=== PATIENT | female | born 1955 | race Caucasian/White ===

== ENCOUNTER 2017-04-10 11:56 | Emergency (ER) | payer BC ==
[2017-04-10 12:05] VITALS: BP 139/89
--- NOTE | 2017-04-10 14:02 | XRAY Preliminary Report ---
Exam: XR Ankle 3 View RT IMPRESSION: 1. Posterior malleolar fracture, with minimal displacement. 2. No other definite acute osseous abnormalities. 2. Probable soft tissue swelling of the ankle, versus patient body habitus. [facility] SITE ID: [id number]
--- NOTE | 2017-04-10 14:04 | XRAY Preliminary Report ---
Exam: XR Knee 3 View LT IMPRESSION: 1. No definite acute abnormality of the left knee. 2. Status post arthroplasty, with expected appearance. [facility] SITE ID: [id number]
--- NOTE | 2017-04-10 14:05 | XRAY Report ---
EXAM: RIGHT ANKLE RADIOGRAPHY EXAM DATE: 04/10/2017 01:44 PM. CLINICAL HISTORY: Ankle injury from falling. COMPARISON: None. TECHNIQUE: 3 views. FINDINGS: Bones: Posterior malleolar fracture, with very minimal displacement. No other definite acute fracture or bone lesion. Achilles calcaneal spur and some apparent mild spurring at the dorsal margin of the anterior talus. Linear calcification adjacent plantar margin of the posterior calcaneus is likely chr onic. Joints: Normal. No effusion. No subluxations. The ankle mortise is normally aligned. Soft Tissues: Probable medial and lateral soft tissue swelling, versus patient body habitus. IMPRESSION: 1. Posterior malleolar fracture, with minimal displacement. 2. No other definite acute osseous abnormalities. 2. Probable soft tissue swelling of the ankle, versus patient body habitus. [facility] Referring Provider Line: [phone] SITE ID: [id number]
--- NOTE | 2017-04-10 14:07 | XRAY Report ---
EXAM: LEFT KNEE RADIOGRAPHY EXAM DATE: 04/10/2017 01:45 PM. CLINICAL HISTORY: Fell onto knees. COMPARISON: None. TECHNIQUE: 3 views. FINDINGS: Bones: No definite fractures or bone lesions. Tiny linear calcific density anterior to the distal fem ur, just above the prosthetic component, likely represents an incidental chronic calcification. Joints: Status post arthroplasty with expected appearance and alignment. Soft Tissues: Normal. No soft tissue swelling. IMPRESSION: 1. No definite acute abnormality of the left knee. 2. Status post arthroplasty, with expected appearance. [facility] Referring Provider Line: [phone] SITE ID: [id number]
--- NOTE | 2017-04-10 14:07 | XRAY Preliminary Report ---
Exam: XR Knee 3 View RT IMPRESSION: 1. Findings suspicious for nondisplaced proximal fibular fracture. Clinical correlation for site of s ymptoms is recommended. 2. Moderate-sized joint effusion. 3. Status post arthroplasty, with expected appearance. 4. Tiny suprapatellar calcifications are likely chronic and incidental although they are not specific . [facility] SITE ID: [id number]
--- NOTE | 2017-04-10 14:10 | XRAY Report ---
EXAM: RIGHT KNEE RADIOGRAPHY EXAM DATE: 04/10/2017 01:45 PM. CLINICAL HISTORY: Knee injury from falling. COMPARISON: None. TECHNIQUE: 3 views. FINDINGS: Bones: Slight cortical irregularity and some altered density of the proximal fibular neck/head is mynor picious for nondisplaced fracture. No other definite fractures or acute bone lesions. Joints: Status post knee arthroplasty, with expected appearance. No malalignment. Moderate-sized join t effusion. Soft Tissues: Tiny calcific densities superior to the patella likely represent incidental chronic carlos cifications although tiny loose bodies or fracture fragments are not definitely excluded. IMPRESSION: 1. Findings suspicious for nondisplaced proximal fibular fracture. Clinical correlation for site of s ymptoms is recommended. 2. Moderate-sized joint effusion. 3. Status post arthroplasty, with expected appearance. 4. Tiny suprapatellar calcifications are likely chronic and incidental although they are not specific . [facility] Referring Provider Line: [phone] SITE ID: [id number]
--- NOTE | 2017-04-10 14:16 | ED Physician Documentation ---
PD HPI Fall - Stated complaint Stated Complaint: BILAT LEGS INJ/GLF - Chief complaint Chief Complaint: Ext Problem - History obtained from History obtained from: Patient - History of Present Illness Mechanism of injury: Tripped Fall distance: Standing position Where injury occurred: Home Timing - onset: How many days ago (3) Injury(ies) location: Right Lower Extremity, Left Lower Extremity Quality of pain: Pain Worsens with: Movement, Palpation, Other (weightbearing) - Treatment prior to arrival Treatment prior to arrival: Percocet - Additional information Additional information: The patient is a 61-year-old female with history of bilateral total knee replacements, who presents with pain in her right ankle, right knee, and left knee. She fell 3 days ago when she tripped while getting out of the shower at home. She presents now because the pain has not been getting better. It is worse with weightbearing. She has been using a walker to assist with ambulation. In addition to bilateral total knee replacements she has a history of rheumatoid arthritis, for which she has been prescribed Percocet. Review of Systems Constitutional: denies: Fever Ears: denies: Tinnitus/ringing Nose: denies: Congestion Throat: denies: Sore throat Cardiac: denies: Chest pain / pressure Respiratory: denies: Dyspnea, Cough GI: denies: Abdominal Pain, Vomiting : denies: Dysuria Skin: denies: Rash Musculoskeletal: reports: Extremity pain, Pain with weight bearing. denies: Neck pain, Back pain Neurologic: denies: Focal weakness, Numbness, Headache, Head injury, LOC PD PAST MEDICAL HISTORY - Past Medical History Past Medical History: Yes Endocrine/Autoimmune: Type 2 diabetes, HyPOthyroidism Musculoskeletal: Rheumatoid arthritis Other Past Medical History: sinus infection - Past Surgical History Past Surgical History: Yes Ortho: Knee replacement, Carpal Tunnel surgery - Present Medications Home Medications: Ambulatory Orders Medication Instructions Recorded Confirmed Antihistamine Otc Low Dose Every 04/10/17 Day Ibuprofen 3 tab QID PRN 04/10/17 04/10/17 Levothyroxine [Synthroid] 175 mcg DAILY 04/10/17 04/10/17 Magnesium 250 mg PRN 04/10/17 Methotrexate 10 tab DAILY 04/10/17 04/10/17 Oxycodone HCl/Acetaminophen 1 - 2 tab QID PRN 04/10/17 04/10/17 [Percocet 7.5-325 mg Tablet] Remicade Every 5-6 Weeks For 04/10/17 Infusion metFORMIN [Glucophage] 500 mg BID 04/10/17 04/10/17 traZODone [Desyrel] 100 mg QPM 04/10/17 04/10/17 - Allergies Allergies/Adverse Reactions: Allergies Allergy/AdvReac Type Severity Reaction Status Date / Time No Known Drug Allergies Allergy Verified 04/10/17 12:05 - Social History Does the pt smoke?: No Smoking Status: Never smoker Does the pt drink ETOH?: No Does the pt have substance abuse?: No PD ED PE NORMAL - Vitals Vital signs reviewed: Yes (Borderline hypertension initially.) - General General: Alert and oriented X 3, Other (Overweight female who ambulated into the department with the assistance of a walker.) - HEENT HEENT: Atraumatic, EOMI - Neck Neck: No bony TTP, No JVD - Cardiac Cardiac: RRR, No murmur - Respiratory Respiratory: No respiratory distress, Clear bilaterally - Abdomen Abdomen: Soft, Non tender - Back Back: No CVA TTP, No spinal TTP - Derm Derm: No rash - Extremities Extremities: No calf tenderness / cord, Other (There is tenderness to palpation at the proximal fibular aspect of the right knee. There is swelling and tenderness to palpation at the posterior aspect of the ankle, particularly laterally. There is no tenderness over the fifth metatarsal base or the medial malleolus. Distal neurovascular is intact. The left knee has minimal tenderness to palpation over the prepatellar aspect of the knee, without tenderness over the lateral joint lines. She has full range of motion of the left knee with no instability detected. Distal neurovascular is intact.) - Neuro Neuro: Alert and oriented X 3, No motor deficit, Normal speech Results - Vitals Vitals: Oxygen O2 Source Room air - Rads (name of study) right ankle Radiology: Prelim report reviewed, EMP read contemporaneously, See rad report ( Posterior malleolar fracture, with minimal displacement. No other definite acute osseous abnormalities. Soft tissue swelling of the ankle.) right knee Radiology: Prelim report reviewed, EMP read contemporaneously, See rad report ( Findings suspicious for a nondisplaced proximal fibular fracture. Clinical correlation for site of symptoms is recommended. Moderate sized joint effusion. Status post arthroplasty, with expected appearance. Tiny suprapatellar calcifications are likely chronic and incidental although they are not specific. ) left knee Radiology: Prelim report reviewed, EMP read contemporaneously, See rad report ( No definite acute abnormality of the left knee. Status post arthroplasty, with expected appearance.) Procedures - Splint (location) right knee Splint applied by: Tech Type of splint: Other (Knee immobilizer) Other: Patient tolerated well, Other (Patient has her own walker.) Right ankle Splint applied by: Tech Type of splint: Other (Orthotic boot) Other: Patient tolerated well, No complications, Other (Patient has her own walker.) PD MEDICAL DECISION MAKING - ED course Complexity details: reviewed results, re-evaluated patient, considered differential, d/w patient, d/w family, d/w sap pp consultant ED course: The patient's presentation is significant for fractures of the right proximal fibula and the right posterior malleolus, caused by a trip and fall. Both fractures are nondisplaced. Treatment in the emergency department included application of a right knee immobilizer and an orthotic boot. I discussed her condition with the physician's ice cream freezer assistant on-call for Dr. Sanchez, who is the patient's orthopedic surgeon. She agrees with the above splinting and urgent outpatient follow-up. The patient has previously prescribed Percocet if needed for pain. I discussed with her the results of her x-rays, symptomatic treatment and urgent outpatient orthopedic follow-up, as well as potentially worrisome signs or symptoms that should prompt reevaluation in the emergency department. Departure - Departure Disposition: 01 Home, Self Care Clinical Impression: Fracture of right proximal fibula Qualifiers: Encounter type: initial encounter Fracture type: closed Fracture morphology: unspecified fracture morphology Qualified Code(s): S82.831A - Other fracture of upper and lower end of right fibula, initial encounter for closed fracture Fracture of posterior malleolus of right tibia Qualifiers: Encounter type: initial encounter Fracture type: closed Qualified Code(s): S82.391A - Other fracture of lower end of right tibia, initial encounter for closed fracture Condition: Stable Instructions: ED Fx Ankle General, ED Boot Aircast Walker, ED Fx Lower Ext Follow-Up: [facility] [Provider Group] Sae Sanchez DO [Physician No Access] - Comments: Keep your right leg elevated as much of the time as possible. You can use your previously prescribed Percocet if needed for pain. Use the walking cast boot when walking. Use the knee immobilizer if it provides comfort. Follow up with your control specialist within one to 2 weeks. Call to schedule an appointment. Return to the emergency department if you develop increasing pain or swelling, or otherwise worsening symptoms. Discharge Date/Time: 04/10/17 15:20
== END 2017-04-10 15:20 | disposition home or self-care (01) ==
LOC: ED 11:56
DX: S82.831A Other fracture of upper and lower end of right fibula, initial encounter for closed fracture (principal); S82.391A Other fracture of lower end of right tibia, initial encounter for closed fracture; W18.2XXA Fall in (into) shower or empty bathtub, initial encounter; Y92.002 Bathroom of unspecified non-institutional (private) residence as the place of occurrence of the external cause; Z96.653 Presence of artificial knee joint, bilateral; M06.9 Rheumatoid arthritis, unspecified; E66.3 Overweight; M25.461 Effusion, right knee; E11.9 Type 2 diabetes mellitus without complications; Z79.4 Long term (current) use of insulin
CPT/HCPCS: 99283; 99284

== ENCOUNTER 2017-07-16 14:45 | Emergency (ER) | payer BC ==
[2017-07-16] MEDS ORDERED: HYDROmorphone 1 MG/ML SYRINGE IM STA (15:33)
[2017-07-16] MEDS ORDERED: BUFFERED LIDOCAINE 10 ML SYRINGE ONE (15:34)
[2017-07-16] MEDS ORDERED: HYDROmorphone 1 MG/ML SYRINGE ONE (15:51)
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
[2017-07-16 16:54] VITALS: BP 140/88
== END 2017-07-16 16:54 | disposition home or self-care (01) ==
LOC: ED 14:45
DX: S80.12XA Contusion of left lower leg, initial encounter (principal); V89.2XXA Person injured in unspecified motor-vehicle accident, traffic, initial encounter; M06.9 Rheumatoid arthritis, unspecified; E11.8 Type 2 diabetes mellitus with unspecified complications; Z79.84 Long term (current) use of oral hypoglycemic drugs; Z96.659 Presence of unspecified artificial knee joint
CPT/HCPCS: 10160; 96372; 99283; J1170

== ENCOUNTER 2019-01-09 19:05 | Inpatient (IN) | payer BC, MEDICAID, OTHER ==
[2019-01-09] MEDS ORDERED: diltiaZEM INJ 5 MG/ML VIAL IVP STA ×4 (19:26→22:01)
[2019-01-09 19:27] LABS: BASOPHILS % (AUTO) 0.3 %; EOSINOPHILS # (AUTO) 0.3 10^3/uL (0.0-0.7); EOSINOPHILS % (AUTO) 2.6 %; LYMPHOCYTES % (AUTO) 22.9 %; MEAN CORPUSCULAR HEMOGLOBIN 30.8 pg (27.0-31.0); MEAN CORPUSCULAR HGB CONC 33.8 g/dL (32.0-36.0); MEAN CORPUSCULAR VOLUME 91.1 fL (81.0-99.0); MEAN PLATELET VOLUME 9.9 fL (7.9-10.8); MONOCYTES # (AUTO) 1.1 10^3/uL (0.0-1.0); MONOCYTES % (AUTO) 8.5 %; NEUTROPHILS # (AUTO) 8.6 10^3/uL (1.5-6.6); NEUTROPHILS % (AUTO) 65.7 %; PLT - PLATELET COUNT 208 10^3/uL (130-450); RED CELL DISTRIBUTION WIDTH 13.2 % (12.0-15.0)
--- NOTE | 2019-01-09 19:29 | ED Physician Documentation ---
PD HPI CHEST PAIN - Stated complaint Stated Complaint: CP - Chief complaint Chief Complaint: Cardiac - History obtained from History obtained from: Patient - History of Present Illness Timing - onset: Other (This is a 63-year-old woman with history of type 2 diabetes and rheumatoid arthritis. She had a Remicade infusion 5 days ago and it was noted by the infusion nurse that her heart was "racing". She was relatively asymptomatic then but starting the next day developed progressive shortness of bad breath, upper back pain, fatigue and sweats. There is some chest discomfort but it is mild. No pedal edema. She has no history of heart issues.) Review of Systems Ten Systems: 10 systems reviewed and negative Constitutional: reports: Fatigue, Sweats. denies: Fever, Chills Cardiac: reports: Chest pain / pressure, Palpitations Respiratory: reports: Dyspnea. denies: Cough PD PAST MEDICAL HISTORY - Past Medical History Endocrine/Autoimmune: Type 2 diabetes, HyPOthyroidism Musculoskeletal: Rheumatoid arthritis - Past Surgical History Past Surgical History: Yes Ortho: Knee replacement, Carpal Tunnel surgery - Present Medications Home Medications: Ambulatory Orders Medication Instructions Recorded Confirmed Oxycodone HCl/Acetaminophen 7.5 mg Q4H PRN 04/10/17 01/10/19 [Percocet 7.5-325 mg Tablet] RX: Ibuprofen 600 mg QID PRN 04/10/17 01/10/19 RX: Magnesium 250 mg PO DAILY 04/10/17 01/10/19 RX: Methotrexate 25 mg ORAL Q7D 04/10/17 01/10/19 RX: metFORMIN [Glucophage] 1,000 mg ORAL BID 04/10/17 01/10/19 RX: traZODone [Desyrel] 50 - 100 mg ORAL QPM 04/10/17 01/10/19 RX: Aspirin 81 mg PO DAILY 01/09/19 01/10/19 RX: Folic Acid 4 mg PO DAILY 01/09/19 01/10/19 RX: Potassium Chloride 10 meq PO DAILY 01/09/19 01/10/19 Fluticasone [Flonase] 1 sprays DOMINICK DAILY 01/10/19 01/10/19 Infliximab (Remicade) 600 mg IV .Q5-6WKS 01/10/19 01/10/19 Levothyroxine Sodium [Synthroid] 175 mcg PO QDAC 01/10/19 01/10/19 - Allergies Allergies/Adverse Reactions: Allergies Allergy/AdvReac Type Severity Reaction Status Date / Time No Known Drug Allergies Allergy Verified 01/09/19 19:14 - Social History Does the pt smoke?: No Smoking Status: Never smoker Does the pt drink ETOH?: No Does the pt have substance abuse?: No - Family History Family history: reports: Non contributory PD ED PE NORMAL - Vitals Vital signs reviewed: Yes - General General: Alert and oriented X 3, No acute distress - HEENT HEENT: PERRL, EOMI - Neck Neck: Supple, no meningeal sign, No bony TTP, No JVD - Cardiac Cardiac: Other (Rapid and irregular, no murmur) - Respiratory Respiratory: No respiratory distress, Clear bilaterally - Abdomen Abdomen: Soft, Non tender - Derm Derm: Normal color, Warm and dry - Extremities Extremities: No calf tenderness / cord, Other (Moderate pitting pedal edema, symmetric) - Neuro Neuro: Alert and oriented X 3, Normal speech - Psych Psych: Normal mood, Normal affect Results - Vitals Vitals: Vital Signs - 24 hr 01/09/19 01/09/19 01/09/19 19:10 19:20 19:30 Temperature 36.8 C Heart Rate 189 H 174 H 153 H Respiratory 20 18 19 Rate Blood Pressure 203/156 H 192/147 H 156/129 H O2 Saturation 89 L 95 93 01/09/19 01/09/19 01/09/19 19:38 19:42 19:49 Temperature Heart Rate 123 H 116 H 113 H Respiratory 19 16 20 Rate Blood Pressure 159/146 H 155/127 H 124/101 H O2 Saturation 94 94 94 01/09/19 01/09/19 01/09/19 20:03 20:08 20:13 Temperature Heart Rate 137 H 137 H 115 H Respiratory 21 23 18 Rate Blood Pressure 131/100 H 133/99 H 154/123 H O2 Saturation 94 94 93 01/09/19 01/09/19 01/09/19 20:28 20:35 20:43 Temperature Heart Rate 102 H 115 H 120 H Respiratory 18 22 22 Rate Blood Pressure 124/101 H 102/68 127/98 H O2 Saturation 94 93 93 01/09/19 01/09/19 01/09/19 20:53 21:08 21:15 Temperature Heart Rate 112 H 106 H 112 H Respiratory 20 22 20 Rate Blood Pressure 143/95 H 130/87 H 157/93 H O2 Saturation 92 93 92 01/09/19 01/09/19 01/09/19 21:30 21:40 22:18 Temperature Heart Rate 117 H 104 H 126 H Respiratory 22 22 20 Rate Blood Pressure 159/96 H 173/131 H O2 Saturation 88 L 91 L 01/09/19 01/09/19 01/09/19 22:24 22:30 22:38 Temperature 36.9 C Heart Rate 107 H 114 H Respiratory 19 20 18 Rate Blood Pressure 150/81 H 138/115 H 156/113 H O2 Saturation 92 93 93 01/09/19 01/09/19 01/09/19 22:43 22:50 22:55 Temperature Heart Rate 94 97 92 Respiratory 16 22 18 Rate Blood Pressure 134/94 H 124/83 H 119/85 H O2 Saturation 92 93 93 Oxygen O2 Source Nasal cannula Oxygen Flow Rate 2 - EKG (time done) 1913 Rate: Rate (enter#) (154) Rhythm: Atrial fibrillation [place]: Normal Intervals: Normal [place] QRS: Normal Ischemia: ST depression (lateral) Computer interpretation: Agree with computer - Labs Labs: Laboratory Tests 01/09/19 01/09/19 01/09/19 19:18 19:18 19:18 WBC 13.0 H RBC 4.20 Hgb 13.0 Hct 38.3 MCV 91.1 MCH 30.8 MCHC 33.8 RDW 13.2 Plt Count 208 MPV 9.9 Neut # (Auto) 8.6 H Lymph # (Auto) 3.0 [place] # (Auto) 1.1 H Eos # (Auto) 0.3 Baso # (Auto) 0.0 Absolute Nucleated RBC 0.00 Nucleated RBC % 0.0 Sodium 132 L Potassium 3.9 Chloride 97 L Carbon Dioxide 27 Anion Gap 8.0 BUN 10 Creatinine 0.7 Estimated GFR (MDRD) 85 L Glucose 199 H Lactic Acid Calcium 9.1 Total Bilirubin 1.8 H AST 29 ALT 49 Alkaline Phosphatase 101 Troponin I < 0.04 B-Natriuretic Peptide Total Protein 8.6 H Albumin 3.3 Globulin 5.3 H Albumin/Globulin Ratio 0.6 L Lipase 19 L TSH 01/09/19 01/09/19 01/09/19 19:18 19:18 21:01 WBC RBC Hgb Hct MCV MCH MCHC RDW Plt Count MPV Neut # (Auto) Lymph # (Auto) [place] # (Auto) Eos # (Auto) Baso # (Auto) Absolute Nucleated RBC Nucleated RBC % Sodium Potassium Chloride Carbon Dioxide Anion Gap BUN Creatinine Estimated GFR (MDRD) Glucose Lactic Acid 1.2 Calcium Total Bilirubin AST ALT Alkaline Phosphatase Troponin I B-Natriuretic Peptide 306 H Total Protein Albumin Globulin Albumin/Globulin Ratio Lipase TSH 3.50 PD MEDICAL DECISION MAKING - ED course ED course: This is a 63-year-old woman with new onset rapid atrial fibrillation with mild hypoxemia. She was also found to have right lower lobe pneumonia with a small pleural effusion. We did go ahead and anticoagulate her with Xarelto, CHADS VASC2 Score 2. For the pneumonia she was cultured up and given Rocephin and Zithromax. She was given divided dose of diltiazem with pretty good rate control, totaling 30 mg IV, her heart rate came down to about 110 or so and she was also given an oral dose of diltiazem. She was modestly hypoxemic and came down to about 88% on room air, probably combination of mild CHF and pneumonia. Spoke with Dr. Santos for admission at 9:58 PM. Her HR went back up prior to admit and given another dose of IV dilt followed by metoprolol with better rate control. Cardioversion not offered as she has likely been in afib >48 hrs. - Critical Care Time(min): 42 Time Includes: Direct patient care, Review records, Reassess patient, Document care, Coordinate care, Medical consult, Family consult for tx dec Data interpretation: Labs Procedures included in critical care time: Peripheral IV Procedures excluded from critical care time: EKG Departure - Departure Disposition: [address] [facility] DC/Xfer Clinical Impression: Atrial fibrillation with RVR, Congestive heart failure, Pneumonia, Hypoxemia Condition: Serious Discharge Date/Time: 01/09/19 23:45
[2019-01-09 19:46] LABS: ALBUMIN 3.3 g/dL (3.2-5.5); ALBUMIN/GLOBULIN RATIO 0.6 (1.0-2.2); BILIRUBIN,TOTAL 1.8 mg/dL (0.2-1.0); CALCIUM 9.1 mg/dL (8.5-10.3); CREATININE 0.7 mg/dL (0.4-1.0); TOTAL PROTEIN 8.6 g/dL (6.7-8.2)
[2019-01-09] MEDS ORDERED: diltiaZEM CD 120 MG CAPSULE PO STA (20:17)
[2019-01-09] MEDS ORDERED: RIVAROXABAN 15 MG TABLET PO STA (20:17)
--- NOTE | 2019-01-09 20:29 | XRAY Report ---
Reason: dyspnea Procedure Date: 01/09/2019 Accession Number: [id number] / [id number] Procedure: XR - Chest 1 View X-Ray CPT Code: 04796 FULL RESULT: EXAM: CHEST RADIOGRAPHY EXAM DATE: 01/09/2019 07:51 PM. CLINICAL HISTORY: Dyspnea. COMPARISON: 04/22/2009 12:31 PM. TECHNIQUE: 1 view. FINDINGS: Lungs/Pleura: Hazy infiltrate in the right lung predominantly the lower lobe. Clear left lung. Trace bilateral pleural effusions. No consolidation or pneumothorax. Mediastinum: Overall heart size upper limit of normal for AP technique. Upper lobe vessels not distended. Other: None. IMPRESSION: Right sided infiltrates with tiny pleural effusions. RADIA
[2019-01-09] MEDS ORDERED: cefTRIAXone 1 GM in SODIUM CHLORIDE 0.9% MINIBAG 100 ML IV STA (20:45)
[2019-01-09] MEDS ORDERED: AZITHROMYCIN INJ 500 MG in SODIUM CHLORIDE 0.9% 250 ML IV STA (20:45)
[2019-01-09] MEDS ORDERED: ALBUTEROL NEB 2.5 MG/3 ML INH STA (21:40)
[2019-01-09] MEDS ORDERED: METOPROLOL 5 MG/5 ML VIAL IVP STA (22:23)
[2019-01-09] MEDS ORDERED: MORPHINE 2 MG/ML CARPUJECT IVP STA (22:25)
[2019-01-09] MEDS ORDERED: SODIUM CHLORIDE FLUSH 0.9% 10 ML SYRINGE IVP PRN (22:56)
[2019-01-09] MEDS ORDERED: IOVERSOL 320 100 ML VIAL IVP ONE ×2 (22:56→23:24)
[2019-01-09] MEDS ORDERED: SODIUM CHLORIDE 0.9% 1,000 ML IV SCH (23:00)
--- NOTE | 2019-01-10 00:13 | CT Report ---
Reason: PE Protocol, back pain, hypoxemia Procedure Date: 01/09/2019 Accession Number: [id number] / [id number] Procedure: CT - ANGIO CHEST W/WO CPT Code: FULL RESULT: EXAM: CT ANGIOGRAM CHEST EXAM DATE: 01/09/2019 11:26 PM. CLINICAL HISTORY: PE protocol, back pain, hypoxemia. COMPARISON: CHEST 1 VIEW 01/09/2019 7:51 PM. TECHNIQUE: Routine helical imaging was performed through the chest in the pulmonary arterial phase. IV Contrast: 80 mL Optiray 320. Reconstructions: Coronal 3D MIP reconstructions.Sagittal and coronal. In accordance with CT protocol optimization, one or more of the following dose reduction techniques were utilized for this exam: automated exposure control, adjustment of mA and/or KV based on patient size, or use of iterative reconstructive technique. FINDINGS: Mediastinum: Prominent heart size. No thoracic aortic aneurysm. Multiple prominent mediastinal lymph nodes. Subcarinal lymphadenopathy 1.1 cm. Mildly prominent bilateral hilar lymph nodes. Small amount of gas in the left brachiocephalic vein. No evidence for pulmonary emboli. Lungs: Small bilateral pleural effusions. Diffuse bilateral interlobular septal thickening and airspace disease in the lungs, right greater than left. No pneumothorax. Upper Abdomen: Mild reflux of contrast in the hepatic veins. Multiple moderate sized calcified gallstones. Possible mild pericholecystic fluid and acute cholecystitis is possible. Recommend a right upper quadrant ultrasound to further evaluate as clinically indicated. Periportal lymphadenopathy, largest measuring 1.2 cm. Portacaval lymphadenopathy 1.2 cm. A couple of left adrenal masses, the more superior one measures 1.4 x 1.7 cm and the more inferior one measuring 1.3 x 1.6 cm. Bones: No acute bone findings. IMPRESSION: 1. No evidence for pulmonary emboli. 2. Small bilateral pleural effusions. Diffuse bilateral interlobular septal thickening and airspace disease in the lungs, right greater than left, could represent pulmonary edema. Pneumonia is also possible. 3. Multiple prominent mediastinal and hilar lymph nodes. Subcarinal lymphadenopathy. These could be reactive, however, metastasis is not excluded and follow-up is recommended. 4. Multiple moderate sized calcified gallstones. Possible mild pericholecystic fluid and acute cholecystitis is possible. Recommend a right upper quadrant ultrasound to further evaluate as clinically indicated. 5. Periportal lymphadenopathy. 6. A couple of left adrenal masses. If there is low risk for malignancy, recommend a one-year follow-up MRI or CT adrenal mass protocol. If there is high risk for malignancy/metastasis, more immediate workup recommended. 7. See above. RADIA
[2019-01-10] MEDS: SODIUM CHLORIDE FLUSH 0.9% 10 ML SYRINGE IVP SCH ×3 (00:22→17:08)
--- NOTE | 2019-01-10 00:29 | HISTORY & PHYSICAL EXAMINATION ---
Chief Complaint - Chief Complaint Chief Complaint: dyspnea History of Present Illness - Admitted From Admitted From:: [facility] ED - History Obtained From Records Reviewed: yes History obtained from: patient - History of Present Illness HPI Comment/Other: Patient seen on 01/09/19 at 10:30pm Patient is a 63 y/o obese female with medical history significant for DM II, hypothyroidism, rheumatoid arthritis on remicade and methotrexate and JAGDISH on home CPAP. She presented to the ED today with complain of dyspnea which started on Tuesday. She decided to come in today because she felt her symptoms have gotten worse over the past 3 days.. She also was worried that she may be having a coronary event. She denies chest pain or tightness but reports chest pressure and back pain. She was found to be tachycardic with rates as high as 150-170 in the ED. It was an irregularly irregular rhythm. She has rheumatoid arthritis and gets remicade. At her last infusion, she was told she was tachycardic. She was asymptomatic at the time. She attempted using her husbands albuterol inhaler at home but reports minimal relief of her dyspnea from using it. She also complained of a diffuse abdominal pain. She has been constipated for a couple day now. She denies fever or chills In the ED work up included CBC, BMP and chest xray. As a result of findings of possible pneumonia and new atrial fibrillation with rvr, she is being admitted for further evaluation and treatment. History - Past Medical History Respiratory: reports: Sleep apnea, CPAP use Endocrine/Autoimmune: reports: Type 2 diabetes, HyPOthyroidism Musculoskeletal: reports: Rheumatoid arthritis MRSA Hx?: No - Past Surgical History Ortho: reports: Knee replacement, Carpal Tunnel surgery - Family & Social History Family History Comment/Other: mother: . had lung cancer. sister: from thyroid cancer Living arrangement: At home Living Situation: With spouse/s.o. - Substance History Use: Uses substance without health or social issues: NONE - POLST Patient has POLST: No Meds/Allgy - Home Medications Home Medications: Ambulatory Orders Medication Instructions Recorded Confirmed Ibuprofen 3 tab QID PRN 04/10/17 07/16/17 Levothyroxine [Synthroid] 175 mcg DAILY 04/10/17 07/16/17 Magnesium 250 mg PO DAILY 04/10/17 07/16/17 Methotrexate 10 tab ORAL DAILY 04/10/17 07/16/17 Oxycodone HCl/Acetaminophen 1 - 2 tab QID PRN 04/10/17 07/16/17 [Percocet 7.5-325 mg Tablet] Remicade Every 5-6 Weeks For 1 tab PO DAILY 04/10/17 07/16/17 Infusion metFORMIN [Glucophage] 1,000 mg ORAL BID 04/10/17 07/16/17 traZODone [Desyrel] 100 mg ORAL QPM 04/10/17 07/16/17 Aspirin 81 mg PO DAILY 01/09/19 01/09/19 Folic Acid 4 mg PO DAILY 01/09/19 01/09/19 Potassium Chloride 10 meq PO DAILY 01/09/19 01/09/19 - Allergies Allergies/Adverse Reactions: Allergies Allergy/AdvReac Type Severity Reaction Status Date / Time No Known Drug Allergies Allergy Verified 01/09/19 19:14 Review of Systems - Constitutional Constitutional: denies: Fever, Chills, Malaise - Eyes Eyes: denies: Pain, Irritation, Blurred vision, Dipolpia - Ears, Nose & Throat Ears, Nose & Throat: denies: Ear pain, Hearing loss, Tinnitus, Vertigo - Cardiovascular Cariovascular: reports: Irregular heart rate. denies: Chest pain, Edema, Lightheadedness, Syncope - Respiratory Respiratory: reports: SOB at rest, Apnea. denies: Cough, Wheezing - Gastrointestinal Gastrointestinal: reports: Abdominal pain, Constipation. denies: Abdominal distention, Diarrhea, Nausea, Vomiting - Musculoskeletal Musculoskeletal: reports: Back pain. denies: Muscle pain - Integumentary Integumentary: denies: Rash, Pruritis, Lesions, Dryness - Neurological Neurological: denies: General weakness, Headache, Dizziness - Psychiatric Psychiatric: denies: Depression, Anxiety - Endocrine Endocrine: denies: Polyuria, Polydypsia - Hematologic/Lymphatic Hematologic/Lymphatic: denies: Bruising, Petechiae Prior Level of Functionality: Lives at home with . Actively involve in daughter and grand daughter's life. Independent of activities of daily living Exam - Vital Signs Vital Signs: Vital Signs x48h Temp Pulse Resp BP Pulse Ox 01/09/19 23:35 87 18 122/77 93 01/09/19 23:30 91 17 117/79 92 01/09/19 23:03 92 19 118/70 93 01/09/19 22:55 92 18 119/85 H 93 01/09/19 22:50 97 22 124/83 H 93 01/09/19 22:43 94 16 134/94 H 92 01/09/19 22:38 114 H 18 156/113 H 93 01/09/19 22:30 107 H 20 138/115 H 93 01/09/19 22:24 36.9 C 19 150/81 H 92 01/09/19 22:18 126 H 20 173/131 H 91 L 01/09/19 21:40 104 H 22 01/09/19 21:30 117 H 22 159/96 H 88 L 01/09/19 21:15 112 H 20 157/93 H 92 01/09/19 21:08 106 H 22 130/87 H 93 01/09/19 20:53 112 H 20 143/95 H 92 01/09/19 20:43 120 H 22 127/98 H 93 01/09/19 20:35 115 H 22 102/68 93 01/09/19 20:28 102 H 18 124/101 H 94 01/09/19 20:13 115 H 18 154/123 H 93 01/09/19 20:08 137 H 23 133/99 H 94 01/09/19 20:03 137 H 21 131/100 H 94 01/09/19 19:49 113 H 20 124/101 H 94 01/09/19 19:42 116 H 16 155/127 H 94 01/09/19 19:38 123 H 19 159/146 H 94 01/09/19 19:30 153 H 19 156/129 H 93 01/09/19 19:20 174 H 18 192/147 H 95 01/09/19 19:10 36.8 C 189 H 20 203/156 H 89 L - Physical Exam General Appearance: positive: Alert, Moderate distress Eyes Bilateral: positive: Normal inspection, PERRL, EOMI, No scleral icterus ENT: positive: ENT inspection nml, Pharynx nml Neck: positive: Nml inspection, No JVD, Trachea midline Respiratory: positive: Chest non-tender, No respiratory distress, Breath sounds nml. negative: Wheezes, Rales, Rhonchi Cardiovascular: positive: No murmur, Irregularly irregular, Tachycardia Abdomen: positive: Non-tender, Nml bowel sounds, No distention. negative: Guarding, Rebound Back: positive: Nml inspection Skin: positive: Color nml, No rash, Warm, Dry Extremities: positive: Non-tender, Nml appearance, No pedal edema Neurologic/Psychiatric: positive: Oriented x3, CN's nml (2-12), Motor nml, Sensation nml Sepsis Event Note (H) - Evaluation Current Stage of Sepsis: Sepsis Possible source of Sepsis: positive: Pulmonary - Sepsis Criteria Sepsis Criteria: Recorded Heart Rate greater than 90 bpm, WBC count greater than 12,000 or less than 4000 Conclusion/Plan - Problem List (1) Atrial fibrillation with RVR Conclusion/Plan: Etiology undetermined ?2/2 Community acquired pneumonia Treating with rocephin and azithromycin Thyroid unlikely as TSH is within normal range ?Cardiac source: Trending troponin X 2 more. 2D echo pending Patient received diltiazem IV and metoprolol IV Rates improved. Diltiazem 60mg po qid ordered. Will hold for SBP< 100 or pulse < 60 CT Angio negative for PE CHAD2 Score of 2 Patient given 15mg po of xarelto in the ED Will continue for atrial fibrillation (2) Community acquired bacterial pneumonia Conclusion/Plan: On rocephin and azithromycin (3) Diabetes mellitus, type II Conclusion/Plan: Metformin held. Low dose SSI. Accu checks Qualifiers: Diabetes mellitus complication status: without complication (4) Rheumatoid arteritis Conclusion/Plan: Remicade and methotrexate on hold while treating potential pneumonia (5) Hypothyroidism Conclusion/Plan: Resume home synthroid once verified (6) JAGDISH on CPAP Conclusion/Plan: Continue using CPAP (7) Hypertension Conclusion/Plan: New Patient given metoprolol Will monitor Qualifiers: Hypertension type: essential hypertension Qualified Code(s): I10 - Essential (primary) hypertension - Lab Results Fish Bones: 01/09/19 19:18 01/09/19 19:18 Core Measures - Anticipated LOS I expect patient to be DC'd or transferred within 96 hours.: Yes - DVT/VTE - Prophylaxis VTE/DVT Device ordered at admit?: Yes VTE/DVT Prophylaxis med ordered at admit?: Yes
[2019-01-10] MEDS: diltiaZEM 30 MG TABLET PO SCH ×2 (01:05→07:04)
[2019-01-10] MEDS: ACETAMINOPHEN 325 MG TABLET PO PRN ×2 (01:20→08:25)
[2019-01-10 01:27] LABS: HB2 TOTAL 12.7 g/dL; HEMOGLOBIN A1C 0.76 g/dL; HEMOGLOBIN A1C % 7.6 % (4.6-6.2)
[2019-01-10 05:03] LABS: BASOPHILS # (AUTO) 0.1 10^3/uL (0.0-0.1); BASOPHILS % (AUTO) 0.7 %; EOSINOPHILS # (AUTO) 0.2 10^3/uL (0.0-0.7); EOSINOPHILS % (AUTO) 1.6 %; HGB - HEMOGLOBIN 11.5 g/dL (12.0-16.0); LYMPHOCYTES # (AUTO) 2.3 10^3/uL (1.5-3.5); LYMPHOCYTES % (AUTO) 17.6 %; MEAN CORPUSCULAR HEMOGLOBIN 30.8 pg (27.0-31.0); MEAN CORPUSCULAR VOLUME 93.1 fL (81.0-99.0); MEAN PLATELET VOLUME 9.9 fL (7.9-10.8); NEUTROPHILS # (AUTO) 9.3 10^3/uL (1.5-6.6); NEUTROPHILS % (AUTO) 72.1 %; PLT - PLATELET COUNT 176 10^3/uL (130-450); RED BLOOD COUNT 3.75 10^6/uL (4.20-5.40); RED CELL DISTRIBUTION WIDTH 13.1 % (12.0-15.0); WHITE BLOOD COUNT 12.8 x10^3/uL (4.8-10.8)
[2019-01-10 05:09] LABS: CALCIUM 8.3 mg/dL (8.5-10.3); CREATININE 0.7 mg/dL (0.4-1.0)
[2019-01-10] MEDS: POLYETHYLENE GLYCOL 3350 17 GM PACKET PO SCH (08:09)
[2019-01-10] MEDS: LACTULOSE 10 GM /15 ML UDC PO SCH ×2 (08:09→20:50)
[2019-01-10] MEDS: INSULIN ASPART 300 UNIT/3 ML PEN SUBQ SCH ×5 (08:13→20:50)
[2019-01-10] MEDS ORDERED: AZITHROMYCIN 250 MG TABLET PO ONE (08:28)
[2019-01-10] MEDS ORDERED: oxyCODONE 5 MG TABLET PO PRN (08:46)
[2019-01-10] MEDS ORDERED: AZITHROMYCIN 250 MG TABLET PO SCH ×2 (09:00)
[2019-01-10] MEDS ORDERED: cefTRIAXone 2 GM in SODIUM CHLORIDE 0.9% MINIBAG 100 ML IV SCH (09:00)
[2019-01-10] MEDS ORDERED: LEVOTHYROXINE 100 MCG TABLET PO SCH (09:00)
[2019-01-10] MEDS ORDERED: SODIUM CHLORIDE 0.9% MINIBAG 100 ML IV ONE (09:49)
[2019-01-10] MEDS ORDERED: SODIUM CHLORIDE 0.9% 0 ML IV ONE (10:15)
[2019-01-10] MEDS: FOLIC ACID 1 MG TABLET PO SCH (10:21)
[2019-01-10] MEDS: ASPIRIN CHEW 81 MG TABLET PO SCH (10:21)
[2019-01-10] MEDS: cefTRIAXone 2 GM in SODIUM CHLORIDE 0.9% MINIBAG 100 ML IV SCH (10:24)
[2019-01-10] MEDS ORDERED: oxyCOD/ACETAMIN 5 MG/325 MG TABLET PO PRN (10:35)
--- NOTE | 2019-01-10 14:42 | PROVIDER PROGRESS NOTE ---
Subjective - Prog Note Date Prog Note Date: 01/10/19 - Subjective Pt reports feeling: Improved Subjective: pt feel better for her breath, she denies fever, chill, chest pain. Current Medications - Current Medications Current Medications: Active Medications Acetaminophen (Tylenol) 650 mg PO Q4HR PRN PRN Reason: Pain 1 to 4 Last Admin: 01/10/19 08:25 Dose: 650 mg Aspirin ([facility] Aspirin) 81 mg PO DAILY [facility] Last Admin: 01/10/19 10:21 Dose: 81 mg Azithromycin (Zithromax) 500 mg PO DAILY [facility] Stop: 01/14/19 09:01 Diltiazem HCl (Cardizem) 60 mg PO Q6H [facility] Last Admin: 01/10/19 11:44 Dose: 60 mg Folic Acid () 4 mg PO DAILY [facility] Last Admin: 01/10/19 10:21 Dose: 4 mg Furosemide (Lasix) 20 mg PO BIDDIURETIC [facility] Ceftriaxone Sodium 2 gm/ (Sodium Chloride) 100 mls @ 200 mls/hr IV Q24H [facility] Last Infusion: 01/10/19 10:55 Dose: Infused Insulin Aspart (Novolog) 1 - 9 unit SUBQ 0800,1200,1700,2100 [facility]; Protocol Last Admin: 01/10/19 11:50 Dose: 3 unit Lactulose (Enulose) 15 gm PO BID [facility] Stop: 01/11/19 21:01 Last Admin: 01/10/19 08:09 Dose: 15 gm Levothyroxine Sodium (Synthroid) 100 mcg PO QDAC [facility] Levothyroxine Sodium (Synthroid) 75 mcg PO QDAC [facility] Oxycodone HCl (Roxicodone) 5 mg PO Q6H PRN PRN Reason: PAIN Polyethylene Glycol (Miralax) 17 gm PO DAILY [facility] Last Admin: 01/10/19 08:09 Dose: 17 gm Rivaroxaban (Xarelto) 20 mg PO 1700 [facility] Sodium Chloride (Normal Saline Flush 0.9%) 10 ml IVP PRN PRN PRN Reason: NEEDED PER PROVIDER ORDERS Sodium Chloride (Normal Saline Flush 0.9%) 10 ml IVP 0100,0900,1700 [facility] Last Admin: 01/10/19 08:10 Dose: Not Given Trazodone HCl (Desyrel) 100 mg PO QPM [facility] Ibuprofen 600 mg QID PRN 04/10/17 Magnesium 250 mg PO DAILY 04/10/17 Methotrexate 25 mg ORAL Q7D 04/10/17 Oxycodone HCl/Acetaminophen [Percocet 7.5-325 mg Tablet] 7.5 mg Q4H PRN 04/10/17 metFORMIN [Glucophage] 1,000 mg ORAL BID 04/10/17 traZODone [Desyrel] 50 - 100 mg ORAL QPM 04/10/17 Aspirin 81 mg PO DAILY 01/09/19 Folic Acid 4 mg PO DAILY 01/09/19 Potassium Chloride 10 meq PO DAILY 01/09/19 Fluticasone [Flonase] 1 sprays DOMINICK DAILY 01/10/19 Infliximab (Remicade) 600 mg IV .Q5-6WKS 01/10/19 Levothyroxine Sodium [Synthroid] 175 mcg PO QDAC 01/10/19 Objective - Vital Signs/Intake & Output Reviewed Vital Signs: Yes Vital Signs: Vital Signs x48h Temp Pulse Resp BP BP Pulse Ox 01/10/19 11:44 126/79 01/10/19 07:40 36.6 C 75 17 112/69 90 L 01/10/19 07:04 125/80 01/10/19 06:57 82 125/82 H Intake & Output: Intake & Output 01/07/19 01/08/19 01/09/19 01/10/19 23:59 23:59 23:59 23:59 Intake Total 350 1220 Output Total 250 Balance 350 970 - Objective General Appearance: positive: No acute distress, Alert. negative: Lethargic Eyes Bilateral: positive: Normal inspection, PERRL, No lid inflammation, Conjunctivae nml ENT: positive: ENT inspection nml, Pharynx nml, No signs of dehydration. negative: Purulent nasal drainage, Pharyngeal erythema, Oral lesions Neck: positive: Nml inspection, Thyroid nml, No JVD, Trachea midline. negative: Thyromegaly, Lymphadenopathy (R), Lymphadenopathy (L), Stiff neck, Swelling/bruising, Tracheal deviation Respiratory: positive: Chest non-tender, No respiratory distress. negative: Wheezes, Rales, Rhonchi Cardiovascular: positive: Regular rate & rhythm, No murmur, No gallop. negative: Irregularly irregular, Extrasystoles, Tachycardia, Bradycardia, JVD present, Systolic murmur, Diastolic murmur Peripheral Pulses: 2+ Radial (R), 2+ Radial (L), 2+ Dorsalis pedis (R), 2+ Dorsalis pedis (L) Abdomen: positive: Non-tender, No organomegaly, Nml bowel sounds, No distention. negative: Tenderness, Guarding, Rebound Back: positive: Nml inspection. negative: CVA tenderness (R), CVA tenderness (L) Skin: positive: Color nml, No rash, Warm, Dry. negative: Cyanosis, Diaphoresis, Pallor Extremities: positive: Non-tender, Nml appearance. negative: Calf tenderness, Joint swelling, Willie's sign/cords Neurologic/Psychiatric: positive: Oriented x3, Sensation nml, Mood/affect nml. negative: Weakness, Sensory loss, Facial droop, Slurred/abnml speech, Depressed mood/affect - Lab Results Fish Bones: 01/10/19 04:40 01/10/19 04:40 Other Labs: Lab Results x24hrs 01/10/19 01/10/19 01/10/19 Range/Units 11:40 07:42 07:05 WBC (4.8-10.8) x10^3/uL RBC (4.20-5.40) 10^6/uL Hgb (12.0-16.0) g/dL Hct (37.0-47.0) % MCV (81.0-99.0) fL MCH (27.0-31.0) pg MCHC (32.0-36.0) g/dL RDW (12.0-15.0) % Plt Count (130-450) 10^3/uL MPV (7.9-10.8) fL Neut # (Auto) (1.5-6.6) 10^3/uL Lymph # (Auto) (1.5-3.5) 10^3/uL Bryan # (Auto) (0.0-1.0) 10^3/uL Eos # (Auto) (0.0-0.7) 10^3/uL Baso # (Auto) (0.0-0.1) 10^3/uL Absolute Nucleated RBC x10^3/uL Nucleated RBC % /100WBC Sodium (135-145) mmol/L Potassium (3.5-5.0) mmol/L Chloride (101-111) mmol/L Carbon Dioxide (21-32) mmol/L Anion Gap (6-13) BUN (6-20) mg/dL Creatinine (0.4-1.0) mg/dL Estimated GFR (MDRD) (>89) Glucose (70-100) mg/dL POC Whole Bld Glucose 262 H 183 H (70 - 100) mg/dL Glycated Hemoglobin (4.6-6.2) % Estim Average Glucose (70-100) Lactic Acid (0.5-2.2) mmol/L Calcium (8.5-10.3) mg/dL Total Bilirubin (0.2-1.0) mg/dL AST (10-42) IU/L ALT (10-60) IU/L Alkaline Phosphatase (42-121) IU/L Troponin I < 0.04 (<0.49) ng/mL B-Natriuretic Peptide (5-100) pg/mL Total Protein (6.7-8.2) g/dL Albumin (3.2-5.5) g/dL Globulin (2.1-4.2) g/dL Albumin/Globulin Ratio (1.0-2.2) Lipase (22-51) U/L TSH (0.34-5.60) uIU/mL 01/10/19 01/10/19 01/09/19 Range/Units 04:40 04:40 23:55 WBC 12.8 H (4.8-10.8) x10^3/uL RBC 3.75 L (4.20-5.40) 10^6/uL Hgb 11.5 L (12.0-16.0) g/dL Hct 34.9 L (37.0-47.0) % MCV 93.1 (81.0-99.0) fL MCH 30.8 (27.0-31.0) pg MCHC 33.0 (32.0-36.0) g/dL RDW 13.1 (12.0-15.0) % Plt Count 176 (130-450) 10^3/uL MPV 9.9 (7.9-10.8) fL Neut # (Auto) 9.3 H (1.5-6.6) 10^3/uL Lymph # (Auto) 2.3 (1.5-3.5) 10^3/uL Bryan # (Auto) 1.0 (0.0-1.0) 10^3/uL Eos # (Auto) 0.2 (0.0-0.7) 10^3/uL Baso # (Auto) 0.1 (0.0-0.1) 10^3/uL Absolute Nucleated RBC 0.01 x10^3/uL Nucleated RBC % 0.1 /100WBC Sodium 134 L (135-145) mmol/L Potassium 4.1 (3.5-5.0) mmol/L Chloride 100 L (101-111) mmol/L Carbon Dioxide 26 (21-32) mmol/L Anion Gap 8.0 (6-13) BUN 11 (6-20) mg/dL Creatinine 0.7 (0.4-1.0) mg/dL Estimated GFR (MDRD) 85 L (>89) Glucose 239 H (70-100) mg/dL POC Whole Bld Glucose (70 - 100) mg/dL Glycated Hemoglobin (4.6-6.2) % Estim Average Glucose (70-100) Lactic Acid (0.5-2.2) mmol/L Calcium 8.3 L (8.5-10.3) mg/dL Total Bilirubin (0.2-1.0) mg/dL AST (10-42) IU/L ALT (10-60) IU/L Alkaline Phosphatase (42-121) IU/L Troponin I < 0.04 (<0.49) ng/mL B-Natriuretic Peptide (5-100) pg/mL Total Protein (6.7-8.2) g/dL Albumin (3.2-5.5) g/dL Globulin (2.1-4.2) g/dL Albumin/Globulin Ratio (1.0-2.2) Lipase (22-51) U/L TSH (0.34-5.60) uIU/mL 01/09/19 01/09/19 01/09/19 Range/Units 23:55 21:01 19:18 WBC (4.8-10.8) x10^3/uL RBC (4.20-5.40) 10^6/uL Hgb (12.0-16.0) g/dL Hct (37.0-47.0) % MCV (81.0-99.0) fL MCH (27.0-31.0) pg MCHC (32.0-36.0) g/dL RDW (12.0-15.0) % Plt Count (130-450) 10^3/uL MPV (7.9-10.8) fL Neut # (Auto) (1.5-6.6) 10^3/uL Lymph # (Auto) (1.5-3.5) 10^3/uL Bryan # (Auto) (0.0-1.0) 10^3/uL Eos # (Auto) (0.0-0.7) 10^3/uL Baso # (Auto) (0.0-0.1) 10^3/uL Absolute Nucleated RBC x10^3/uL Nucleated RBC % /100WBC Sodium (135-145) mmol/L Potassium (3.5-5.0) mmol/L Chloride (101-111) mmol/L Carbon Dioxide (21-32) mmol/L Anion Gap (6-13) BUN (6-20) mg/dL Creatinine (0.4-1.0) mg/dL Estimated GFR (MDRD) (>89) Glucose (70-100) mg/dL POC Whole Bld Glucose (70 - 100) mg/dL Glycated Hemoglobin 7.6 H (4.6-6.2) % Estim Average Glucose 171 H (70-100) Lactic Acid 1.2 (0.5-2.2) mmol/L Calcium (8.5-10.3) mg/dL Total Bilirubin (0.2-1.0) mg/dL AST (10-42) IU/L ALT (10-60) IU/L Alkaline Phosphatase (42-121) IU/L Troponin I (<0.49) ng/mL B-Natriuretic Peptide 306 H (5-100) pg/mL Total Protein (6.7-8.2) g/dL Albumin (3.2-5.5) g/dL Globulin (2.1-4.2) g/dL Albumin/Globulin Ratio (1.0-2.2) Lipase (22-51) U/L TSH (0.34-5.60) uIU/mL 01/09/19 01/09/1919 Range/Units 19:18 19:18 19:18 WBC (4.8-10.8) x10^3/uL RBC (4.20-5.40) 10^6/uL Hgb (12.0-16.0) g/dL Hct (37.0-47.0) % MCV (81.0-99.0) fL MCH (27.0-31.0) pg MCHC (32.0-36.0) g/dL RDW (12.0-15.0) % Plt Count (130-450) 10^3/uL MPV (7.9-10.8) fL Neut # (Auto) (1.5-6.6) 10^3/uL Lymph # (Auto) (1.5-3.5) 10^3/uL Bryan # (Auto) (0.0-1.0) 10^3/uL Eos # (Auto) (0.0-0.7) 10^3/uL Baso # (Auto) (0.0-0.1) 10^3/uL Absolute Nucleated RBC x10^3/uL Nucleated RBC % /100WBC Sodium 132 L (135-145) mmol/L Potassium 3.9 (3.5-5.0) mmol/L Chloride 97 L (101-111) mmol/L Carbon Dioxide 27 (21-32) mmol/L Anion Gap 8.0 (6-13) BUN 10 (6-20) mg/dL Creatinine 0.7 (0.4-1.0) mg/dL Estimated GFR (MDRD) 85 L (>89) Glucose 199 H (70-100) mg/dL POC Whole Bld Glucose (70 - 100) mg/dL Glycated Hemoglobin (4.6-6.2) % Estim Average Glucose (70-100) Lactic Acid (0.5-2.2) mmol/L Calcium 9.1 (8.5-10.3) mg/dL Total Bilirubin 1.8 H (0.2-1.0) mg/dL AST 29 (10-42) IU/L ALT 49 (10-60) IU/L Alkaline Phosphatase 101 (42-121) IU/L Troponin I < 0.04 (<0.49) ng/mL B-Natriuretic Peptide (5-100) pg/mL Total Protein 8.6 H (6.7-8.2) g/dL Albumin 3.3 (3.2-5.5) g/dL Globulin 5.3 H (2.1-4.2) g/dL Albumin/Globulin Ratio 0.6 L (1.0-2.2) Lipase 19 L (22-51) U/L TSH 3.50 (0.34-5.60) uIU/mL 01/09/19 Range/Units 19:18 WBC 13.0 H (4.8-10.8) x10^3/uL RBC 4.20 (4.20-5.40) 10^6/uL Hgb 13.0 (12.0-16.0) g/dL Hct 38.3 (37.0-47.0) % MCV 91.1 (81.0-99.0) fL MCH 30.8 (27.0-31.0) pg MCHC 33.8 (32.0-36.0) g/dL RDW 13.2 (12.0-15.0) % Plt Count 208 (130-450) 10^3/uL MPV 9.9 (7.9-10.8) fL Neut # (Auto) 8.6 H (1.5-6.6) 10^3/uL Lymph # (Auto) 3.0 (1.5-3.5) 10^3/uL Bryan # (Auto) 1.1 H (0.0-1.0) 10^3/uL Eos # (Auto) 0.3 (0.0-0.7) 10^3/uL Baso # (Auto) 0.0 (0.0-0.1) 10^3/uL Absolute Nucleated RBC 0.00 x10^3/uL Nucleated RBC % 0.0 /100WBC Sodium (135-145) mmol/L Potassium (3.5-5.0) mmol/L Chloride (101-111) mmol/L Carbon Dioxide (21-32) mmol/L Anion Gap (6-13) BUN (6-20) mg/dL Creatinine (0.4-1.0) mg/dL Estimated GFR (MDRD) (>89) Glucose (70-100) mg/dL POC Whole Bld Glucose (70 - 100) mg/dL Glycated Hemoglobin (4.6-6.2) % Estim Average Glucose (70-100) Lactic Acid (0.5-2.2) mmol/L Calcium (8.5-10.3) mg/dL Total Bilirubin (0.2-1.0) mg/dL AST (10-42) IU/L ALT (10-60) IU/L Alkaline Phosphatase (42-121) IU/L Troponin I (<0.49) ng/mL B-Natriuretic Peptide (5-100) pg/mL Total Protein (6.7-8.2) g/dL Albumin (3.2-5.5) g/dL Globulin (2.1-4.2) g/dL Albumin/Globulin Ratio (1.0-2.2) Lipase (22-51) U/L TSH (0.34-5.60) uIU/mL ABX Reporting Has patient been on IV antibiotics over the past 48 hours?: Yes Sepsis Event Note (H) - Evaluation Current Stage of Sepsis: Sepsis Possible source of Sepsis: positive: Pulmonary - Sepsis Criteria Sepsis Criteria: Recorded Heart Rate greater than 90 bpm, WBC count greater than 12,000 or less than 4000 Assessment/Plan - Problem List (1) Atrial fibrillation with RVR Impression: 01/10 pt continue to have afib, heart rate is controlled around 80 with 60mg Cardizem Q6H. Dependent ECHO reveal pt's heart function, tomorrow will switch to Cardizem CD or plus metoprolol as needed continue tele and vital continue Xarelto (2) Community acquired bacterial pneumonia Conclusion/Plan: 01/10 continue Rocephin and Azith (3) Diabetes mellitus, type II Conclusion/Plan: continue slide scale, ACHS, hypoglycemia protocol (4) Rheumatoid arteritis Conclusion/Plan: continue hold Remicade and methotrexate (5) Hypothyroidism Conclusion/Plan: recheck TSH, continue synthroid (6) JAGDISH on CPAP Conclusion/Plan: Continue using CPAP (7) Hypertension Conclusion/Plan: 01/10 stable, continue home meds, will add BP meds as needed and ECHO is pending
[2019-01-10] MEDS ORDERED: FUROSEMIDE 20 MG TABLET PO SCH (15:00)
[2019-01-10] MEDS ORDERED: RIVAROXABAN 10 MG TABLET PO SCH (17:00)
[2019-01-10] MEDS: RIVAROXABAN 10 MG TABLET PO SCH (17:07)
[2019-01-10] MEDS: traZODone 50 MG TABLET PO SCH (20:51)
[2019-01-10] MEDS ORDERED: cefTRIAXone 1 GM in SODIUM CHLORIDE 0.9% MINIBAG 100 ML IV SCH (21:00)
[2019-01-11 04:57] LABS: BASOPHILS # (AUTO) 0.1 10^3/uL (0.0-0.1); BASOPHILS % (AUTO) 0.7 %; EOSINOPHILS # (AUTO) 0.4 10^3/uL (0.0-0.7); HGB - HEMOGLOBIN 11.6 g/dL (12.0-16.0); LYMPHOCYTES # (AUTO) 2.2 10^3/uL (1.5-3.5); LYMPHOCYTES % (AUTO) 21.2 %; MEAN CORPUSCULAR HEMOGLOBIN 30.7 pg (27.0-31.0); MEAN CORPUSCULAR HGB CONC 33.6 g/dL (32.0-36.0); MEAN CORPUSCULAR VOLUME 91.4 fL (81.0-99.0); MEAN PLATELET VOLUME 9.7 fL (7.9-10.8); MONOCYTES # (AUTO) 0.8 10^3/uL (0.0-1.0); MONOCYTES % (AUTO) 8.1 %; NEUTROPHILS # (AUTO) 6.8 10^3/uL (1.5-6.6); PLT - PLATELET COUNT 178 10^3/uL (130-450); RED BLOOD COUNT 3.79 10^6/uL (4.20-5.40); RED CELL DISTRIBUTION WIDTH 13.3 % (12.0-15.0); WHITE BLOOD COUNT 10.4 x10^3/uL (4.8-10.8)
[2019-01-11 05:03] LABS: CALCIUM 8.1 mg/dL (8.5-10.3); CREATININE 0.6 mg/dL (0.4-1.0)
[2019-01-11] MEDS ORDERED: LORazepam 0.5 MG TABLET PO STA (05:07)
[2019-01-11] MEDS: SODIUM CHLORIDE FLUSH 0.9% 10 ML SYRINGE IVP SCH ×4 (06:10→23:58)
[2019-01-11] MEDS: FUROSEMIDE 20 MG/2 ML VIAL IVP SCH ×2 (06:11→13:55)
[2019-01-11] MEDS: LEVOTHYROXINE 75 MCG TABLET PO SCH (06:11)
[2019-01-11] MEDS: LEVOTHYROXINE 100 MCG TABLET PO SCH (06:11)
[2019-01-11] MEDS: LEVALBUTEROL 1.25 MG/3 ML NEB INH PRN (07:50)
[2019-01-11] MEDS: INSULIN ASPART 300 UNIT/3 ML PEN SUBQ SCH ×4 (08:10→20:55)
[2019-01-11] MEDS: ACETAMINOPHEN 325 MG TABLET PO PRN (09:11)
[2019-01-11] MEDS: FOLIC ACID 1 MG TABLET PO SCH (09:11)
[2019-01-11] MEDS: ASPIRIN CHEW 81 MG TABLET PO SCH (09:11)
[2019-01-11] MEDS: POLYETHYLENE GLYCOL 3350 17 GM PACKET PO SCH (09:12)
[2019-01-11] MEDS: LACTULOSE 10 GM /15 ML UDC PO SCH ×2 (09:12→20:56)
[2019-01-11] MEDS: AZITHROMYCIN 250 MG TABLET PO SCH (09:12)
[2019-01-11] MEDS ORDERED: LORazepam 0.5 MG TABLET PO PRN (09:29)
[2019-01-11] MEDS ORDERED: MORPHINE 2 MG/ML CARPUJECT IVP PRN (09:29)
--- NOTE | 2019-01-11 09:36 | XRAY Report ---
Reason: wheezing, SOB Procedure Date: 01/11/2019 Accession Number: [id number] / [id number] Procedure: XR - Chest 1 View X-Ray CPT Code: 75083 FULL RESULT: EXAM: CHEST RADIOGRAPHY EXAM DATE: 01/11/2019 08:20 AM. CLINICAL HISTORY: Wheezing, shortness of breath. COMPARISON: Chest 1 view 01/09/2019 7:51 pm. Chest angiogram 01/09/2019 11:12 PM. TECHNIQUE: 1 view. FINDINGS: Lungs/Pleura: Hazy pulmonary markings are redemonstrated with a small amount of fluid in the horizontal fissure, suggestive of interstitial pulmonary edema. There is suggestion of interval development of patchy right lower lung airspace opacity. No sizable pleural effusion or pneumothorax. Mediastinum: Redemonstration of cardiomegaly, exacerbated by AP technique. Other: None. IMPRESSION: Cardiomegaly with interstitial pulmonary edema. New development of right basilar airspace opacity compared to prior radiograph. [facility]
[2019-01-11] MEDS: cefTRIAXone 2 GM in SODIUM CHLORIDE 0.9% MINIBAG 100 ML IV SCH (10:33)
--- NOTE | 2019-01-11 13:47 | PROVIDER PROGRESS NOTE ---
Subjective - Prog Note Date Prog Note Date: 01/11/19 - Subjective Pt reports feeling: Worse Subjective: pt report she had wheezing, cough, SOB on last night. pt denies chest pain, fever, chill. order CXR Current Medications - Current Medications Current Medications: Active Medications Acetaminophen (Tylenol) 650 mg PO Q4HR PRN PRN Reason: Pain 1 to 4 Last Admin: 01/11/19 09:11 Dose: 650 mg Aspirin ([facility] Agustin Aspirin) 81 mg PO DAILY [facility] Last Admin: 01/11/19 09:11 Dose: 81 mg Azithromycin (Zithromax) 500 mg PO DAILY [facility] Stop: 01/14/19 09:01 Last Admin: 01/11/19 09:12 Dose: 500 mg Diltiazem HCl (Cardizem) 60 mg PO Q6H [facility] Last Admin: 01/11/19 12:04 Dose: 60 mg Folic Acid () 4 mg PO DAILY [facility] Last Admin: 01/11/19 09:11 Dose: 4 mg Furosemide (Lasix Inj 20mg Vial) 20 mg IVP BIDDIURETIC [facility] Last Admin: 01/11/19 13:55 Dose: 20 mg Cefepime HCl 2 gm/ Sodium (Chloride) 100 mls @ 200 mls/hr IV BID [facility] Insulin Aspart (Novolog) 3 - 11 unit SUBQ 0800,1200,1700,2100 [facility]; Protocol Insulin Aspart (Novolog) 5 unit SUBQ ONCE [facility] Stop: 01/11/19 15:15 Insulin Glargine (Lantus Solostar) 5 unit SUBQ QDBREAKFAST [facility] Lactulose (Enulose) 15 gm PO BID [facility] Stop: 01/11/19 21:01 Last Admin: 01/11/19 09:12 Dose: 15 gm Levalbuterol HCl (Xopenex) 1.25 mg INH Q4H PRN PRN Reason: Shortness of Air/Wheezing Last Admin: 01/11/19 07:50 Dose: 1.25 mg Levothyroxine Sodium (Synthroid) 100 mcg PO QDAC [facility] Last Admin: 01/11/19 06:11 Dose: 100 mcg Levothyroxine Sodium (Synthroid) 75 mcg PO QDAC [facility] Last Admin: 01/11/19 06:11 Dose: 75 mcg Lorazepam (Ativan) 0.5 mg PO Q6H PRN PRN Reason: Anxiety Morphine Sulfate (Morphine (Carpuject)) 2 mg IVP Q2HR PRN PRN Reason: PAIN Oxycodone HCl (Roxicodone) 5 mg PO Q6H PRN PRN Reason: PAIN Polyethylene Glycol (Miralax) 17 gm PO DAILY [facility] Last Admin: 01/11/19 09:12 Dose: Not Given Rivaroxaban (Xarelto) 15 mg PO 1700 [facility] Last Admin: 01/10/19 17:07 Dose: 15 mg Sodium Chloride (Normal Saline Flush 0.9%) 10 ml IVP PRN PRN PRN Reason: NEEDED PER PROVIDER ORDERS Last Admin: 01/11/19 13:55 Dose: 10 ml Sodium Chloride (Normal Saline Flush 0.9%) 10 ml IVP 0100,0900,1700 [facility] Last Admin: 01/11/19 09:12 Dose: 10 ml Trazodone HCl (Desyrel) 100 mg PO QPM [facility] Last Admin: 01/10/19 20:51 Dose: 100 mg Ibuprofen 600 mg QID PRN 04/10/17 Magnesium 250 mg PO DAILY 04/10/17 Methotrexate 25 mg ORAL Q7D 04/10/17 Oxycodone HCl/Acetaminophen [Percocet 7.5-325 mg Tablet] 7.5 mg Q4H PRN 04/10/17 metFORMIN [Glucophage] 1,000 mg ORAL BID 04/10/17 traZODone [Desyrel] 50 - 100 mg ORAL QPM 04/10/17 Aspirin 81 mg PO DAILY 01/09/19 Folic Acid 4 mg PO DAILY 01/09/19 Potassium Chloride 10 meq PO DAILY 01/09/19 Fluticasone [Flonase] 1 sprays DOMINICK DAILY 01/10/19 Infliximab (Remicade) 600 mg IV .Q5-6WKS 01/10/19 Levothyroxine Sodium [Synthroid] 175 mcg PO QDAC 01/10/19 Objective - Vital Signs/Intake & Output Reviewed Vital Signs: Yes Vital Signs: Vital Signs x48h Temp Pulse Pulse Resp BP BP Pulse Ox 01/11/19 13:00 36.2 C L 84 22 131/86 H 93 01/11/19 12:04 135/76 H 01/11/19 07:50 95 24 01/11/19 07:34 36.7 C 96 20 136/89 H 94 01/11/19 06:11 154/63 H 01/11/19 05:59 36.5 C 89 24 154/63 H 93 Intake & Output: Intake & Output 01/08/19 01/09/19 01/10/19 01/11/19 23:59 23:59 23:59 23:59 Intake Total 350 1420 1190 Output Total 252 1850 Balance 350 1168 -660 - Objective General Appearance: positive: No acute distress, Alert. negative: Lethargic Eyes Bilateral: positive: Normal inspection, PERRL, No lid inflammation, Conjunctivae nml ENT: positive: ENT inspection nml, Pharynx nml, No signs of dehydration. negative: Purulent nasal drainage, Pharyngeal erythema, Oral lesions Neck: positive: Nml inspection, Thyroid nml, No JVD, Trachea midline. negative: Thyromegaly, Lymphadenopathy (R), Lymphadenopathy (L), Stiff neck, Swelling/bruising, Tracheal deviation Respiratory: positive: Chest non-tender, No respiratory distress. negative: Wheezes, Rales, Rhonchi Cardiovascular: positive: Regular rate & rhythm, No murmur, No gallop. negative: Irregularly irregular, Extrasystoles, Tachycardia, Bradycardia, JVD present, Systolic murmur, Diastolic murmur Peripheral Pulses: 0 Femoral (R), 2+ Radial (R), 2+ Radial (L) Abdomen: positive: Non-tender, No organomegaly, Nml bowel sounds, No distention. negative: Tenderness, Guarding, Rebound Back: positive: Nml inspection. negative: CVA tenderness (R), CVA tenderness (L) Skin: positive: Color nml, No rash, Warm, Dry. negative: Cyanosis, Diaphoresis, Pallor Extremities: positive: Non-tender, Full ROM, Nml appearance. negative: Calf tenderness, Joint swelling, Willie's sign/cords Neurologic/Psychiatric: positive: Oriented x3, Sensation nml, Mood/affect nml. negative: Weakness, Sensory loss, Facial droop, Slurred/abnml speech, Depressed mood/affect - Lab Results Fish Bones: 01/11/19 04:15 01/11/19 04:15 Other Labs: Lab Results x24hrs 01/11/19 01/11/19 01/11/19 Range/Units 11:55 07:37 04:15 WBC (4.8-10.8) x10^3/uL RBC (4.20-5.40) 10^6/uL Hgb (12.0-16.0) g/dL Hct (37.0-47.0) % MCV (81.0-99.0) fL MCH (27.0-31.0) pg MCHC (32.0-36.0) g/dL RDW (12.0-15.0) % Plt Count (130-450) 10^3/uL MPV (7.9-10.8) fL Neut # (Auto) (1.5-6.6) 10^3/uL Lymph # (Auto) (1.5-3.5) 10^3/uL Emmons # (Auto) (0.0-1.0) 10^3/uL Eos # (Auto) (0.0-0.7) 10^3/uL Baso # (Auto) (0.0-0.1) 10^3/uL Absolute Nucleated RBC x10^3/uL Nucleated RBC % /100WBC Sodium 135 (135-145) mmol/L Potassium 3.6 (3.5-5.0) mmol/L Chloride 100 L (101-111) mmol/L Carbon Dioxide 26 (21-32) mmol/L Anion Gap 9.0 (6-13) BUN 10 (6-20) mg/dL Creatinine 0.6 (0.4-1.0) mg/dL Estimated GFR (MDRD) 102 (>89) Glucose 227 H (70-100) mg/dL POC Whole Bld Glucose 298 H 240 H (70 - 100) mg/dL Calcium 8.1 L (8.5-10.3) mg/dL 01/11/19 01/10/19 01/10/19 Range/Units 04:15 20:28 16:38 WBC 10.4 (4.8-10.8) x10^3/uL RBC 3.79 L (4.20-5.40) 10^6/uL Hgb 11.6 L (12.0-16.0) g/dL Hct 34.6 L (37.0-47.0) % MCV 91.4 (81.0-99.0) fL MCH 30.7 (27.0-31.0) pg MCHC 33.6 (32.0-36.0) g/dL RDW 13.3 (12.0-15.0) % Plt Count 178 (130-450) 10^3/uL MPV 9.7 (7.9-10.8) fL Neut # (Auto) 6.8 H (1.5-6.6) 10^3/uL Lymph # (Auto) 2.2 (1.5-3.5) 10^3/uL Emmons # (Auto) 0.8 (0.0-1.0) 10^3/uL Eos # (Auto) 0.4 (0.0-0.7) 10^3/uL Baso # (Auto) 0.1 (0.0-0.1) 10^3/uL Absolute Nucleated RBC 0.00 x10^3/uL Nucleated RBC % 0.0 /100WBC Sodium (135-145) mmol/L Potassium (3.5-5.0) mmol/L Chloride (101-111) mmol/L Carbon Dioxide (21-32) mmol/L Anion Gap (6-13) BUN (6-20) mg/dL Creatinine (0.4-1.0) mg/dL Estimated GFR (MDRD) (>89) Glucose (70-100) mg/dL POC Whole Bld Glucose 199 H 201 H (70 - 100) mg/dL Calcium (8.5-10.3) mg/dL ABX Reporting Has patient been on IV antibiotics over the past 48 hours?: Yes Sepsis Event Note (H) - Evaluation Current Stage of Sepsis: Sepsis Possible source of Sepsis: positive: Pulmonary - Sepsis Criteria Sepsis Criteria: Recorded Heart Rate greater than 90 bpm, WBC count greater than 12,000 or less than 4000 Assessment/Plan - Problem List (1) Atrial fibrillation with RVR Impression: 01/11 control HR at 84 continue Cardizem continue tele and vital continue Xarelto 01/10 pt continue to have afib, heart rate is controlled around 80 with 60mg Cardizem Q6H. Dependent ECHO reveal pt's heart function, tomorrow will switch to Cardizem CD or plus metoprolol as needed continue tele and vital continue Xarelto (2) Community acquired bacterial pneumonia Conclusion/Plan: 01/11 CXR reveals new developing right basilar airspace disease switch to Cefepime from Rocephin, albuterol PRN 01/10 continue Rocephin and Azith (3) Diabetes mellitus, type II Conclusion/Plan: 01/11 add morning of Lantus, continue slide scale, ACHS, hypoglycemia protocol continue slide scale, ACHS, hypoglycemia protocol (4) Rheumatoid arteritis Conclusion/Plan: hold Remicade and methotrexate (5) Hypothyroidism Conclusion/Plan: recheck TSH, continue synthroid (6) JAGDISH on CPAP Conclusion/Plan: Continue using CPAP (7) Hypertension Conclusion/Plan: 01/10 stable, continue home meds, will add BP meds as needed and ECHO is pending (8) systolic CHF, stage II ECHO reveals EF 40%, start Lasix for pulmonary edema and SOB, and Lisinopril
[2019-01-11] MEDS ORDERED: INSULIN ASPART 300 UNIT/3 ML PEN SUBQ SCH (14:57)
[2019-01-11] MEDS: RIVAROXABAN 10 MG TABLET PO SCH (17:07)
[2019-01-11] MEDS: CEFEPIME 2 GM in SODIUM CHLORIDE 0.9% MINIBAG 100 ML IV SCH (20:54)
[2019-01-11] MEDS: traZODone 50 MG TABLET PO SCH (20:56)
[2019-01-11] MEDS ORDERED: INSULIN GLARGINE 300 UNIT/3 ML PEN SUBQ SCH (21:00)
[2019-01-12 05:39] LABS: BASOPHILS # (AUTO) 0.1 10^3/uL (0.0-0.1); BASOPHILS % (AUTO) 0.6 %; CALCIUM 8.5 mg/dL (8.5-10.3); CREATININE 0.7 mg/dL (0.4-1.0); EOSINOPHILS # (AUTO) 0.4 10^3/uL (0.0-0.7); EOSINOPHILS % (AUTO) 4.6 %; LYMPHOCYTES # (AUTO) 2.6 10^3/uL (1.5-3.5); LYMPHOCYTES % (AUTO) 27.2 %; MEAN CORPUSCULAR HEMOGLOBIN 30.7 pg (27.0-31.0); MEAN CORPUSCULAR HGB CONC 33.5 g/dL (32.0-36.0); MEAN CORPUSCULAR VOLUME 91.5 fL (81.0-99.0); MEAN PLATELET VOLUME 9.5 fL (7.9-10.8); MONOCYTES # (AUTO) 0.8 10^3/uL (0.0-1.0); MONOCYTES % (AUTO) 8.5 %; NEUTROPHILS # (AUTO) 5.7 10^3/uL (1.5-6.6); NEUTROPHILS % (AUTO) 59.1 %; PLT - PLATELET COUNT 197 10^3/uL (130-450); RED BLOOD COUNT 3.93 10^6/uL (4.20-5.40); RED CELL DISTRIBUTION WIDTH 13.3 % (12.0-15.0); WHITE BLOOD COUNT 9.6 x10^3/uL (4.8-10.8)
[2019-01-12] MEDS: LEVOTHYROXINE 75 MCG TABLET PO SCH (06:09)
[2019-01-12] MEDS: LEVOTHYROXINE 100 MCG TABLET PO SCH (06:09)
[2019-01-12] MEDS ORDERED: POTASSIUM CHLORIDE 20 MEQ TABLET PO ONE ×2 (06:10→10:33)
[2019-01-12] MEDS: FUROSEMIDE 20 MG/2 ML VIAL IVP SCH (06:15)
[2019-01-12] MEDS: oxyCODONE 5 MG TABLET PO PRN ×2 (07:02→23:46)
[2019-01-12] MEDS: SODIUM CHLORIDE FLUSH 0.9% 10 ML SYRINGE IVP SCH ×2 (08:54→17:10)
[2019-01-12] MEDS: CEFEPIME 2 GM in SODIUM CHLORIDE 0.9% MINIBAG 100 ML IV SCH (08:54)
[2019-01-12] MEDS: INSULIN GLARGINE 300 UNIT/3 ML PEN SUBQ SCH (08:55)
[2019-01-12] MEDS: INSULIN ASPART 300 UNIT/3 ML PEN SUBQ SCH ×4 (08:55→20:41)
[2019-01-12] MEDS: FOLIC ACID 1 MG TABLET PO SCH (08:56)
[2019-01-12] MEDS: ASPIRIN CHEW 81 MG TABLET PO SCH (08:56)
[2019-01-12] MEDS: AZITHROMYCIN 250 MG TABLET PO SCH (08:56)
[2019-01-12] MEDS: LISINOPRIL 5 MG TABLET PO SCH (08:56)
[2019-01-12] MEDS: POLYETHYLENE GLYCOL 3350 17 GM PACKET PO SCH (09:02)
[2019-01-12] MEDS: FUROSEMIDE 40 MG TABLET PO SCH (12:13)
--- NOTE | 2019-01-12 13:53 | PROVIDER PROGRESS NOTE ---
Subjective - Prog Note Date Prog Note Date: 01/12/19 Prog Note Time: 08:30 - Subjective Subjective: Patient sitting on the EOB eating breakfast K 3.4 BNP 129, on IV furosemide BID On RA On azithromycin and cefepime WBC 9.6, afebrile Denies SOB CXR yesterday revealed cardiomegaly with interstitial pulmonary edema and new right basilar airspace opacity Current Medications - Current Medications Current Medications: Acetaminophen (Tylenol) 650 mg PO Q4HR PRN PRN Reason: Pain 1 to 4 Last Admin: 01/11/19 09:11 Dose: 650 mg Aspirin ([facility] Agustin Aspirin) 81 mg PO DAILY [facility] Last Admin: 01/12/19 08:56 Dose: 81 mg Azithromycin (Zithromax) 500 mg PO DAILY [facility] Stop: 01/14/19 09:01 Last Admin: 01/12/19 08:56 Dose: 500 mg Cephalexin (Keflex) 500 mg PO BID [facility] Diltiazem HCl (Cardizem) 60 mg PO Q6H [facility] Last Admin: 01/12/19 12:12 Dose: 60 mg Folic Acid () 4 mg PO DAILY [facility] Last Admin: 01/12/19 08:56 Dose: 4 mg Furosemide (Lasix) 40 mg PO DAILY [facility] Last Admin: 01/12/19 12:13 Dose: 40 mg Insulin Aspart (Novolog) 3 - 11 unit SUBQ 0800,1200,1700,2100 [facility]; Protocol Last Admin: 01/12/19 12:13 Dose: 7 unit Insulin Glargine (Lantus Solostar) 5 unit SUBQ QDBREAKFAST [facility] Last Admin: 01/12/19 08:55 Dose: 5 unit Levalbuterol HCl (Xopenex) 1.25 mg INH Q4H PRN PRN Reason: Shortness of Air/Wheezing Last Admin: 01/11/19 07:50 Dose: 1.25 mg Levothyroxine Sodium (Synthroid) 100 mcg PO QDAC [facility] Last Admin: 01/12/19 06:09 Dose: 100 mcg Levothyroxine Sodium (Synthroid) 75 mcg PO QDAC [facility] Last Admin: 01/12/19 06:09 Dose: 75 mcg Lisinopril (Zestril) 5 mg PO DAILY [facility] Last Admin: 01/12/19 08:56 Dose: 5 mg Lorazepam (Ativan) 0.5 mg PO Q6H PRN PRN Reason: Anxiety Morphine Sulfate (Morphine (Carpuject)) 2 mg IVP Q2HR PRN PRN Reason: PAIN Oxycodone HCl (Roxicodone) 5 mg PO Q6H PRN PRN Reason: PAIN Last Admin: 01/12/19 07:02 Dose: 5 mg Polyethylene Glycol (Miralax) 17 gm PO DAILY [facility] Last Admin: 01/12/19 09:02 Dose: 17 gm Rivaroxaban (Xarelto) 15 mg PO 1700 [facility] Last Admin: 01/11/19 17:07 Dose: 15 mg Sodium Chloride (Normal Saline Flush 0.9%) 10 ml IVP PRN PRN PRN Reason: NEEDED PER PROVIDER ORDERS Last Admin: 01/11/19 13:55 Dose: 10 ml Sodium Chloride (Normal Saline Flush 0.9%) 10 ml IVP 0100,0900,1700 [facility] Last Admin: 01/12/19 08:54 Dose: 10 ml Trazodone HCl (Desyrel) 100 mg PO QPM [facility] Last Admin: 01/11/19 20:56 Dose: 100 mg Home Medications: Ibuprofen 600 mg QID PRN 04/10/17 Magnesium 250 mg PO DAILY 04/10/17 Methotrexate 25 mg ORAL Q7D 04/10/17 Oxycodone HCl/Acetaminophen [Percocet 7.5-325 mg Tablet] 7.5 mg Q4H PRN 04/10/17 metFORMIN [Glucophage] 1,000 mg ORAL BID 04/10/17 traZODone [Desyrel] 50 - 100 mg ORAL QPM 04/10/17 Aspirin 81 mg PO DAILY 01/09/19 Folic Acid 4 mg PO DAILY 01/09/19 Potassium Chloride 10 meq PO DAILY 01/09/19 Fluticasone [Flonase] 1 sprays DOMINICK DAILY 01/10/19 Infliximab (Remicade) 600 mg IV .Q5-6WKS 01/10/19 Levothyroxine Sodium [Synthroid] 175 mcg PO QDAC 01/10/19 Objective - Vital Signs/Intake & Output Reviewed Vital Signs: Yes Vital Signs: Vital Signs x48h BP 01/12/19 06:09 132/76 H Intake & Output: Intake & Output 01/09/19 01/10/19 01/11/19 03/01/19 23:59 23:59 23:59 23:59 Intake Total 350 2770 7726 590 Output Total 252 0083 1001 Balance 350 8903 -8836 -411 - Objective General Appearance: positive: No acute distress, Alert Eyes Bilateral: positive: Normal inspection, PERRL, EOMI ENT: positive: ENT inspection nml, Pharynx nml, No signs of dehydration Neck: positive: Nml inspection, Trachea midline Respiratory: positive: Chest non-tender, No respiratory distress, Breath sounds nml. negative: Wheezes, Rales, Rhonchi Cardiovascular: positive: Regular rate & rhythm, No murmur, No gallop Peripheral Pulses: 2+ Dorsalis pedis (R), 2+ Dorsalis pedis (L) Abdomen: positive: Non-tender, No organomegaly, Nml bowel sounds, No distention Skin: positive: Color nml, Warm, Dry Extremities: positive: Non-tender, Full ROM, Nml appearance Neurologic/Psychiatric: positive: Oriented x3, CN's nml (2-12), Motor nml, Sensation nml, Mood/affect nml - Lab Results Fish Bones: 01/12/19 04:40 01/12/19 04:40 Other Labs: Lab Results x24hrs 01/12/19 01/12/19 01/12/19 Range/Units 12:00 07:20 04:45 WBC (4.8-10.8) x10^3/uL RBC (4.20-5.40) 10^6/uL Hgb (12.0-16.0) g/dL Hct (37.0-47.0) % MCV (81.0-99.0) fL MCH (27.0-31.0) pg MCHC (32.0-36.0) g/dL RDW (12.0-15.0) % Plt Count (130-450) 10^3/uL MPV (7.9-10.8) fL Neut # (Auto) (1.5-6.6) 10^3/uL Lymph # (Auto) (1.5-3.5) 10^3/uL [place] # (Auto) (0.0-1.0) 10^3/uL Eos # (Auto) (0.0-0.7) 10^3/uL Baso # (Auto) (0.0-0.1) 10^3/uL Absolute Nucleated RBC x10^3/uL Nucleated RBC % /100WBC Sodium (135-145) mmol/L Potassium (3.5-5.0) mmol/L Chloride (101-111) mmol/L Carbon Dioxide (21-32) mmol/L Anion Gap (6-13) BUN (6-20) mg/dL Creatinine (0.4-1.0) mg/dL Estimated GFR (MDRD) (>89) Glucose (70-100) mg/dL POC Whole Bld Glucose 275 H 222 H (70 - 100) mg/dL Calcium (8.5-10.3) mg/dL Magnesium 2.1 (1.7-2.8) mg/dL B-Natriuretic Peptide (5-100) pg/mL 01/12/19 01/12/19 01/12/19 Range/Units 04:40 04:40 04:40 WBC 9.6 (4.8-10.8) x10^3/uL RBC 3.93 L (4.20-5.40) 10^6/uL Hgb 12.0 (12.0-16.0) g/dL Hct 35.9 L (37.0-47.0) % MCV 91.5 (81.0-99.0) fL MCH 30.7 (27.0-31.0) pg MCHC 33.5 (32.0-36.0) g/dL RDW 13.3 (12.0-15.0) % Plt Count 197 (130-450) 10^3/uL MPV 9.5 (7.9-10.8) fL Neut # (Auto) 5.7 (1.5-6.6) 10^3/uL Lymph # (Auto) 2.6 (1.5-3.5) 10^3/uL [place] # (Auto) 0.8 (0.0-1.0) 10^3/uL Eos # (Auto) 0.4 (0.0-0.7) 10^3/uL Baso # (Auto) 0.1 (0.0-0.1) 10^3/uL Absolute Nucleated RBC 0.01 x10^3/uL Nucleated RBC % 0.1 /100WBC Sodium 138 (135-145) mmol/L Potassium 3.4 L (3.5-5.0) mmol/L Chloride 102 (101-111) mmol/L Carbon Dioxide 26 (21-32) mmol/L Anion Gap 10.0 (6-13) BUN 12 (6-20) mg/dL Creatinine 0.7 (0.4-1.0) mg/dL Estimated GFR (MDRD) 85 L (>89) Glucose 201 H (70-100) mg/dL POC Whole Bld Glucose (70 - 100) mg/dL Calcium 8.5 (8.5-10.3) mg/dL Magnesium (1.7-2.8) mg/dL B-Natriuretic Peptide 129 H (5-100) pg/mL 01/11/19 01/11/19 Range/Units 20:43 16:45 WBC (4.8-10.8) x10^3/uL RBC (4.20-5.40) 10^6/uL Hgb (12.0-16.0) g/dL Hct (37.0-47.0) % MCV (81.0-99.0) fL MCH (27.0-31.0) pg MCHC (32.0-36.0) g/dL RDW (12.0-15.0) % Plt Count (130-450) 10^3/uL MPV (7.9-10.8) fL Neut # (Auto) (1.5-6.6) 10^3/uL Lymph # (Auto) (1.5-3.5) 10^3/uL [place] # (Auto) (0.0-1.0) 10^3/uL Eos # (Auto) (0.0-0.7) 10^3/uL Baso # (Auto) (0.0-0.1) 10^3/uL Absolute Nucleated RBC x10^3/uL Nucleated RBC % /100WBC Sodium (135-145) mmol/L Potassium (3.5-5.0) mmol/L Chloride (101-111) mmol/L Carbon Dioxide (21-32) mmol/L Anion Gap (6-13) BUN (6-20) mg/dL Creatinine (0.4-1.0) mg/dL Estimated GFR (MDRD) (>89) Glucose (70-100) mg/dL POC Whole Bld Glucose 239 H 271 H (70 - 100) mg/dL Calcium (8.5-10.3) mg/dL Magnesium (1.7-2.8) mg/dL B-Natriuretic Peptide (5-100) pg/mL - Diagnostic Imaging Diagnostic Imaging Results: positive: Final report reviewed ABX Reporting Has patient been on IV antibiotics over the past 48 hours?: Yes Assessment/Plan - Problem List (1) Atrial fibrillation with RVR Impression: Patient admitted with HR 150-170. She received IV diltiazem and metoprolol with improvement in her rates. [id number] (female, diabetes, CHF, HTN) = 4. She was started on xarelto. Her HR has been controlled on PO cardizem. Plan: continue telemetry continue xarelto change to cardizem 240 mg CD follow-up with her PCP (2) Community acquired bacterial pneumonia Impression: She was admitted and started on rocephin and azithromycin. 01/11 CXR reveals new developing right basilar airspace disease. Patient without fever and WBC are 9.6. On 01/11 rocephin was switched to cefepime. Plan: change cefepime to cephalexin continue azithromycin monitor temperature and WBC labs in the morning (3) Diabetes mellitus, type II Impression: Hgb A1c 7.6. Patient on metformin at home. She does not check her blood sugars often but does reports the last time her A1c was checked, it was 6.0. She has a new glucometer at home that doesn't require poking her finger. Blood sugars have been elevated in 200s. She was started on lantus Plan: carb managed diet continue lantus blood sugar checks [facility] SSI hypoglycemia protocol resume metformin upon discharge (4) Rheumatoid arthritis Impression/plan: hold Remicade and methotrexate f/u with Dr. Cornejo, religious studies professor as previously scheduled. (5) Hypothyroidism Impression: TSH 3.50 Plan: continue synthroid (6) JAGDISH on CPAP Impression/plan: Continue using CPAP (7) Hypertension Impression: stable Plan: continue home medications (8) systolic CHF, stage II Impression: New onset. ECHO reveals EF 40%. BNP 129 today. Plan: change to PO lasix with PO KCL replacement continue lisinopril daily weights follow-up with PCP within 1 week (9) Hypokalemia: Impression: K 3.4. On IV lasix Plan: replace with KCL follow up labs tomorrow
[2019-01-12] MEDS ORDERED: diltiaZEM CD 240 MG CAPSULE PO SCH ×2 (14:26→18:00)
[2019-01-12] MEDS: RIVAROXABAN 10 MG TABLET PO SCH (17:09)
[2019-01-12] MEDS: traZODone 50 MG TABLET PO SCH (20:40)
[2019-01-12] MEDS: cephALEXin 250 MG CAPSULE PO SCH (20:40)
[2019-01-13] MEDS: SODIUM CHLORIDE FLUSH 0.9% 10 ML SYRINGE IVP SCH ×2 (04:48→08:53)
[2019-01-13 05:20] LABS: BASOPHILS # (AUTO) 0.1 10^3/uL (0.0-0.1); BASOPHILS % (AUTO) 0.7 %; EOSINOPHILS # (AUTO) 0.7 10^3/uL (0.0-0.7); HGB - HEMOGLOBIN 11.1 g/dL (12.0-16.0); LYMPHOCYTES # (AUTO) 3.1 10^3/uL (1.5-3.5); LYMPHOCYTES % (AUTO) 26.8 %; MEAN CORPUSCULAR HEMOGLOBIN 30.1 pg (27.0-31.0); MEAN CORPUSCULAR HGB CONC 32.8 g/dL (32.0-36.0); MEAN CORPUSCULAR VOLUME 91.8 fL (81.0-99.0); MONOCYTES % (AUTO) 8.8 %; NEUTROPHILS # (AUTO) 6.6 10^3/uL (1.5-6.6); NEUTROPHILS % (AUTO) 57.7 %; PLT - PLATELET COUNT 221 10^3/uL (130-450); RED CELL DISTRIBUTION WIDTH 13.4 % (12.0-15.0); WHITE BLOOD COUNT 11.5 x10^3/uL (4.8-10.8)
[2019-01-13 05:28] LABS: CALCIUM 8.4 mg/dL (8.5-10.3); CREATININE 0.5 mg/dL (0.4-1.0)
[2019-01-13] MEDS: LEVOTHYROXINE 75 MCG TABLET PO SCH (06:40)
[2019-01-13] MEDS: LEVOTHYROXINE 100 MCG TABLET PO SCH (06:40)
[2019-01-13] MEDS: LEVALBUTEROL 1.25 MG/3 ML NEB INH PRN (07:30)
[2019-01-13] MEDS: FOLIC ACID 1 MG TABLET PO SCH (08:52)
[2019-01-13] MEDS: ASPIRIN CHEW 81 MG TABLET PO SCH (08:52)
[2019-01-13] MEDS: FUROSEMIDE 40 MG TABLET PO SCH (08:52)
[2019-01-13] MEDS: cephALEXin 250 MG CAPSULE PO SCH (08:52)
[2019-01-13] MEDS: INSULIN ASPART 300 UNIT/3 ML PEN SUBQ SCH (08:52)
[2019-01-13] MEDS: LISINOPRIL 5 MG TABLET PO SCH (08:52)
[2019-01-13] MEDS: AZITHROMYCIN 250 MG TABLET PO SCH (08:52)
[2019-01-13] MEDS: POLYETHYLENE GLYCOL 3350 17 GM PACKET PO SCH (08:53)
[2019-01-13] MEDS: INSULIN GLARGINE 300 UNIT/3 ML PEN SUBQ SCH (08:53)
--- NOTE | 2019-01-13 08:53 | DISCHARGE SUMMARY ---
"Discharge Summary Admit Date: 01/09/19 Discharge Date: 01/13/19 Discharging Provider: Hayley Payne [facility] Primary Care Provider: Dr. Bayron Wick Code Status: Attempt Resuscitation Condition at Discharge: Good Discharge Disposition: 01 Home, Self Care - DIAGNOSES Admission Diagnoses: (1) Atrial fibrillation with RVR (2) Community acquired bacterial pneumonia (3) Diabetes mellitus, type II (4) Rheumatoid arthritis (5) Hypothyroidism (6) JAGDISH on CPAP (7) Hypertension Discharge Diagnoses with Status of Each Condition: (1) Atrial fibrillation with RVR, improved (2) Community acquired bacterial pneumonia, improved (3) Diabetes mellitus, type II, stable (4) Rheumatoid arthritis, stable (5) Hypothyroidism, stable (6) JAGDISH on CPAP, stable (7) Hypertension, stable (8) Volume overload, improved (9) Hypokalemia, stable - HPI History of Present Illness: As per Dr. Roland Santos's H&P dated 01/10/2019: ' Patient seen on 01/09/19 at 10:30pm Patient is a 63 y/o obese female with medical history significant for DM II, hypothyroidism, rheumatoid arthritis on remicade and methotrexate and JAGDISH on home CPAP. She presented to the ED today with complain of dyspnea which started on Tuesday. She decided to come in today because she felt her symptoms have gotten worse over the past 3 days.. She also was worried that she may be having a coronary event. She denies chest pain or tightness but reports chest pressure and back pain. She was found to be tachycardic with rates as high as 150-170 in the ED. It was an irregularly irregular rhythm. She has rheumatoid arthritis and gets remicade. At her last infusion, she was told she was tachycardic. She was asymptomatic at the time. She attempted using her husbands albuterol inhaler at home but reports minimal relief of her dyspnea from using it. She also complained of a diffuse abdominal pain. She has been constipated for a couple day now. She denies fever or chills In the ED work up included CBC, BMP and chest xray. As a result of findings of possible pneumonia and new atrial fibrillation with rvr, she is being admitted f or further evaluation and treatment.' - CONSULTS | PROCEDURES Consultations: None - HOSPITAL COURSE Hospital Course: by problem: (1) Atrial fibrillation with RVR Patient admitted with new onset atrial fibrillation with HR 150-170. She received IV diltiazem and metoprolol with improvement in her heart rate. Her [id number] (female, diabetes, HTN) is 3. She was started on xarelto. She remained on telemetry during hospitalization.. Her HR has been controlled on PO diltiazem. She was switched to long acting diltiazem prior to discharge. (2) Community acquired bacterial pneumonia As evidenced by CXR and CT scan. She was admitted and started on rocephin and azithromycin. 01/11 CXR reveals new developing right basilar airspace disease. On 01/11 rocephin was switched to cefepime. On 01/12/2019, she was transitioned to cephalexin from cefepime. She has been afebrile with a WBC of 11.5 on the day of discharge. She will discharge to complete courses of each antibiotic. (3) Diabetes mellitus, type II Hgb A1c 7.6. Patient on metformin at home. She does not check her blood sugars often but does reports the last time her A1c was checked, it was 6.0. She has a new glucometer at home that doesn't require poking her finger, but she reports not knowing how to use this. Blood sugars have been elevated in 200s. She was started on lantus and SSI. She was on a carb managed diet. She will resume her metformin at discharge. (4) Rheumatoid arthritis On Remicade infusions and methotrexate. Methotrexate was held. F/u with Dr. Cornejo, plant clerk as previously scheduled. (5) Hypothyroidism TSH 3.50. Her home synthroid was continued. (6) JAGDISH on CPAP She used her home CPAP during hospitalization. (7) Hypertension New diagnosis for patient. She was given metoprolol in the ER. She is now on long acting diltiazem. Blood pressures were controlled during hospitalization. (8) Volume overload: Patient reports that when she was weighed prior to hospitalization at her Remicade infusion, she weighed 265 lbs. She reports her normal weight is 250 +/- 5 lbs. She had increased lethargy with increased abdominal girth size prior to admission. ECHO was completed on admission, with an EF of 50-55%. Her initial BNP was 306. On the day of discharge, it was 116. She was treated with IV lasix, and then transitioned to oral lasix. She was asked to weigh herself daily at home, record the numbers and bring them to her PCP appointment. (9) Hypokalemia: likely related to lasix administration. This was repleted with KCL. She is discharged with potassium replacement. - ALLERGIES Allergies/Adverse Reactions: Allergies Allergy/AdvReac Type Severity Reaction Status Date / Time No Known Drug Allergies Allergy Verified 01/09/19 19:14 - MEDICATIONS Home Medications: Ambulatory Orders Medication Instructions Recorded Confirmed Ibuprofen 600 mg QID PRN 04/10/17 01/10/19 Magnesium 250 mg PO DAILY 04/10/17 01/10/19 Methotrexate 25 mg ORAL Q7D 04/10/17 01/10/19 Oxycodone HCl/Acetaminophen 7.5 mg Q4H PRN 04/10/17 01/10/19 [Percocet 7.5-325 mg Tablet] metFORMIN [Glucophage] 1,000 mg ORAL BID 04/10/17 01/10/19 traZODone [Desyrel] 50 - 100 mg ORAL QPM 04/10/17 01/10/19 Aspirin 81 mg PO DAILY 01/09/19 01/10/19 Folic Acid 4 mg PO DAILY 01/09/19 01/10/19 Fluticasone [Flonase] 1 sprays DOMINICK DAILY 01/10/19 01/10/19 Infliximab (Remicade) 600 mg IV .Q5-6WKS 01/10/19 01/10/19 Levothyroxine Sodium [Synthroid] 175 mcg PO QDAC 01/10/19 01/10/19 Acetaminophen [Tylenol] 650 mg PO Q4HR PRN tablet 01/13/19 Azithromycin [Zithromax] 500 mg PO DAILY #1 tablet 01/13/19 Diltiazem HCl [Diltiazem ER] 240 mg PO DAILY #30 tab.er.24h 01/13/19 Fluconazole [Diflucan] 150 mg PO ONCE #1 tablet 01/13/19 Furosemide [Lasix] 40 mg PO DAILY #30 tablet 01/13/19 Lisinopril [Zestril] 5 mg PO DAILY #30 tablet 01/13/19 Potassium Chloride 10 meq PO DAILY #30 tab.er.prt 01/13/19 Rivaroxaban [Xarelto] 15 mg PO 1700 #30 tablet 01/13/19 cephALEXin [Keflex] 500 mg PO BID #10 capsule 01/13/19 diltiaZEM CD [Cardizem Cd] 240 mg PO DAILY #30 capsule 01/13/19 - PHYSICAL EXAM AT DISCHARGE General Appearance: positive: No acute distress, Alert Eyes Bilateral: positive: Normal inspection, PERRL, EOMI ENT: positive: ENT inspection nml, Pharynx nml, No signs of dehydration Neck: positive: Nml inspection, Trachea midline Respiratory: positive: Chest non-tender, No respiratory distress, Breath sounds nml. negative: Wheezes, Rales, Rhonchi Cardiovascular: positive: No murmur, No gallop, Irregularly irregular. ne gative: Tachycardia Peripheral Pulses: positive: 2+ Abdomen: positive: Non-tender, No organomegaly, Nml bowel sounds, No distention Skin: positive: Warm, Dry Extremities: positive: Non-tender, Full ROM, Nml appearance Neurologic/Psychiatric: positive: Oriented x3, CN's nml (2-12), Motor nml, Sensation nml, Mood/affect nml - LABS Result Diagrams: 01/13/19 05:06 01/13/19 05:06 - DIAGNOSTIC IMAGING Diagnostic Imaging Results: Final report reviewed Diagnostic Imaging Results Comments: CXR 01/09/2019: Right sided infiltrates with tiny pleural effusions CTPE 01/09/2019: 1. No evidence for pulmonary emboli 2. Small bilateral pleural effusions. Diffuse bilateral interlobular septal thickening and airspace disease in the lungs, right greater than left, could represent pulmonary edema. Pneumonia is also possible 3. Multiple prominent mediastinal and hilar lymph notes. Subcarinal lymphadenopathy. These could be reactive, however, metastasis is not excluded and follow-up is recommended. 4. Multiple moderate sized calcified gallstones. 5. Periportal lymphadenopathy 6. A couple of left adrenal masses. Please see report in patient's chart for more details description of findings. ECHO 01/10/2019: 1. Mild concentric LVH 2. LVEF 50-55% 3. Severe increase in left atrial volume index 4. Mild right atrial enlargement 5. Moderate mitral regurgitation CXR 01/11/2019: Cardiomegaly with interstitial pulmonary edema New development of right basilar airspace opacity compared to prior radiograph - FOLLOW UP Follow Up: Follow-up with Dr. Wick within 1 week Follow-up with Machine Load Clerk as previously scheduled - TIME SPENT Time Spent in Discharge (Minutes): 60"
--- NOTE | 2019-01-13 08:53 | Discharge Plan ---
Discharge Plan Disposition: Home, Self Care Condition: Good Prescriptions: Azithromycin [Zithromax] 500 mg PO DAILY #1 tablet cephALEXin [Keflex] 500 mg PO BID #10 capsule diltiaZEM CD [Cardizem Cd] 240 mg PO DAILY #30 capsule Fluconazole [Diflucan] 150 mg PO ONCE #1 tablet Furosemide [Lasix] 40 mg PO DAILY #30 tablet Lisinopril [Zestril] 5 mg PO DAILY #30 tablet Potassium Chloride 10 meq PO DAILY #30 tab.er.prt Rivaroxaban [Xarelto] 15 mg PO 1700 #30 tablet Diet: Diabetic Activity Restrictions: No Restrictions Shower Restrictions: No Driving Restrictions: No Weight Bearing: Full Weight Additional Instructions or Follow Up instructions: You were admitted to the hospital for pneumonia and atrial fibrillation with rapid ventricular rate (new onset). For your pneumonia, you were treated with IV antibiotics and switched to oral antibiotics. You will complete 1 more dose of azithromycin upon discharge. You have also been sent home on cephalexin. Please complete this entire course of antibiotics. Please follow-up with your primary care doctor with in 1 week. A dose of diflucan has been sent to your pharmacy to be available as needed, if you develop a yeast infection with the antibiotics. For your atrial fibrillation with rapid ventricular rate, you were started on a rate control medication (diltiazem). Please take this daily as directed. It is a long acting medication. Due to your high stroke risk, oral anticoagulation was started (xarelto). Please take this daily as directed. If you notice any bleeding, please stop taking the medication and alert your primary care provider. An ECHO (ultrasound of your heart) was completed and revealed a low-normal ejection fraction (amount of blood pumped out of your heart with each beat) of 50-55%. You were started on low-dose lisinopril. You were fluid overloaded on admission and given IV lasix (diuretic/water pill). This was changed to oral daily dosing. Please take this daily. It is important to weight yourself daily and record the number. Lasix can decrease your potassium level. Please take potassium supplement while you are on lasix. Please follow-up with your primary care provider in the next week to monitor your labs. Notify your provider/seek medical attention if you develop increased tiredness, fatigue, shortness of breath, increased swelling (especially in abdomen area where you previously had fluid retention) Your blood sugar was elevated during your admission with an elevated Hgb A1c of 7.6. Your metformin was held during your hospitalization. Please follow-up with your primary care provider to discuss lifestyle modifications, possible medication changes/additions, and to learn how to use your new glucometer that you discussed having. No Smoking: If you smoke, Please STOP! Call for help. Follow-up with: Bayron Wick DO [Primary Care Provider] -
[2019-01-13 10:38] VITALS: BP 131/67
== END 2019-01-13 10:51 | disposition home or self-care (01) | DRG 308 ==
LOC: ED 19:05 → MS3 22:56
PROVIDERS: ADMIT Internal Medicine; ATTEND Nurse Practitioner
DX: I48.91 Unspecified atrial fibrillation (principal); J15.9 Unspecified bacterial pneumonia; I50.22 Chronic systolic (congestive) heart failure; Z68.41 Body mass index [BMI] 40.0-44.9, adult; E11.9 Type 2 diabetes mellitus without complications; M06.9 Rheumatoid arthritis, unspecified; E03.9 Hypothyroidism, unspecified; Z96.659 Presence of unspecified artificial knee joint; R09.02 Hypoxemia; I11.0 Hypertensive heart disease with heart failure; G47.33 Obstructive sleep apnea (adult) (pediatric); E87.6 Hypokalemia; E66.9 Obesity, unspecified; R00.0 Tachycardia, unspecified; K59.00 Constipation, unspecified; Z79.82 Long term (current) use of aspirin; Z79.02 Long term (current) use of antithrombotics/antiplatelets; G47.30 Sleep apnea, unspecified
CPT/HCPCS: 36415; 71045; 71275; 80048; 80053; 83036; 83605; 83690; 83735; 83880; 84443; 84484; 85025; 87040; 93005; 93306; 94640; 96365; 96367; 96375; 96376; 99291; A9270; J1815; Q9967; 99285

== ENCOUNTER 2019-01-15 04:55 | Emergency (ER) | payer MEDICAID ==
[2019-01-15 05:20] LABS: GLUCOSE, URINE (UA) 250 mg/dL (NEGATIVE); OCCULT BLOOD,URINE LARGE (NEGATIVE); PH,URINE 6.5 PH (5.0-7.5)
[2019-01-15 05:22] LABS: CLARITY,URINE HAZY (CLEAR)
[2019-01-15 05:23] LABS: BILIRUBIN,URINE COLOR INTERFERENCE (NEGATIVE); KETONES,URINE (UA) TRACE mg/dL (NEGATIVE)
[2019-01-15 05:29] LABS: BACTERIA,URINE Few /HPF (None Seen); RBC,URINE TNTC /HPF (0-5); SQUAMOUS EPITHELIAL CELL,UR NONE SEEN (<= Few)
[2019-01-15 06:56] VITALS: BP 148/101
--- NOTE | 2019-01-15 07:05 | ED Physician Documentation ---
PD HPI FEMALE - Stated complaint Stated Complaint: FEM - Chief complaint Chief Complaint: Abd Pain - History obtained from History obtained from: Patient - History of Present Illness Timing - onset: Last night Timing - duration: Days (1) Timing - details: Abrupt onset, Still present Associated symptoms: No: Fever, Back pain Recently seen: Emergency Dept, Admitted (for afib and pneumonia) Review of Systems Constitutional: denies: Fever : reports: Frequency, Hematuria Skin: denies: Rash PD PAST MEDICAL HISTORY - Past Medical History Cardiovascular: Hypertension, Pulmonary embolism, Atrial fibrillation Respiratory: Sleep apnea, CPAP use Neuro: Peripheral neuropathy Endocrine/Autoimmune: Type 2 diabetes, HyPOthyroidism Musculoskeletal: Rheumatoid arthritis - Past Surgical History Past Surgical History: Yes Ortho: Knee replacement, Carpal Tunnel surgery - Present Medications Home Medications: Ambulatory Orders Medication Instructions Recorded Confirmed Ibuprofen 600 mg QID PRN 04/10/17 01/10/19 Magnesium 250 mg PO DAILY 04/10/17 01/10/19 Methotrexate 25 mg ORAL Q7D 04/10/17 01/10/19 Oxycodone HCl/Acetaminophen 7.5 mg Q4H PRN 04/10/17 01/10/19 [Percocet 7.5-325 mg Tablet] metFORMIN [Glucophage] 1,000 mg ORAL BID 04/10/17 01/10/19 traZODone [Desyrel] 50 - 100 mg ORAL QPM 04/10/17 01/10/19 Aspirin 81 mg PO DAILY 01/09/19 01/10/19 Folic Acid 4 mg PO DAILY 01/09/19 01/10/19 Fluticasone [Flonase] 1 sprays DOMINICK DAILY 01/10/19 01/10/19 Infliximab (Remicade) 600 mg IV .Q5-6WKS 01/10/19 01/10/19 Levothyroxine Sodium [Synthroid] 175 mcg PO QDAC 01/10/19 01/10/19 Acetaminophen [Tylenol] 650 mg PO Q4HR PRN tablet 01/13/19 Azithromycin [Zithromax] 500 mg PO DAILY #1 tablet 01/13/19 Diltiazem HCl [Diltiazem ER] 240 mg PO DAILY #30 tab.er.24h 01/13/19 Fluconazole [Diflucan] 150 mg PO ONCE #1 tablet 01/13/19 Furosemide [Lasix] 40 mg PO DAILY #30 tablet 01/13/19 Lisinopril [Zestril] 5 mg PO DAILY #30 tablet 01/13/19 Potassium Chloride 10 meq PO DAILY #30 tab.er.prt 01/13/19 Rivaroxaban [Xarelto] 15 mg PO 1700 #30 tablet 01/13/19 cephALEXin [Keflex] 500 mg PO BID #10 capsule 01/13/19 diltiaZEM CD [Cardizem Cd] 240 mg PO DAILY #30 capsule 01/13/19 Sulfamethox/Trimeth 800/160 1 each PO BID #10 tablet 01/15/19 [Bactrim Ds 800/160] - Allergies Allergies/Adverse Reactions: Allergies Allergy/AdvReac Type Severity Reaction Status Date / Time No Known Drug Allergies Allergy Verified 01/15/19 05:02 - Social History Does the pt smoke?: No Smoking Status: Never smoker Does the pt drink ETOH?: No Does the pt have substance abuse?: No - Immunizations Immunizations are current?: Yes - POLST Patient has POLST: No PD ED PE NORMAL - Vitals Vital signs reviewed: Yes - General General: Alert and oriented X 3, Well developed/nourished - Neck Neck: Supple, no meningeal sign, No adenopathy - Cardiac Cardiac: RRR, No murmur - Respiratory Respiratory: Clear bilaterally - Abdomen Abdomen: Soft, Non tender - Female Female : Deferred - Back Back: No CVA TTP - Derm Derm: Normal color, Warm and dry Results - Vitals Vitals: Oxygen O2 Source Room air - Labs Labs: Microbiology 01/15/19 05:15 Urine Culture - Final Urine,Clean Catch >100,000 COLONIES/ML Polymicrobial growth including potential pathogens. This is suggestive of skin or other contamination. Laboratory Tests 01/15/19 05:15 Urine Color RED/BLOODY Urine Clarity HAZY Urine pH 6.5 Ur Specific [place] 1.020 Urine Protein Urine Glucose (UA) 250 H Urine Ketones TRACE Urine Occult Blood LARGE H Urine Nitrite Urine Bilirubin COLOR INTERFERENCE Urine Urobilinogen Ur Leukocyte Esterase Urine RBC TNTC H Urine WBC 6-10 H Ur Squamous Epith Cells NONE SEEN Urine Bacteria Few Ur Microscopic Review INDICATED Urine Culture Comments INDICATED PD MEDICAL DECISION MAKING - ED course Complexity details: considered differential, d/w patient Departure - Departure Disposition: Home, Self Care Clinical Impression: Hematuria Qualifiers: Hematuria type: gross Qualified Code(s): R31.0 - Gross hematuria UTI (urinary tract infection) Qualifiers: Urinary tract infection type: acute cystitis Hematuria presence: with hematuria Qualified Code(s): N30.01 - Acute cystitis with hematuria Condition: Stable Record reviewed to determine appropriate education?: Yes Instructions: ED UTI Cystitis Female Follow-Up: Bayron Wick DO [Primary Care Provider] - Prescriptions: Sulfamethox/Trimeth 800/160 [Bactrim Ds 800/160] 1 each PO BID #10 tablet Comments: The urine does show signs of infection and so the blood presumably is Ronis from that. We will give you Bactrim antibiotic twice daily for several days and have you drink lots of fluids. Recheck if not improved over the next up of days. Continue your other current medications. Discharge Date/Time: 01/15/19 07:42
[2019-01-15] MEDS ORDERED: SULFAMETH/TRIMETH DS 800/160 MG TABLET PO STA (07:17)
[2019-01-15] MEDS ORDERED: FLUCONAZOLE 100 MG TABLET PO STA (07:17)
== END 2019-01-15 07:42 | disposition home or self-care (01) ==
LOC: ED 04:55
DX: N30.01 Acute cystitis with hematuria (principal); E03.9 Hypothyroidism, unspecified; I10 Essential (primary) hypertension; E11.42 Type 2 diabetes mellitus with diabetic polyneuropathy; Z86.711 Personal history of pulmonary embolism; Z96.659 Presence of unspecified artificial knee joint; Z79.82 Long term (current) use of aspirin
CPT/HCPCS: 81001; 87086; 99283; A9270; 81003

== ENCOUNTER 2019-01-17 12:01 | Emergency (ER) | payer MEDICAID ==
[2019-01-17 12:52] LABS: BASOPHILS # (AUTO) 0.1 10^3/uL (0.0-0.1); EOSINOPHILS # (AUTO) 0.4 10^3/uL (0.0-0.7); EOSINOPHILS % (AUTO) 3.8 %; HGB - HEMOGLOBIN 13.5 g/dL (12.0-16.0); LYMPHOCYTES # (AUTO) 2.8 10^3/uL (1.5-3.5); LYMPHOCYTES % (AUTO) 25.2 %; MEAN CORPUSCULAR HEMOGLOBIN 30.5 pg (27.0-31.0); MEAN CORPUSCULAR HGB CONC 33.4 g/dL (32.0-36.0); MEAN CORPUSCULAR VOLUME 91.3 fL (81.0-99.0); MEAN PLATELET VOLUME 8.8 fL (7.9-10.8); MONOCYTES % (AUTO) 9.1 %; NEUTROPHILS # (AUTO) 6.8 10^3/uL (1.5-6.6); NEUTROPHILS % (AUTO) 60.9 %; PLT - PLATELET COUNT 300 10^3/uL (130-450); RED BLOOD COUNT 4.42 10^6/uL (4.20-5.40); RED CELL DISTRIBUTION WIDTH 13.5 % (12.0-15.0); WHITE BLOOD COUNT 11.2 x10^3/uL (4.8-10.8)
[2019-01-17 13:04] LABS: ALBUMIN 3.4 g/dL (3.2-5.5); ALBUMIN/GLOBULIN RATIO 0.6 (1.0-2.2); BILIRUBIN,TOTAL 0.9 mg/dL (0.2-1.0); CALCIUM 9.4 mg/dL (8.5-10.3); CREATININE 1.1 mg/dL (0.4-1.0)
[2019-01-17 13:30] LABS: BILIRUBIN,URINE NEGATIVE (NEGATIVE); GLUCOSE, URINE (UA) NEGATIVE (NEGATIVE); KETONES,URINE (UA) NEGATIVE (NEGATIVE); LEUKOCYTE ESTERASE, URINE NEGATIVE (NEGATIVE); NITRITE,URINE NEGATIVE (NEGATIVE); OCCULT BLOOD,URINE LARGE (NEGATIVE); UROBILINOGEN,URINE 0.2 (NORMAL) E.U./dL (NORMAL)
[2019-01-17 13:32] LABS: CLARITY,URINE CLOUDY (CLEAR)
[2019-01-17 13:42] LABS: BACTERIA,URINE Few /HPF (None Seen); RBC,URINE TNTC /HPF (0-5); SQUAMOUS EPITHELIAL CELL,UR NONE SEEN (<= Few)
[2019-01-17] MEDS ORDERED: ACETAMINOPHEN 500 MG TABLET PO STA (14:22)
--- NOTE | 2019-01-17 14:29 | ED Physician Documentation ---
PD HPI ABD PAIN - Stated complaint Stated Complaint: FEMALE - Chief complaint Chief Complaint: Abd Pain - History obtained from History obtained from: Patient, Family - History of Present Illness Timing - onset: Other (This is a 63-year-old woman who has A. fib on Xarelto. She was hospitalized for 6 days for pneumonia and A. fib with RVR and released on Tuesday. The next day she developed hematuria. She is been had a mild ongoing bilateral flank pain. That hematuria has worsened. She was seen in the emergency department on Tuesday and diagnosed with a UTI and started on Bactrim. The culture grew mixed skin jorge a/colonization. The hematuria has continued to worsen.) Review of Systems Ten Systems: 10 systems reviewed and negative Constitutional: denies: Fever, Chills Cardiac: denies: Chest pain / pressure, Palpitations Respiratory: denies: Dyspnea, Cough GI: reports: Constipation. denies: Abdominal Pain, Nausea, Vomiting, Diarrhea PD PAST MEDICAL HISTORY - Past Medical History Cardiovascular: Hypertension, Pulmonary embolism, Atrial fibrillation Respiratory: Sleep apnea, CPAP use Neuro: Peripheral neuropathy Endocrine/Autoimmune: Type 2 diabetes, HyPOthyroidism Musculoskeletal: Rheumatoid arthritis - Past Surgical History Past Surgical History: Yes Ortho: Knee replacement, Carpal Tunnel surgery - Present Medications Home Medications: Ambulatory Orders Medication Instructions Recorded Confirmed Ibuprofen 600 mg QID PRN 04/10/17 01/17/19 Magnesium 250 mg PO DAILY 04/10/17 01/17/19 Methotrexate 25 mg ORAL Q7D 04/10/17 01/17/19 Oxycodone HCl/Acetaminophen 7.5 mg Q4H PRN 04/10/17 01/17/19 [Percocet 7.5-325 mg Tablet] metFORMIN [Glucophage] 1,000 mg ORAL BID 04/10/17 01/17/19 traZODone [Desyrel] 50 - 100 mg ORAL QPM 04/10/17 01/17/19 Aspirin 81 mg PO DAILY 01/09/19 01/17/19 Folic Acid 4 mg PO DAILY 01/09/19 01/17/19 Fluticasone [Flonase] 1 sprays DOMINICK DAILY 01/10/19 01/17/19 Infliximab (Remicade) 600 mg IV .Q5-6WKS 01/10/19 01/17/19 Levothyroxine Sodium [Synthroid] 175 mcg PO QDAC 01/10/19 01/17/19 Acetaminophen [Tylenol] 650 mg PO Q4HR PRN tablet 01/13/19 01/17/19 Azithromycin [Zithromax] 500 mg PO DAILY #1 tablet 01/13/19 01/17/19 Diltiazem HCl [Diltiazem ER] 240 mg PO DAILY #30 tab.er.24h 01/13/19 01/17/19 Fluconazole [Diflucan] 150 mg PO ONCE #1 tablet 01/13/19 01/17/19 Furosemide [Lasix] 40 mg PO DAILY #30 tablet 01/13/19 01/17/19 Lisinopril [Zestril] 5 mg PO DAILY #30 tablet 01/13/19 01/17/19 Potassium Chloride 10 meq PO DAILY #30 tab.er.prt 01/13/19 01/17/19 Rivaroxaban [Xarelto] 15 mg PO 1700 #30 tablet 01/13/19 01/17/19 cephALEXin [Keflex] 500 mg PO BID #10 capsule 01/13/19 01/17/19 diltiaZEM CD [Cardizem Cd] 240 mg PO DAILY #30 capsule 01/13/19 01/17/19 Sulfamethox/Trimeth 800/160 1 each PO BID #10 tablet 01/15/19 01/17/19 [Bactrim Ds 800/160] Levofloxacin [Levaquin] 500 mg PO DAILY #9 tablet 01/17/19 - Allergies Allergies/Adverse Reactions: Allergies Allergy/AdvReac Type Severity Reaction Status Date / Time No Known Drug Allergies Allergy Verified 01/17/19 12:10 - Social History Does the pt smoke?: No Smoking Status: Never smoker Does the pt drink ETOH?: No Does the pt have substance abuse?: No - Family History Family history: reports: Non contributory - Immunizations Immunizations are current?: Yes - POLST Patient has POLST: No PD ED PE NORMAL - Vitals Vital signs reviewed: Yes - General General: Alert and oriented X 3, No acute distress - HEENT HEENT: PERRL, EOMI - Neck Neck: Supple, no meningeal sign, No bony TTP - Cardiac Cardiac: No murmur, Other (Irregularly irregular) - Respiratory Respiratory: No respiratory distress, Clear bilaterally - Abdomen Abdomen: Soft, Non tender - Back Back: No CVA TTP, No spinal TTP - Derm Derm: Normal color, Warm and dry - Extremities Extremities: No edema, No calf tenderness / cord - Neuro Neuro: Alert and oriented X 3, Normal speech Results - Vitals Vitals: Vital Signs - 24 hr 01/17/19 01/17/19 12:06 14:18 Temperature 35.7 C L Heart Rate 99 80 Respiratory 18 18 Rate Blood Pressure 120/92 H 133/73 H O2 Saturation 97 97 Oxygen O2 Source Room air - Labs Labs: Laboratory Tests 01/17/19 01/17/19 01/17/19 12:38 12:38 13:13 WBC 11.2 H RBC 4.42 Hgb 13.5 Hct 40.3 MCV 91.3 MCH 30.5 MCHC 33.4 RDW 13.5 Plt Count 300 MPV 8.8 Neut # (Auto) 6.8 H Lymph # (Auto) 2.8 [place] # (Auto) 1.0 Eos # (Auto) 0.4 Baso # (Auto) 0.1 Absolute Nucleated RBC 0.00 Nucleated RBC % 0.0 Sodium 134 L Potassium 3.9 Chloride 99 L Carbon Dioxide 26 Anion Gap 9.0 BUN 18 Creatinine 1.1 H Estimated GFR (MDRD) 50 L Glucose 271 H Calcium 9.4 Total Bilirubin 0.9 AST 14 ALT 15 Alkaline Phosphatase 78 Total Protein 9.0 H Albumin 3.4 Globulin 5.6 H Albumin/Globulin Ratio 0.6 L Lipase 29 Urine Color RED/BLOODY Urine Clarity CLOUDY Urine pH 6.0 Ur Specific [place] 1.020 Urine Protein Urine Glucose (UA) NEGATIVE Urine Ketones NEGATIVE Urine Occult Blood LARGE H Urine Nitrite NEGATIVE Urine Bilirubin NEGATIVE Urine Urobilinogen 0.2 (NORMAL) Ur Leukocyte Esterase NEGATIVE Urine RBC TNTC H Urine WBC 0-3 Ur Squamous Epith Cells NONE SEEN Urine Bacteria Few Ur Microscopic Review INDICATED Urine Culture Comments NOT INDICATED - Rads (name of study) CT A/P Radiology: EMP read contemporaneously (Cholelithiasis and bilateral pyelo nephritis) PD MEDICAL DECISION MAKING - ED course ED course: 63-year-old woman with gross hematuria in the setting of Xarelto use. Worry for malignancy given the lack of response to antibiotics and therefore CT was done but shows only pyelonephritis. We will up her antibiotics to Levaquin. Departure - Departure Disposition: 01 Home, Self Care Clinical Impression: Pyelonephritis Condition: Stable Record reviewed to determine appropriate education?: Yes Instructions: Pyelonephritis Dc Prescriptions: Levofloxacin [Levaquin] 500 mg PO DAILY #9 tablet Comments: Prescription was sent to [facility] in [place]. Return for new or worsening symptoms. Return here on Tuesday or follow-up with your physician if bleeding is not much better by then. If it is continuous to seek urologic consultation and referral from your primary care physician. Stop the cephalexin/Keflex and trimethoprim/sulfamethoxazole/Bactrim.
[2019-01-17] MEDS ORDERED: IOVERSOL 320 100 ML VIAL IVP ONE ×2 (14:33→15:38)
--- NOTE | 2019-01-17 16:55 | CT Report ---
Reason: IV ONLY, HEMATURIA Procedure Date: 01/17/2019 Accession Number: [id number] / [id number] Procedure: CT - ABDOMEN/PELVIS W/WO CPT Code: FULL RESULT: EXAM: CT ABDOMEN AND PELVIS WITHOUT AND WITH CONTRAST (CT IVP) EXAM DATE: 01/17/2019 03:25 PM. CLINICAL HISTORY: Hematuria. COMPARISONS: CHEST ANGIO 01/09/2019 11:12 PM. TECHNIQUE: Routine helical imaging was performed through the kidneys, ureters and bladder in the precontrast, late arterial, early nephrographic, and 30 minute delayed phase. IV Contrast: 100 cc Optiray 320. Reconstructions: Coronal and sagittal. In accordance with CT protocol optimization, one or more of the following dose reduction techniques were utilized for this exam: automated exposure control, adjustment of mA and/or KV based on patient size, or use of iterative reconstructive technique. FINDINGS: Lung Bases: Unremarkable. Right Kidney/Ureter: No stones, hydronephrosis, or masses. There is a small geographic area of subtle hypoenhancement in the anterior cortex of the lower right kidney such as on series 6 image 39. This area shows delayed contrast washout is seen on the delayed images. There is also some subtle wispy delayed enhancement in portions of the mid and upper right kidney. There is subtle asymmetric urothelial enhancement involving the right calyces, right renal pelvis, and proximal right ureter compared to the left. No discrete collecting system masses identified. No abnormal filling defect is seen in the right renal collecting system or ureter on delayed images. There is perhaps subtle right perinephric and proximal periureteral fat stranding compared to the left. Left Kidney/Ureter: No stones, hydronephrosis, or masses. Minimally prominent enhancement of the urothelium at the renal pelvis, although less conspicuous than on the right. Early enhancement is normal. There is subtle delayed enhancement in the medial lower pole of the left kidney just below the renal hilum. There is subtle fat stranding at the left renal hilum. Other Solid Organs: The liver, spleen, pancreas, gallbladder, and adrenal glands are unremarkable. Biliary system: Multiple small rim calcified gallstones measuring up to 13 mm in size. No evidence of acute cholecystitis. No ductal dilatation. Peritoneal Cavity/Bowel: Unopacified stomach and small bowel are nondistended. The retrocecal appendix is normal. There is no significant formed stool in the colon. There are occasional small colonic diverticula particularly in the transverse colon. There is no focal pericolonic fat stranding. There is no lymphadenopathy, ascites, or pneumoperitoneum. Pelvic Organs: Bladder are unremarkable without stones. No filling defects on delayed images. Anteverted uterus normal in size. 2 cm anterior body intramural fibroid with some punctate dystrophic calcifications. Adnexa are unremarkable. Vasculature: Normal. Bones: Moderate bilateral L4-L5 facet osteoarthritis. Other: Abdominal wall unremarkable. IMPRESSION: 1. Mild right greater than left pyelonephritis. 2. Cholelithiasis without evidence of acute cholecystitis. RADIA
[2019-01-17] MEDS ORDERED: levoFLOXacin 250 MG TABLET PO STA (17:21)
[2019-01-17 17:35] VITALS: BP 121/71
== END 2019-01-17 17:37 | disposition home or self-care (01) ==
LOC: ED 12:01
DX: N12 Tubulo-interstitial nephritis, not specified as acute or chronic (principal); R31.0 Gross hematuria; I10 Essential (primary) hypertension; E03.9 Hypothyroidism, unspecified; E11.9 Type 2 diabetes mellitus without complications; I48.91 Unspecified atrial fibrillation; Z86.711 Personal history of pulmonary embolism; Z79.01 Long term (current) use of anticoagulants; Z96.659 Presence of unspecified artificial knee joint
CPT/HCPCS: 36415; 74178; 80053; 81001; 83690; 85025; 99283; 99284; A9270; Q9967; 81003; 87086

== ENCOUNTER 2019-02-14 04:42 | Inpatient (IN) | payer MEDICAID ==
[2019-02-14] MEDS ORDERED: DEXAMETHASONE 10 MG/ML VIAL PO STA (05:01)
[2019-02-14] MEDS ORDERED: BENZONATATE 100 MG CAPSULE PO STA (05:01)
[2019-02-14] MEDS ORDERED: ALBUTEROL NEB 2.5 MG/3 ML INH STA ×3 (05:01→06:29)
[2019-02-14] MEDS ORDERED: CHERRY SYRUP 10 ML UDC PO ONE (05:12)
[2019-02-14] MEDS ORDERED: ALBUTEROL NEB 2.5 MG/3 ML INH ONE (05:27)
--- NOTE | 2019-02-14 06:17 | XRAY Report ---
Reason: cough and wheezing for several days Procedure Date: 02/14/2019 Accession Number: [id number] / [id number] Procedure: XR - Chest 2 View X-Ray CPT Code: 36045 FULL RESULT: EXAM: CHEST RADIOGRAPHY EXAM DATE: 02/14/2019 05:51 AM. CLINICAL HISTORY: Cough and wheezing for several days. COMPARISON: CHEST 1 VIEW 01/11/2019 8:04 AM. TECHNIQUE: 2 views. FINDINGS: Lungs/Pleura: Bronchial wall thickening. Possible pulmonary vascular congestion and trace edema. No alveolar consolidation or definite pleural effusion seen. No pneumothorax. Mediastinum: Mild cardiomegaly. Other: Degenerative changes in the shoulders. IMPRESSION: 1. Mild cardiomegaly with possible pulmonary vascular congestion and trace pulmonary edema. 2. Bronchial wall thickening. This can be seen with bronchitis or reactive airways disease. RADIA
[2019-02-14] MEDS ORDERED: SODIUM CHLORIDE 0.9% 1,000 ML IV ONE (06:30)
[2019-02-14] MEDS ORDERED: cefTRIAXone 1 GM VIAL IVP STA (06:30)
[2019-02-14] MEDS ORDERED: AZITHROMYCIN INJ 500 MG in SODIUM CHLORIDE 0.9% 250 ML IV STA (06:30)
[2019-02-14] MEDS ORDERED: diltiaZEM INJ 5 MG/ML VIAL IVP STA (06:31)
[2019-02-14 06:44] LABS: BASOPHILS % (AUTO) 0.7 %; EOSINOPHILS # (AUTO) 0.1 10^3/uL (0.0-0.7); EOSINOPHILS % (AUTO) 2.3 %; HGB - HEMOGLOBIN 12.6 g/dL (12.0-16.0); LYMPHOCYTES # (AUTO) 0.7 10^3/uL (1.5-3.5); LYMPHOCYTES % (AUTO) 10.8 %; MEAN CORPUSCULAR HEMOGLOBIN 31.2 pg (27.0-31.0); MEAN CORPUSCULAR HGB CONC 34.4 g/dL (32.0-36.0); MEAN CORPUSCULAR VOLUME 90.6 fL (81.0-99.0); MONOCYTES # (AUTO) 0.3 10^3/uL (0.0-1.0); MONOCYTES % (AUTO) 5.5 %; NEUTROPHILS # (AUTO) 4.9 10^3/uL (1.5-6.6); NEUTROPHILS % (AUTO) 80.7 %; PLT - PLATELET COUNT 121 10^3/uL (130-450); RED BLOOD COUNT 4.03 10^6/uL (4.20-5.40); RED CELL DISTRIBUTION WIDTH 13.5 % (12.0-15.0)
[2019-02-14 06:57] LABS: ALBUMIN 3.3 g/dL (3.2-5.5); ALBUMIN/GLOBULIN RATIO 0.7 (1.0-2.2); BILIRUBIN,TOTAL 1.1 mg/dL (0.2-1.0); CALCIUM 8.6 mg/dL (8.5-10.3); CREATININE 0.8 mg/dL (0.4-1.0); MAGNESIUM 1.6 mg/dL (1.7-2.8); TOTAL PROTEIN 7.9 g/dL (6.7-8.2)
--- NOTE | 2019-02-14 07:03 | ED Physician Documentation ---
PD HPI URI - Stated complaint Stated Complaint: SOA/NAUSEA - Chief complaint Chief Complaint: Resp - History obtained from History obtained from: Patient - History of Present Illness Timing - onset: How many days ago (6) Timing duration: Days (since last ) Timing details: Gradual onset Associated symptoms: Nasal congestion, Productive cough, Dyspnea. No: Fever, NVD, Bilateral edema Contributing factors: Immunocompromised (on Remicaid for RA) Improves by: No: MDI/nebulizer (using Albuterol MDI at home without improvement) Worsened by: Activity Similar symptoms before: Diagnosis (was hospitalized for pneumonia end Dec into early January for 5 days and improved. Was still having dyspnea and fatigue but then started with cough and malaise, dyspnea increasing the past 6 days. Seen in office yesterday and given Rx for azithromycin Tripack and Albuterol MDI. She is having worse cough and dyspnea despite these.) Recently seen: Clinic (yesterday and has had 1 day of abx so far.) Review of Systems Constitutional: reports: Myalgias, Fatigue. denies: Fever Nose: reports: Congestion. denies: Rhinorrhea / runny nose Throat: denies: Sore throat Cardiac: denies: Chest pain / pressure, Palpitations, Pedal edema Respiratory: reports: Dyspnea, Cough, Wheezing GI: denies: Abdominal Pain, Nausea, Vomiting, Diarrhea Skin: denies: Rash, Lesions Musculoskeletal: denies: Neck pain, Back pain, Extremity swelling Neurologic: reports: Generalized weakness. denies: Focal weakness, Numbness, Near syncope PD PAST MEDICAL HISTORY - Past Medical History Past Medical History: Yes Cardiovascular: Hypertension, Pulmonary embolism, Atrial fibrillation Respiratory: Sleep apnea, CPAP use Neuro: Peripheral neuropathy Endocrine/Autoimmune: Type 2 diabetes, HyPOthyroidism SANDBLAST CARVER: None : None HEENT: None Psych: None Musculoskeletal: Rheumatoid arthritis Derm: None - Past Surgical History Past Surgical History: Yes Ortho: Knee replacement, Carpal Tunnel surgery - Present Medications Home Medications: Ambulatory Orders Medication Instructions Recorded Confirmed Methotrexate 25 mg ORAL Q7D 04/10/17 02/14/19 Oxycodone HCl/Acetaminophen 7.5 mg PO Q4H PRN 04/10/17 02/14/19 [Percocet 7.5-325 mg Tablet] metFORMIN [Glucophage] 1,000 mg ORAL BID 04/10/17 02/14/19 traZODone [Desyrel] 50 - 100 mg ORAL QPM 04/10/17 02/14/19 Aspirin 81 mg PO DAILY 01/09/19 02/14/19 Folic Acid 4 mg PO DAILY 01/09/19 02/14/19 Fluticasone [Flonase] 1 sprays DOMINICK DAILY 01/10/19 02/14/19 Infliximab (Remicade) 600 mg IV .Q5-6WKS 01/10/19 02/14/19 Levothyroxine Sodium [Synthroid] 175 mcg PO QDAC 01/10/19 02/14/19 Azithromycin [Zithromax] 500 mg PO DAILY #1 tablet 01/13/19 02/14/19 Furosemide [Lasix] 40 mg PO DAILY #30 tablet 01/13/19 02/14/19 Lisinopril [Zestril] 5 mg PO DAILY #30 tablet 01/13/19 02/14/19 Potassium Chloride 10 meq PO DAILY #30 tab.er.prt 01/13/19 02/14/19 Rivaroxaban [Xarelto] 15 mg PO 1700 #30 tablet 01/13/19 02/14/19 diltiaZEM CD [Cardizem Cd] 240 mg PO DAILY #30 capsule 01/13/19 02/14/19 Albuterol Sulfate [Proventil Hfa 1 puffs PO PRN PRN 02/14/19 02/14/19 Inhaler] - Allergies Allergies/Adverse Reactions: Allergies Allergy/AdvReac Type Severity Reaction Status Date / Time No Known Drug Allergies Allergy Verified 02/14/19 04:54 - Social History Does the pt smoke?: No Smoking Status: Never smoker Does the pt drink ETOH?: No Does the pt have substance abuse?: No - Immunizations Immunizations are current?: Yes - POLST Patient has POLST: No PD ED PE NORMAL - Vitals Vital signs reviewed: Yes - General General: Alert and oriented X 3, Well developed/nourished, Other (She has prolonged expiratory phase for breathing and double wheeze. She is able to talk in sentences. There is some mild work of breathing with chest heaving.) - HEENT HEENT: Pharynx benign - Neck Neck: Supple, no meningeal sign, No adenopathy, No JVD - Cardiac Cardiac: No murmur. No: RRR (irregular and borderline tachycardic) - Respiratory Respiratory: No: Clear bilaterally (some coarse sounds on right and diffuse moderate wheezing with prolonged exp phase. ) - Abdomen Abdomen: Soft, Non tender - Derm Derm: Normal color, Warm and dry - Extremities Extremities: No tenderness to palpate, Normal ROM s pain, No calf tenderness / cord, Other (minimal pitting edema in both legs. ) - Neuro Neuro: Alert and oriented X 3, No motor deficit, Normal speech Results - Vitals Vitals: Vital Signs - 24 hr 02/14/19 02/14/19 02/14/19 04:52 04:54 04:56 Temperature 37.0 C Heart Rate 94 117 H 95 Respiratory 19 20 Rate Blood Pressure 129/79 O2 Saturation 89 L 93 95 02/14/19 02/14/19 02/14/19 05:10 05:23 05:25 Temperature Heart Rate 114 H 112 H 114 H Respiratory 19 12 18 Rate Blood Pressure O2 Saturation 98 02/14/19 02/14/19 02/14/19 06:02 06:42 06:53 Temperature Heart Rate 113 H 116 H 116 H Respiratory 19 16 18 Rate Blood Pressure 135/88 H O2 Saturation 98 95 02/14/19 02/14/19 06:56 07:01 Temperature Heart Rate 121 H 109 H Respiratory 18 18 Rate Blood Pressure 101/60 O2 Saturation 98 94 Oxygen O2 Source Oxymask Oxygen Flow Rate 4 - Labs Labs: Laboratory Tests 02/14/19 02/14/19 02/14/19 06:30 06:30 06:30 WBC 6.0 RBC 4.03 L Hgb 12.6 Hct 36.5 L MCV 90.6 MCH 31.2 H MCHC 34.4 RDW 13.5 Plt Count 121 L MPV 9.0 Neut # (Auto) 4.9 Lymph # (Auto) 0.7 L [place] # (Auto) 0.3 Eos # (Auto) 0.1 Baso # (Auto) 0.0 Absolute Nucleated RBC 0.00 Nucleated RBC % 0.0 Sodium 130 L Potassium 4.1 Chloride 92 L Carbon Dioxide 27 Anion Gap 11.0 BUN 16 Creatinine 0.8 Estimated GFR (MDRD) 73 L Glucose 353 H Lactic Acid Calcium 8.6 Magnesium 1.6 L Total Bilirubin 1.1 H AST 21 ALT 20 Alkaline Phosphatase 93 B-Natriuretic Peptide 82 Total Protein 7.9 Albumin 3.3 Globulin 4.6 H Albumin/Globulin Ratio 0.7 L Lipase 24 02/14/19 06:30 WBC RBC Hgb Hct MCV MCH MCHC RDW Plt Count MPV Neut # (Auto) Lymph # (Auto) [place] # (Auto) Eos # (Auto) Baso # (Auto) Absolute Nucleated RBC Nucleated RBC % Sodium Potassium Chloride Carbon Dioxide Anion Gap BUN Creatinine Estimated GFR (MDRD) Glucose Lactic Acid 2.0 Calcium Magnesium Total Bilirubin AST ALT Alkaline Phosphatase B-Natriuretic Peptide Total Protein Albumin Globulin Albumin/Globulin Ratio Lipase - Rads (name of study) chest xray Radiology: Prelim report reviewed (bronchial thickening. no infiltrates), EMP read contemporaneously (I think there is some haziness right lower lung, similar location to prior pneumonia, so might be residual vs renewed infection. ), See rad report PD MEDICAL DECISION MAKING - ED course Complexity details: re-evaluated patient (She is breathing easier after nebulizer treatments. The wheezing is much decreased. However taken off oxygen she goes down to 85-89% and feels short of breath again. We will give another neb treatment and keep her on oxygen. She likely will need to be hospitalized for further treatment.) Departure - Departure Disposition: ED Place in Observation Clinical Impression: Hypoxia, Lower respiratory infection (e.g., bronchitis, pneumonia, pneumonitis, pulmonitis), Wheezing
[2019-02-14] MEDS ORDERED: MAGNESIUM SULFATE 2 GRAM 2 GM/50 ML BAG IV ONE (07:08)
[2019-02-14] MEDS ORDERED: ONDANSETRON 4 MG/2 ML VIAL IVP PRN (08:20)
[2019-02-14] MEDS ORDERED: ZOLPIDEM 5 MG TABLET PO PRN (08:20)
[2019-02-14] MEDS ORDERED: IPRATROPIUM 0.2 MG/ML NEB INH PRN (08:28)
--- NOTE | 2019-02-14 08:35 | HISTORY & PHYSICAL EXAMINATION ---
Chief Complaint - Chief Complaint Chief Complaint: cough, and SOB History of Present Illness - History of Present Illness HPI Comment/Other: Patient is a 63-yrs-old female with a PMH significant for DM II, hypothyroidism, rheumatoid arthritis on remicade and methotrexate and JAGDISH on home CPAP, DM2, HTN, hypothyroidism, PE, Afib with Xarelto, peripheral neuropathy, who presented to the ED today with complain of shortness of breath, cough. pt report she has been worsening with cough and shortness of breath for 3 days. Pt was seen in her PCP's office yesterday. She was given Rx for azithromycin Tripack and Albuterol MDI. She report she continue to have worse cough and dyspnea despite these. In ER, she was found to have 88% sats on room even after she had breathing treatment.CXR reveals mild cardiomegaly with possible pulmonary vascular congestion and trace pulmonary edema, bronchial wall thickening seen with bronchitis or reactive airways disease. Pt is afebile and slight tachycardia, 94% sats on 4 liter of O2. pt is O2-independent at home. Pt denies chest pain, fever, chill, headache, abdominal pain, nausea, vomiting. pt is admitted for re spiratory failure with hypoxia History - Past Medical History Cardiovascular: reports: Hypertension, Pulmonary embolism, Atrial fibrillation Respiratory: reports: Sleep apnea, CPAP use Neuro: reports: Peripheral neuropathy Endocrine/Autoimmune: reports: Type 2 diabetes, HyPOthyroidism SALES SPECIAL AGENT: reports: None : reports: None HEENT: reports: None Psych: reports: None Musculoskeletal: reports: Rheumatoid arthritis Derm: reports: None MRSA Hx?: No - Past Surgical History Ortho: reports: Knee replacement, Carpal Tunnel surgery - Family & Social History Family History Comment/Other: mother: . had lung cancer. sister: from thyroid cancer Social History Notes: pt denies cigarett smoker, alcohol and drug abuse - Substance History Use: Uses substance without health or social issues: NONE - POLST Patient has POLST: No Meds/Allgy - Home Medications Home Medications: Ambulatory Orders Medication Instructions Recorded Confirmed Methotrexate 25 mg ORAL Q7D 04/10/17 02/14/19 Oxycodone HCl/Acetaminophen 7.5 mg PO Q4H PRN 04/10/17 02/14/19 [Percocet 7.5-325 mg Tablet] metFORMIN [Glucophage] 1,000 mg ORAL BID 04/10/17 02/14/19 traZODone [Desyrel] 50 - 100 mg ORAL QPM 04/10/17 02/14/19 Aspirin 81 mg PO DAILY 01/09/19 02/14/19 Folic Acid 4 mg PO DAILY 01/09/19 02/14/19 Fluticasone [Flonase] 1 sprays DOMINICK DAILY 01/10/19 02/14/19 Infliximab (Remicade) 600 mg IV .Q5-6WKS 01/10/19 02/14/19 Levothyroxine Sodium [Synthroid] 175 mcg PO QDAC 01/10/19 02/14/19 Azithromycin [Zithromax] 500 mg PO DAILY #1 tablet 01/13/19 02/14/19 Furosemide [Lasix] 40 mg PO DAILY #30 tablet 01/13/19 02/14/19 Lisinopril [Zestril] 5 mg PO DAILY #30 tablet 01/13/19 02/14/19 Potassium Chloride 10 meq PO DAILY #30 tab.er.prt 01/13/19 02/14/19 Rivaroxaban [Xarelto] 15 mg PO 1700 #30 tablet 01/13/19 02/14/19 diltiaZEM CD [Cardizem Cd] 240 mg PO DAILY #30 capsule 01/13/19 02/14/19 Albuterol Sulfate [Proventil Hfa 1 puffs PO PRN PRN 02/14/19 02/14/19 Inhaler] - Allergies Allergies/Adverse Reactions: Allergies Allergy/AdvReac Type Severity Reaction Status Date / Time No Known Drug Allergies Allergy Verified 02/14/19 04:54 Review of Systems - Constitutional Constitutional: reports: Fatigue, Weakness. denies: Fever, Chills, Malaise, Poor appetite, Diaphoresis, Night sweats, Weight gain, Weight loss - Eyes Eyes: denies: Pain, Amaurosis, Blurred vision, Spots in vision, Field loss, Vision loss, Dipolpia - Ears, Nose & Throat Ears, Nose & Throat: denies: Hearing loss, Tinnitus, Vertigo, Nasal pain, Nasal discharge, Nosebleeds, Nasal obstruction, Nasal congestion, Postnasal drainage, Dentures, Sore throat, Hoarseness, Mouth lesions, Bleeding gums - Cardiovascular Cariovascular: denies: Irregular heart rate, Palpitations, Chest pain, Edema, Lightheadedness, Syncope, Exertional dyspnea, Decr. exercise tolerance - Respiratory Respiratory: reports: Cough, Sputum production, SOB with exertion. denies: Wheezing, Snoring, Hemoptysis, Orthopnea, SOB at rest, Apnea, Stridor, Pleuritic pain - Gastrointestinal Gastrointestinal: denies: Abdominal pain, Abdominal distention, Constipation, Diarrhea, Change in bowel habits, Rectal bleeding, Black stools, Bloody stools, Nausea, Vomiting, Bile emesis, Filippo blood emesis, Coffee grounds emesis, Reflux/heartburn - Genitourinary Genitourinary: denies: Dysuria, Frequency, Urgency, Hematuria, Incontinence, Nocturia, Urethral discharge - Musculoskeletal Musculoskeletal: denies: Muscle pain, Back pain, Muscle aches, Stiffness, Limited range of motion, Muscle weakness, Gout, Joint pain - Integumentary Integumentary: denies: Rash, Pruritis, Lesions, Dryness, Lumps, Acne, Pigment changes, Nail changes - Neurological Neurological: denies: General weakness, Focal weakness, Headache, Dizziness, Numbness, Memory problems, Pre-existing deficit, Abnormal gait, Seizures, Incoordination, Slurred speech - Psychiatric Psychiatric: denies: Depression, Anxiety, Suicidal, Delusions, Hallucinations, Homicidal - Endocrine Endocrine: denies: Polyuria, Polydypsia, Polyphagia, Intolerance to cold - Hematologic/Lymphatic Hematologic/Lymphatic: denies: Anemia, Bruising, Petechiae, Blood clots, Lymphadenopathy, Bleeding tendencies Exam - Vital Signs Reviewed Vital Signs: Yes Vital Signs: Vital Signs x48h Temp Pulse Resp BP Pulse Ox 02/14/19 07:01 109 H 18 101/60 94 02/14/19 06:56 121 H 18 98 02/14/19 06:53 116 H 18 02/14/19 06:42 116 H 16 135/88 H 95 02/14/19 06:02 113 H 19 98 02/14/19 05:25 114 H 18 98 02/14/19 05:23 112 H 12 02/14/19 05:10 114 H 19 02/14/19 04:56 95 20 95 02/14/19 04:54 117 H 93 02/14/19 04:52 37.0 C 94 19 129/79 89 L - Physical Exam General Appearance: positive: No acute distress, Alert. negative: Lethargic Eyes Bilateral: positive: Normal inspection, PERRL, No lid inflammation, Conjunctivae nml ENT: positive: ENT inspection nml, Pharynx nml, No signs of dehydration. negative: Purulent nasal drainage, Pharyngeal erythema, Oral lesions Neck: positive: Nml inspection, Thyroid nml, No JVD, Trachea midline. negative: Thyromegaly, Lymphadenopathy (R), Lymphadenopathy (L), Stiff neck, Swelling/bruising, Tracheal deviation Respiratory: positive: Chest non-tender, No respiratory distress, Rhonchi. negative: Wheezes, Rales Cardiovascular: positive: Regular rate & rhythm, No murmur, No gallop. negative: Irregularly irregular, Extrasystoles, Tachycardia, Bradycardia, JVD present, Systolic murmur, Diastolic murmur Peripheral Pulses: positive: 2+ Abdomen: positive: Non-tender, No organomegaly, Nml bowel sounds, No distention. negative: Tenderness, Guarding, Rebound Back: positive: Nml inspection. negative: CVA tenderness (R), CVA tenderness (L) Skin: positive: Color nml, No rash, Warm, Dry. negative: Cyanosis, Diaphoresis, Pallor Extremities: positive: Non-tender, Full ROM, Nml appearance. negative: Calf tenderness, Joint swelling, Willie's sign/cords Neurologic/Psychiatric: positive: Oriented x3, Sensation nml, Mood/affect nml. negative: Weakness, Sensory loss, Facial droop, Slurred/abnml speech, Depressed mood/affect Sepsis Event Note (H) - Evaluation Current Stage of Sepsis: Ruled out Conclusion/Plan - Problem List (1) Respiratory failure with hypoxia Conclusion/Plan: pt present ER with 88% sat on room air. pt had cough and SOB for couple of days with yellow and green sputum, CXR indicate bronchitis/pneumonia. pt is under of treatment of RA and is immuno-compromised status. breath treatment and consult with RT antibiotics treat for infection vital monitor (2) Hyperglycemia without ketosis Conclusion/Plan: pt took Metformin at home. Pt had 352 glucose at ER. but pt had hyperglycemia to over 500 after pt had steroid given in ER. pt's anion gap is normal, no ketosis at serum. hold Metformin slide scale. add Aspart and Lantus start IVF of NS ACHS (3) Atrial fibrillation with RVR Conclusion/Plan: pt has hx of afib. in ER, pt's HR is up to 117. resume home med Cardizem 240 mg daily tele and vital monitor continue homed Xarelto (4) Diabetes mellitus, type II Conclusion/Plan: A1C 8.5, pt took Metformin only at home continue slide scale, ACHS start Glucotrol Qualifiers: Diabetes mellitus complication status: without complication (5) Rheumatoid arteritis Conclusion/Plan: stable, no acute complaint hold home meds, which is immuno-compromised (6) HTN (hypertension) Conclusion/Plan: stable, reconcile home meds (7) Hypothyroidism Conclusion/Plan: stable, reconcile home meds check TSH (8) Hx of pulmonary embolus Conclusion/Plan: stable, resume home meds Xarelto (9) Hyponatremia Conclusion/Plan: Na 130 today. pt has hx of hyponatremia slightly. pt has hyperglycemia today which can cause hyponatremia IVF of NS lab monitor (10) Full code status Conclusion/Plan: pt request full code - Lab Results Fish Bones: 02/14/19 06:30 02/14/19 14:09 Core Measures - Anticipated LOS I expect patient to be DC'd or transferred within 96 hours.: Yes - DVT/VTE - Prophylaxis VTE/DVT Device ordered at admit?: Yes VTE/DVT Prophylaxis med ordered at admit?: Yes
[2019-02-14] MEDS ORDERED: SODIUM CHLORIDE 0.9% 1,000 ML IV SCH ×2 (09:00→14:40)
[2019-02-14] MEDS ORDERED: ENOXAPARIN 40 MG/0.4 ML SYRINGE SUBQ SCH (09:00)
[2019-02-14] MEDS ORDERED: cefTRIAXone 1 GM VIAL IVP SCH ×2 (09:00)
[2019-02-14 09:13] LABS: HB2 TOTAL 13.3 g/dL; HEMOGLOBIN A1C 0.92 g/dL; HEMOGLOBIN A1C % 8.5 % (4.6-6.2)
[2019-02-14] MEDS ORDERED: INSULIN ASPART 300 UNIT/3 ML PEN SUBQ SCH (09:15)
[2019-02-14] MEDS ORDERED: LEVOTHYROXINE 100 MCG TABLET PO SCH (09:30)
[2019-02-14] MEDS ORDERED: LEVOTHYROXINE 75 MCG TABLET PO SCH (09:30)
[2019-02-14] MEDS ORDERED: diltiaZEM CD 120 MG CAPSULE PO ONE (10:05)
[2019-02-14] MEDS: ACETAMINOPHEN 325 MG TABLET PO PRN ×3 (10:10→21:30)
[2019-02-14] MEDS: FAMOTIDINE 20 MG TABLET PO SCH ×2 (10:10→21:30)
[2019-02-14] MEDS: FUROSEMIDE 40 MG TABLET PO SCH (10:10)
[2019-02-14] MEDS: AZITHROMYCIN 250 MG TABLET PO SCH (10:12)
[2019-02-14] MEDS: LISINOPRIL 5 MG TABLET PO SCH (10:12)
[2019-02-14] MEDS: FOLIC ACID 1 MG TABLET PO SCH (10:12)
[2019-02-14] MEDS: diltiaZEM CD 240 MG CAPSULE PO SCH (10:12)
[2019-02-14] MEDS: POLYETHYLENE GLYCOL 3350 17 GM PACKET PO SCH (10:12)
[2019-02-14] MEDS: ASPIRIN CHEW 81 MG TABLET PO SCH (10:18)
[2019-02-14] MEDS: SODIUM CHLORIDE FLUSH 0.9% 10 ML SYRINGE IVP SCH ×2 (10:18→18:18)
[2019-02-14] MEDS ORDERED: cefTRIAXone 1 GM in SODIUM CHLORIDE 0.9% MINIBAG 100 ML IV ONE (10:30)
[2019-02-14] MEDS: oxyCODONE 5 MG TABLET PO PRN ×3 (11:14→21:29)
[2019-02-14] MEDS: INSULIN ASPART 300 UNIT/3 ML PEN SUBQ SCH ×3 (11:56→21:42)
[2019-02-14] MEDS ORDERED: INSULIN ASPART 300 UNIT/3 ML PEN SUBQ ONE ×5 (12:00→17:58)
[2019-02-14] MEDS ORDERED: POTASSIUM CHLORIDE 20 MEQ TABLET PO ONE (12:15)
[2019-02-14] MEDS: guaiFENesin 600 MG TABLET PO SCH ×2 (14:16→21:30)
[2019-02-14 14:33] LABS: BUN - BLOOD UREA NITROGEN 19 mg/dL (6-20); CALCIUM 8.4 mg/dL (8.5-10.3); CARBON DIOXIDE - CO2 23 mmol/L (21-32); CHLORIDE 92 mmol/L (101-111); CREATININE 1.2 mg/dL (0.4-1.0); GFR - MDRD 46 (>89); SODIUM 127 mmol/L (135-145)
[2019-02-14 14:34] LABS: GLUCOSE 584 mg/dL (70-100)
[2019-02-14 14:35] LABS: KETONES, SERUM (ACETEST) NEGATIVE (NEGATIVE)
[2019-02-14] MEDS ORDERED: INSULIN GLARGINE 300 UNIT/3 ML PEN SUBQ SCH (17:00)
[2019-02-14] MEDS: LEVALBUTEROL 1.25 MG/3 ML NEB INH PRN (17:36)
[2019-02-14] MEDS: RIVAROXABAN 15 MG TABLET PO SCH (18:18)
[2019-02-14] MEDS: traZODone 50 MG TABLET PO SCH (21:30)
[2019-02-14] MEDS: DOCUSATE SODIUM 250 MG CAPSULE PO SCH (21:45)
[2019-02-15] MEDS: SODIUM CHLORIDE FLUSH 0.9% 10 ML SYRINGE IVP SCH ×4 (04:11→23:45)
[2019-02-15] MEDS: LEVOTHYROXINE 100 MCG TABLET PO SCH (05:39)
[2019-02-15] MEDS: LEVOTHYROXINE 75 MCG TABLET PO SCH (05:39)
[2019-02-15 05:47] LABS: BASOPHILS % (AUTO) 0.5 %; EOSINOPHILS % (AUTO) 0.4 %; LYMPHOCYTES # (AUTO) 1.1 10^3/uL (1.5-3.5); LYMPHOCYTES % (AUTO) 19.1 %; MEAN CORPUSCULAR HEMOGLOBIN 30.7 pg (27.0-31.0); MEAN CORPUSCULAR HGB CONC 33.8 g/dL (32.0-36.0); MEAN CORPUSCULAR VOLUME 90.9 fL (81.0-99.0); MEAN PLATELET VOLUME 9.2 fL (7.9-10.8); MONOCYTES # (AUTO) 0.8 10^3/uL (0.0-1.0); MONOCYTES % (AUTO) 13.2 %; NEUTROPHILS # (AUTO) 3.8 10^3/uL (1.5-6.6); NEUTROPHILS % (AUTO) 66.8 %; PLT - PLATELET COUNT 140 10^3/uL (130-450); RED BLOOD COUNT 3.92 10^6/uL (4.20-5.40); RED CELL DISTRIBUTION WIDTH 13.4 % (12.0-15.0); WHITE BLOOD COUNT 5.7 x10^3/uL (4.8-10.8)
[2019-02-15 06:13] LABS: ALBUMIN/GLOBULIN RATIO 0.7 (1.0-2.2); CALCIUM 8.4 mg/dL (8.5-10.3); CREATININE 0.7 mg/dL (0.4-1.0); MAGNESIUM 2.2 mg/dL (1.7-2.8); TOTAL PROTEIN 7.6 g/dL (6.7-8.2)
[2019-02-15] MEDS ORDERED: LEVOTHYROXINE 75 MCG TABLET PO SCH (07:00)
[2019-02-15] MEDS ORDERED: LEVOTHYROXINE 100 MCG TABLET PO SCH (07:00)
[2019-02-15] MEDS ORDERED: diltiaZEM CD 120 MG CAPSULE PO ONE (08:12)
[2019-02-15] MEDS: SODIUM CHLORIDE FLUSH 0.9% 10 ML SYRINGE IVP PRN (08:15)
[2019-02-15] MEDS: cefTRIAXone 2 GM in SODIUM CHLORIDE 0.9% MINIBAG 100 ML IV SCH (08:15)
[2019-02-15] MEDS: INSULIN ASPART 300 UNIT/3 ML PEN SUBQ SCH ×4 (08:19→21:46)
[2019-02-15] MEDS: FAMOTIDINE 20 MG TABLET PO SCH ×2 (08:23→21:45)
[2019-02-15] MEDS: FUROSEMIDE 40 MG TABLET PO SCH (08:23)
[2019-02-15] MEDS: AZITHROMYCIN 250 MG TABLET PO SCH (08:23)
[2019-02-15] MEDS: glipiZIDE 5 MG TABLET PO SCH (08:23)
[2019-02-15] MEDS: LISINOPRIL 5 MG TABLET PO SCH (08:23)
[2019-02-15] MEDS: FOLIC ACID 1 MG TABLET PO SCH (08:23)
[2019-02-15] MEDS: ASPIRIN CHEW 81 MG TABLET PO SCH (08:23)
[2019-02-15] MEDS: POLYETHYLENE GLYCOL 3350 17 GM PACKET PO SCH (08:24)
[2019-02-15] MEDS: DOCUSATE SODIUM 250 MG CAPSULE PO SCH (08:24)
[2019-02-15] MEDS: guaiFENesin 600 MG TABLET PO SCH ×2 (08:24→21:45)
[2019-02-15] MEDS: diltiaZEM CD 240 MG CAPSULE PO SCH (08:26)
[2019-02-15] MEDS ORDERED: cefTRIAXone 1 GM VIAL IVP SCH (09:00)
[2019-02-15] MEDS: LEVALBUTEROL 1.25 MG/3 ML NEB INH PRN (09:14)
[2019-02-15] MEDS ORDERED: INSULIN ASPART 300 UNIT/3 ML PEN SUBQ ONE (13:07)
--- NOTE | 2019-02-15 13:11 | PROVIDER PROGRESS NOTE ---
Subjective - Prog Note Date Prog Note Date: 02/15/19 - Subjective Pt reports feeling: Improved Subjective: pt report she feel better than yesterday. her breath is better, cough is better controlled. pt report she did not need oxygen now. She denies fever, chill, CP Current Medications - Current Medications Current Medications: Active Medications Acetaminophen (Tylenol) 650 mg PO Q4HR PRN PRN Reason: Pain 1 to 4 Last Admin: 02/14/19 21:30 Dose: 650 mg Aspirin ([place] Aspirin) 81 mg PO DAILY [facility] Last Admin: 02/15/19 08:23 Dose: 81 mg Azithromycin (Zithromax) 500 mg PO DAILY [facility] Last Admin: 02/15/19 08:23 Dose: 500 mg Diltiazem HCl (Cardizem Cd) 240 mg PO DAILY [facility] Last Admin: 02/15/19 08:26 Dose: 240 mg Docusate Sodium (Colace 250mg Capsule) 250 - 500 mg PO DAILY [facility] Last Admin: 02/15/19 08:24 Dose: 250 mg Famotidine (Pepcid) 20 mg PO BID [facility] Last Admin: 02/15/19 08:23 Dose: 20 mg Folic Acid () 4 mg PO DAILY [facility] Last Admin: 02/15/19 08:23 Dose: 4 mg Furosemide (Lasix) 40 mg PO DAILY [facility] Last Admin: 02/15/19 08:23 Dose: 40 mg Glipizide (Glucotrol) 5 mg PO 0730 [facility] Last Admin: 02/15/19 08:23 Dose: 5 mg Guaifenesin (Mucinex) 600 mg PO BID [facility] Last Admin: 02/15/19 08:24 Dose: 600 mg Ceftriaxone Sodium 2 gm/ (Sodium Chloride) 100 mls @ 200 mls/hr IV DAILY [facility] Last Infusion: 02/15/19 08:45 Dose: Infused Insulin Aspart (Novolog) 3 - 11 unit SUBQ 0800,1200,1700,2100 [facility]; Protocol Insulin Glargine (Lantus Solostar) 5 unit SUBQ QDBREAKFAST [facility] Ipratropium [place] (Atrovent) 0.5 mg INH RTQ4H PRN PRN Reason: Shortness of Air/Wheezing Levalbuterol HCl (Xopenex) 1.25 mg INH Q4H PRN PRN Reason: Shortness of Air/Wheezing Last Admin: 02/15/19 09:14 Dose: 1.25 mg Levothyroxine Sodium (Synthroid) 100 mcg PO QDAC@0500 [facility] Last Admin: 02/15/19 05:39 Dose: 100 mcg Levothyroxine Sodium (Synthroid) 75 mcg PO QDAC@0500 [facility] Last Admin: 02/15/19 05:39 Dose: 75 mcg Lisinopril (Zestril) 5 mg PO DAILY [facility] Last Admin: 02/15/19 08:23 Dose: 5 mg Ondansetron HCl (Zofran Inj) 4 mg IVP Q6HR PRN PRN Reason: Nausea / Vomiting Oxycodone HCl (Roxicodone) 7.5 mg PO Q4H PRN PRN Reason: ANALGESIA Last Admin: 02/14/19 21:29 Dose: 7.5 mg Polyethylene Glycol (Miralax) 17 gm PO DAILY [facility] Last Admin: 02/15/19 08:24 Dose: 17 gm Rivaroxaban (Xarelto) 15 mg PO 1700 [facility] Last Admin: 02/14/19 18:18 Dose: 15 mg Sodium Chloride (Normal Saline Flush 0.9%) 10 ml IVP PRN PRN PRN Reason: NEEDED PER PROVIDER ORDERS Last Admin: 02/15/19 08:15 Dose: 10 ml Sodium Chloride (Normal Saline Flush 0.9%) 10 ml IVP 0100,0900,1700 [facility] Last Admin: 02/15/19 08:15 Dose: 10 ml Trazodone HCl (Desyrel) 50 mg PO QPM [facility] Last Admin: 02/14/19 21:30 Dose: 50 mg Zolpidem Tartrate (Ambien) 5 mg PO QPM PRN PRN Reason: Insomnia Methotrexate 25 mg ORAL Q7D 04/10/17 Oxycodone HCl/Acetaminophen [Percocet 7.5-325 mg Tablet] 7.5 mg PO Q4H PRN 04/10/17 metFORMIN [Glucophage] 1,000 mg ORAL BID 04/10/17 traZODone [Desyrel] 50 - 100 mg ORAL QPM 04/10/17 Aspirin 81 mg PO DAILY 01/09/19 Folic Acid 4 mg PO DAILY 01/09/19 Fluticasone [Flonase] 1 sprays DOMINICK DAILY 01/10/19 Infliximab (Remicade) 600 mg IV .Q5-6WKS 01/10/19 Levothyroxine Sodium [Synthroid] 175 mcg PO QDAC 01/10/19 Albuterol Sulfate [Proventil Hfa Inhaler] 1 puffs PO PRN PRN 02/14/19 Objective - Vital Signs/Intake & Output Reviewed Vital Signs: Yes Vital Signs: Vital Signs x48h Temp Pulse Pulse Resp BP Pulse Ox 02/15/19 12:43 88 16 97 02/15/19 09:11 88 16 02/15/19 08:39 80 20 98 02/15/19 07:40 36.5 C 86 20 116/63 94 Intake & Output: Intake & Output 02/12/19 02/13/19 02/14/19 02/15/19 23:59 23:59 23:59 23:59 Intake Total 3849.25 840 Balance 3849.25 840 - Objective General Appearance: positive: No acute distress, Alert. negative: Lethargic Eyes Bilateral: positive: Normal inspection, PERRL, No lid inflammation, Conjunctivae nml ENT: positive: ENT inspection nml, Pharynx nml, No signs of dehydration. negative: Purulent nasal drainage, Pharyngeal erythema, Oral lesions Neck: positive: Nml inspection, Thyroid nml, No JVD, Trachea midline. negative: Thyromegaly, Lymphadenopathy (R), Lymphadenopathy (L), Stiff neck, Swelling/bruising, Tracheal deviation Respiratory: positive: Chest non-tender, No respiratory distress, Rhonchi. negative: Breath sounds nml, Wheezes, Rales Cardiovascular: positive: Regular rate & rhythm, No murmur, No gallop. negative: Irregularly irregular, Extrasystoles, Tachycardia, Bradycardia, JVD present, Systolic murmur, Diastolic murmur Peripheral Pulses: 2+ Radial (R), 2+ Radial (L), 2+ Dorsalis pedis (R), 2+ Dorsalis pedis (L) Abdomen: positive: Non-tender, No organomegaly, Nml bowel sounds, No distention. negative: Tenderness, Guarding, Rebound Back: positive: Nml inspection. negative: CVA tenderness (R), CVA tenderness (L) Skin: positive: Color nml, No rash, Warm, Dry. negative: Cyanosis, Diaphoresis, Pallor Extremities: positive: Non-tender, Full ROM, Nml appearance. negative: Calf tenderness, Joint swelling, Willie's sign/cords Neurologic/Psychiatric: positive: Oriented x3, Sensation nml, Mood/affect nml. negative: Weakness, Sensory loss, Facial droop, Slurred/abnml speech, Depressed mood/affect - Lab Results Fish Bones: 02/15/19 02:57 02/15/19 05:35 Other Labs: Lab Results x24hrs 02/15/19 02/15/19 02/15/19 Range/Units 11:09 07:35 05:35 WBC (4.8-10.8) x10^3/uL RBC (4.20-5.40) 10^6/uL Hgb (12.0-16.0) g/dL Hct (37.0-47.0) % MCV (81.0-99.0) fL MCH (27.0-31.0) pg MCHC (32.0-36.0) g/dL RDW (12.0-15.0) % Plt Count (130-450) 10^3/uL MPV (7.9-10.8) fL Neut # (Auto) (1.5-6.6) 10^3/uL Lymph # (Auto) (1.5-3.5) 10^3/uL [place] # (Auto) (0.0-1.0) 10^3/uL Eos # (Auto) (0.0-0.7) 10^3/uL Baso # (Auto) (0.0-0.1) 10^3/uL Absolute Nucleated RBC x10^3/uL Nucleated RBC % /100WBC Sodium 131 L (135-145) mmol/L Potassium 4.7 (3.5-5.0) mmol/L Chloride 98 L (101-111) mmol/L Carbon Dioxide 27 (21-32) mmol/L Anion Gap 6.0 (6-13) BUN 16 (6-20) mg/dL Creatinine 0.7 (0.4-1.0) mg/dL Estimated GFR (MDRD) 85 L (>89) Glucose 249 H (70-100) mg/dL POC Whole Bld Glucose 298 H 256 H (70 - 100) mg/dL Calcium 8.4 L (8.5-10.3) mg/dL Magnesium 2.2 (1.7-2.8) mg/dL Total Bilirubin 1.0 (0.2-1.0) mg/dL AST 18 (10-42) IU/L ALT 18 (10-60) IU/L Alkaline Phosphatase 73 (42-121) IU/L Total Protein 7.6 (6.7-8.2) g/dL Albumin 3.0 L (3.2-5.5) g/dL Globulin 4.6 H (2.1-4.2) g/dL Albumin/Globulin Ratio 0.7 L (1.0-2.2) TSH (0.34-5.60) uIU/mL Serum Ketones (NEGATIVE) 02/15/19 02/15/19 02/14/19 Range/Units 02:57 02:57 21:01 WBC 5.7 (4.8-10.8) x10^3/uL RBC 3.92 L (4.20-5.40) 10^6/uL Hgb 12.0 (12.0-16.0) g/dL Hct 35.7 L (37.0-47.0) % MCV 90.9 (81.0-99.0) fL MCH 30.7 (27.0-31.0) pg MCHC 33.8 (32.0-36.0) g/dL RDW 13.4 (12.0-15.0) % Plt Count 140 (130-450) 10^3/uL MPV 9.2 (7.9-10.8) fL Neut # (Auto) 3.8 (1.5-6.6) 10^3/uL Lymph # (Auto) 1.1 L (1.5-3.5) 10^3/uL [place] # (Auto) 0.8 (0.0-1.0) 10^3/uL Eos # (Auto) 0.0 (0.0-0.7) 10^3/uL Baso # (Auto) 0.0 (0.0-0.1) 10^3/uL Absolute Nucleated RBC 0.01 x10^3/uL Nucleated RBC % 0.2 /100WBC Sodium (135-145) mmol/L Potassium (3.5-5.0) mmol/L Chloride (101-111) mmol/L Carbon Dioxide (21-32) mmol/L Anion Gap (6-13) BUN (6-20) mg/dL Creatinine (0.4-1.0) mg/dL Estimated GFR (MDRD) (>89) Glucose (70-100) mg/dL POC Whole Bld Glucose 362 H (70 - 100) mg/dL Calcium (8.5-10.3) mg/dL Magnesium (1.7-2.8) mg/dL Total Bilirubin (0.2-1.0) mg/dL AST (10-42) IU/L ALT (10-60) IU/L Alkaline Phosphatase (42-121) IU/L Total Protein (6.7-8.2) g/dL Albumin (3.2-5.5) g/dL Globulin (2.1-4.2) g/dL Albumin/Globulin Ratio (1.0-2.2) TSH 0.37 (0.34-5.60) uIU/mL Serum Ketones (NEGATIVE) 02/14/19 02/14/19 02/14/19 Range/Units 19:40 18:25 17:43 WBC (4.8-10.8) x10^3/uL RBC (4.20-5.40) 10^6/uL Hgb (12.0-16.0) g/dL Hct (37.0-47.0) % MCV (81.0-99.0) fL MCH (27.0-31.0) pg MCHC (32.0-36.0) g/dL RDW (12.0-15.0) % Plt Count (130-450) 10^3/uL MPV (7.9-10.8) fL Neut # (Auto) (1.5-6.6) 10^3/uL Lymph # (Auto) (1.5-3.5) 10^3/uL [place] # (Auto) (0.0-1.0) 10^3/uL Eos # (Auto) (0.0-0.7) 10^3/uL Baso # (Auto) (0.0-0.1) 10^3/uL Absolute Nucleated RBC x10^3/uL Nucleated RBC % /100WBC Sodium (135-145) mmol/L Potassium 4.3 (3.5-5.0) mmol/L Chloride (101-111) mmol/L Carbon Dioxide (21-32) mmol/L Anion Gap (6-13) BUN (6-20) mg/dL Creatinine (0.4-1.0) mg/dL Estimated GFR (MDRD) (>89) Glucose (70-100) mg/dL POC Whole Bld Glucose 477 H 425 H (70 - 100) mg/dL Calcium (8.5-10.3) mg/dL Magnesium (1.7-2.8) mg/dL Total Bilirubin (0.2-1.0) mg/dL AST (10-42) IU/L ALT (10-60) IU/L Alkaline Phosphatase (42-121) IU/L Total Protein (6.7-8.2) g/dL Albumin (3.2-5.5) g/dL Globulin (2.1-4.2) g/dL Albumin/Globulin Ratio (1.0-2.2) TSH (0.34-5.60) uIU/mL Serum Ketones (NEGATIVE) 02/14/19 02/14/19 Range/Units 16:11 14:09 WBC (4.8-10.8) x10^3/uL RBC (4.20-5.40) 10^6/uL Hgb (12.0-16.0) g/dL Hct (37.0-47.0) % MCV (81.0-99.0) fL MCH (27.0-31.0) pg MCHC (32.0-36.0) g/dL RDW (12.0-15.0) % Plt Count (130-450) 10^3/uL MPV (7.9-10.8) fL Neut # (Auto) (1.5-6.6) 10^3/uL Lymph # (Auto) (1.5-3.5) 10^3/uL [place] # (Auto) (0.0-1.0) 10^3/uL Eos # (Auto) (0.0-0.7) 10^3/uL Baso # (Auto) (0.0-0.1) 10^3/uL Absolute Nucleated RBC x10^3/uL Nucleated RBC % /100WBC Sodium 127 L (135-145) mmol/L Potassium 4.8 (3.5-5.0) mmol/L Chloride 92 L (101-111) mmol/L Carbon Dioxide 23 (21-32) mmol/L Anion Gap 12.0 (6-13) BUN 19 (6-20) mg/dL Creatinine 1.2 H (0.4-1.0) mg/dL Estimated GFR (MDRD) 46 L (>89) Glucose 584 H* (70-100) mg/dL POC Whole Bld Glucose 527 H* (70 - 100) mg/dL Calcium 8.4 L (8.5-10.3) mg/dL Magnesium (1.7-2.8) mg/dL Total Bilirubin (0.2-1.0) mg/dL AST (10-42) IU/L ALT (10-60) IU/L Alkaline Phosphatase (42-121) IU/L Total Protein (6.7-8.2) g/dL Albumin (3.2-5.5) g/dL Globulin (2.1-4.2) g/dL Albumin/Globulin Ratio (1.0-2.2) TSH (0.34-5.60) uIU/mL Serum Ketones NEGATIVE (NEGATIVE) ABX Reporting Has patient been on IV antibiotics over the past 48 hours?: Yes Sepsis Event Note (H) - Evaluation Current Stage of Sepsis: Ruled out Assessment/Plan - Problem List (1) Respiratory failure with hypoxia Impression: 02/15 pt has 94% sat on room air today. Lung sound still has crackles on right more than left. continue antibiotics treatment continue breath treatment, add pulmocort pt present ER with 88% sat on room air. pt had cough and SOB for couple of days with yellow and green sputum, CXR indicate bronchitis/pneumonia. pt is under of treatment of RA and is immuno-compromised status. breath treatment and consult with RT antibiotics treat for infection vital monitor (2) Hyperglycemia without ketosis Conclusion/Plan: 02/15 better controlled glycemia. add Lantus 5 unit on morning slide scale to high scale pt took Metformin at home. Pt had 352 glucose at ER. but pt had hyperglycemia to over 500 after pt had steroid given in ER. pt's anion gap is normal, no ketosis at serum. hold Metformin slide scale. add Aspart and Lantus start IVF of NS ACHS (3) Atrial fibrillation with RVR Conclusion/Plan: stable pt has hx of afib. in ER, pt's HR is up to 117. resume home med Cardizem 240 mg daily tele and vital monitor continue homed Xarelto (4) Diabetes mellitus, type II Conclusion/Plan: A1C 8.5, pt took Metformin only at home continue slide scale, ACHS start Glucotrol (5) Rheumatoid arteritis Conclusion/Plan: stable, no acute complaint hold home meds, which is immuno-compromised (6) HTN (hypertension) Conclusion/Plan: stable, reconcile home meds (7) Hypothyroidism Conclusion/Plan: TSH is normal stable, reconcile home meds check TSH (8) Hx of pulmonary embolus Conclusion/Plan: stable, resume home meds Xarelto (9) Hyponatremia Conclusion/Plan: 02/15 Na 131, slight elevated control of glucose level lab monitor Na 130 today. (4) Diabetes mellitus, type II Qualifiers: Diabetes mellitus complication status: without complication
[2019-02-15] MEDS ORDERED: SODIUM CHLORIDE 0.65% NASAL SPRAY NAS PRN (14:33)
[2019-02-15] MEDS: PSEUDOEPHEDRINE 30 MG TABLET PO PRN ×2 (14:58→21:45)
[2019-02-15] MEDS ORDERED: BUDESONIDE 0.5 MG/2 ML NEB INH SCH (15:00)
[2019-02-15] MEDS: oxyCODONE 5 MG TABLET PO PRN ×2 (15:08→22:44)
[2019-02-15] MEDS: ACETAMINOPHEN 325 MG TABLET PO PRN ×2 (15:09→22:45)
[2019-02-15] MEDS: RIVAROXABAN 15 MG TABLET PO SCH (17:48)
[2019-02-15] MEDS: BUDESONIDE 0.5 MG/2 ML NEB INH SCH (18:48)
[2019-02-15] MEDS: traZODone 50 MG TABLET PO SCH (21:45)
[2019-02-16] MEDS: LEVOTHYROXINE 100 MCG TABLET PO SCH (05:18)
[2019-02-16] MEDS: LEVOTHYROXINE 75 MCG TABLET PO SCH (05:18)
[2019-02-16 05:39] LABS: BASOPHILS % (AUTO) 0.7 %; EOSINOPHILS # (AUTO) 0.4 10^3/uL (0.0-0.7); EOSINOPHILS % (AUTO) 6.1 %; HGB - HEMOGLOBIN 11.8 g/dL (12.0-16.0); LYMPHOCYTES % (AUTO) 42.2 %; MEAN CORPUSCULAR HEMOGLOBIN 30.6 pg (27.0-31.0); MEAN CORPUSCULAR HGB CONC 33.6 g/dL (32.0-36.0); MEAN PLATELET VOLUME 8.8 fL (7.9-10.8); MONOCYTES # (AUTO) 0.8 10^3/uL (0.0-1.0); MONOCYTES % (AUTO) 11.8 %; NEUTROPHILS # (AUTO) 2.8 10^3/uL (1.5-6.6); NEUTROPHILS % (AUTO) 39.2 %; PLT - PLATELET COUNT 156 10^3/uL (130-450); RED BLOOD COUNT 3.87 10^6/uL (4.20-5.40); RED CELL DISTRIBUTION WIDTH 13.5 % (12.0-15.0); WHITE BLOOD COUNT 7.1 x10^3/uL (4.8-10.8)
[2019-02-16 05:48] LABS: ALBUMIN 2.9 g/dL (3.2-5.5); ALBUMIN/GLOBULIN RATIO 0.7 (1.0-2.2); BILIRUBIN,TOTAL 0.6 mg/dL (0.2-1.0); CALCIUM 8.5 mg/dL (8.5-10.3); CREATININE 0.7 mg/dL (0.4-1.0); TOTAL PROTEIN 7.1 g/dL (6.7-8.2)
[2019-02-16 07:40] VITALS: BP 117/70
[2019-02-16] MEDS: LEVALBUTEROL 1.25 MG/3 ML NEB INH PRN ×2 (07:53→10:47)
[2019-02-16] MEDS: BUDESONIDE 0.5 MG/2 ML NEB INH SCH (07:54)
[2019-02-16] MEDS: INSULIN ASPART 300 UNIT/3 ML PEN SUBQ SCH ×2 (07:56→13:06)
[2019-02-16] MEDS: glipiZIDE 5 MG TABLET PO SCH (07:56)
[2019-02-16] MEDS ORDERED: INSULIN GLARGINE 300 UNIT/3 ML PEN SUBQ SCH (08:00)
[2019-02-16] MEDS ORDERED: diltiaZEM CD 120 MG CAPSULE PO ONE (08:53)
[2019-02-16] MEDS: ACETAMINOPHEN 325 MG TABLET PO PRN (08:55)
[2019-02-16] MEDS: FOLIC ACID 1 MG TABLET PO SCH (08:56)
[2019-02-16] MEDS: LISINOPRIL 5 MG TABLET PO SCH (08:56)
[2019-02-16] MEDS: PSEUDOEPHEDRINE 30 MG TABLET PO PRN (08:56)
[2019-02-16] MEDS: FAMOTIDINE 20 MG TABLET PO SCH (08:56)
[2019-02-16] MEDS: ASPIRIN CHEW 81 MG TABLET PO SCH (08:56)
[2019-02-16] MEDS: AZITHROMYCIN 250 MG TABLET PO SCH (08:56)
[2019-02-16] MEDS: FUROSEMIDE 40 MG TABLET PO SCH (08:57)
[2019-02-16] MEDS: diltiaZEM CD 240 MG CAPSULE PO SCH (08:57)
[2019-02-16] MEDS: guaiFENesin 600 MG TABLET PO SCH (08:57)
[2019-02-16] MEDS: DOCUSATE SODIUM 250 MG CAPSULE PO SCH (08:57)
[2019-02-16] MEDS: POLYETHYLENE GLYCOL 3350 17 GM PACKET PO SCH (08:59)
[2019-02-16] MEDS: SODIUM CHLORIDE FLUSH 0.9% 10 ML SYRINGE IVP SCH (08:59)
[2019-02-16] MEDS: SODIUM CHLORIDE FLUSH 0.9% 10 ML SYRINGE IVP PRN (08:59)
[2019-02-16] MEDS: cefTRIAXone 2 GM in SODIUM CHLORIDE 0.9% MINIBAG 100 ML IV SCH (09:06)
--- NOTE | 2019-02-16 11:30 | Discharge Plan ---
Discharge Plan Disposition: Home, Self Care Condition: Poor Prescriptions: Cephalexin [Keflex] 500 mg PO BID #10 capsule Glipizide [Glucotrol] 5 mg PO DAILY #10 tablet guaiFENesin [Mucinex] 600 mg PO BID PRN #10 tablet PRN Reason: Cough Saccharomyces Boulardii [Florastor] 250 mg PO DAILY #5 capsule Diet: Diabetic Activity Restrictions: Activity as Tolerated Shower Restrictions: No (fall precaution) Instruction Topics: Glipizide tablets, Diabetes Alcohol Consumption, Diabetes Shelter Complications, Diabetes Carbs, Blood Sugar Manage Exercise, Diabetes Inspect Feet, Cephalexin tablets or capsules Additional Instructions or Follow Up instructions: You may followup your PCP in one week. Your glucose level was high when you were admitted. Glucotrol is added for your diabetic glucose control, please continue discussion with your PCP for your diabetes management. Keflex is prescribe for your finishing antibiotics treatment course. Should your symptoms return or worsen, you may present ER, or call 911 for help. No Smoking: If you smoke, Please STOP! Call for help. Follow-up with: Bayron Wick DO [Primary Care Provider] -
--- NOTE | 2019-02-16 11:44 | DISCHARGE SUMMARY ---
Discharge Summary Discharge Date: 02/16/19 Discharging Provider: LARSON Primary Care Provider: Dr. Jay Condition at Discharge: Poor Discharge Disposition: 01 Home, Self Care Discharge Facility Name: Home - DIAGNOSES Admission Diagnoses: (1) Respiratory failure with hypoxia (2) Hyperglycemia without ketosis (3) Atrial fibrillation with RVR (4) Diabetes mellitus, type II (5) Rheumatoid arteritis (6) HTN (hypertension) (7) Hypothyroidism (8) Hx of pulmonary embolus (9) Hyponatremia Discharge Diagnoses with Status of Each Condition: 1) Respiratory failure with hypoxia (2) Hyperglycemia without ketosis (3) Atrial fibrillation with RVR (4) Diabetes mellitus, type II (5) Rheumatoid arteritis (6) HTN (hypertension) (7) Hypothyroidism (8) Hx of pulmonary embolus (9) Hyponatremia - HPI History of Present Illness: Patient is a 63-yrs-old female with a PMH significant for DM II, hypothyroidism, rheumatoid arthritis on remicade and methotrexate and JAGDISH on home CPAP, DM2, HTN, hypothyroidism, PE, Afib with Xarelto, peripheral neuropathy, who presented to the ED today with complain of shortness of breath, cough. pt report she has been worsening with cough and shortness of breath for 3 days. Pt was seen in her PCP's office yesterday. She was given Rx for azithromycin Tripack and Albuterol MDI. She report she continue to have worse cough and dyspnea despite these. In ER, she was found to have 88% sats on room even after she had breathing treatment.CXR reveals mild cardiomegaly with possible pulmonary vascular congestion and trace pulmonary edema, bronchial wall thickening seen with bronchitis or reactive airways disease. Pt is afebile and slight tachycardia, 94% sats on 4 liter of O2. pt is O2-independent at home. Pt denies chest pain, fever, chill, headache, abdominal pain, nausea, vomiting. pt is admitted for respiratory failure with hypoxia - HOSPITAL COURSE Hospital Course: 1) Respiratory failure with hypoxia resolved. pt has 94-95% sat on room air. RT did O2 satur/desatu study, pt does n ot qualify for O2 tank. pt is prescribed antibiotic to finish the treatment course (2) Hyperglycemia without ketosis control, pt is prescribed Glucotrol, plus home meds Metformin. pt is advised followup her PCP closely to monitor her glucose level. (3) Atrial fibrillation with RVR stable, continue home regimen, continue Xarelto (4) Diabetes mellitus, type II pt is prescribed Glucotrol, plus home meds Metformin. pt is advised followup her PCP closely to monitor her glucose level. (5) Rheumatoid arteritis stable, followup her PCP and RA doctor (6) HTN (hypertension) stable (7) Hypothyroidism stable, continue home meds (8) Hx of pulmonary embolus stable, continue home Xarelto (9) Hyponatremia resolved - ALLERGIES Allergies/Adverse Reactions: Allergies Allergy/AdvReac Type Severity Reaction Status Date / Time No Known Drug Allergies Allergy Verified 02/14/19 04:54 - MEDICATIONS Home Medications: Ambulatory Orders Medication Instructions Recorded Confirmed Methotrexate 25 mg ORAL Q7D 04/10/17 02/14/19 Oxycodone HCl/Acetaminophen 7.5 mg PO Q4H PRN 04/10/17 02/14/19 [Percocet 7.5-325 mg Tablet] metFORMIN [Glucophage] 1,000 mg ORAL BID 04/10/17 02/14/19 traZODone [Desyrel] 50 - 100 mg ORAL QPM 04/10/17 02/14/19 Aspirin 81 mg PO DAILY 01/09/19 02/14/19 Folic Acid 4 mg PO DAILY 01/09/19 02/14/19 Fluticasone [Flonase] 1 sprays DOMINICK DAILY 01/10/19 02/14/19 Infliximab (Remicade) 600 mg IV .Q5-6WKS 01/10/19 02/14/19 Levothyroxine Sodium [Synthroid] 175 mcg PO QDAC 01/10/19 02/14/19 Furosemide [Lasix] 40 mg PO DAILY #30 tablet 01/13/19 02/14/19 Lisinopril [Zestril] 5 mg PO DAILY #30 tablet 01/13/19 02/14/19 Potassium Chloride 10 meq PO DAILY #30 tab.er.prt 01/13/19 02/14/19 Rivaroxaban [Xarelto] 15 mg PO 1700 #30 tablet 01/13/19 02/14/19 diltiaZEM CD [Cardizem Cd] 240 mg PO DAILY #30 capsule 01/13/19 02/14/19 Albuterol Sulfate [Proventil Hfa 1 puffs PO PRN PRN 02/14/19 02/14/19 Inhaler] Cephalexin [Keflex] 500 mg PO BID #10 capsule 02/16/19 Glipizide [Glucotrol] 5 mg PO DAILY #10 tablet 02/16/19 Saccharomyces Boulardii [Florastor] 250 mg PO DAILY #5 capsule 02/16/19 guaiFENesin [Mucinex] 600 mg PO BID PRN #10 tablet 02/16/19 - PHYSICAL EXAM AT DISCHARGE General Appearance: positive: No acute distress, Alert. negative: Lethargic Eyes Bilateral: positive: Normal inspection, PERRL, No lid inflammation, Conjunctivae nml ENT: positive: ENT inspection nml, Pharynx nml, No signs of dehydration. negative: Purulent nasal drainage, Pharyngeal erythema, Oral lesions Neck: positive: Nml inspection, Thyroid nml, No JVD, Trachea midline. negative: Thyromegaly, Lymphadenopathy (R), Lymphadenopathy (L), Stiff neck, Swelling/bruising, Tracheal deviation Respiratory: positive: Chest non-tender, No respiratory distress, Breath sounds nml. negative: Wheezes, Rales, Rhonchi Cardiovascular: positive: Regular rate & rhythm, No murmur, No gallop. negative: Irregularly irregular, Extrasystoles, Tachycardia, Bradycardia, JVD present, Systolic murmur, Diastolic murmur Peripheral Pulses: positive: 2+ Abdomen: positive: Non-tender, No organomegaly, Nml bowel sounds, No distention. negative: Tenderness, Guarding, Rebound Back: positive: Nml inspection. negative: CVA tenderness (R), CVA tenderness (L) Skin: positive: Color nml, No rash, Warm, Dry. negative: Cyanosis, Diaphoresis, Pallor Extremities: positive: Non-tender, Full ROM, Nml appearance. negative: Calf tenderness, Joint swelling, Willie's sign/cords Neurologic/Psychiatric: positive: Oriented x3, Motor nml, Sensation nml, Mood/affect nml. negative: Weakness, Sensory loss, Facial droop, Slurred/abnml speech, Depressed mood/affect - LABS Result Diagrams: 02/16/19 05:24 02/16/19 05:24 - SEPSIS Current Stage of Sepsis: Ruled out - FOLLOW UP Follow Up: You may followup your PCP in one week. Your glucose level was high when you were admitted. Glucotrol is added for your diabetic glucose control, please continue discussion with your PCP for your diabetes management. Keflex is prescribe for your finishing antibiotics treatment course. Should your symptoms return or worsen, you may present ER, or call 911 for help. - TIME SPENT Time Spent in Discharge (Minutes): 50
== END 2019-02-16 13:31 | disposition home or self-care (01) | DRG 189 ==
LOC: ED 04:42 → MS2 08:20
PROVIDERS: ADMIT Nurse Practitioner Gerontology; ATTEND Nurse Practitioner Gerontology
DX: J96.91 Respiratory failure, unspecified with hypoxia (principal); E87.1 Hypo-osmolality and hyponatremia; Z86.711 Personal history of pulmonary embolism; I48.91 Unspecified atrial fibrillation; I11.9 Hypertensive heart disease without heart failure; G47.30 Sleep apnea, unspecified; E11.42 Type 2 diabetes mellitus with diabetic polyneuropathy; E11.65 Type 2 diabetes mellitus with hyperglycemia; Z79.84 Long term (current) use of oral hypoglycemic drugs; E03.9 Hypothyroidism, unspecified; M06.9 Rheumatoid arthritis, unspecified; Z96.659 Presence of unspecified artificial knee joint; G47.33 Obstructive sleep apnea (adult) (pediatric); Z79.02 Long term (current) use of antithrombotics/antiplatelets
CPT/HCPCS: 36415; 71046; 80048; 80053; 82009; 83036; 83605; 83690; 83735; 83880; 84132; 84443; 85025; 87070; 87205; 87275; 87276; 94640; 94664; 94761; 96365; 96375; 99284; A9270; J1815; J7626; 99285

== ENCOUNTER 2019-02-28 13:53 | Outpatient (CLI) | payer MEDICAID ==
--- NOTE | 2019-02-28 14:37 | XRAY Report ---
Reason: PNEUMONIA, UNSPECIFIED ORGANISM Procedure Date: 02/28/2019 Accession Number: [id number] / [id number] Procedure: XR - Chest 2 View X-Ray CPT Code: 06653 FULL RESULT: EXAM: CHEST RADIOGRAPHY EXAM DATE: 02/28/2019 02:15 PM. CLINICAL HISTORY: PNEUMONIA, UNSPECIFIED ORGANISM. COMPARISON: CHEST 2 VIEW 02/14/2019 5:05 AM. TECHNIQUE: 2 views. FINDINGS: Lungs/Pleura: There is improved lung aeration at both lung bases. No significant residual consolidation. There is minimal underlying peribronchial thickening. The upper lung zones are clear. No pleural effusions. Mediastinum: Heart and mediastinal contours are unremarkable. Other: None. IMPRESSION: No acute abnormality. Improved bilateral lung aeration. RADIA
== END 2019-02-28 13:54 | disposition home or self-care (01) ==
LOC: DI 13:53
PROVIDERS: ATTEND Family Medicine
DX: J18.9 Pneumonia, unspecified organism (principal)
CPT/HCPCS: 71046

== ENCOUNTER 2019-08-01 18:11 | Inpatient (IN) | payer MEDICAID ==
[2019-08-01 18:34] LABS: BASOPHILS # (AUTO) 0.1 10^3/uL (0.0-0.1); BASOPHILS % (AUTO) 0.5 %; EOSINOPHILS # (AUTO) 0.4 10^3/uL (0.0-0.7); EOSINOPHILS % (AUTO) 2.6 %; HGB - HEMOGLOBIN 12.8 g/dL (12.0-16.0); LYMPHOCYTES % (AUTO) 6.3 %; MEAN CORPUSCULAR HEMOGLOBIN 31.9 pg (27.0-31.0); MEAN CORPUSCULAR HGB CONC 33.5 g/dL (32.0-36.0); MEAN CORPUSCULAR VOLUME 95.3 fL (81.0-99.0); MEAN PLATELET VOLUME 11.3 fL (7.9-10.8); MONOCYTES # (AUTO) 1.3 10^3/uL (0.0-1.0); MONOCYTES % (AUTO) 8.4 %; NEUTROPHILS % (AUTO) 81.6 %; PLT - PLATELET COUNT 210 10^3/uL (130-450); RED BLOOD COUNT 4.01 10^6/uL (4.20-5.40); RED CELL DISTRIBUTION WIDTH 13.3 % (12.0-15.0); WHITE BLOOD COUNT 15.9 x10^3/uL (4.8-10.8)
[2019-08-01] MEDS ORDERED: diltiaZEM INJ 5 MG/ML VIAL IVP STA ×2 (18:34→19:37)
[2019-08-01 18:44] LABS: ALBUMIN 3.5 g/dL (3.2-5.5); ALBUMIN/GLOBULIN RATIO 0.9 (1.0-2.2); BILIRUBIN,TOTAL 1.6 mg/dL (0.2-1.0); CALCIUM 8.8 mg/dL (8.5-10.3); CREATININE 0.8 mg/dL (0.4-1.0); TOTAL PROTEIN 7.4 g/dL (6.7-8.2)
[2019-08-01] MEDS ORDERED: FUROSEMIDE 40 MG/4 ML VIAL IVP STA (18:45)
--- NOTE | 2019-08-01 18:45 | ED Physician Documentation ---
PD HPI CHEST PAIN - Stated complaint Stated Complaint: SOA - Chief complaint Chief Complaint: Resp - History obtained from History obtained from: Patient - History of Present Illness Timing - onset: Yesterday (63-year-old woman in chronic atrial fibrillation. She went on a trip to [place] and got back yesterday. While there she did not take her Lasix at all, she also was intermittently not taking her metoprolol. She was compliant with her Xarelto though. Starting yesterday she is had progressive shortness of breath with increased pedal edema. Some cough. No chest pain or pressure. She denies orthopnea but has significant dyspnea on exertion. She can only walk about 50 feet right now.) Review of Systems Constitutional: denies: Fever, Chills Throat: denies: Dental pain / toothache, Oral lesions / sores, Sore throat Cardiac: reports: Pedal edema. 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 : None HEENT: None Psych: None Musculoskeletal: Rheumatoid arthritis Derm: None - Past Surgical History Past Surgical History: Yes Ortho: Knee replacement, Carpal Tunnel surgery - Present Medications Home Medications: Ambulatory Orders Medication Instructions Recorded Confirmed Methotrexate 25 mg ORAL Q7D 04/10/17 02/14/19 Oxycodone HCl/Acetaminophen 7.5 mg PO Q4H PRN 04/10/17 02/14/19 [Percocet 7.5-325 mg Tablet] metFORMIN [Glucophage] 1,000 mg ORAL BID 04/10/17 02/14/19 traZODone [Desyrel] 50 - 100 mg ORAL QPM 04/10/17 02/14/19 Aspirin 81 mg PO DAILY 01/09/19 02/14/19 Folic Acid 4 mg PO DAILY 01/09/19 02/14/19 Fluticasone [Flonase] 1 sprays DOMINICK DAILY 01/10/19 02/14/19 Infliximab (Remicade) 600 mg IV .Q5-6WKS 01/10/19 02/14/19 Levothyroxine Sodium [Synthroid] 175 mcg PO QDAC 01/10/19 02/14/19 Furosemide [Lasix] 40 mg PO DAILY #30 tablet 01/13/19 02/14/19 Lisinopril [Zestril] 5 mg PO DAILY #30 tablet 01/13/19 02/14/19 Potassium Chloride 10 meq PO DAILY #30 tab.er.prt 01/13/19 02/14/19 Rivaroxaban [Xarelto] 15 mg PO 1700 #30 tablet 01/13/19 02/14/19 diltiaZEM CD [Cardizem Cd] 240 mg PO DAILY #30 capsule 01/13/19 02/14/19 Albuterol Sulfate [Proventil Hfa 1 puffs PO PRN PRN 02/14/19 02/14/19 Inhaler] Cephalexin [Keflex] 500 mg PO BID #10 capsule 02/16/19 Glipizide [Glucotrol] 5 mg PO DAILY #10 tablet 02/16/19 Saccharomyces Boulardii [Florastor] 250 mg PO DAILY #5 capsule 02/16/19 guaiFENesin [Mucinex] 600 mg PO BID PRN #10 tablet 02/16/19 - Allergies Allergies/Adverse Reactions: Allergies Allergy/AdvReac Type Severity Reaction Status Date / Time No Known Drug Allergies Allergy Verified 08/01/19 18:20 - Social History Does the pt smoke?: No Smoking Status: Never smoker Does the pt drink ETOH?: No Does the pt have substance abuse?: No - Immunizations Immunizations are current?: Yes - POLST Patient has POLST: No PD ED PE NORMAL - Vitals Vital signs reviewed: Yes - General General: Alert and oriented X 3, No acute distress - Neck Neck: Supple, no meningeal sign, No bony TTP - Cardiac Cardiac: Other (She is in A. fib with rapid ventricular response, no murmur) - Respiratory Respiratory: Other (Significantly diminished at the bases, nonlabored at rest) - Abdomen Abdomen: Non tender - Derm Derm: Normal color, Warm and dry - Extremities Extremities: Other (3+ symmetric pitting pedal edema) - Neuro Neuro: Alert and oriented X 3, Normal speech Results - Vitals Vitals: Vital Signs - 24 hr 08/01/19 08/01/19 08/01/19 18:18 18:20 18:47 Temperature 36.5 C Heart Rate 150 H 93 Respiratory 30 H 20 Rate Blood Pressure 155/136 H 140/76 H O2 Saturation 87 L 91 L 94 08/01/19 08/01/19 08/01/19 18:52 18:57 19:00 Temperature Heart Rate 91 90 94 Respiratory 18 19 19 Rate Blood Pressure 147/92 H 143/99 H 129/93 H O2 Saturation 96 96 96 08/01/19 08/01/19 08/01/19 19:15 19:42 19:45 Temperature Heart Rate 92 106 H 100 Respiratory 21 18 16 Rate Blood Pressure 133/81 H 148/99 H 146/98 H O2 Saturation 95 96 95 08/01/19 08/01/19 08/01/19 19:48 19:59 20:25 Temperature Heart Rate 92 86 87 Respiratory 19 15 19 Rate Blood Pressure 124/80 143/86 H 138/87 H O2 Saturation 93 93 93 08/01/19 20:30 Temperature Heart Rate 88 Respiratory 18 Rate Blood Pressure 135/83 H O2 Saturation 93 Oxygen O2 Source Nasal cannula Oxygen Flow Rate 4 - EKG (time done) 1820 Rate: Rate (enter#) (131) Rhythm: Atrial fibrillation [place]: Normal QRS: Normal Ischemia: Normal ST segments - Labs Labs: Laboratory Tests 08/01/19 08/01/19 08/01/19 18:27 18:27 18:27 WBC 15.9 H RBC 4.01 L Hgb 12.8 Hct 38.2 MCV 95.3 MCH 31.9 H MCHC 33.5 RDW 13.3 Plt Count 210 MPV 11.3 H Neut # (Auto) 13.0 H Lymph # (Auto) 1.0 L Brule # (Auto) 1.3 H Eos # (Auto) 0.4 Baso # (Auto) 0.1 Absolute Nucleated RBC 0.00 Nucleated RBC % 0.0 Sodium 136 Potassium 4.0 Chloride 99 L Carbon Dioxide 28 Anion Gap 9.0 BUN 12 Creatinine 0.8 Estimated GFR (MDRD) 73 L Glucose 200 H Calcium 8.8 Total Bilirubin 1.6 H AST 16 ALT 25 Alkaline Phosphatase 91 Troponin I High Sens 6.1 B-Natriuretic Peptide Total Protein 7.4 Albumin 3.5 Globulin 3.9 Albumin/Globulin Ratio 0.9 L Lipase 22 TSH 08/01/19 08/01/19 18:27 18:27 WBC RBC Hgb Hct MCV MCH MCHC RDW Plt Count MPV Neut # (Auto) Lymph # (Auto) Brule # (Auto) Eos # (Auto) Baso # (Auto) Absolute Nucleated RBC Nucleated RBC % Sodium Potassium Chloride Carbon Dioxide Anion Gap BUN Creatinine Estimated GFR (MDRD) Glucose Calcium Total Bilirubin AST ALT Alkaline Phosphatase Troponin I High Sens B-Natriuretic Peptide 382 H Total Protein Albumin Globulin Albumin/Globulin Ratio Lipase TSH 1.35 PD MEDICAL DECISION MAKING - ED course ED course: 63-year-old woman in chronic atrial fibrillation who presents with decompensation and evidence of CHF likely due to medical noncompliance. I have low suspicion for PE given the travel since she was compliant with her Xarelto. She is administered IV Lasix, diltiazem. After the above interventions she was feeling much better and breathing more comfortably. We will walk her in the hallway off of oxygen on a pulse oximeter. Her heart rate was in the 80s and 90s. However on this "road test" She dropped down to 81% with minimal ambulation and probably deserves more extensive diuresis in the hospital and I spoke with Dr. Guerra for admission at 8:43 PM. Departure - Departure Disposition: ED Place in Observation Clinical Impression: Atrial fibrillation with RVR Congestive heart failure Qualifiers: Heart failure type: unspecified Heart failure chronicity: acute on chronic Qualified Code(s): I50.9 - Heart failure, unspecified Condition: Fair
[2019-08-01] MEDS ORDERED: ONDANSETRON 4 MG/2 ML VIAL IVP PRN (20:45)
[2019-08-01] MEDS ORDERED: SODIUM CHLORIDE FLUSH 0.9% 10 ML SYRINGE IVP PRN (20:45)
[2019-08-01] MEDS: INSULIN ASPART 300 UNIT/3 ML PEN SUBQ SCH (22:29)
[2019-08-01] MEDS: SACCHAROMYCES BOULARDII 250 MG CAPSULE PO SCH (22:32)
[2019-08-01] MEDS: cefUROXime axetil 250 MG TABLET PO SCH (22:32)
[2019-08-01] MEDS: LISINOPRIL 5 MG TABLET PO SCH (22:32)
[2019-08-01] MEDS: DOXYCYCLINE 100 MG TABLET PO SCH (22:32)
[2019-08-01] MEDS: ACETAMINOPHEN 325 MG TABLET PO PRN (22:32)
--- NOTE | 2019-08-01 22:32 | HISTORY & PHYSICAL EXAMINATION ---
Chief Complaint - Chief Complaint Chief Complaint: Shortness of breath History of Present Illness - Admitted From Admitted From:: Home - History Obtained From Records Reviewed: Yes History obtained from: Patient, EMR, ER Physician - History of Present Illness HPI Comment/Other: This is a 63 year old female with a past medical history significant for atrial fibrillation (on Xarelto), JAGDISH on CPAP, and diabetes who presents from home complaining of worsening shortness of breath for the past two days. She states that she went on a trip to [place] about 12 days ago. She did not take her Lasix while on vacation and she was concerned she would not be able to regular find bathrooms while on excursions. She noticed her legs becoming more edematous the se past few days and today she measure her pulse ox and it was as low as the 70's. She started taking her Lasix again yesterday. Her dyspnea is most prominent on exertion. She reports a nonproductive cough but denies chest pain, fevers, chills. She reports no sick contacts. She did not receive the flu vaccine this year yet. She also reports that the longest flight on her trip was 10.5 hours. She was taking her Xarelto as prescribed for her atrial fibrillation. She did attempt to ambulate while on her flight. She reports no prior history of DVT or PE although history of PE is documented in the EMR. In the ED, she was found to be tachycardic with rates in the 130's and in atrial fibrillation. She was also hypoxic and required 5L of oxygen to maintain an O2 sat of 95%. Labs were significant for leukocytosis, and a BNP of 382. X-ray of the chest was unremarkable. She was given Lasix IV with improvement in symptoms but she remained hypoxic and therefore Medicine was consulted for admission. History - Past Medical History Cardiovascular: reports: Hypertension, Pulmonary embolism, Atrial fibrillation Respiratory: reports: Sleep apnea, CPAP use Neuro: reports: Peripheral neuropathy Endocrine/Autoimmune: reports: Type 2 diabetes, HyPOthyroidism GI: reports: None BINGO ATTENDANT: reports: None : reports: None HEENT: reports: None Psych: reports: None Musculoskeletal: reports: Rheumatoid arthritis Derm: reports: None MRSA Hx?: No - Past Surgical History Ortho: reports: Knee replacement, Carpal Tunnel surgery - Family & Social History Family History Comment/Other: Her mother from lung cancer. She was a smoker. Patient denies family history of heart failure, atrial fibrillation, DVT/PE. Living arrangement: At home Living Situation: With family Social History Notes: She lives her on [facility] with her and daughter along with her daughter's four children. 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 She is a nonsmoker and denies alcohol use. - Substance History Use: Uses substance without health or social issues: NONE - POLST Patient has POLST: No Meds/Allgy - Home Medications Home Medications: Ambulatory Orders Medication Instructions Recorded Confirmed Methotrexate 25 mg ORAL Q7D 04/10/17 02/14/19 Oxycodone HCl/Acetaminophen 7.5 mg PO Q4H PRN 04/10/17 02/14/19 [Percocet 7.5-325 mg Tablet] metFORMIN [Glucophage] 1,000 mg ORAL BID 04/10/17 02/14/19 traZODone [Desyrel] 50 - 100 mg ORAL QPM 04/10/17 02/14/19 Aspirin 81 mg PO DAILY 01/09/19 02/14/19 Folic Acid 4 mg PO DAILY 01/09/19 02/14/19 Fluticasone [Flonase] 1 sprays DOMINICK DAILY 01/10/19 02/14/19 Levothyroxine Sodium [Synthroid] 175 mcg PO QDAC 01/10/19 02/14/19 Furosemide [Lasix] 40 mg PO DAILY #30 tablet 01/13/19 02/14/19 Lisinopril [Zestril] 5 mg PO DAILY #30 tablet 01/13/19 02/14/19 Potassium Chloride 10 meq PO DAILY #30 tab.er.prt 01/13/19 02/14/19 Rivaroxaban [Xarelto] 15 mg PO 1700 #30 tablet 01/13/19 02/14/19 Albuterol Sulfate [Proventil Hfa 1 puffs PO PRN PRN 02/14/19 02/14/19 Inhaler] Cephalexin [Keflex] 500 mg PO BID #10 capsule 02/16/19 Glipizide [Glucotrol] 5 mg PO DAILY #10 tablet 02/16/19 Saccharomyces Boulardii [Florastor] 250 mg PO DAILY #5 capsule 02/16/19 guaiFENesin [Mucinex] 600 mg PO BID PRN #10 tablet 02/16/19 Atorvastatin [Lipitor] PO QPM 08/01/19 Metoprolol Tartrate 100 mg PO BID 08/01/19 08/01/19 Tofacitinib Citrate [Xeljanz Xr] 11 mg PO DAILY 08/01/19 08/01/19 - Allergies Allergies/Adverse Reactions: Allergies Allergy/AdvReac Type Severity Reaction Status Date / Time No Known Drug Allergies Allergy Verified 08/01/19 18:20 Review of Systems - Constitutional Constitutional: denies: Fatigue, Fever, Chills - Cardiovascular Cariovascular: reports: Palpitations, Edema, Exertional dyspnea, Decr. exercise tolerance. denies: Chest pain - Respiratory Respiratory: reports: Cough, SOB at rest, SOB with exertion. denies: Sputum production, Wheezing - Gastrointestinal Gastrointestinal: denies: Abdominal pain, Diarrhea, Nausea, Vomiting - Genitourinary Genitourinary: denies: Dysuria, Frequency - Integumentary Integumentary: reports: Pigment changes. denies: Rash - Neurological Neurological: denies: General weakness, Focal weakness - Hematologic/Lymphatic Hematologic/Lymphatic: denies: Blood clots, Bleeding tendencies - All Other Systems All Other Systems: reports: Reviewed and negative Prior Level of Functionality: Independent with ADL's. Exam - Vital Signs Reviewed Vital Signs: Yes Vital Signs: Vital Signs x48h Temp Pulse Pulse Resp BP BP Pulse Ox 08/01/19 21:41 37.9 C H 110 H 20 136/84 H 96 08/01/19 21:13 82 L 08/01/19 20:50 90 19 144/96 H 94 08/01/19 20:30 88 18 135/83 H 93 08/01/19 20:25 87 19 138/87 H 93 08/01/19 19:59 86 15 143/86 H 93 08/01/19 19:48 92 19 124/80 93 08/01/19 19:45 100 16 146/98 H 95 08/01/19 19:42 106 H 18 148/99 H 96 08/01/19 19:15 92 21 133/81 H 95 08/01/19 19:00 94 19 129/93 H 96 08/01/19 18:57 90 19 143/99 H 96 08/01/19 18:52 91 18 147/92 H 96 08/01/19 18:47 93 20 140/76 H 94 08/01/19 18:20 91 L 08/01/19 18:18 36.5 C 150 H 30 H 155/136 H 87 L - Physical Exam General Appearance: positive: No acute distress, Alert Eyes Bilateral: positive: Normal inspection ENT: positive: ENT inspection nml Neck: positive: Nml inspection Respiratory: positive: No respiratory distress, Breath sounds nml. negative: Wheezes, Rales, Rhonchi Cardiovascular: positive: No murmur, Irregularly irregular, Tachycardia. negative: Systolic murmur, Diastolic murmur Abdomen: positive: Non-tender, No distention. negative: Tenderness, Guarding, Rebound Skin: positive: No rash, Warm, Dry, Other (Chronic venous stasis changes over the lower extremities) Extremities: positive: Non-tender, Full ROM, Pedal edema (+1 pitting edema in bilateral lower extremities) Neurologic/Psychiatric: positive: Oriented x3, Motor nml, Other (No motor deficits on exam.). negative: Disoriented to person, Disoriented to place, Disoriented to time Conclusion/Plan - Problem List (1) Acute respiratory failure with hypoxia Conclusion/Plan: This may be a component of hear failure as her BNP is elevated and her dyspnea coincided with her discontinuing her Lasix but her chest x-ray is not suggestive of vascular congestion. There is concerning for a developing pneumonia as she has a borderline fever and leukocytosis. PE is also in consideration given her recent travel despite her taking Xarelto. Initially hypoxic requiring 5L of oxygen but is now down to 3L. - Will start empiric Doxycyline and Ceftin PO - Continue Lasix IV 40mg daily - Check lower extremity dopplers to evaluate for DVT - Will not obtain D-dimer as will likely be elevated with her history of RA - Check BNP in AM - Check for Influenza - Repeat X-ray in AM to evaluate for developing infiltrate - Wean oxygen as tolerated (2) Atrial fibrillation with RVR Conclusion/Plan: Presented with atrial fibrillation and heart rate in the 130's. She received Cardizem IV with improvement in the 90's. Troponin negative. EKG without ischemic signs. Suspect her atrial fibrillation may have been exacerbated by what is causing her hypoxia. - Resume home Metoprolol 100mg twice daily - Continue Xarelto - Monitor on telemetry (3) Diabetes mellitus, type II Conclusion/Plan: Blood glucose of 200 on admission. On Metformin and Glipizide at home. - ISS + CC diet - Add Lantus if she remains hyperglycemic Qualifiers: Diabetes mellitus complication status: without complication (4) Hypertension Conclusion/Plan: Normotensive at this time. On Lisinopril and Metoprolol at home. - Resume home antihypertensives Qualifiers: Hypertension type: essential hypertension Qualified Code(s): I10 - Essential (primary) hypertension (5) Hypothyroidism Conclusion/Plan: Stable. On Synthroid. - Continue Synthroid (6) Rheumatoid arthritis Conclusion/Plan: Stable. On Methotrexate and Xeljanz. - Resume home medications on discharge (7) JAGDISH on CPAP Conclusion/Plan: Stable. On CPAP at home. - Continue CPAP - Lab Results Lab results reviewed: Yes Sedrick Bones: 08/01/19 18:27 08/01/19 18:27 - Diagnostic Imaging Results Diagnostic Imaging Results: positive: Final report reviewed, Read independently - EKG Results EKG Interpreted Independently: Yes Core Measures - Anticipated LOS I expect patient to be DC'd or transferred within 96 hours.: Yes - Issues Hospital Issues and Management Plan: Hypoxic respiratory failure requiring IV diuresis and antibiotics. - DVT/VTE - Prophylaxis VTE/DVT Device ordered at admit?: Yes VTE/DVT Prophylaxis med ordered at admit?: Yes
[2019-08-01] MEDS: METOPROLOL TARTRATE 50 MG TABLET PO SCH (22:33)
[2019-08-01] MEDS: RIVAROXABAN 15 MG TABLET PO SCH (22:34)
[2019-08-01] MEDS: ATORVASTATIN 10 MG TABLET PO SCH (22:34)
--- NOTE | 2019-08-02 01:26 | Ultrasound Report ---
Reason: Lower extremity edema. Eval for DVT. Procedure Date: 08/02/2019 Accession Number: [id number] / [id number] Procedure: US - Duplex Ext Veins Bilateral CPT Code: FULL RESULT: EXAM: BILATERAL LOWER EXTREMITY VENOUS ULTRASOUND EXAM DATE: 08/02/2019 01:04 AM CLINICAL HISTORY: Lower extremity edema. Evaluate for deep vein thrombosis. COMPARISON: None. TECHNIQUE: Real-time sonographic vascular imaging was performed by the appian bpm developer through the lower extremities utilizing both color-flow and Doppler spectral analysis. Multiple commercial sales representative static images were saved for review. FINDINGS: Right: Common Femoral Vein (CFV): Normal. CFV-GSV Junction: Normal. Profunda Femoral Vein (PFV): Normal. Femoral Vein (FV) Prox: Normal. Femoral Vein (FV) Mid: Normal. Femoral Vein (FV) Dist: Normal. Popliteal Vein: Normal. Posterior Tibial Veins: Poorly seen without definite thrombus. Peroneal Veins: Poorly seen without definite thrombus. Left: Common Femoral Vein (CFV): Normal. CFV-GSV Junction: Normal. Profunda Femoral Vein (PFV): Normal. Femoral Vein (FV) Prox: Normal. Femoral Vein (FV) Mid: Normal. Femoral Vein (FV) Dist: Normal. Popliteal Vein: Normal. Posterior Tibial Veins: Poorly seen without definite thrombus. Peroneal Veins: Poorly seen without definite thrombus. Other: None. IMPRESSION: No evidence for deep venous thrombosis bilaterally. RADIA
[2019-08-02] MEDS: SODIUM CHLORIDE FLUSH 0.9% 10 ML SYRINGE IVP SCH ×3 (02:46→16:31)
--- NOTE | 2019-08-02 05:47 | XRAY Report ---
Reason: SOB Procedure Date: 08/01/2019 Accession Number: [id number] / [id number] Procedure: XR - Chest 1 View X-Ray CPT Code: 56328 FULL RESULT: EXAM: CHEST RADIOGRAPHY EXAM DATE: 08/01/2019 06:44 PM. CLINICAL HISTORY: SOB. COMPARISON: CHEST 2 VIEW 02/28/2019 2:09 PM. TECHNIQUE: 1 view. FINDINGS: Lungs/Pleura: No infiltrates. No pleural effusions or pneumothorax Mediastinum: Mild cardiomegaly. No pulmonary vascular congestion. Osseous structures: No significant focal osseous lesions. IMPRESSION: 1. Mild cardiomegaly. 2. Otherwise, no acute cardiopulmonary process identified radiographically. RADIA
[2019-08-02] MEDS: LEVOTHYROXINE 125 MCG TABLET PO SCH (06:13)
[2019-08-02] MEDS: BENZOCAINE/MENTHOL LOZENGE MM PRN (06:13)
[2019-08-02 07:14] LABS: BASOPHILS # (AUTO) 0.1 10^3/uL (0.0-0.1); BASOPHILS % (AUTO) 0.5 %; EOSINOPHILS # (AUTO) 0.5 10^3/uL (0.0-0.7); EOSINOPHILS % (AUTO) 3.7 %; HGB - HEMOGLOBIN 11.9 g/dL (12.0-16.0); LYMPHOCYTES % (AUTO) 8.5 %; MEAN CORPUSCULAR HEMOGLOBIN 31.7 pg (27.0-31.0); MEAN CORPUSCULAR HGB CONC 32.9 g/dL (32.0-36.0); MEAN CORPUSCULAR VOLUME 96.5 fL (81.0-99.0); MEAN PLATELET VOLUME 11.4 fL (7.9-10.8); MONOCYTES # (AUTO) 1.1 10^3/uL (0.0-1.0); MONOCYTES % (AUTO) 8.7 %; NEUTROPHILS # (AUTO) 9.4 10^3/uL (1.5-6.6); NEUTROPHILS % (AUTO) 78.1 %; PLT - PLATELET COUNT 165 10^3/uL (130-450); RED BLOOD COUNT 3.75 10^6/uL (4.20-5.40); RED CELL DISTRIBUTION WIDTH 13.2 % (12.0-15.0); WHITE BLOOD COUNT 12.1 x10^3/uL (4.8-10.8)
[2019-08-02 07:31] LABS: CALCIUM 8.8 mg/dL (8.5-10.3); CREATININE 0.8 mg/dL (0.4-1.0); MAGNESIUM 1.6 mg/dL (1.7-2.8)
[2019-08-02] MEDS ORDERED: ALBUTEROL NEB 2.5 MG/3 ML INH PRN (07:38)
--- NOTE | 2019-08-02 07:45 | XRAY Report ---
Reason: Cough. Hypoxia. Procedure Date: 08/02/2019 Accession Number: [id number] / [id number] Procedure: XR - Chest 1 View X-Ray CPT Code: 59706 FULL RESULT: EXAM: CHEST RADIOGRAPHY EXAM DATE: 08/02/2019 06:38 AM. CLINICAL HISTORY: Cough. Hypoxia. COMPARISON: CHEST 1 VIEW 08/01/2019 6:22 PM. TECHNIQUE: 1 view. FINDINGS: Lungs/Pleura: No focal opacities evident. No pleural effusion. No pneumothorax. Mediastinum: Mild cardiomegaly Other: None. IMPRESSION: Mild cardiomegaly RADIA
[2019-08-02] MEDS: IPRATROPIUM/ALBUTEROL 3 ML NEB INH PRN ×2 (08:49→15:07)
[2019-08-02] MEDS ORDERED: LISINOPRIL 5 MG TABLET PO SCH (09:00)
[2019-08-02] MEDS ORDERED: diltiaZEM CD 240 MG CAPSULE PO SCH (09:00)
[2019-08-02] MEDS: FLUTICASONE NASAL SPRAY NAS SCH (09:55)
[2019-08-02] MEDS: SACCHAROMYCES BOULARDII 250 MG CAPSULE PO SCH ×2 (09:56→16:31)
[2019-08-02] MEDS: ACETAMINOPHEN 325 MG TABLET PO PRN (09:56)
[2019-08-02] MEDS: guaiFENesin 600 MG TABLET PO SCH ×2 (09:56→20:15)
[2019-08-02] MEDS: ASPIRIN EC 81 MG TABLET PO SCH (09:56)
[2019-08-02] MEDS: FUROSEMIDE 40 MG/4 ML VIAL IVP SCH (09:56)
[2019-08-02] MEDS: DOXYCYCLINE 100 MG TABLET PO SCH ×2 (09:56→20:13)
[2019-08-02] MEDS: cefUROXime axetil 250 MG TABLET PO SCH ×2 (09:57→20:14)
[2019-08-02] MEDS: LORATADINE 10 MG TABLET PO SCH (09:57)
[2019-08-02] MEDS: LISINOPRIL 5 MG TABLET PO SCH (09:57)
[2019-08-02] MEDS: INSULIN ASPART 300 UNIT/3 ML PEN SUBQ SCH ×4 (10:00→20:25)
[2019-08-02] MEDS: METOPROLOL TARTRATE 50 MG TABLET PO SCH ×2 (10:00→20:13)
[2019-08-02] MEDS ORDERED: POTASSIUM CHLORIDE 20 MEQ TABLET PO ONE (10:30)
--- NOTE | 2019-08-02 10:30 | PROVIDER PROGRESS NOTE ---
Subjective - Prog Note Date Prog Note Date: 08/02/19 - Subjective Pt reports feeling: Improved Subjective: pt report her leg edema is better. she denies fever, chill, chest pain. pt still report some shortness of breath, and nasal congestion. Current Medications - Current Medications Current Medications: Active Medications Acetaminophen (Tylenol) 650 mg PO Q4HR PRN PRN Reason: Pain 1 to 4 Last Admin: 08/02/19 09:56 Dose: 650 mg Albuterol () 2.5 mg INH RTQ4H PRN PRN Reason: Wheezing Albuterol/Ipratropium (Duoneb) 3 ml INH RTQID PRN PRN Reason: Shortness of Air/Wheezing Last Admin: 08/02/19 08:49 Dose: 3 ml Aspirin (Ecotrin) 81 mg PO DAILY [facility] Last Admin: 08/02/19 09:56 Dose: 81 mg Atorvastatin Calcium (Lipitor) 10 mg PO QPM [facility] Last Admin: 08/01/19 22:34 Dose: 10 mg Cefuroxime Axetil (Ceftin) 500 mg PO BID [facility] Last Admin: 08/02/19 09:57 Dose: 500 mg Doxycycline Hyclate (Vibramycin) 100 mg PO BID [facility] Last Admin: 08/02/19 09:56 Dose: 100 mg Fluticasone Propionate (Flonase) 1 sprays DOMINICK DAILY [facility] Last Admin: 08/02/19 09:55 Dose: 1 spr Furosemide (Lasix Inj 40 Mg Vial) 40 mg IVP DAILY [facility] Last Admin: 08/02/19 09:56 Dose: 40 mg Guaifenesin (Mucinex) 600 mg PO BID [facility] Last Admin: 08/02/19 09:56 Dose: 600 mg Ibuprofen (Motrin) 400 mg PO Q6HR PRN PRN Reason: PAIN Insulin Aspart (Novolog) 2 - 10 unit SUBQ 0800,1200,1700,2100 [facility]; Protocol Levothyroxine Sodium (Synthroid) 175 mcg PO QDAC [facility] Last Admin: 08/02/19 06:13 Dose: 175 mcg Lisinopril (Zestril) 5 mg PO DAILY [facility] Last Admin: 08/02/19 09:57 Dose: 5 mg Loratadine (Claritin) 10 mg PO DAILY [facility] Last Admin: 08/02/19 09:57 Dose: 10 mg Metoprolol Tartrate (Lopressor) 100 mg PO BID [facility] Last Admin: 08/02/19 10:00 Dose: 100 mg Ondansetron HCl (Zofran Inj) 4 mg IVP Q6HR PRN PRN Reason: Nausea / Vomiting Rivaroxaban (Xarelto) 15 mg PO 1700 [facility] Last Admin: 08/01/19 22:34 Dose: 15 mg Saccharomyces Boulardii (Florastor) 250 mg PO BIDWM [facility] Last Admin: 08/02/19 09:56 Dose: 250 mg Sodium Chloride (Normal Saline Flush 0.9%) 10 ml IVP PRN PRN PRN Reason: NEEDED PER PROVIDER ORDERS Last Admin: 08/01/19 23:20 Dose: 10 ml Sodium Chloride (Normal Saline Flush 0.9%) 10 ml IVP 0100,0900,1700 [facility] Last Admin: 08/02/19 09:55 Dose: 10 ml Throat Lozenges (Cepacol) 1 lozenge MM Q2HR PRN PRN Reason: Mouth Sore Pain Last Admin: 08/02/19 06:13 Dose: 1 lozenge Trazodone HCl (Desyrel) 50 mg PO QPM [facility] Methotrexate 25 mg ORAL Q7D 04/10/17 Oxycodone HCl/Acetaminophen [Percocet 7.5-325 mg Tablet] 7.5 mg PO Q4H PRN 04/10/17 metFORMIN [Glucophage] 1,000 mg ORAL BID 04/10/17 traZODone [Desyrel] 50 - 100 mg ORAL QPM 04/10/17 Aspirin 81 mg PO DAILY 01/09/19 Folic Acid 4 mg PO DAILY 01/09/19 Fluticasone [Flonase] 1 sprays DOMINICK DAILY 01/10/19 Levothyroxine Sodium [Synthroid] 175 mcg PO QDAC 01/10/19 Albuterol Sulfate [Proventil Hfa Inhaler] 1 puffs PO PRN PRN 02/14/19 Atorvastatin [Lipitor] PO QPM 08/01/19 Metoprolol Tartrate 100 mg PO BID 08/01/19 Tofacitinib Citrate [Xeljanz Xr] 11 mg PO DAILY 08/01/19 Objective - Vital Signs/Intake & Output Reviewed Vital Signs: Yes Vital Signs: Vital Signs x48h Temp Pulse Pulse Resp BP BP Pulse Ox 08/02/19 10:00 142/73 H 08/02/19 09:12 95 08/02/19 08:54 89 18 08/02/19 07:32 37.1 C 94 16 142/73 H 93 08/02/19 04:44 37.3 C 90 18 152/98 H 93 Intake & Output: Intake & Output 07/30/19 07/31/19 08/01/19 08/02/19 23:59 23:59 23:59 23:59 Intake Total 150 360 Output Total 850 1050 Balance -700 -690 - Objective General Appearance: positive: No acute distress, Alert. negative: Lethargic Eyes Bilateral: positive: Normal inspection, PERRL, No lid inflammation, Conjunctivae nml ENT: positive: ENT inspection nml, Pharynx nml, No signs of dehydration. negative: Purulent nasal drainage, Pharyngeal erythema, Oral lesions Neck: positive: Nml inspection, Thyroid nml, No JVD, Trachea midline. negative: Thyromegaly, Lymphadenopathy (R), Lymphadenopathy (L), Stiff neck, Swe lling/bruising, Tracheal deviation Respiratory: positive: Chest non-tender. negative: No respiratory distress, Wheezes, Rales Cardiovascular: positive: Regular rate & rhythm, No murmur, No gallop. negative: Irregularly irregular, Extrasystoles, Tachycardia, Bradycardia, JVD present, Systolic murmur, Diastolic murmur Peripheral Pulses: 2+ Radial (R), 2+ Radial (L), 2+ Dorsalis pedis (R), 2+ Dorsalis pedis (L) Abdomen: positive: Non-tender, No organomegaly, Nml bowel sounds, No distention. negative: Tenderness, Guarding, Rebound Back: positive: Nml inspection. negative: CVA tenderness (R), CVA tenderness (L) Skin: positive: Color nml, No rash, Warm, Dry. negative: Cyanosis, Diaphoresis, Pallor Extremities: positive: Non-tender. negative: Calf tenderness, Willie's sign/cords Neurologic/Psychiatric: positive: Oriented x3, Sensation nml, Mood/affect nml. negative: Weakness, Sensory loss, Facial droop, Slurred/abnml speech, Depressed mood/affect - Lab Results Fish Bones: 08/02/19 07:00 08/02/19 07:00 Other Labs: Lab Results x24hrs 08/02/19 08/02/19 08/02/19 Range/Units Unknown 07:28 07:00 WBC (4.8-10.8) x10^3/uL RBC (4.20-5.40) 10^6/uL Hgb (12.0-16.0) g/dL Hct (37.0-47.0) % MCV (81.0-99.0) fL MCH (27.0-31.0) pg MCHC (32.0-36.0) g/dL RDW (12.0-15.0) % Plt Count (130-450) 10^3/uL MPV (7.9-10.8) fL Neut # (Auto) (1.5-6.6) 10^3/uL Lymph # (Auto) (1.5-3.5) 10^3/uL [place] # (Auto) (0.0-1.0) 10^3/uL Eos # (Auto) (0.0-0.7) 10^3/uL Baso # (Auto) (0.0-0.1) 10^3/uL Absolute Nucleated RBC x10^3/uL Nucleated RBC % /100WBC Sodium 138 (135-145) mmol/L Potassium 3.5 (3.5-5.0) mmol/L Chloride 97 L (101-111) mmol/L Carbon Dioxide 32 (21-32) mmol/L Anion Gap 9.0 (6-13) BUN 12 (6-20) mg/dL Creatinine 0.8 (0.4-1.0) mg/dL Estimated GFR (MDRD) 73 L (>89) Glucose 184 H (70-100) mg/dL POC Whole Bld Glucose 159 H (70 - 100) mg/dL Calcium 8.8 (8.5-10.3) mg/dL Magnesium 1.6 L (1.7-2.8) mg/dL Total Bilirubin (0.2-1.0) mg/dL AST (10-42) IU/L ALT (10-60) IU/L Alkaline Phosphatase (42-121) IU/L Troponin I High Sens (2.3-14.8) pg/mL B-Natriuretic Peptide 318 H (5-100) pg/mL Total Protein (6.7-8.2) g/dL Albumin (3.2-5.5) g/dL Globulin (2.1-4.2) g/dL Albumin/Globulin Ratio (1.0-2.2) Lipase (22-51) U/L TSH (0.34-5.60) uIU/mL Influenza A (Rapid) (Negative) Influenza B (Rapid) (Negative) 08/02/19 08/02/19 08/02/19 Range/Units 07:00 07:00 06:25 WBC 12.1 H (4.8-10.8) x10^3/uL RBC 3.75 L (4.20-5.40) 10^6/uL Hgb 11.9 L (12.0-16.0) g/dL Hct 36.2 L (37.0-47.0) % MCV 96.5 (81.0-99.0) fL MCH 31.7 H (27.0-31.0) pg MCHC 32.9 (32.0-36.0) g/dL RDW 13.2 (12.0-15.0) % Plt Count 165 (130-450) 10^3/uL MPV 11.4 H (7.9-10.8) fL Neut # (Auto) 9.4 H (1.5-6.6) 10^3/uL Lymph # (Auto) 1.0 L (1.5-3.5) 10^3/uL [place] # (Auto) 1.1 H (0.0-1.0) 10^3/uL Eos # (Auto) 0.5 (0.0-0.7) 10^3/uL Baso # (Auto) 0.1 (0.0-0.1) 10^3/uL Absolute Nucleated RBC 0.00 x10^3/uL Nucleated RBC % 0.0 /100WBC Sodium (135-145) mmol/L Potassium (3.5-5.0) mmol/L Chloride (101-111) mmol/L Carbon Dioxide (21-32) mmol/L Anion Gap (6-13) BUN (6-20) mg/dL Creatinine (0.4-1.0) mg/dL Estimated GFR (MDRD) (>89) Glucose (70-100) mg/dL POC Whole Bld Glucose (70 - 100) mg/dL Calcium (8.5-10.3) mg/dL Magnesium (1.7-2.8) mg/dL Total Bilirubin (0.2-1.0) mg/dL AST (10-42) IU/L ALT (10-60) IU/L Alkaline Phosphatase (42-121) IU/L Troponin I High Sens (2.3-14.8) pg/mL B-Natriuretic Peptide 374 H (5-100) pg/mL Total Protein (6.7-8.2) g/dL Albumin (3.2-5.5) g/dL Globulin (2.1-4.2) g/dL Albumin/Globulin Ratio (1.0-2.2) Lipase (22-51) U/L TSH (0.34-5.60) uIU/mL Influenza A (Rapid) Negative (Negative) Influenza B (Rapid) Negative (Negative) 08/01/19 08/01/19 08/01/19 Range/Units 21:56 18:27 18:27 WBC (4.8-10.8) x10^3/uL RBC (4.20-5.40) 10^6/uL Hgb (12.0-16.0) g/dL Hct (37.0-47.0) % MCV (81.0-99.0) fL MCH (27.0-31.0) pg MCHC (32.0-36.0) g/dL RDW (12.0-15.0) % Plt Count (130-450) 10^3/uL MPV (7.9-10.8) fL Neut # (Auto) (1.5-6.6) 10^3/uL Lymph # (Auto) (1.5-3.5) 10^3/uL [place] # (Auto) (0.0-1.0) 10^3/uL Eos # (Auto) (0.0-0.7) 10^3/uL Baso # (Auto) (0.0-0.1) 10^3/uL Absolute Nucleated RBC x10^3/uL Nucleated RBC % /100WBC Sodium (135-145) mmol/L Potassium (3.5-5.0) mmol/L Chloride (101-111) mmol/L Carbon Dioxide (21-32) mmol/L Anion Gap (6-13) BUN (6-20) mg/dL Creatinine (0.4-1.0) mg/dL Estimated GFR (MDRD) (>89) Glucose (70-100) mg/dL POC Whole Bld Glucose 225 H (70 - 100) mg/dL Calcium (8.5-10.3) mg/dL Magnesium (1.7-2.8) mg/dL Total Bilirubin (0.2-1.0) mg/dL AST (10-42) IU/L ALT (10-60) IU/L Alkaline Phosphatase (42-121) IU/L Troponin I High Sens (2.3-14.8) pg/mL B-Natriuretic Peptide 382 H (5-100) pg/mL Total Protein (6.7-8.2) g/dL Albumin (3.2-5.5) g/dL Globulin (2.1-4.2) g/dL Albumin/Globulin Ratio (1.0-2.2) Lipase (22-51) U/L TSH 1.35 (0.34-5.60) uIU/mL Influenza A (Rapid) (Negative) Influenza B (Rapid) (Negative) 08/01/19 08/01/19 08/01/19 Range/Units 18:27 18:27 18:27 WBC 15.9 H (4.8-10.8) x10^3/uL RBC 4.01 L (4.20-5.40) 10^6/uL Hgb 12.8 (12.0-16.0) g/dL Hct 38.2 (37.0-47.0) % MCV 95.3 (81.0-99.0) fL MCH 31.9 H (27.0-31.0) pg MCHC 33.5 (32.0-36.0) g/dL RDW 13.3 (12.0-15.0) % Plt Count 210 (130-450) 10^3/uL MPV 11.3 H (7.9-10.8) fL Neut # (Auto) 13.0 H (1.5-6.6) 10^3/uL Lymph # (Auto) 1.0 L (1.5-3.5) 10^3/uL [place] # (Auto) 1.3 H (0.0-1.0) 10^3/uL Eos # (Auto) 0.4 (0.0-0.7) 10^3/uL Baso # (Auto) 0.1 (0.0-0.1) 10^3/uL Absolute Nucleated RBC 0.00 x10^3/uL Nucleated RBC % 0.0 /100WBC Sodium 136 (135-145) mmol/L Potassium 4.0 (3.5-5.0) mmol/L Chloride 99 L (101-111) mmol/L Carbon Dioxide 28 (21-32) mmol/L Anion Gap 9.0 (6-13) BUN 12 (6-20) mg/dL Creatinine 0.8 (0.4-1.0) mg/dL Estimated GFR (MDRD) 73 L (>89) Glucose 200 H (70-100) mg/dL POC Whole Bld Glucose (70 - 100) mg/dL Calcium 8.8 (8.5-10.3) mg/dL Magnesium (1.7-2.8) mg/dL Total Bilirubin 1.6 H (0.2-1.0) mg/dL AST 16 (10-42) IU/L ALT 25 (10-60) IU/L Alkaline Phosphatase 91 (42-121) IU/L Troponin I High Sens 6.1 (2.3-14.8) pg/mL B-Natriuretic Peptide (5-100) pg/mL Total Protein 7.4 (6.7-8.2) g/dL Albumin 3.5 (3.2-5.5) g/dL Globulin 3.9 (2.1-4.2) g/dL Albumin/Globulin Ratio 0.9 L (1.0-2.2) Lipase 22 (22-51) U/L TSH (0.34-5.60) uIU/mL Influenza A (Rapid) (Negative) Influenza B (Rapid) (Negative) ABX Reporting Has patient been on IV antibiotics over the past 48 hours?: Yes Sepsis Event Note (H) - Evaluation Current Stage of Sepsis: Ruled out Assessment/Plan - Problem List (1) Acute respiratory failure with hypoxia Impression: 08/02 improved. pt has 95% sats on 2 liter of O2. lower extremity dopplers reveals no DVT. BNP is reduced from admission continue empiric Doxycyline and Ceftin PO Continue Lasix IV 40mg daily continue Check BNP in AM Wean oxygen as tolerated (2) Atrial fibrillation with RVR 08/02 stable HR continue home Metoprolol 100mg twice daily Continue Xarelto. Monitor on telemetry and vital (3) Diabetes mellitus, type II Conclusion/Plan: 08/02 hold home Metformin check A1C slide scale to moderate, ACHS, hypoglycemia protocol (4) Hypertension Conclusion/Plan: stable,continue home antihypertensives (5) Hypothyroidism Conclusion/Plan: Stable. TSH is normal. contine Synthroid. (6) Rheumatoid arthritis Conclusion/Plan: Stable. On Methotrexate and Xeljanz. hold now for her infection. Resume home medications on discharge (7) JAGDISH on CPAP Conclusion/Plan: Stable. On CPAP at home. Continue CPAP
[2019-08-02 11:27] LABS: HB2 TOTAL 12.7 g/dL; HEMOGLOBIN A1C 0.59 g/dL; HEMOGLOBIN A1C % 6.4 % (4.6-6.2)
[2019-08-02] MEDS: IBUPROFEN 400 MG TABLET PO PRN ×2 (11:51→20:15)
[2019-08-02] MEDS: RIVAROXABAN 15 MG TABLET PO SCH (16:31)
[2019-08-02] MEDS ORDERED: RIVAROXABAN 15 MG TABLET PO SCH (17:00)
[2019-08-02] MEDS: ATORVASTATIN 10 MG TABLET PO SCH (20:15)
[2019-08-02] MEDS ORDERED: traZODone 50 MG TABLET PO SCH (21:00)
[2019-08-03] MEDS: SODIUM CHLORIDE FLUSH 0.9% 10 ML SYRINGE IVP SCH ×2 (00:39→08:47)
[2019-08-03] MEDS: BENZOCAINE/MENTHOL LOZENGE MM PRN (04:45)
[2019-08-03] MEDS: LEVOTHYROXINE 125 MCG TABLET PO SCH (04:45)
[2019-08-03 04:49] LABS: BASOPHILS % (AUTO) 0.5 %; EOSINOPHILS # (AUTO) 0.4 10^3/uL (0.0-0.7); EOSINOPHILS % (AUTO) 5.2 %; LYMPHOCYTES # (AUTO) 0.6 10^3/uL (1.5-3.5); LYMPHOCYTES % (AUTO) 8.1 %; MEAN CORPUSCULAR HEMOGLOBIN 31.6 pg (27.0-31.0); MEAN CORPUSCULAR HGB CONC 33.2 g/dL (32.0-36.0); MEAN PLATELET VOLUME 11.5 fL (7.9-10.8); MONOCYTES # (AUTO) 1.1 10^3/uL (0.0-1.0); MONOCYTES % (AUTO) 13.5 %; NEUTROPHILS # (AUTO) 5.7 10^3/uL (1.5-6.6); NEUTROPHILS % (AUTO) 72.2 %; PLT - PLATELET COUNT 149 10^3/uL (130-450); RED CELL DISTRIBUTION WIDTH 13.2 % (12.0-15.0); WHITE BLOOD COUNT 7.9 x10^3/uL (4.8-10.8)
[2019-08-03 05:03] LABS: ALBUMIN 3.4 g/dL (3.2-5.5); ALBUMIN/GLOBULIN RATIO 0.9 (1.0-2.2); BILIRUBIN,TOTAL 2.6 mg/dL (0.2-1.0); CREATININE 0.8 mg/dL (0.4-1.0); TOTAL PROTEIN 7.3 g/dL (6.7-8.2)
[2019-08-03] MEDS: IPRATROPIUM/ALBUTEROL 3 ML NEB INH PRN (05:21)
[2019-08-03] MEDS: INSULIN ASPART 300 UNIT/3 ML PEN SUBQ SCH ×2 (07:52→11:57)
[2019-08-03] MEDS: SACCHAROMYCES BOULARDII 250 MG CAPSULE PO SCH (07:52)
[2019-08-03] MEDS: FLUTICASONE NASAL SPRAY NAS SCH (08:46)
[2019-08-03] MEDS: guaiFENesin 600 MG TABLET PO SCH (08:47)
[2019-08-03] MEDS: LORATADINE 10 MG TABLET PO SCH (08:47)
[2019-08-03] MEDS: cefUROXime axetil 250 MG TABLET PO SCH (08:47)
[2019-08-03] MEDS: ASPIRIN EC 81 MG TABLET PO SCH (08:47)
[2019-08-03] MEDS: LISINOPRIL 5 MG TABLET PO SCH (08:47)
[2019-08-03] MEDS: FUROSEMIDE 40 MG/4 ML VIAL IVP SCH (08:48)
[2019-08-03] MEDS: DOXYCYCLINE 100 MG TABLET PO SCH (08:48)
[2019-08-03] MEDS: METOPROLOL TARTRATE 50 MG TABLET PO SCH (08:49)
[2019-08-03] MEDS ORDERED: POLYETHYLENE GLYCOL 3350 17 GM PACKET PO SCH (09:00)
--- NOTE | 2019-08-03 13:54 | Discharge Plan ---
Discharge Plan Problem Reviewed?: Yes Disposition: Home, Self Care Condition: Poor Prescriptions: cefUROXime axetil [Ceftin] 500 mg PO BID #20 tablet Doxycycline Hyclate 100 mg PO BID #10 capsule Diet: Diabetic Activity Restrictions: Activity as Tolerated Shower Restrictions: No (fall precaution) Instruction Topics: Cefuroxime tablets, Doxycycline tablets or capsules, Furosemide tablets, Heart Failure, Heart Failure Warning Signs, Heart Failure Tracking Weight, Heart Failure Being Active, Pneumonia, Heart Failure Coping, Heart Failure Diet Changes, Atrial Fibrillation Health Concerns: acute on chronic systolic and diastolic combination of heart failure, pneumonia, medical non-compliance Plan of Treatment: NEW ECHO reveals your EF is reduced, systolic function is mild worsening then before. One of reason can be your medical non-compliance, please followup medical schedule, followup oil burner technician as out-pt for further management. You are on the medication to treat for your Rheumatoid arthritis, your immunocompromised status can have you in the risk of infection, such as pneumonia. Antibiotics Ceftin and Doxycycline are prescribed for you to finish the treatment course. Care Goals: stabilization and improvement of your medical conditions Assessment: assessment as the above Additional Instructions or Follow Up instructions: you may followup your PCP in one week, followup oil burner technician as out-pt. Should your symptoms return or worsen, you may present ER or call 911 for help. Follow-Up Care: [facility] - [facility] Classes No Smoking: If you smoke, Please STOP! Call for help. Follow-up with: Bayron Wick DO [Primary Care Provider] -
--- NOTE | 2019-08-03 14:09 | DISCHARGE SUMMARY ---
Discharge Summary Discharge Date: 08/03/19 Discharging Provider: LARSON Primary Care Provider: Dr. Padron Condition at Discharge: Poor Discharge Disposition: 01 Home, Self Care Discharge Facility Name: home - DIAGNOSES Admission Diagnoses: (1) Acute respiratory failure with hypoxia (2) Atrial fibrillation with RVR (3) Diabetes mellitus, type II (4) Hypertension (5) Hypothyroidism (6) Rheumatoid arthritis (7) JAGDISH on CPAP Discharge Diagnoses with Status of Each Condition: (1) Acute respiratory failure with hypoxia resolved (2) Atrial fibrillation with RVR stable (3) Diabetes mellitus, type II stable (4) Hypertension stable (5) Hypothyroidism stab;e (6) Rheumatoid arthritis stab;e (7) JAGDISH on CPAP stable (8) medical non-compliance advise pt for medical compliance (9) acute on chronic combined systolic and diastolic heart failure improved. (10) sepsis with pneumonia improved and stable. - HPI History of Present Illness: refer from Dr. Byrne's HPI on 08/01/19 This is a 63 year old female with a past medical history significant for atrial fibrillation (on Xarelto), JAGDISH on CPAP, and diabetes who presents from home complaining of worsening shortness of breath for the past two days. She states that she went on a trip to [place] about 12 days ago. She did not take her Lasix while on vacation and she was concerned she would not be able to regular find bathrooms while on excursions. She noticed her legs becoming more edematous these past few days and today she measure her pulse ox and it was as low as the 70's. She started taking her Lasix again yesterday. Her dyspnea is most prominent on exertion. She reports a nonproductive cough but denies chest pain, fevers, chills. She reports no sick contacts. She did not receive the flu vaccine this year yet. She also reports that the longest flight on her trip was 10.5 hours. She was taking her Xarelto as prescribed for her atrial fibrillatio n. She did attempt to ambulate while on her flight. She reports no prior history of DVT or PE although history of PE is documented in the EMR. In the ED, she was found to be tachycardic with rates in the 130's and in atrial fibrillation. She was also hypoxic and required 5L of oxygen to maintain an O2 sat of 95%. Labs were significant for leukocytosis, and a BNP of 382. X-ray of the chest was unremarkable. She was given Lasix IV with improvement in symptoms but she remained hypoxic and therefore Medicine was consulted for admission. - HOSPITAL COURSE Hospital Course: pt was admitted for shortness of breath. pt was found to have elevated temperature at 37.9F with cough, and elevated BNP. pt reported she did not take his Lasix when she was in the trip. Pt was treated with diuretics Lasix and antibiotics Ceftin and doxycycline. after treatment, pt's SOB is resolved. pt has 95% sats on room air. BNP was down to her baseline. WBC became normal. The details hospital course is as the below 1) Acute respiratory failure with hypoxia resolved. it is likely caused by combination of pneumonia infection and acute on chronic heart failure. pt was resume her home Lasix and antibiotics Ceftin and doxycycline was prescribed for pt to finish the treatment course. (2) Atrial fibrillation with RVR stable (3) Diabetes mellitus, type II stable (4) Hypertension stable (5) Hypothyroidism stab;e (6) Rheumatoid arthritis stable (7) JAGDISH on CPAP stable (8) medical non-compliance advise pt for medical compliance. pt did not take his home Lasix. (9) acute on chronic combined systolic and diastolic heart failure improved. New ECHO reveals decreased EF to 35-40% from previous 40-45%, with moderate right heart abnormal pressure. 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 (10) sepsis with pneumonia improved and stable. pt had elevated temperature, tachycardia, and abnormal elevated WBC, clinically pt present shortness of breath. antibiotics Ceftin and doxycycline was prescribed for pt to finish the treatment course. - ALLERGIES Allergies/Adverse Reactions: Allergies Allergy/AdvReac Type Severity Reaction Status Date / Time No Known Drug Allergies Allergy Verified 08/01/19 18:20 - MEDICATIONS Home Medications: Ambulatory Orders Medication Instructions Recorded Confirmed Methotrexate 20 mg ORAL Q7D 04/10/17 08/03/19 Oxycodone HCl/Acetaminophen 7.5 mg PO Q4H PRN 04/10/17 08/03/19 [Percocet 7.5-325 mg Tablet] metFORMIN [Glucophage] 1,000 mg ORAL BID 04/10/17 08/03/19 traZODone [Desyrel] 50 - 100 mg ORAL QPM PRN 04/10/17 08/03/19 Folic Acid 4 mg PO DAILY 01/09/19 08/03/19 Fluticasone [Flonase] 1 sprays DOMINICK DAILY PRN 01/10/19 08/03/19 Levothyroxine Sodium [Synthroid] 175 mcg PO QDAC 01/10/19 08/03/19 Furosemide [Lasix] 40 mg PO DAILY #30 tablet 01/13/19 08/03/19 Potassium Chloride 10 meq PO DAILY #30 tab.er.prt 01/13/19 08/03/19 Albuterol Sulfate [Proventil Hfa 1 puffs PO PRN PRN 02/14/19 08/03/19 Inhaler] Saccharomyces Boulardii [Florastor] 250 mg PO DAILY #5 capsule 02/16/19 08/03/19 guaiFENesin [Mucinex] 600 mg PO BID PRN #10 tablet 02/16/19 08/03/19 Atorvastatin [Lipitor] 10 mg PO QPM 08/01/19 08/03/19 Metoprolol Tartrate 100 mg PO BID 08/01/19 08/01/19 Tofacitinib Citrate [Xeljanz Xr] 11 mg PO DAILY 08/01/19 08/01/19 Doxycycline Hyclate 100 mg PO BID #10 capsule 08/03/19 Glipizide [Glucotrol] 10 mg PO BID 08/03/19 08/03/19 Lisinopril [Zestril] 5 mg PO BID 08/03/19 08/03/19 Rivaroxaban [Xarelto] 20 mg PO 1700 08/03/19 08/03/19 cefUROXime axetil [Ceftin] 500 mg PO BID #20 tablet 08/03/19 - PHYSICAL EXAM AT DISCHARGE General Appearance: positive: No acute distress, Alert. negative: Lethargic Eyes Bilateral: positive: Normal inspection, PERRL, No lid inflammation, Conjunctivae nml ENT: positive: ENT inspection nml, Pharynx nml. negative: Purulent nasal drainage, Pharyngeal erythema, Oral lesions Neck: positive: Nml inspection, Thyroid nml, No JVD, Trachea midline. negative: Thyromegaly, Lymphadenopathy (R), Lymphadenopathy (L), Stiff neck, Swelling/bruising, Tracheal deviation Respiratory: positive: Chest non-tender, No respiratory distress, Breath sounds nml Cardiovascular: positive: Regular rate & rhythm, No murmur, No gallop. negative: Irregularly irregular, Extrasystoles, Tachycardia, Bradycardia, JVD present, Systolic murmur, Diastolic murmur Peripheral Pulses: positive: 2+ Abdomen: positive: Non-tender, No organomegaly, Nml bowel sounds, No distention. negative: Tenderness, Guarding, Rebound Back: positive: Nml inspection. negative: CVA tenderness (R), CVA tenderness (L) Skin: positive: Color nml, No rash, Warm, Dry. negative: Cyanosis, Diaphoresis, Pallor Extremities: positive: Non-tender, Full ROM, Nml appearance. negative: Calf tenderness, Joint swelling, Willie's sign/cords Neurologic/Psychiatric: positive: Oriented x3, Motor nml, Sensation nml, Mood/affect nml. negative: Weakness, Sensory loss, Facial droop, Slurred/abnml speech, Depressed mood/affect - LABS Result Diagrams: 08/03/19 04:35 08/03/19 04:35 - FOLLOW UP Follow Up: NEW ECHO reveals your EF is reduced, systolic function is mild worsening then before. One of reason can be your medical non-compliance, please followup medical schedule, followup tank farm attendant as out-pt for further management. You are on the medication to treat for your Rheumatoid arthritis, your immunocompromised status can have you in the risk of infection, such as pneumonia. Antibiotics Ceftin and Doxycycline are prescribed for you to finish the treatment course. you may followup your PCP in one week, followup tank farm attendant as out-pt. Should your symptoms return or worsen, you may present ER or call 911 for help. - TIME SPENT Time Spent in Discharge (Minutes): 60
[2019-08-03 14:33] VITALS: BP 129/80
== END 2019-08-03 14:56 | disposition home or self-care (01) | DRG 871 ==
LOC: ED 18:11 → UNDOADMOB 20:45 → MS2 20:45 → OBSVTOIN 22:23 → INTOOBSV 08-02 10:07 → UNDODISIN 08-03 14:56
PROVIDERS: ADMIT Internal Medicine; ATTEND Nurse Practitioner Gerontology
DX: A41.9 Sepsis, unspecified organism (principal); J96.01 Acute respiratory failure with hypoxia; J18.9 Pneumonia, unspecified organism; I50.43 Acute on chronic combined systolic (congestive) and diastolic (congestive) heart failure; I11.0 Hypertensive heart disease with heart failure; I48.91 Unspecified atrial fibrillation; E11.9 Type 2 diabetes mellitus without complications; G47.33 Obstructive sleep apnea (adult) (pediatric); E03.9 Hypothyroidism, unspecified; M06.9 Rheumatoid arthritis, unspecified; T50.1X6A Underdosing of loop [high-ceiling] diuretics, initial encounter; Z91.130 Patient's unintentional underdosing of medication regimen due to age-related debility; Z79.01 Long term (current) use of anticoagulants; Z79.891 Long term (current) use of opiate analgesic; Z79.84 Long term (current) use of oral hypoglycemic drugs; Z79.51 Long term (current) use of inhaled steroids; Z86.711 Personal history of pulmonary embolism
CPT/HCPCS: 36415; 71045; 80048; 80053; 83036; 83690; 83735; 83880; 84443; 84484; 85025; 87040; 87275; 87276; 93005; 93306; 93970; 94640; 96374; 96375; 96376; 99284; 99285; A9270; G0378

== ENCOUNTER 2021-04-10 07:31 | Observation (INO) | payer MEDICAID ==
--- OUTSIDE RECORDS SUMMARY | 2021-04-10 07:34 | EXTERNAL MEDICAL SUMMARY RPT | Continuity of Care Document ---
:1955 Demographics Phone Unavailable Preferred Language Bur[place]ian Marital Status Unknown Rastafari Affiliation Unknown Race Unknown Ethnic Group Unknown Author Organization [facility] Address [address] [phone] Phone Care Team Providers Name Role Phone Brown Unavailable Unavailable Allergies Encounters Medications date description facility 20210310 bismuth subsalicylate 262 MG Oral Table t [facility] Problems Procedures date description facility 20210310 General Physician [facility] 20210310 Finding [facility] 20210310 Diagnosis [facility] Results Vital Signs date measurement value source 20210310 weight_standard 126.61 lb 20210310 weight_metric 57.43 kg 20210310 temperature_standard 97.3 F 20210310 temperature_metric 36.28 C 20210310 respiration_rate 18 /min 20210310 height_standard 65 in 20210310 height_metric 165.1 cm 20210310 heart_rate 75 /min 20210310 BP_systolic 104 mm[Hg] 20210310 BP_diastolic 58 mm[Hg] 20210310 BMI 46.4 kg/m2
[2021-04-10] MEDS ORDERED: FUROSEMIDE 40 MG/4 ML VIAL IVP STA (07:51)
--- NOTE | 2021-04-10 07:53 | ED Physician Documentation ---
PD HPI DYSPNEA - Stated complaint Stated Complaint: SOA - History obtained from History obtained from: Patient, Family - History of Present Illness Timing - onset: How many weeks ago (1) Timing - onset during: Rest Timing - duration: Weeks (1) Timing - details: Gradual onset, Still present Inciting event(s): Other (has stopped lasix last fall and never re-started it.) Improved by: O2, BiPAP / CPAP, Rest, Sitting up Worsened by: Exertion, Laying flat Associated symptoms: Bilateral edema. No: Fever, Cough, Wheezing, Chest pain / discomfort Similar symptoms before: Diagnosis (CHF and pneumonia) Recently seen: Not recently seen - Additional information Additional information: Fully COVID immunized 65-year-old female with history of atrial fibrillation on Eliquis history of CHF diabetes hypertension obstructive sleep apnea on CPAP has developed increasing shortness of breath over the past week. She states that she noted about a 20 pound weight gain when she went to see another provider. The patient has been taken off of her Lasix last fall when she became significantly dehydrated. She has not restarted Lasix. She states that her blood sugars have been running up to 198 this past week but not higher. She has developed increasing exertional dyspnea and dyspnea at rest with orthopnea. She has a prior history of pneumonia and CHF with an admission 2 years ago for diuresis. Review of Systems Constitutional: denies: Fever Eyes: denies: Decreased vision Ears: denies: Ear pain Nose: denies: Rhinorrhea / runny nose, Congestion Throat: denies: Sore throat Cardiac: reports: Pedal edema. denies: Chest pain / pressure, Palpitations, Calf pain Respiratory: reports: Dyspnea, Cough, Wheezing GI: denies: Abdominal Pain, Nausea, Vomiting, Constipation, Diarrhea : denies: Dysuria, Frequency Skin: denies: Rash Musculoskeletal: reports: Extremity swelling. 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 : None HEENT: None Psych: None Musculoskeletal: Rheumatoid arthritis Derm: None - Past Surgical History Past Surgical History: Yes Ortho: Knee replacement, Carpal Tunnel surgery - Present Medications Home Medications: Ambulatory Orders Medication Instructions Recorded Confirmed Methotrexate [Methotrexate Sodium] 20 mg ORAL SA 04/10/17 04/10/21 traZODone [Desyrel] 50 - 100 mg ORAL QPM PRN 04/10/17 04/10/21 Folic Acid 3 mg PO DAILY 01/09/19 04/10/21 Fluticasone [Flonase] 1 sprays DOMINICK DAILY PRN 01/10/19 04/10/21 Albuterol Sulfate [Proventil Hfa 1 puffs PO PRN PRN 02/14/19 04/10/21 Inhaler] Saccharomyces Boulardii [Florastor] 250 mg PO DAILY #5 capsule 02/16/19 04/10/21 Atorvastatin [Lipitor] 10 mg PO QPM 08/01/19 04/10/21 Tofacitinib Citrate [Xeljanz Xr] 11 mg PO DAILY 08/01/19 04/10/21 Rivaroxaban [Xarelto] 20 mg PO 1700 08/03/19 04/10/21 glipiZIDE [Glucotrol] 10 mg PO BID 08/03/19 04/10/21 lisinopriL [Zestril] 5 mg PO DAILY 08/03/19 04/10/21 Cholecalciferol (Vitamin D3) 50 mcg PO BID 04/10/21 04/10/21 [Vitamin D3] Ferrous Gluconate 324 mg PO DAILY 04/10/21 04/10/21 Levothyroxine Sodium 137 mcg PO DAILY 04/10/21 04/10/21 [Levothyroxine] Metformin HCl [Fortamet] 1,000 mg PO BID 04/10/21 04/10/21 Metoprolol Succinate [Toprol Xl] 100 mg PO BID 04/10/21 04/10/21 - Allergies Allergies/Adverse Reactions: Allergies Allergy/AdvReac Type Severity Reaction Status Date / Time No Known Drug Allergies Allergy Verified 04/10/21 07:56 - Social History Does the pt smoke?: No Smoking Status: Never smoker Does the pt drink ETOH?: No Does the pt have substance abuse?: No - Immunizations Immunizations are current?: Yes - POLST Patient has POLST: No PD ED PE NORMAL - Vitals Vital signs reviewed: Yes (hypertensive and hypoxic) - General General: Alert and oriented X 3, Well developed/nourished, Other - HEENT HEENT: Atraumatic, PERRL, EOMI - Neck Neck: Supple, no meningeal sign, No bony TTP - Cardiac Cardiac: RRR, No murmur - Respiratory Respiratory: Other (tachypneic at rest with diminished breath sounds at bases) - Abdomen Abdomen: Soft, Non tender - Back Back: No CVA TTP, No spinal TTP - Derm Derm: Normal color, Warm and dry, No rash - Extremities Extremities: No deformity, Other (trace edema bilat) - Neuro Neuro: Alert and oriented X 3, consultant technology 2-12 intact, No motor deficit, No sensory deficit, Normal speech Eye Opening: Spontaneous Motor: Obeys Commands Verbal: Oriented GCS Score: 15 - Psych Psych: Normal mood, Normal affect Results - Vitals Vitals: Vital Signs - 24 hr 04/10/21 04/10/21 04/10/21 07:38 08:10 08:19 Temperature 35.4 C L Heart Rate 91 78 Respiratory 20 20 Rate Blood Pressure 181/122 H 176/107 H O2 Saturation 89 L 96 97 04/10/21 08:40 Temperature Heart Rate 86 Respiratory 22 Rate Blood Pressure 159/106 H O2 Saturation 97 Oxygen O2 Source Oxymask Oxygen Flow Rate 3 - EKG (time done) 0804 Rate: Rate (enter#) (91) Rhythm: Atrial fibrillation QRS: Low voltage Compare to prior EKG: Changed from prior EKG (SPT 08-01-2019 rate has increased.) Computer interpretation: Agree with computer - Labs Labs: Laboratory Tests 04/10/21 04/10/21 04/10/21 08:00 08:00 08:31 WBC 12.6 H RBC 3.73 L Hgb 12.4 Hct 38.3 MCV 102.7 H MCH 33.2 H MCHC 32.4 RDW 14.0 Plt Count 226 MPV 11.7 H Neut # (Auto) 9.7 H Lymph # (Auto) 1.5 [place] # (Auto) 1.0 Eos # (Auto) 0.3 Baso # (Auto) 0.1 Absolute Nucleated RBC 0.02 Nucleated RBC % 0.2 Sodium Potassium Chloride Carbon Dioxide Anion Gap BUN Creatinine Estimated GFR (MDRD) Glucose Calcium Total Bilirubin AST ALT Alkaline Phosphatase Troponin I High Sens 6.2 B-Natriuretic Peptide 274 H Total Protein Albumin Globulin Albumin/Globulin Ratio Lipase TSH Urine Color Urine Clarity Urine pH Ur Specific [place] Urine Protein Urine Glucose (UA) Urine Ketones Urine Occult Blood Urine Nitrite Urine Bilirubin Urine Urobilinogen Ur Leukocyte Esterase Urine RBC Urine WBC Ur Squamous Epith Cells Urine Bacteria Ur Microscopic Review Urine Culture Comments Nasal Adenovirus (PCR) Nasal B. parapertussis DNA (PCR) Nasal Coronavir 229E PCR Nasal Coronavir HKU1 PCR Nasal Coronavir NL63 PCR Nasal Coronavir OC43 PCR Nasal Enterovir/Rhinovir PCR Nasal Influenza B PCR Nasal Influenza A PCR Nasal Parainfluen 1 PCR Nasal Parainfluen 2 PCR Nasal Parainfluen 3 PCR Nasal Parainfluen 4 PCR Nasal RSV (PCR) Nasal B.pertussis DNA PCR Nasal C.pneumoniae (PCR) Dominick Human Metapneumo PCR Nasal M.pneumoniae (PCR) Nasal SARS-CoV-2 (PCR) 04/10/21 04/10/21 04/10/21 08:31 08:31 08:40 WBC RBC Hgb Hct MCV MCH MCHC RDW Plt Count MPV Neut # (Auto) Lymph # (Auto) [place] # (Auto) Eos # (Auto) Baso # (Auto) Absolute Nucleated RBC Nucleated RBC % Sodium 135 Potassium 4.1 Chloride 101 Carbon Dioxide 26 Anion Gap 8.0 BUN 19 Creatinine 1.3 H Estimated GFR (MDRD) 41 L Glucose 230 H Calcium 9.5 Total Bilirubin 1.4 H AST 23 ALT 33 Alkaline Phosphatase 86 Troponin I High Sens B-Natriuretic Peptide Total Protein 7.3 Albumin 3.6 Globulin 3.7 Albumin/Globulin Ratio 1.0 Lipase 22 TSH 5.88 H Urine Color Urine Clarity Urine pH Ur Specific [place] Urine Protein Urine Glucose (UA) Urine Ketones Urine Occult Blood Urine Nitrite Urine Bilirubin Urine Urobilinogen Ur Leukocyte Esterase Urine RBC Urine WBC Ur Squamous Epith Cells Urine Bacteria Ur Microscopic Review Urine Culture Comments Nasal Adenovirus (PCR) NOT DETECTED Nasal B. parapertussis DNA (PCR) NOT DETECTED Nasal Coronavir 229E PCR NOT DETECTED Nasal Coronavir HKU1 PCR NOT DETECTED Nasal Coronavir NL63 PCR NOT DETECTED Nasal Coronavir OC43 PCR NOT DETECTED Nasal Enterovir/Rhinovir PCR NOT DETECTED Nasal Influenza B PCR NOT DETECTED Nasal Influenza A PCR NOT DETECTED Nasal Parainfluen 1 PCR NOT DETECTED Nasal Parainfluen 2 PCR NOT DETECTED Nasal Parainfluen 3 PCR NOT DETECTED Nasal Parainfluen 4 PCR NOT DETECTED Nasal RSV (PCR) NOT DETECTED Nasal B.pertussis DNA PCR NOT DETECTED Nasal C.pneumoniae (PCR) NOT DETECTED Dominick Human Metapneumo PCR NOT DETECTED Nasal M.pneumoniae (PCR) NOT DETECTED Nasal SARS-CoV-2 (PCR) NOT DETECTED 04/10/21 08:49 WBC RBC Hgb Hct MCV MCH MCHC RDW Plt Count MPV Neut # (Auto) Lymph # (Auto) [place] # (Auto) Eos # (Auto) Baso # (Auto) Absolute Nucleated RBC Nucleated RBC % Sodium Potassium Chloride Carbon Dioxide Anion Gap BUN Creatinine Estimated GFR (MDRD) Glucose Calcium Total Bilirubin AST ALT Alkaline Phosphatase Troponin I High Sens B-Natriuretic Peptide Total Protein Albumin Globulin Albumin/Globulin Ratio Lipase TSH Urine Color YELLOW Urine Clarity CLEAR Urine pH 5.5 Ur Specific [place] >=1.030 H Urine Protein TRACE Urine Glucose (UA) NEGATIVE Urine Ketones NEGATIVE Urine Occult Blood TRACE-INTA Urine Nitrite NEGATIVE Urine Bilirubin NEGATIVE Urine Urobilinogen 0.2 (NORMAL) Ur Leukocyte Esterase SMALL H Urine RBC 0-5 Urine WBC 11-25 H Ur Squamous Epith Cells MANY Squamous H Urine Bacteria Few Ur Microscopic Review INDICATED Urine Culture Comments NOT INDICATED Nasal Adenovirus (PCR) Nasal B. parapertussis DNA (PCR) Nasal Coronavir 229E PCR Nasal Coronavir HKU1 PCR Nasal Coronavir NL63 PCR Nasal Coronavir OC43 PCR Nasal Enterovir/Rhinovir PCR Nasal Influenza B PCR Nasal Influenza A PCR Nasal Parainfluen 1 PCR Nasal Parainfluen 2 PCR Nasal Parainfluen 3 PCR Nasal Parainfluen 4 PCR Nasal RSV (PCR) Nasal B.pertussis DNA PCR Nasal C.pneumoniae (PCR) Dominick Human Metapneumo PCR Nasal M.pneumoniae (PCR) Nasal SARS-CoV-2 (PCR) - Rads (name of study) chest Radiology: Prelim report reviewed (Impression: Mild cardiomegaly with increased interstitial markings in both lungs. Findings are suggestive of cardiogenic pulmonary edema. Correlate with BNP.), EMP read indepedently, See rad report Procedures - IVC sono (time) 6430 Bedside IVC sono: IVC measures (cm) (2.45), IVC collapsed c insp (cm) (2.26), High CVP Departure - Departure Disposition: 66 [facility] DC/Xfer Clinical Impression: Acute respiratory failure with hypoxia Congestive heart failure Qualifiers: Heart failure type: unspecified Heart failure chronicity: acute on chronic Qualified Code(s): I50.9 - Heart failure, unspecified Discharge Date/Time: 04/10/21 10:36
[2021-04-10] MEDS ORDERED: NITROGLYCERIN 2% PASTE TOP STA (08:03)
[2021-04-10 08:22] LABS: BASOPHILS # (AUTO) 0.1 10^3/uL (0.0-0.1); BASOPHILS % (AUTO) 0.6 %; EOSINOPHILS # (AUTO) 0.3 10^3/uL (0.0-0.7); EOSINOPHILS % (AUTO) 2.5 %; HCT - HEMATOCRIT 38.3 % (37.0-47.0); HGB - HEMOGLOBIN 12.4 g/dL (12.0-16.0); LYMPHOCYTES # (AUTO) 1.5 10^3/uL (1.5-3.5); LYMPHOCYTES % (AUTO) 12.1 %; MEAN CORPUSCULAR HEMOGLOBIN 33.2 pg (27.0-31.0); MEAN CORPUSCULAR HGB CONC 32.4 g/dL (32.0-36.0); MEAN CORPUSCULAR VOLUME 102.7 fL (81.0-99.0); MEAN PLATELET VOLUME 11.7 fL (7.9-10.8); MONOCYTES % (AUTO) 7.8 %; NEUTROPHILS # (AUTO) 9.7 10^3/uL (1.5-6.6); NEUTROPHILS % (AUTO) 76.5 %; NRBC ABSOLUTE COUNT (AUTO) 0.02 x10^3/uL; NUCLEATED RED BLOOD CELLS AUTO 0.2 /100WBC; PLT - PLATELET COUNT 226 10^3/uL (130-450); RED BLOOD COUNT 3.73 10^6/uL (4.20-5.40); WHITE BLOOD COUNT 12.6 x10^3/uL (4.8-10.8)
--- NOTE | 2021-04-10 08:34 | XRAY Report ---
PROCEDURE: Chest 1 View X-Ray INDICATIONS: Chest pain TECHNIQUE: One view of the chest was acquired. COMPARISON: 08/02/2019 FINDINGS: Surgical changes and devices: None. Lungs and pleura: No pleural effusions or pneumothorax. Increased interstitial markings in both lung s. Mediastinum: Mediastinal contours appear normal. Heart size is mildly enlarged similar to the prior study. Bones and chest wall: No suspicious bony lesions. Overlying soft tissues appear unremarkable. IMPRESSION: Mild cardiomegaly with increased interstitial markings in both lungs. Findings are suggestive of card iogenic pulmonary edema. Correlate with BNP. Reviewed by: Blade Willis MD on 04/10/2021 8:32 AM PDT Approved by: Blade Willis MD on 04/10/2021 8:32 AM PDT Station ID: [id number]
--- OUTSIDE RECORDS SUMMARY | 2021-04-10 08:39 | EXTERNAL MEDICAL SUMMARY RPT | Continuity of Care Document ---
:1955 Demographics Phone Unavailable Preferred Language Kinyarwanda Marital Status Unknown Faith Affiliation Unknown Race Unknown Ethnic Group Unknown Author Organization [facility] Address [address] [phone] Phone Care Team Providers Name Role Phone Jayna Taveras Unavailable Unavailable Allergies Encounters Medications date description facility 20210310 bismuth subsalicylate 262 MG Oral Table t [facility] Problems Procedures date description facility [id number] General Physician [facility] [id number] Finding [facility] 20210310 Diagnosis [facility] Results Vital Signs date measurement value source 20210310 weight_standard 126.61 lb 20210310 weight_metric 57.43 kg 20210310 temperature_standard 97.3 F 20210310 temperature_metric 36.28 C 20210310 respiration_rate 18 /min 20210310 height_standard 65 in 20210310 height_metric 165.1 cm 20210310 heart_rate 75 /min 20210310 BP_systolic 104 mm[Hg] 20210310 BP_diastolic 58 mm[Hg] 20210310 BMI 46.4 kg/m2
[2021-04-10 08:57] LABS: BILIRUBIN,URINE NEGATIVE (NEGATIVE); GLUCOSE, URINE (UA) NEGATIVE (NEGATIVE); KETONES,URINE (UA) NEGATIVE (NEGATIVE); LEUKOCYTE ESTERASE, URINE SMALL (NEGATIVE); NITRITE,URINE NEGATIVE (NEGATIVE); OCCULT BLOOD,URINE TRACE-INTA (NEGATIVE); PH,URINE 5.5 PH (5.0-7.5); PROTEIN,URINE TRACE mg/dL (NEGATIVE); UROBILINOGEN,URINE 0.2 (NORMAL) E.U./dL (NORMAL)
[2021-04-10 08:59] LABS: ALBUMIN 3.6 g/dL (3.2-5.5); BILIRUBIN,TOTAL 1.4 mg/dL (0.2-1.0); CALCIUM 9.5 mg/dL (8.5-10.3); CREATININE 1.3 mg/dL (0.4-1.0); POTASSIUM 4.1 mmol/L (3.5-5.0); TOTAL PROTEIN 7.3 g/dL (6.7-8.2)
[2021-04-10 09:16] LABS: CLARITY,URINE CLEAR (CLEAR)
[2021-04-10 09:27] LABS: BACTERIA,URINE Few /HPF (None Seen); RBC,URINE 0-5 /HPF (0-5); SQUAMOUS EPITHELIAL CELL,UR MANY Squamous (<= Few)
[2021-04-10] MEDS ORDERED: SODIUM CHLORIDE FLUSH 0.9% 10 ML SYRINGE IVP PRN (09:27)
[2021-04-10] MEDS ORDERED: ONDANSETRON 4 MG/2 ML VIAL IVP PRN (09:27)
--- OUTSIDE RECORDS SUMMARY | 2021-04-10 09:44 | EXTERNAL MEDICAL SUMMARY RPT | Continuity of Care Document ---
:1955 Demographics Phone Unavailable Preferred Language [place] Marital Status Unknown Adventist Affiliation Unknown Race Unknown Ethnic Group Unknown Author Organization [facility] Address [address] [phone] Phone Care Team Providers Name Role Phone Brown Unavailable Unavailable Allergies Encounters Medications date description facility 20210310 bismuth subsalicylate 262 MG Oral Table t [facility] Problems Procedures date description facility [id number] General Physician [facility] [id number] Finding [facility] 20210310 Diagnosis [facility] Results Vital Signs date measurement value source 20210310 weight_standard 126.61 lb 20210310 weight_metric 57.43 kg 20210310 temperature_standard 97.3 F 20210310 temperature_metric 36.28 C 20210310 respiration_rate 18 /min 20210310 height_standard 65 in 20210310 height_metric 165.1 cm 20210310 heart_rate 75 /min 20210310 BP_systolic 104 mm[Hg] 20210310 BP_diastolic 58 mm[Hg] 20210310 BMI 46.4 kg/m2
[2021-04-10 09:48] LABS: B. PARAPERTUSSIS- RESP PCR PAN NOT DETECTED; B. PERTUSSIS- RESP PCR PANEL NOT DETECTED; C. PNEUMONIAE- RESP PCR PANEL NOT DETECTED; CORONAVIRUS 229E-RESP PCR NOT DETECTED; CORONAVIRUS HKU1-RESP PCR NOT DETECTED; CORONAVIRUS NL63-RESP PCR NOT DETECTED; CORONAVIRUS OC43-RESP PCR NOT DETECTED; HUMAN METAPNEUMOVIRUS NOT DETECTED; INFLUENZA A- RESP PCR PANEL NOT DETECTED; INFLUENZA B - RESP PCR PANEL NOT DETECTED; M. PNEUMONIAE- RESP PCR PANEL NOT DETECTED; PARAINFLUENZA VIRUS 1 NOT DETECTED; PARAINFLUENZA VIRUS 2 NOT DETECTED; PARAINFLUENZA VIRUS 3 NOT DETECTED; PARAINFLUENZA VIRUS 4 NOT DETECTED; RHINOVIRUS/ENTEROVIRUS NOT DETECTED; RSV- RESP PCR PANEL NOT DETECTED; SARS-CoV-2 -RESP PCR PANEL NOT DETECTED
[2021-04-10] MEDS ORDERED: ALBUTEROL NEB 2.5 MG/3 ML INH PRN (10:24)
[2021-04-10] MEDS ORDERED: METOPROLOL 5 MG/5 ML VIAL IVP PRN (10:29)
--- NOTE | 2021-04-10 10:31 | HISTORY & PHYSICAL EXAMINATION ---
Chief Complaint - Chief Complaint Chief Complaint: shortness of breath History of Present Illness - Admitted From Admitted From:: ER - History Obtained From Records Reviewed: [facility] History obtained from: Pt Exam Limitations: no - History of Present Illness HPI Comment/Other: This is a 65-yrs-old female with a PMH significant for rheumatoid arthritis on remicade and methotrexate, JAGDISH on home CPAP, DM2, HTN, hypothyroidism, PE, Afib with Xarelto, peripheral neuropathy, CHF, who present ER complain of shortness of breath. Pt report she has developed increasing shortness of breath over the past week. She report her physician stop her diuretics medication on last fall because she developed severe dehydration and her kidney was affected. She tried to see her physician on 2020 but she did not make it yet. So she did not take any diuretics for nearly one year. she report she watch her oral intake closely because her diabetes but she still gain lots of weight. she also report orthopnea. Specially this week, she felt very shortness of breath and difficult to walk to the bathroom. she denies chest pain, fever, chill, cough. 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 She was a smoker. Patient denies family history of heart failure, atrial fibrillation, D VT/PE. Social History Notes: She lives her on [facility] with her and daughter along with her daughter's four children. 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 She is a nonsmoker and denies alcohol use. - Substance History Use: Uses substance without health or social issues: NONE - POLST Patient has POLST: No Meds/Allgy - Home Medications Home Medications: Ambulatory Orders Medication Instructions Recorded Confirmed Methotrexate [Methotrexate Sodium] 20 mg ORAL SA 04/10/17 04/10/21 traZODone [Desyrel] 50 - 100 mg ORAL QPM PRN 04/10/17 04/10/21 Folic Acid 3 mg PO DAILY 01/09/19 04/10/21 Fluticasone [Flonase] 1 sprays DOMINICK DAILY PRN 01/10/19 04/10/21 Albuterol Sulfate [Proventil Hfa 1 puffs PO PRN PRN 02/14/19 04/10/21 Inhaler] Saccharomyces Boulardii [Florastor] 250 mg PO DAILY #5 capsule 02/16/19 04/10/21 Atorvastatin [Lipitor] 10 mg PO QPM 08/01/19 04/10/21 Tofacitinib Citrate [Xeljanz Xr] 11 mg PO DAILY 08/01/19 04/10/21 Rivaroxaban [Xarelto] 20 mg PO 1700 08/03/19 04/10/21 glipiZIDE [Glucotrol] 10 mg PO BID 08/03/19 04/10/21 lisinopriL [Zestril] 5 mg PO DAILY 08/03/19 04/10/21 Cholecalciferol (Vitamin D3) 50 mcg PO BID 04/10/21 04/10/21 [Vitamin D3] Ferrous Gluconate 324 mg PO DAILY 04/10/21 04/10/21 Levothyroxine Sodium 137 mcg PO DAILY 04/10/21 04/10/21 [Levothyroxine] Metformin HCl [Fortamet] 1,000 mg PO BID 04/10/21 04/10/21 Metoprolol Succinate [Toprol Xl] 100 mg PO BID 04/10/21 04/10/21 - Allergies Allergies/Adverse Reactions: Allergies Allergy/AdvReac Type Severity Reaction Status Date / Time No Known Drug Allergies Allergy Verified 04/10/21 07:56 Review of Systems - Constitutional Constitutional: denies: Fatigue, Fever, Chills, Malaise, Weakness, Poor appetite, Diaphoresis - Eyes Eyes: denies: Pain, Blurred vision, Field loss, Vision loss - Ears, Nose & Throat Ears, Nose & Throat: denies: Ear pain, Nosebleeds, Bleeding gums - Cardiovascular Cariovascular: reports: Exertional dyspnea, Decr. exercise tolerance. denies: Irregular heart rate, Palpitations, Chest pain, Edema, Lightheadedness, Syncope - Respiratory Respiratory: reports: Orthopnea, SOB with exertion. denies: Cough, Sputum production, Wheezing, Snoring, Hemoptysis, SOB at rest - Gastrointestinal Gastrointestinal: denies: Abdominal pain, Constipation, Diarrhea, Rectal bleeding, Black stools, Nausea, Vomiting - Genitourinary Genitourinary: denies: Dysuria, Urgency, Incontinence - Musculoskeletal Musculoskeletal: denies: Muscle pain, Muscle aches, Limited range of motion - Integumentary Integumentary: denies: Rash, Lesions, Lumps - Neurological Neurological: denies: General weakness, Focal weakness, Headache, Dizziness, Numbness, Pre-existing deficit, Abnormal gait, Seizures, Incoordination, Slurred speech - Psychiatric Psychiatric: denies: Depression, Anxiety - Endocrine Endocrine: denies: Polyuria - Hematologic/Lymphatic Hematologic/Lymphatic: denies: Anemia, Blood clots Exam - Vital Signs Vital Signs: Vital Signs x48h Temp Pulse Resp BP Pulse Ox 04/10/21 10:00 76 20 133/76 H 100 04/10/21 09:30 105 H 16 139/98 H 100 04/10/21 08:40 86 22 159/106 H 97 04/10/21 08:19 78 20 176/107 H 97 04/10/21 08:10 96 04/10/21 07:38 35.4 C L 91 20 181/122 H 89 L - Physical Exam General Appearance: positive: No acute distress, Alert. negative: Lethargic Eyes Bilateral: positive: Normal inspection, PERRL, No lid inflammation ENT: positive: ENT inspection nml, No signs of dehydration. negative: Purulent nasal drainage Neck: positive: Nml inspection, Trachea midline. negative: Thyromegaly, Tracheal deviation Respiratory: positive: Chest non-tender, No respiratory distress. negative: Wheezes, Rales Cardiovascular: positive: Regular rate & rhythm, No murmur. negative: Tachycardia, Bradycardia, Systolic murmur, Diastolic murmur Peripheral Pulses: positive: 2+ Abdomen: positive: Non-tender, Nml bowel sounds, No distention. negative: Tenderness Back: positive: Nml inspection Skin: positive: Color nml, Warm, Dry. negative: Cyanosis, Diaphoresis Extremities: positive: Non-tender, Full ROM, Nml appearance. negative: Calf tenderness Neurologic/Psychiatric: positive: Oriented x3, Motor nml, Sensation nml, Mood/affect nml. negative: Weakness, Sensory loss, Facial droop, Slurred/abnml speech, Depressed mood/affect Conclusion/Plan - Problem List (1) CHF exacerbation Conclusion/Plan: in 2019, pt's echo show patient had 35% EF. pt present weight gain, orthopnea, and pt had no lasix in her home meds. pt present shortness of breath, and CXR reveals pulmonary edema. ER already study on IV lasix, will continue IV of lasix, check ECHO, add tele monitor, and lab monitor. resume home Metoprolol, and lisinopril, statin, and vital monitor (2) Afib Conclusion/Plan: stable, resume home Metoprolol and Xarelto, Continue telemetry (3) Hx of rheumatoid arthritis Conclusion/Plan: Patient take methotrexate, folic acid, we will resume (4) Diabetes mellitus, type II Conclusion/Plan: We will check A1c, sliding scale, glucose check, hypoglycemia protocol Qualifiers: Diabetes mellitus complication status: without complication (5) HTN (hypertension) Conclusion/Plan: Stable, we will resume metoprolol, lisinopril, Vital signs monitor (6) Hypothyroidism Conclusion/Plan: Add patient Synthroid to 150 mcg from home 137 mcg daily, Patient's TSH is high (7) Acute on chronic renal insufficiency Conclusion/Plan: Patient's creatinine is 1.3, today. after diuretics, heart function improved, expect kidney had more perfusion and have function improve. 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 - Lab Results Fish Bones: 04/10/21 08:00 04/10/21 08:31 Core Measures - Anticipated LOS I expect patient to be DC'd or transferred within 96 hours.: Yes - DVT/VTE - Prophylaxis VTE/DVT Device ordered at admit?: Yes VTE/DVT Prophylaxis med ordered at admit?: Yes
[2021-04-10] MEDS: INSULIN ASPART 300 UNIT/3 ML PEN SUBQ SCH ×3 (11:14→21:18)
[2021-04-10] MEDS: ACETAMINOPHEN 325 MG TABLET PO PRN ×2 (12:53→18:22)
--- NOTE | 2021-04-10 13:41 | PHARMACY PROGRESS NOTE ---
- Best Possible Medication History Admit Date and Time: 04/10/21 0927 Processed by: Pharmacy Medication History completed: Yes Patient Interview: Completed Secondary Source(s): Physician records (PATIENT ABLE TO CONFIRM HOME MED LIST), Pharmacy records, Insurance records As the person ultimately responsible for medication therapy, providers are able to order a medication from an existing home medication list in [facility] via the "Reconcile Routine" prior to Confirmation of that medication by pc support specialist. Such practice is discouraged except when the physician, in their clinical judgment, deems that a medical need exists for a medication without regard to previous use.
[2021-04-10] MEDS: FUROSEMIDE 40 MG/4 ML VIAL IVP SCH (14:07)
[2021-04-10] MEDS: SODIUM CHLORIDE FLUSH 0.9% 10 ML SYRINGE IVP SCH (14:08)
[2021-04-10] MEDS ORDERED: FLUTICASONE NASAL SPRAY NAS PRN (14:27)
[2021-04-10] MEDS ORDERED: traZODone 50 MG TABLET PO PRN (14:27)
[2021-04-10] MEDS: METOPROLOL SUCCINATE 50 MG TABLET PO SCH ×2 (15:28→21:17)
[2021-04-10] MEDS ORDERED: RIVAROXABAN 10 MG TABLET PO SCH (17:00)
[2021-04-10] MEDS ORDERED: ATORVASTATIN 10 MG TABLET PO SCH (21:00)
[2021-04-10] MEDS ORDERED: INSULIN GLARGINE 300 UNIT/3 ML PEN SUBQ SCH (21:00)
[2021-04-11] MEDS: SODIUM CHLORIDE FLUSH 0.9% 10 ML SYRINGE IVP SCH ×2 (00:25→08:28)
[2021-04-11 05:07] LABS: BASOPHILS % (AUTO) 0.5 %; EOSINOPHILS # (AUTO) 0.2 10^3/uL (0.0-0.7); EOSINOPHILS % (AUTO) 2.8 %; HGB - HEMOGLOBIN 10.8 g/dL (12.0-16.0); LYMPHOCYTES % (AUTO) 11.1 %; MEAN CORPUSCULAR HGB CONC 32.7 g/dL (32.0-36.0); MEAN CORPUSCULAR VOLUME 97.9 fL (81.0-99.0); MEAN PLATELET VOLUME 11.5 fL (7.9-10.8); MONOCYTES # (AUTO) 0.9 10^3/uL (0.0-1.0); MONOCYTES % (AUTO) 10.8 %; NEUTROPHILS # (AUTO) 6.4 10^3/uL (1.5-6.6); NEUTROPHILS % (AUTO) 74.5 %; PLT - PLATELET COUNT 170 10^3/uL (130-450); RED BLOOD COUNT 3.37 10^6/uL (4.20-5.40); RED CELL DISTRIBUTION WIDTH 13.8 % (12.0-15.0); WHITE BLOOD COUNT 8.6 x10^3/uL (4.8-10.8)
[2021-04-11 05:13] LABS: CALCIUM 8.8 mg/dL (8.5-10.3); CREATININE 1.1 mg/dL (0.4-1.0); POTASSIUM 3.4 mmol/L (3.5-5.0)
[2021-04-11] MEDS: FUROSEMIDE 40 MG/4 ML VIAL IVP SCH (06:21)
[2021-04-11] MEDS ORDERED: LEVOTHYROXINE 25 MCG TABLET PO SCH ×2 (07:00)
[2021-04-11] MEDS ORDERED: LEVOTHYROXINE 125 MCG TABLET PO SCH ×2 (07:00)
[2021-04-11] MEDS ORDERED: LEVOTHYROXINE 112 MCG TABLET PO SCH (07:00)
[2021-04-11 07:51] LABS: ESTIMATED AVERAGE GLUCOSE 140 mg/dL (70-100); HEMOGLOBIN A1c% 6.5 % (4.27-6.07)
[2021-04-11] MEDS ORDERED: FERROUS GLUCONATE 324 MG TABLET PO SCH (08:00)
[2021-04-11 08:09] VITALS: BP 126/90
[2021-04-11] MEDS: METOPROLOL SUCCINATE 50 MG TABLET PO SCH (08:23)
[2021-04-11] MEDS: INSULIN ASPART 300 UNIT/3 ML PEN SUBQ SCH (08:24)
--- NOTE | 2021-04-11 08:35 | Discharge Plan ---
Discharge Plan Problem Reviewed?: Yes Disposition: Home, Self Care Condition: Good Prescriptions: Furosemide [Lasix] 40 mg PO DAILY #30 tablet Potassium Chloride [Micro-K] 20 meq PO 0800 #60 cap Silver Sulfadiazine Cream [Silvadene Cream] 1 applic TOP DAILY #25 gm Diet: Low Sodium Activity Restrictions: Activity as Tolerated Shower Restrictions: No Driving Restrictions: No Health Concerns: You have a history of fluid retention and possible congestive heart failure for which she takes diuretics. On top of that you also have rheumatoid arthritis on Remicade and methotrexate, obstructive sleep apnea on home CPAP, type 2 diabetes mellitus on sulfonylureas/Metformin, atrial fibrillation with Xarelto. In the fall 2019 you became very cold, sleepy, and were in renal failure from diuretic therapy and your diuretics were discontinued. You have been unable to see your friction paint machine tender due to Covid for quite some time. Even though you call their office several times, they did not want to see you because of Covid. It is only been this last few weeks that their office called you to schedule a regular appointment. Over the last week you have been having increasing shortness of breath is one of your daughters was visiting you with her 8 children. You hoped for the visit to go by and then you would see your doctor but your shortness of breath, shortness of breath with laying down flat, and some leg edema was getting so severe you came to the emergency room. We found you to have acute congestive heart failure. The only other new thing that happened to you while here was a skin tear. You have very sensitive skin that is very fragile and tears easily. When the emergency room scrub technician lifted up your right breast to put the EKG pads on, the lifting of your right breast because the skin underneath the fold of the breast to tear all the way across. Plan of Treatment: 1. We started you on intravenous Lasix. And you have had very good urine output with that. Overnight you put out 4800 cc of urine. And this morning alone you have put out 2350 cc. You are feeling much better and are back to [facility]. We are sending you home on Lasix 40 mg tablet a day. With that will potassium 10 mEq a day. 2. Weigh yourself daily. Eat a low-sodium diet. If your weight goes up by more than 3 or 4 pounds over 2 days you need to take an extra Lasix tablet. 3. I do not know what your baseline "dry" weight is. You will take Lasix every day until eventually your weight becomes stable. If you notice that your kidney function or your potassium is too low with that dose of Lasix, you may have to skip Lasix that day. You will work closely with your primary care provider to find out what your dry weight is. 4. Your primary care provider should be checking your blood work once a month on the basis of your Remicade and methotrexate, diabetes treated with Metformin, and now your Lasix. They need to be checking a CMP and a BNP monthly. However, I think you need to get a BMP and a BNP weekly for the next 2 to 3 weeks until we know how your kidneys will respond to the Lasix. 5. Please see your friction paint machine tender in follow-up. The last time we evaluated your heart was in July 2019. At that time the left heart chamber was severely dilated and the muscle had what we call global lack of motion. The bottom part of your heart muscle was not moving at all. Your ejection fraction was 35%. Normal is 55 to 65%. Your congestive heart failure was starting to affect your overall heart lung system. Blood was backing up enough into your lungs that it was giving you high blood pressure in the lungs, called pulmonary hypertension, and see if your friction paint machine tender needs to repeat your echocardiogram for follow-up.I also think that you would be a great candidate for cardiopulmonary rehab. It is not exercise program for people with lung or heart problems and increases their exercise endurance. I have written an order for you to be considered for that. 6. For the skin tear underneath your right breast, I have prescribed Silvadene cream. I need you to wash that skin carefully with soap and water every day. Make sure that you have dried it completely. Then you can put the Silvadene cream on top of that until the skin slowly heals. Care Goals: To return to baseline exertional status. You were relatively sedentary at this time so shortness of breath will occur as a normal part of overexerting yourself. But you would like to get back to that baseline. Assessment: Daughter is in the room with mom when we had this conversation. Both understand care plan, and will follow through with treatment plan. Follow-Up Care: [facility] - CHF Classes No Smoking: If you smoke, Please STOP! Call for help. Follow-up with: DARBY JIMÉNEZ ARNP [Primary Care Provider] -
[2021-04-11] MEDS ORDERED: POTASSIUM CHLORIDE 20 MEQ TABLET PO ONE (08:45)
[2021-04-11] MEDS ORDERED: lisinopriL 5 MG TABLET PO SCH (09:00)
[2021-04-11] MEDS ORDERED: SACCHAROMYCES BOULARDII 250 MG CAPSULE PO SCH (09:00)
[2021-04-11] MEDS ORDERED: LEVOTHYROXINE SODIUM 137 MCG PO SCH (09:00)
[2021-04-11] MEDS ORDERED: FOLIC ACID 1 MG TABLET PO SCH (09:00)
[2021-04-11] MEDS ORDERED: ENOXAPARIN 40 MG/0.4 ML SYRINGE SUBQ SCH (09:00)
[2021-04-11] MEDS ORDERED: METHOTREXATE 2.5 MG TABLET PO SCH (15:18)
--- NOTE | 2021-04-11 16:46 | DISCHARGE SUMMARY ---
Discharge Summary Admit Date: 04/10/21 Discharge Date: 04/11/21 Discharging Provider: Sharon Hartmann MD Primary Care Provider: SIMONA Soares [facility] Code Status: Attempt Resuscitation Condition at Discharge: Good Discharge Disposition: 01 Home, Self Care - DIAGNOSES Discharge Diagnoses with Status of Each Condition: 1. Acute on chronic systolic heart failure. 2. Chronic atrial fibrillation. 3. Rheumatoid arthritis. 4. Type 2 diabetes mellitus, controlled, not on long-term insulin with complication of peripheral neuropathy and chronic kidney disease 5. Hypertension 6. Hypothyroidism 7. Acute on chronic renal insufficiency 8. Chronic pain syndrome 9. Skin tear under right breast panus - HPI History of Present Illness: This is a 65-yrs-old female with a PMH significant for rheumatoid arthritis on remicade and methotrexate, JAGDISH on home CPAP, DM2, HTN, hypothyroidism, PE, Afib with Xarelto, peripheral neuropathy, CHF, who present ER complain of shortness of breath. Pt report she has developed increasing shortness of breath over the past week. She report her physician stop her diuretics medication on last fall because she developed severe dehydration and her kidney was affected. She tried to see her physician on 2020 but she did not make it yet. So she did not take any diuretics for nearly one year. she report she watch her oral intake closely because her diabetes but she still gain lots of weight. she also report orthopnea. Specially this week, she felt very shortness of breath and difficult to walk to the bathroom. she denies chest pain, fever, chill, cough. Discussed the Care goal with the patient, patient requests full code History - Past Medical History Cardiovascular: reports: Hypertension, Pulmonary embolism, Atrial fibrillation Respiratory: reports: Sleep apnea, CPAP use Neuro: reports: Peripheral neuropathy Endocrine/Autoimmune: reports: Type 2 diabetes, HyPOthyroidism GI: reports: None COAT CHECK ATTENDANT: reports: None : reports: None HEENT: reports: None Psych: reports: None Musculoskeletal: reports: Rheumatoid arthritis Derm: reports: None MRSA Hx?: No - Past Surgical History Ortho: reports: Knee replacement, Carpal Tunnel surgery - CONSULTS | PROCEDURES Procedures: Chest x-ray has mild cardiomegaly with increased interstitial markings in both lungs. Findings suggestive of cardio pulmonary edema. Blood cultures negative after 1 day Echocardiograms on the night she was admitted. However starting the morning of the next day the echocardiogram tech is not available till next week. - HOSPITAL COURSE Hospital Course: The patient received 240 mg doses of Lasix. Overnight she put out 4800 cc. On the day of discharge she put out 2350 cc. She was back to baseline. Got up out of bed and was showering and felt much better. She had many many concerns and complaints. Her first question was to ask about drug interactions. Second was to ask about the pain management concept and what physicians were allowed to do. Second was feeling like she was falling through the cracks and her doctors were not taking to account "the whole picture". I reassured her as much as I could. Suggestions were to ask for telemedicine consult for her quill machine operator if she could. Consider writing down her concerns and complaints when she goes to the office that way she does not lose track of them. Consider asking to be referred to chronic pain clinic because of chronic pain from rheumatoid arthritis that requires about 60 opiate pills a year. I have asked her to resume her Lasix at 40 mg daily with potassium 20 mEq daily. She is to weigh herself daily and aim for a dry weight. Use that is her baseline so that if she increases her weight she may need to increase her Lasix. If her weight drops too much she may have to stop her Lasix temporarily. I would recommend a monthly CMP and CBC because of methotrexate and Remicade. At this time because of new diuretic use and potassium, I recommend a weekly BMP and BN P. She is discharged in stable condition. She is just gotten out of the shower where her daughter helped her. She is a short stocky female who weighs 129.5 kg and is 5 foot 6 inches tall. Speech is lucid, she is alert and oriented to person place and time. Walking out of the bathroom does not leave her winded. Neck is obese, short, stocky and is difficult to assess for JVD there is no goiter and no bruit. Lungs have diminished breath sounds at the bases but there are no crackles rhonchi wheezing. PMI is normally placed. In spite of her history of A. fib I am hearing a regular rate and rhythm. Abdomen is soft, nontender, with a huge obese abdominal pannus. Legs have 1+ edema that she says is much improved. She is discharged in stable condition and asked to follow-up with her primary care provider, quill machine operator, and railroad conductor.As she was leaving she showed me that she had a skin tear underneath her right breast pannus. Apparently when the ER all terrain vehicle technician lifted up her breast to put on the EKG pads, just lifting up her skin and pulling caused the skin to tear and a half so. I have sent her home with Silvadene cream with instructions. - ALLERGIES Allergies/Adverse Reactions: Allergies Allergy/AdvReac Type Severity Reaction Status Date / Time No Known Drug Allergies Allergy Verified 04/10/21 07:56 - MEDICATIONS Home Medications: Ambulatory Orders Medication Instructions Recorded Confirmed Methotrexate [Methotrexate Sodium] 20 mg ORAL SA 04/10/17 04/10/21 traZODone [Desyrel] 50 - 100 mg ORAL QPM PRN 04/10/17 04/10/21 Folic Acid 3 mg PO DAILY 01/09/19 04/10/21 Fluticasone [Flonase] 1 sprays DOMINICK DAILY PRN 01/10/19 04/10/21 Albuterol Sulfate [Proventil Hfa 1 puffs PO PRN PRN 02/14/19 04/10/21 Inhaler] Saccharomyces Boulardii [Florastor] 250 mg PO DAILY #5 capsule 02/16/19 04/10/21 Atorvastatin [Lipitor] 10 mg PO QPM 08/01/19 04/10/21 Tofacitinib Citrate [Xeljanz Xr] 11 mg PO DAILY 08/01/19 04/10/21 Rivaroxaban [Xarelto] 20 mg PO 1700 08/03/19 04/10/21 glipiZIDE [Glucotrol] 10 mg PO BID 08/03/19 04/10/21 lisinopriL [Zestril] 5 mg PO DAILY 08/03/19 04/10/21 Cholecalciferol (Vitamin D3) 50 mcg PO BID 04/10/21 04/10/21 [Vitamin D3] Ferrous Gluconate 324 mg PO DAILY 04/10/21 04/10/21 Levothyroxine Sodium 137 mcg PO DAILY 04/10/21 04/10/21 [Levothyroxine] Metformin HCl [Fortamet] 1,000 mg PO BID 04/10/21 04/10/21 Metoprolol Succinate [Toprol Xl] 100 mg PO BID 04/10/21 04/10/21 Acetaminophen [Tylenol] 650 mg PO Q4HR PRN tablet 04/11/21 Furosemide [Lasix] 40 mg PO DAILY #30 tablet 04/11/21 Potassium Chloride [Micro-K] 20 meq PO 0800 #60 cap 04/11/21 Silver Sulfadiazine Cream 1 applic TOP DAILY #25 gm 04/11/21 [Silvadene Cream] - LABS Result Diagrams: 04/11/21 04:45 04/11/21 04:45
== END 2021-04-11 10:00 | disposition home or self-care (01) ==
LOC: ED 07:31 → MS2 09:27
PROVIDERS: ADMIT Nurse Practitioner Gerontology; ATTEND Specialist
DX: I13.0 Hypertensive heart and chronic kidney disease with heart failure and stage 1 through stage 4 chronic kidney disease, or unspecified chronic kidney disease (principal); J96.01 Acute respiratory failure with hypoxia; I50.23 Acute on chronic systolic (congestive) heart failure; I48.20 Chronic atrial fibrillation, unspecified; M06.9 Rheumatoid arthritis, unspecified; N18.9 Chronic kidney disease, unspecified; E11.22 Type 2 diabetes mellitus with diabetic chronic kidney disease; N17.9 Acute kidney failure, unspecified; E11.42 Type 2 diabetes mellitus with diabetic polyneuropathy; E03.9 Hypothyroidism, unspecified; G89.4 Chronic pain syndrome; G47.33 Obstructive sleep apnea (adult) (pediatric); Z20.822 Contact with and (suspected) exposure to COVID-19; E66.9 Obesity, unspecified; Z86.711 Personal history of pulmonary embolism; Z68.42 Body mass index [BMI] 45.0-49.9, adult; Z79.01 Long term (current) use of anticoagulants; Z79.899 Other long term (current) drug therapy; S21.011A Laceration without foreign body of right breast, initial encounter; X58.XXXA Exposure to other specified factors, initial encounter; Y92.538 Other ambulatory health services establishments as the place of occurrence of the external cause; Y93.89 Activity, other specified
CPT/HCPCS: 0202U; 36415; 71045; 80048; 80053; 81001; 83036; 83690; 83880; 84443; 84484; 85025; 87040; 93005; 96374; 96376; 99284; 99285; A9270; J1815; 81003; 87086

== ENCOUNTER 2021-09-26 09:28 | Emergency (ER) | payer MEDICAID ==
[2021-09-26 09:46] VITALS: BP 139/78
[2021-09-26 10:12] LABS: BILIRUBIN,URINE NEGATIVE (NEGATIVE); GLUCOSE, URINE (UA) NEGATIVE (NEGATIVE); KETONES,URINE (UA) NEGATIVE (NEGATIVE); LEUKOCYTE ESTERASE, URINE MODERATE (NEGATIVE); NITRITE,URINE NEGATIVE (NEGATIVE); OCCULT BLOOD,URINE LARGE (NEGATIVE); PH,URINE 5.5 PH (5.0-7.5); PROTEIN,URINE 100 mg/dL (NEGATIVE); UROBILINOGEN,URINE 0.2 (NORMAL) E.U./dL (NORMAL)
[2021-09-26 10:14] LABS: CLARITY,URINE CLOUDY (CLEAR)
[2021-09-26] MEDS ORDERED: ACETAMINOPHEN 325 MG TABLET PO STA (10:20)
[2021-09-26] MEDS ORDERED: PHENAZOPYRIDINE 100 MG TABLET PO STA (10:20)
[2021-09-26] MEDS ORDERED: cephALEXin 250 MG CAPSULE PO STA (10:20)
[2021-09-26 10:30] LABS: BACTERIA,URINE Few /HPF (None Seen); SQUAMOUS EPITHELIAL CELL,UR FEW Squamous (<= Few); WBC,URINE >25 /HPF (0-5)
--- NOTE | 2021-09-26 10:42 | ED Physician Documentation ---
PD HPI FEMALE - Stated complaint Stated Complaint: FEMALE - Chief complaint Chief Complaint: UTI - History obtained from History obtained from: Patient - History of Present Illness Timing - onset: Today, Last night Timing - details: Abrupt onset, Still present Associated symptoms: Dysuria, Urinary frequency Similar symptoms before: Diagnosis (remote UTI.) Recently seen: Other (had had recent skin redness and mild discharge c/w yeast infection and treated with Diflucan, feeling improved. Now with dysuria and frequency.) Review of Systems Constitutional: denies: Fever, Chills Nose: denies: Rhinorrhea / runny nose, Congestion Throat: denies: Sore throat Respiratory: denies: Cough GI: denies: Constipation, Diarrhea : reports: Dysuria, Frequency Musculoskeletal: denies: Back pain PD PAST MEDICAL HISTORY - Past Medical History Cardiovascular: Hypertension, Pulmonary embolism, Atrial fibrillation Respiratory: Sleep apnea, CPAP use Neuro: Peripheral neuropathy Endocrine/Autoimmune: Type 2 diabetes, HyPOthyroidism GI: None NURSING SERVICE DIRECTOR: None : None HEENT: None Psych: None Musculoskeletal: Rheumatoid arthritis Derm: None - Past Surgical History Past Surgical History: Yes Ortho: Knee replacement, Carpal Tunnel surgery - Present Medications Home Medications: Ambulatory Orders Medication Instructions Recorded Confirmed Methotrexate [Methotrexate Sodium] 20 mg ORAL SA 04/10/17 04/10/21 traZODone [Desyrel] 50 - 100 mg ORAL QPM PRN 04/10/17 04/10/21 Folic Acid 3 mg PO DAILY 01/09/19 04/10/21 Fluticasone [Flonase] 1 sprays DOMINICK DAILY PRN 01/10/19 04/10/21 Albuterol Sulfate [Proventil Hfa 1 puffs PO PRN PRN 02/14/19 04/10/21 Inhaler] Saccharomyces Boulardii [Florastor] 250 mg PO DAILY #5 capsule 02/16/19 04/10/21 Atorvastatin [Lipitor] 10 mg PO QPM 08/01/19 04/10/21 Tofacitinib Citrate [Xeljanz Xr] 11 mg PO DAILY 08/01/19 04/10/21 Rivaroxaban [Xarelto] 20 mg PO 1700 08/03/19 04/10/21 glipiZIDE [Glucotrol] 10 mg PO BID 08/03/19 04/10/21 lisinopriL [Zestril] 5 mg PO DAILY 08/03/19 04/10/21 Cholecalciferol (Vitamin D3) 50 mcg PO BID 04/10/21 04/10/21 [Vitamin D3] Ferrous Gluconate 324 mg PO DAILY 04/10/21 04/10/21 Levothyroxine Sodium 137 mcg PO DAILY 04/10/21 04/10/21 [Levothyroxine] Metformin HCl [Fortamet] 1,000 mg PO BID 04/10/21 04/10/21 Metoprolol Succinate [Toprol Xl] 100 mg PO BID 04/10/21 04/10/21 Acetaminophen [Tylenol] 650 mg PO Q4HR PRN tablet 04/11/21 Furosemide [Lasix] 40 mg PO DAILY #30 tablet 04/11/21 Potassium Chloride [Micro-K] 20 meq PO 0800 #60 cap 04/11/21 Silver Sulfadiazine Cream 1 applic TOP DAILY #25 gm 04/11/21 [Silvadene Cream] Fluconazole [Diflucan] 150 mg PO ONCE #1 tablet 09/26/21 Phenazopyridine HCl [Pyridium] 100 mg PO TID PRN #9 tablet 09/26/21 cephALEXin [Keflex] 500 mg PO TID 5 Days #15 cap 09/26/21 - Allergies Allergies/Adverse Reactions: Allergies Allergy/AdvReac Type Severity Reaction Status Date / Time No Known Drug Allergies Allergy Verified 09/26/21 09:46 - Social History Does the pt smoke?: No Smoking Status: Never smoker Does the pt drink ETOH?: No Does the pt have substance abuse?: No - Immunizations Immunizations are current?: Yes - POLST Patient has POLST: No PD ED PE NORMAL - Vitals Vital signs reviewed: Yes - General General: Alert and oriented X 3, No acute distress, Well developed/nourished - Back Back: No CVA TTP - Derm Derm: Normal color, Warm and dry - Neuro Neuro: Alert and oriented X 3 Results - Vitals Vitals: Vital Signs - 24 hr 09/26/21 09:42 Temperature 36.8 C Heart Rate 75 Respiratory 15 Rate Blood Pressure 139/78 H O2 Saturation 99 Oxygen O2 Source Room air - Labs Labs: Laboratory Tests 09/26/21 09:55 Urine Color YELLOW Urine Clarity CLOUDY Urine pH 5.5 Ur Specific [place] >=1.030 H Urine Protein 100 H Urine Glucose (UA) NEGATIVE Urine Ketones NEGATIVE Urine Occult Blood LARGE H Urine Nitrite NEGATIVE Urine Bilirubin NEGATIVE Urine Urobilinogen 0.2 (NORMAL) Ur Leukocyte Esterase MODERATE H Urine RBC 11-25 H Urine WBC >25 H Ur Squamous Epith Cells FEW Squamous Urine Bacteria Few Ur Microscopic Review INDICATED Urine Culture Comments INDICATED PD MEDICAL DECISION MAKING - ED course Complexity details: reviewed results (UA c/w UTI and correlates with symptoms. ), considered differential, d/w patient Departure - Departure Disposition: 01 Home, Self Care Clinical Impression: Urinary tract infection Qualifiers: Urinary tract infection type: acute cystitis Hematuria presence: without hematuria Qualified Code(s): N30.00 - Acute cystitis without hematuria Condition: Stable Record reviewed to determine appropriate education?: Yes Instructions: ED UTI Cystitis Female Follow-Up: DARBY JIMÉNEZ ARNP [Primary Care Provider] - Prescriptions: Fluconazole [Diflucan] 150 mg PO ONCE #1 tablet cephALEXin [Keflex] 500 mg PO TID 5 Days #15 cap Phenazopyridine HCl [Pyridium] 100 mg PO TID PRN #9 tablet PRN Reason: Abdominal Pain Comments: Your urine does show signs of infection and would be consistent with your symptoms. Continue usual medications. I would take the dose of Diflucan still as intended for the recent yeast infection. Given that you will be on antibiotics for 5 days, you may need to dose again on the antifungal 3 days from now to inhibit a recurrence of the yeast infection. Cephalexin 3 times daily for 5 days for the bladder infection. This should be okay on your kidneys. Use Tylenol if needed for discomfort. You could also add phenazopyridine to help with urinary discomfort. This will turn your urine you will orange-colored. It will not affect your kidney function. Recheck if not improving over the next day or 2 and return if worse. I transmitted your prescriptions to [facility] pharmacy in [place]. Discharge Date/Time: 09/26/21 10:53
== END 2021-09-26 10:53 | disposition home or self-care (01) ==
LOC: ED 09:28
DX: N30.00 Acute cystitis without hematuria (principal); I10 Essential (primary) hypertension; I48.91 Unspecified atrial fibrillation; E11.42 Type 2 diabetes mellitus with diabetic polyneuropathy; M06.9 Rheumatoid arthritis, unspecified; I26.99 Other pulmonary embolism without acute cor pulmonale; Z79.01 Long term (current) use of anticoagulants; Z79.84 Long term (current) use of oral hypoglycemic drugs; Z79.899 Other long term (current) drug therapy
CPT/HCPCS: 81001; 87086; 87181; 99283; A9270; 81003

== ENCOUNTER 2024-02-21 11:10 | Emergency (ER) | payer MEDICAID, MEDICARE ==
[2024-02-21 11:49] LABS: BASOPHILS # (AUTO) 0.1 10^3/uL (0.0-0.1); BASOPHILS % (AUTO) 0.8 %; EOSINOPHILS # (AUTO) 0.4 10^3/uL (0.0-0.7); EOSINOPHILS % (AUTO) 4.5 %; HCT - HEMATOCRIT 39.8 % (37.0-47.0); HGB - HEMOGLOBIN 12.2 g/dL (12.0-16.0); LYMPHOCYTES # (AUTO) 0.9 10^3/uL (1.5-3.5); LYMPHOCYTES % (AUTO) 10.5 %; MEAN CORPUSCULAR HEMOGLOBIN 31.8 pg (27.0-31.0); MEAN CORPUSCULAR HGB CONC 30.7 g/dL (32.0-36.0); MEAN CORPUSCULAR VOLUME 103.6 fL (81.0-99.0); MEAN PLATELET VOLUME 11.4 fL (7.9-10.8); MONOCYTES # (AUTO) 0.8 10^3/uL (0.0-1.0); MONOCYTES % (AUTO) 9.5 %; NEUTROPHILS # (AUTO) 6.5 10^3/uL (1.5-6.6); NEUTROPHILS % (AUTO) 74.2 %; PLT - PLATELET COUNT 184 10^3/uL (130-450); RED BLOOD COUNT 3.84 10^6/uL (4.20-5.40); RED CELL DISTRIBUTION WIDTH 12.5 % (12.0-15.0); WHITE BLOOD COUNT 8.8 x10^3/uL (4.8-10.8)
[2024-02-21 11:59] LABS: INR 1.6 (0.8-1.2); PT - PROTHROMBIN TIME 17.4 secs (9.9-12.6)
[2024-02-21 12:03] LABS: ALBUMIN 3.6 g/dL (3.2-5.5); ALBUMIN/GLOBULIN RATIO 1.1 (1.0-2.2); CALCIUM 9.5 mg/dL (8.5-10.3); CREATININE 1.5 mg/dL (0.6-1.3); POTASSIUM 4.4 mmol/L (3.5-4.5)
--- NOTE | 2024-02-21 12:34 | XRAY Report ---
PROCEDURE: Shoulder 2+V RT INDICATIONS: fall on eliquis/bruising TECHNIQUE: 3 views of the shoulder were acquired. COMPARISON: X-ray shoulder 09/23/2015 FINDINGS: Bones: No fractures or dislocations. No suspicious bony lesions. Visualized ribs appear intact. S houlder arthroplasty. Hardware is intact without evidence of hardware fracture or periprosthetic luce ncy to suggest loosening. Soft tissues: No suspicious soft tissue calcifications. The visualized lungs are within normal limi ts. IMPRESSION: No visualized acute fracture or dislocation. However, occult injury cannot be excluded. Recommend hannah rt interval imaging follow-up in 7-10 days as clinically indicated for additional evaluation. Reviewed by: Zenaida Clinton MD on 02/21/2024 12:33 PM PDT Approved by: Zenaida Clinton MD on 02/21/2024 12:33 PM PDT Station ID: [id number]
--- NOTE | 2024-02-21 12:47 | CT Report ---
PROCEDURE: Cervical Spine WO INDICATIONS: fall on eliquis/bruising TECHNIQUE: Noncontrast 3 mm thick sections acquired from the skull base to the T4 level. Sagittal and coronal r eformats were then constructed. For radiation dose reduction, the following was used: automated exp osure control, adjustment of mA and/or kV according to patient size. COMPARISON: None. FINDINGS: Image quality: Excellent. Bones: No fractures or dislocations. Visualized superior ribs are intact. Multilevel degenerative changes. Soft tissues: Prevertebral soft tissues are normal in thickness. No paravertebral hematomas. No ap ical pneumothoraces. IMPRESSION: Degenerative changes without visualized fracture. Reviewed by: Zenaida Clinton MD on 02/21/2024 12:46 PM PDT Approved by: Zenaida Clinton MD on 02/21/2024 12:46 PM PDT Station ID: [id number]
--- NOTE | 2024-02-21 12:51 | CT Report ---
PROCEDURE: Head WO INDICATIONS: fall on eliquis/bruising TECHNIQUE: Noncontrast 4.5 mm thick angled axial sections acquired from the foramen magnum to the vertex. For r adiation dose reduction, the following was used: automated exposure control, adjustment of mA and/or kV according to patient size. COMPARISON: None. FINDINGS: Image quality: Excellent. CSF spaces: Basal cisterns are patent. No extra-axial fluid collections. Ventricles are normal in size and shape. Brain: No midline shift. No intracranial masses or hemorrhage. Valero-white matter interface is norm al. Skull and face: Calvarium and visualized facial bones are intact, without suspicious lesions. Promi nent right frontoparietal temporal scalp hematoma, extending to the right face. Sinuses: Visualized sinuses and mastoids are clear. IMPRESSION: Brain normal 2. Large right scalp hematoma extending to the facial soft tissues. Reviewed by: Zenaida Clinton MD on 02/21/2024 12:49 PM PDT Approved by: Zenaida Clinton MD on 02/21/2024 12:49 PM PDT Station ID: [id number]
--- NOTE | 2024-02-21 13:06 | CT Report ---
PROCEDURE: Maxillofacial WO INDICATIONS: fall on eliquis/bruising TECHNIQUE: Noncontrast 1.5 mm thick axial images acquired from the mandible through the frontal sinuses, with co aubrey and sagittal reformatting. For radiation dose reduction, the following was used: automated ex posure control, adjustment of mA and/or kV according to patient size. COMPARISON: CT head, cervical spine 02/21/2024 FINDINGS: Image quality: Excellent. Bones and teeth: Orbital garcia are intact. Sinus garcia show no fracture or deformity. Nasal bones and septum are intact. Visualized portions of the mandible demonstrate no fractures or subluxation. Zygomatic arches are intact. Pterygoid plates are intact. Visualized portions of the skull base an d auditory canals are intact. Sinuses: Paranasal sinuses are aerated, without fluid levels, mucosal thickening, or mucoceles. Mas toid air cells are aerated. Soft tissues: Large right scalp soft tissue hematoma extending to the right facial soft tissues. Vasc ular: Visualized vascular structures appear normal in the absence of contrast. Bony vascular forami na and canals are intact. IMPRESSION: Large right scalp and facial hematoma. No visualized underlying fracture. Reviewed by: Zenaida Clinton MD on 02/21/2024 1:04 PM PDT Approved by: Zenaida Clinton MD on 02/21/2024 1:04 PM PDT Station ID: [id number]
--- NOTE | 2024-02-21 13:10 | CT Report ---
PROCEDURE: Chest WO INDICATIONS: fall on eliquis/bruising TECHNIQUE: A CT scan of the chest was performed. Intravenous contrast media was not administered. Images were re corded and evaluated at appropriate window settings. Reformats: axial MIP of the chest, coronal and s agittal. For radiation dose reduction, the following was used: automated exposure control, adjustment of mA and/or kV according to patient size. COMPARISON: Chest x-ray 04/10/2021. CT maxillofacial [id number]. FINDINGS: Image quality: There is limited visualization of the chest secondary to artifact from shoulder arthro plasty. Chest wall and lower neck: No thyroid nodule which requires sonographic follow up. No axillary or sup raclavicular adenopathy by size. Lungs and pleura: No consolidation. No pleural effusions. No pneumothorax. No suspicious pulmonary n odules which require follow up. Mediastinum: Heart size is mildly prominent. No pericardial effusion. No large vessel abnormality. No mediastinal adenopathy by size criteria. Bones: No aggressive osseous abnormality. Upper Abdomen: Multiple stones are present within the gallbladder without wall thickening. Left adren al mass measuring 1.7. Hounsfield units are borderline for benign adenoma. No priors for comparison. IMPRESSION: No acute osseous or visceral injury. Cholelithiasis without cholecystitis. Left adrenal mass borderline indeterminate. No priors are available for comparison. Recommend interva l follow-up as indicated or CT/MRI with adrenal gland protocol. Reviewed by: Zenaida Clinton MD on 02/21/2024 1:08 PM PDT Approved by: Zenaiad Clinton MD on 02/21/2024 1:08 PM PDT Station ID: [id number]
[2024-02-21 13:27] VITALS: BP 112/63; O2SAT 99
--- NOTE | 2024-02-21 13:56 | ED Physician Documentation ---
PD HPI HEAD INJURY - Stated complaint Stated Complaint: FALL, FACE INJ - Chief complaint Chief Complaint: Trauma Hd/Nk - History obtained from History obtained from: Patient - Additional information Additional information: Patient is a 68-year-old female with a history of atrial fibrillation on Eli presenting for evaluation of fall and head injury that occurred on Tuesday. Patient was visiting an area on the [facility] in [place] and slipped on some marble steps. She reports she was holding the handrail with the sleeve of her sweater as she was concerned about germs. She was then not able to catch herself when she slipped and fell on a 4-6 steps. She denies LOC. She did drive home yesterday from [place]. She has noted significant bruising to areas of her head, face, trunk. She reports pain to the right shoulder. She has taken some Tylenol for her pain. Denies feeling dizzy or lightheaded. Review of Systems Constitutional: denies: Fever Cardiac: denies: Chest pain / pressure Respiratory: denies: Dyspnea GI: denies: Abdominal Pain, Vomiting Neurologic: reports: Head injury PD PAST MEDICAL HISTORY - Past Medical History Past Medical History: Yes Cardiovascular: Hypertension, Pulmonary embolism, Atrial fibrillation Respiratory: Sleep apnea, CPAP use Neuro: Peripheral neuropathy Endocrine/Autoimmune: Type 2 diabetes, HyPOthyroidism GI: None SOCIAL SECURITY SPECIALIST: None : Renal insuffiency HEENT: None Psych: None Musculoskeletal: Rheumatoid arthritis Derm: None - Past Surgical History Past Surgical History: Yes Ortho: Knee replacement, Shoulder arthroplasty, Carpal Tunnel surgery - Present Medications Home Medications: Ambulatory Orders Medication Instructions Recorded Confirmed Methotrexate [Methotrexate Sodium] 5 mg ORAL SA 04/10/17 02/21/24 traZODone [Desyrel] 50 - 100 mg ORAL QPM PRN 04/10/17 02/21/24 Folic Acid 3 mg PO DAILY 01/09/19 02/21/24 Fluticasone [Flonase] 1 sprays DOMINICK DAILY PRN 01/10/19 02/21/24 Atorvastatin [Lipitor] 10 mg PO QPM 08/01/19 02/21/24 Tofacitinib Citrate [Xeljanz Xr] 11 mg PO DAILY 08/01/19 02/21/24 Rivaroxaban [Xarelto] 20 mg PO QPM 08/03/19 02/21/24 glipiZIDE [Glucotrol] 10 mg PO BID 08/03/19 02/21/24 lisinopriL [Zestril] 2.5 mg PO DAILY 08/03/19 02/21/24 Cholecalciferol (Vitamin D3) 50 mcg PO DAILY 04/10/21 02/21/24 [Vitamin D3] Ferrous Gluconate 65 mg PO DAILY 04/10/21 02/21/24 Levothyroxine Sodium 150 mcg PO DAILY 04/10/21 02/21/24 Metoprolol Succinate [Toprol Xl] 100 mg PO DAILY 04/10/21 02/21/24 Acetaminophen [Tylenol] 650 mg PO Q4HR PRN tablet 04/11/21 02/21/24 Furosemide [Lasix] 30 mg PO DAILY PRN 02/26/22 02/21/24 Gabapentin [Neurontin] 300 - 600 mg PO TID PRN 02/26/22 02/21/24 Insulin Glargine [Lantus Solostar] 28 units PO QPM 02/26/22 02/21/24 Saccharomyces Boulardii [Florastor] 1 tab PO DAILY 02/26/22 02/21/24 Spironolactone [Aldactone] 25 mg PO DAILY 02/26/22 02/21/24 Empagliflozin [Jardiance] 10 mg ORAL DAILY 02/21/24 02/21/24 oxyCODONE [Roxicodone] 5 mg PO Q6HR PRN #12 tablet 02/21/24 - Allergies Allergies/Adverse Reactions: Allergies Allergy/AdvReac Type Severity Reaction Status Date / Time No Known Drug Allergies Allergy Verified 02/21/24 11:13 - Social History Does the pt smoke?: No Smoking Status: Never smoker Does the pt drink ETOH?: No Does the pt have substance abuse?: No - Immunizations Immunizations are current?: Yes - POLST Patient has POLST: No PD ED PE NORMAL - General General: Alert and oriented X 3, No acute distress, Well developed/nourished - HEENT HEENT: PERRL, EOMI, Ears normal (No hemotympanums), Moist mucous membranes, Pharynx benign, Other (Bilateral periorbital ecchymosis, no signs of globe trauma on exam, Ecchymosis to right lower face and neck). No: Atraumatic - Neck Neck: Supple, no meningeal sign, No bony TTP - Cardiac Cardiac: RRR, Strong equal pulses, Other (Bruising to bilateral lateral chest garcia) - Respiratory Respiratory: No respiratory distress, Clear bilaterally - Abdomen Abdomen: Normal bowel sounds, Soft, Non tender, Non distended - Back Back: No spinal TTP - Derm Derm: Warm and dry - Extremities Extremities: Other (Large Bruising to R shoulder as well as to scattered bruises over all extremities) - Neuro Neuro: Alert and oriented X 3, No motor deficit, No sensory deficit, Normal speech Results - Vitals Vitals: Oxygen O2 Source Room air - Labs Labs: Laboratory Tests 02/21/24 02/21/24 02/21/24 11:41 11:41 11:41 WBC 8.8 RBC 3.84 L Hgb 12.2 Hct 39.8 MCV 103.6 H MCH 31.8 H MCHC 30.7 L RDW 12.5 Plt Count 184 MPV 11.4 H Neut # (Auto) 6.5 Lymph # (Auto) 0.9 L [place] # (Auto) 0.8 Eos # (Auto) 0.4 Baso # (Auto) 0.1 Absolute Nucleated RBC 0.00 Nucleated RBC % 0.0 PT 17.4 H INR 1.6 H Sodium 134 L Potassium 4.4 Chloride 101 Carbon Dioxide 30 Anion Gap 3.0 L BUN 26 H Creatinine 1.5 H Estimated GFR (MDRD) 35 L Glucose 253 H Calcium 9.5 Total Bilirubin 1.0 AST 11 ALT 13 Alkaline Phosphatase 78 Total Protein 7.0 Albumin 3.6 Globulin 3.4 Albumin/Globulin Ratio 1.1 Lipase 153 H PD Medical Decision Making - ED course Complexity details: reviewed results, re-evaluated patient, d/w patient, d/w family ED course: Pt with mechanical fall on eliquis 2 days. Normal neuro exam but significant bruising to multiple areas of body. Bilateral periorbital ecchymosis. No signs of globe rupture. CT head, c spine, maxillofacial, chest obtained and without signs of intracranial injury or fractures. XR R shoulder demonstrates intact hardware and no fracture/dislocation. Labs reviewed. Pt has been ambulatory. No abdominal tenderness. Counseled on continued supportive care and need for follow up. Pt and family advised on usual return precautions. Departure - Departure Disposition: 01 Home, Self Care Clinical Impression: Head injury, Facial contusion, Contusion, multiple sites Condition: Good Instructions: ED Contusion Soft Tissue, ED Head Injury Closed Prescriptions: oxyCODONE [Roxicodone] 5 mg PO Q6HR PRN #12 tablet PRN Reason: Pain Comments: Your CT scans and shoulder x-ray do not show any broken bones or bleeding in the brain from your fall. You do have multiple areas of bruising which will take time to heal. Continue with icing any areas of pain. [facility] Please use this sparingly and only as needed. I am prescribing a short course of narcotic pain medication for you. These are potentially dangerous and addictive medications that should be used carefully. These medications may constipate you. Take an ohzu-efj-njkobji stool softener (docusate) twice daily with plenty of water while taking these medications. If you go 24 hours without a bowel movement, take naqv-hxn-puldyam miralax, per package instructions. Do not drink or drive while taking these medications. If you received narcotic or sedating medications while in the emergency department, do not drive for 24 hours. Store this medication in a safe, secure place and out of reach of children. It is a violation of federal law to give or sell this medication to another person or to use in a manner other than prescribed. The ED will not refill narcotic prescriptions, including prescriptions lost or stolen. To dispose of unwanted medications: 1. [facility] at [address] in [place] has a medication drop box. They accept prescription medications (in pill form) Tuesday through Tuesday 9:00 a.m. to 5:00 p.m. 2. [facility] accepts prescription medications (in pill form only) for disposal year round. Call for more information. 3. Contact the [facility] for the next [facility] sponsored prescription drug collection event. , [phone], or [phone]; Note that many narcotic pain relievers also contain Tylenol/acetaminophen. Please ensure that your total dose of acetaminophen from all sources does not exceed 3 g (3000 mg) per day. Return to the ER with any worsening symptoms. Forms: PCP List Discharge Date/Time: 02/21/24 14:23
[2024-02-21] MEDS: oxyCODONE 5 MG TABLET PO STA (14:01)
== END 2024-02-21 14:23 | disposition home or self-care (01) ==
LOC: ED 11:10
DX: S09.90XA Unspecified injury of head, initial encounter (principal); S20.213A Contusion of bilateral front wall of thorax, initial encounter; S05.12XA Contusion of eyeball and orbital tissues, left eye, initial encounter; S05.11XA Contusion of eyeball and orbital tissues, right eye, initial encounter; S10.93XA Contusion of unspecified part of neck, initial encounter; S40.011A Contusion of right shoulder, initial encounter; W10.9XXA Fall (on) (from) unspecified stairs and steps, initial encounter; Y93.89 Activity, other specified; Y92.828 Other wilderness area as the place of occurrence of the external cause; I10 Essential (primary) hypertension; I48.91 Unspecified atrial fibrillation; E11.42 Type 2 diabetes mellitus with diabetic polyneuropathy; E03.9 Hypothyroidism, unspecified; Z79.899 Other long term (current) drug therapy; Z79.01 Long term (current) use of anticoagulants; Z79.84 Long term (current) use of oral hypoglycemic drugs; Z79.4 Long term (current) use of insulin
CPT/HCPCS: 36415; 70450; 70486; 71250; 72125; 73030; 80053; 83690; 85025; 85610; 99284; A9270

== ENCOUNTER 2025-10-05 18:54 | Inpatient (IN) ==
--- OUTSIDE RECORDS SUMMARY | 2025-10-05 19:06 | EXTERNAL MEDICAL SUMMARY RPT | Continuity of Care Document ---
Author Organization [facility] Address [address] [place] [id number] Phone Problems date description facility 2025-07-16 09:05 Other specified [facility] 2025-07-16 09:05 Frequency of micturition [facility] 2025-07-16 09:05 Hyperglycemia, unspecified [facility] 2025-07-16 09:05 Glycosuria [facility] 2025-07-16 09:06 Type 2 diabetes mellitus withou t complications [facility] 2025-07-16 09:06 Urinary tract infection, site n ot specified [facility] 2025-07-16 09:06 Hematuria, unspecified [facility] 2025-07-16 09:06 Hyperglycemia, unspecified [facility] 2025-07-16 09:06 Glycosuria [facility] 2025-07-16 14:16 Dysuria [facility] 2025-07-17 08:25 Hematuria, unspecified [facility] 2025-07-17 08:25 Other abnormal findings in urin e [facility] 2025-07-18 00:04 Hematuria, unspecified [facility] 2025-07-18 00:04 Other abnormal findings in urin e [facility] 2025-07-18 10:49 Hematuria, unspecified [facility] 2025-07-18 10:49 Other abnormal findings in urin e [facility] 2025-07-19 09:18 Personal history of urinary carlos culi [facility] 2025-07-19 12:20 Other abnormal findings in urin e [facility] 2025-07-25 10:35 Personal history of urinary carlos culi [facility] 2025-07-25 10:37 Personal history of urinary carlos culi [facility] 2025-07-25 10:39 Personal history of urinary carlos culi [facility] 2025-07-30 08:34 [facility] 2025-07-30 12:04 Personal history of urinary carlos culi [employer] [facility] 2025-07-31 00:02 Personal history of urinary carlos culi [facility] 15:07 Other abnormal findings in urin e [facility] 2025-08-06 00:04 Other abnormal findings in urin e [employer] [facility] 2025-08-06 08:00 Other abnormal findings in urin e [facility] 2025-08-06 08:01 Other abnormal findings in urin e [facility] 2025-08-06 10:28 Unspecified abdominal pain [facility] 2025-08-06 10:28 [facility] 2025-08-27 09:10 Personal history of urinary carlos culi [facility] 2025-08-27 15:29 Hematuria, unspecified [facility] 2025-08-27 15:29 Personal history of urinary carlos culi [facility] 2025-08-27 15:59 Hematuria, unspecified [facility] 2025-08-27 15:59 Personal history of urinary carlos culi [facility] 2025-08-27 16:00 Hematuria, unspecified [facility] 2025-08-27 16:00 Personal history of urinary carlos culi [facility] 2025-09-11 19:42 Gross hematuria [facility] 2025-09-12 10:05 Gross hematuria [employer] [facility] 2025-09-17 10:34 [facility] 2025-09-17 10:51 [facility] 2025-09-19 10:48 [facility] 2025-09-23 08:42 [facility] 2025-09-23 08:58 Gross hematuria [facility] 2025-09-23 09:23 [facility] 2025-09-23 10:38 Acute cystitis with hematuria [facility] 2025-09-23 10:38 [facility]uria [facility] 2025-09-24 00:08 Acute cystitis with hematuria [employer] 2025-09-24 00:08 [facility] 2025-10-01 10:10 Acute cystitis with hematuria [employer] 2025-10-01 10:10 Other microscopic hematuria [facility] 2025-10-02 00:02 [facility]icturition [facility] Results/Labs test date facility value unit notes Result panel 1 CUL, URINE 2025-07-16 13:30 [facility]AN 10,000 COLONIES/ML polymicrobial growth including (missing) (missing) CUL, URINE 2025-07-16 13:30 [facility] LPOLYcontaminatio n. (missing) (missing) CUL, URINE 2025-07-16 13:30 [facility] LPOLYpote ntial pathogens. This is suggestive of skin or other (missing) (missing) Result panel 2 CREATININE 2025-07-30 12:11 [facility] 1.8 mg/dl As of May 2023 testing method has changed, this may include reference ranges. GFR - MDRD 2025-07-30 12:11 [facility] 28 (in g) The IDMS-traceable MDRD Study Equation has been validated extensively in and populations between the ages of 18 and 70 with impaired kidney function (eGFR < 60 mL/min/1.73m2) and has shown good performance for patients with all common causes of kidney disease. Although this equation has not been validated for patients older than 70, an MDRD-derived eGFR may still be a useful tool for providers caring for patients older than 70. References: http://www.nkdep.nih.gov/lab -evaluation/gfr/creatinine-s tand ardization, last updated January 2012. Result panel 3 CUL, URINE 2025-08-27 15:00 [facility] CXPCULTUR E IN PROGRESS. RESULTS TO FOLLOW. (missing) (missing) CUL, URINE 2025-08-27 15:00 [facility] LPOLYLESS THAN 10,000 COLONIES/ML polymicrobial growth including (missing) (missing) CUL, URINE 2025-08-27 15:00 [facility] LPOLYcontaminatio n. (missing) (missing) CUL, URINE 2025-08-27 15:00 [facility] LPOLYpote ntial pathogens. This is suggestive of skin or other (missing) (missing) Result panel 4 GLUCOSE, WHOLE BLOOD 2025-09-23 09:13 [facility] 264 (missing) (missing) Result panel 5 GLUCOSE, WHOLE BLOOD 2025-09-23 10:26 [facility] 245 (missing) RN notified. Social History date description facility
[2025-10-05] MEDS: HYDROmorphone 0.5 MG/0.5 ML SYRINGE IVP STA ×2 (20:11→23:46)
[2025-10-05 20:12] LABS: HCT - HEMATOCRIT 36.7 % (37.0-47.0); HGB - HEMOGLOBIN 11.4 g/dL (12.0-16.0); MEAN PLATELET VOLUME 11.0 fL (7.9-10.8); NRBC ABSOLUTE COUNT (AUTO) 0.00 x10^3/uL; NUCLEATED RED BLOOD CELLS AUTO 0.0 /100WBC; PLT - PLATELET COUNT 217 10^3/uL (130-450); RED CELL DISTRIBUTION WIDTH 12.8 % (12.0-15.0)
[2025-10-05] MEDS: SODIUM CHLORIDE 0.9% 1,000 ML IV STA (20:12)
[2025-10-05 20:19] LABS: INR 1.7 (0.8-1.2); PT - PROTHROMBIN TIME 18.4 secs (9.9-12.6)
[2025-10-05 20:27] LABS: ALT ALANINE AMINOTRANSFERASE 16.0 IU/L (10-60); AST ASPARTATE AMINOTRANSFERASE 15.0 IU/L (10-42); BUN - BLOOD UREA NITROGEN 27.0 mg/dL (6-20); CARBON DIOXIDE - CO2 24.0 mmol/L (21-32); CREATININE 1.7 mg/dL (0.6-1.3); GFR - MDRD 30.0 (>89)
--- NOTE | 2025-10-05 20:42 | ED Physician Documentation ---
History of Present Illness Stated complaint Stated Complaint: Chief complaint Chief Complaint: Abd Pain History obtained from History obtained from: Patient Additonal information Additional information: Patient comes to the emergency department chief complaint of blood in urine and now, and urinary retention. The bleeding started this afternoon and about an hour ago, the patient realized she was unable to urinate. She is on Xarelto for atrial fibrillation and had bladder biopsies performed a couple of weeks ago. She was seen on the by Dr. Pritchett and was cleared to restart her Xarelto and aspirin because her postprocedural bleeding had resolved. The patient was not found to have cancer but was found to have widespread inflammation in her bladder. She denies abdominal pain other than feeling like her bladder is spasming. No lightheadedness, chest pain, or shortness of breath. She is not bleeding from anywhere else. No other complaints at this time. Meds/Allgy Home Medications Ambulatory Orders Medication Instructions Recorded Confirmed methotrexate sodium 2.5 mg tablet 5 mg ORAL SA 7 10/06/25 trazodone 50 mg tablet 50 - 100 mg ORAL QPM PRN Ins omnia 04/10/17 10/06/25 folic acid 1 mg tablet 1 mg PO DAILY 01/09/1910/06 atorvastatin 10 mg tablet 10 mg PO QPM 08/01/19 tofacitinib 11 mg tablet,extended 11 mg PO DAILY 08/0110/06/25 release 24 hr (Xeljanz XR) glipizide 5 mg tablet (Glucotrol) 10 mg PO DAILY 08/0310/06/25 lisinopril 5 mg tablet 2.5 mg PO DAILY 08/03/19 cholecalciferol (vitamin D3) 25 50 mcg PO DAILY 10/06/25 mcg (1,000 unit) capsule metoprolol succinate 50 mg 100 mg PO DAILY 04/10/21 tablet,extended release 24 hr Saccharomyces boulardii 250 mg 1 tab PO DAILY 02/26/22 10/06/25 capsule insulin glargine 100 unit/mL (3 30 units PO QPM 10/06/25 mL) subcutaneous pen (Lantus Solostar U-100 Insulin) spironolactone 25 mg tablet 25 mg PO DAILY 02/26/22 gabapentin 300 mg capsule 900 mg PO HS PRN pain (scale score 11/18/24 10/06/25 4-6) levothyroxine 150 mcg tablet 150 mcg PO QDAC 11/18/24 10/06/25 acetaminophen 300 mg-codeine 30 mg 1 tab PO Q8H PRN pa in 09/17/25 10/06/25 tablet docosahexaenoic acid (dha)-epa 1 cap PO DAILY 09/17/25 10/06/25 capsule ferrous sulfate 325 mg (65 mg 325 mg PO WE 09/17/25 iron) tablet (Feosol) multivitamin (Daily Multi-Vitamin 1 tab PO DAILY 09/1710/06/25 tablet) oxycodone 5 mg tablet 5 mg PO Q4H PRN Pain #6 tabs 09/23/25 10/06/25 phenazopyridine 200 mg tablet 200 mg PO TID PRN bladde r pain 9 09/23/25 10/06/25 doses #9 tabs tolterodine 4 mg capsule,extended 4 mg PO Q24H #30 cap s 10/01/25 10/06/25 release 24 hr magnesium chloride 71.5 mg 71.5 mg PO BID 10/06/25 (magnesium chloride) tablet,delayed release (Slow-Mag) Allergies Allergies Allergy/AdvReac Type Severity Reaction Status Date / Time rivaroxaban AdvReac Severe hematuria Verified 10/06/25 10:56 PFSH Active Problems All Active Problems (Updated 10/08/25 @ 00:00 by ) History of kidney stones (Acute) Dysuria (Acute) Flank pain, acute (Acute) Urinary tract infection (Acute) Productive cough (Acute) Urinary frequency (Acute) Glycosuria (Acute) Acute cystitis with hematuria (Acute) Acute on chronic renal insufficiency (Acute) Afib (Chronic) JAGDISH on CPAP (Chronic) Rheumatoid arthritis (Chronic) Full code status (Chronic) Hx of pulmonary embolus (Chronic) Hyperglycemia without ketosis (Acute) Hypertension (Chronic) Hypothyroidism (Chronic) Diabetes mellitus, type II (Chronic) Congestive heart failure (Chronic) Medical History Medical History Peripheral neuropathy Hypoxemia Respiratory failure with hypoxia Acute respiratory failure with hypoxia CHF exacerbation Surgical History Surgical History (Updated 09/23/25 @ 09:15 by Brianna Turcios CRNA) History of total bilateral knee replacement History of bilateral carpal tunnel release History of bunionectomy History of colonoscopy Hx of shoulder replacement Social History Social History (Updated 09/17/25 @ 10:51 by Claudia Rogers RN) Smoking Status: Never smoker Do you dip or chew tobacco?: No Patient requests smoking cessation consult: No Initiate information on smoking cessation: No Living arrangement: At home Living Condition: With family Level: Independent Do you feel safe in your home environment?: Yes History of physical, verbal, emotional, or financial abuse?: No ETOH Use: None Substance Use: denies use POLST Patient has POLST: No POLST CPR Status: Attempt Resuscitation (CPR) Level of Medical Intervention: Full Treatment Exam Exam Vital Signs: Vital Signs x48h Temp Pulse Resp BP Pulse Ox 10/05/25 20:03 91 18 142/65 H 98 10/05/25 18:57 36 C L 89 28 H 138/105 H 97 Constitutional Anxious appearing patient but otherwise no apparent distress. HENMT normocephalic, head/scalp atraumatic, external nose normal and oral mucous membranes normal Eyes EOMs intact bilaterally Neck/C-Spine visual inspection normal and supple Respiratory breath sounds equal bilaterally, normal respiratory effort and clear to auscultation bilaterally Cardiovascular normal heart rate noted, regular rhythm noted and no edema Gastrointestinal abdomen soft to palpation and nontender to palpation Obese abdomen, but nontender. Extremities normal to inspection Neurology Alert, grossly intact Psychiatry mental status grossly normal Skin skin color normal Results Vitals Vitals: Oxygen O2 Source Room air Labs Labs: Laboratory Tests 10/05/25 10/05/25 10/05/25 19:58 20:08 23:08 WBC 10.8 RBC 3.50 L Hgb 11.4 L 12.0 Hct 36.7 L 38.3 MCV 104.9 H MCH 32.6 H MCHC 31.1 L RDW 12.8 Plt Count 217 MPV 11.0 H Neut # (Auto) 7.9 H Lymph # (Auto) 1.3 L Parke # (Auto) 1.0 Eos # (Auto) 0.5 Baso # (Auto) 0.1 Absolute Nucleated RBC 0.00 Nucleated RBC % 0.0 PT 18.4 H INR 1.7 H APTT Sodium 134 L Potassium 4.9 H Chloride 102 Carbon Dioxide 24 Anion Gap 8.0 BUN 27 H Creatinine 1.7 H Estimated GFR (MDRD) 30 L Glucose 159 H POC Whole Bld Glucose Estimat Average Glucose Hemoglobin A1c % Calcium 9.3 Phosphorus Magnesium Total Bilirubin 0.9 AST 15 ALT 16 Alkaline Phosphatase 78 Total Protein 7.5 Albumin 4.0 Globulin 3.5 Albumin/Globulin Ratio 1.1 Triglycerides Cholesterol LDL Cholesterol, Calc VLDL Cholesterol HDL Cholesterol LDL/HDL Ratio Cholesterol/HDL Ratio Lipase 17 TSH Blood Type O NEGATIVE Blood Type Recheck O NEGATIVE Antibody Screen NEGATIVE Crossmatch IS Only See Detail 10/06/25 10/06/25 10/06/25 00:11 04:51 04:51 WBC Cancelled 15.0 H RBC Cancelled Hgb Hct MCV MCH MCHC RDW Plt Count MPV Neut # (Auto) Lymph # (Auto) Parke # (Auto) Eos # (Auto) Baso # (Auto) Absolute Nucleated RBC Nucleated RBC % PT INR APTT Sodium Potassium Chloride Carbon Dioxide Anion Gap BUN Creatinine Estimated GFR (MDRD) Glucose POC Whole Bld Glucose 235 Estimat Average Glucose Hemoglobin A1c % Calcium Phosphorus Magnesium Total Bilirubin AST ALT Alkaline Phosphatase Total Protein Albumin Globulin Albumin/Globulin Ratio Triglycerides Cholesterol LDL Cholesterol, Calc VLDL Cholesterol HDL Cholesterol LDL/HDL Ratio Cholesterol/HDL Ratio Lipase TSH Blood Type Blood Type Recheck Antibody Screen Crossmatch IS Only 10/06/25 10/06/25 10/06/25 04:51 04:51 04:51 WBC RBC 2.89 L Hgb Cancelled 9.8 L Hct Cancelled 30.7 L MCV Cancelled MCH MCHC RDW Plt Count MPV Neut # (Auto) Lymph # (Auto) Parke # (Auto) Eos # (Auto) Baso # (Auto) Absolute Nucleated RBC Nucleated RBC % PT INR APTT Sodium Potassium Chloride Carbon Dioxide Anion Gap BUN Creatinine Estimated GFR (MDRD) Glucose POC Whole Bld Glucose Estimat Average Glucose Hemoglobin A1c % Calcium Phosphorus Magnesium Total Bilirubin AST ALT Alkaline Phosphatase Total Protein Albumin Globulin Albumin/Globulin Ratio Triglycerides Cholesterol LDL Cholesterol, Calc VLDL Cholesterol HDL Cholesterol LDL/HDL Ratio Cholesterol/HDL Ratio Lipase TSH Blood Type Blood Type Recheck Antibody Screen Crossmatch IS Only 10/06/25 10/06/25 10/06/25 04:51 04:51 04:51 WBC RBC Hgb Hct MCV 106.2 H MCH Cancelled 33.9 H MCHC Cancelled 31.9 L RDW Cancelled Plt Count MPV Neut # (Auto) Lymph # (Auto) Parke # (Auto) Eos # (Auto) Baso # (Auto) Absolute Nucleated RBC Nucleated RBC % PT INR APTT Sodium Potassium Chloride Carbon Dioxide Anion Gap BUN Creatinine Estimated GFR (MDRD) Glucose POC Whole Bld Glucose Estimat Average Glucose Hemoglobin A1c % Calcium Phosphorus Magnesium Total Bilirubin AST ALT Alkaline Phosphatase Total Protein Albumin Globulin Albumin/Globulin Ratio Triglycerides Cholesterol LDL Cholesterol, Calc VLDL Cholesterol HDL Cholesterol LDL/HDL Ratio Cholesterol/HDL Ratio Lipase TSH Blood Type Blood Type Recheck Antibody Screen Crossmatch IS Only 10/06/25 10/06/25 10/06/25 04:51 04:51 04:51 WBC RBC Hgb Hct MCV MCH MCHC RDW 12.6 Plt Count Cancelled 190 MPV Cancelled 11.2 H Neut # (Auto) 13.4 H Lymph # (Auto) 0.6 L Parke # (Auto) 0.9 Eos # (Auto) 0.1 Baso # (Auto) 0.0 Absolute Nucleated RBC 0.00 Nucleated RBC % 0.0 PT 17.0 H INR 1.5 H APTT 28.0 Sodium Cancelled Potassium Chloride Carbon Dioxide Anion Gap BUN Creatinine Estimated GFR (MDRD) Glucose POC Whole Bld Glucose Estimat Average Glucose Hemoglobin A1c % Calcium Phosphorus Magnesium Total Bilirubin AST ALT Alkaline Phosphatase Total Protein Albumin Globulin Albumin/Globulin Ratio Triglycerides Cholesterol LDL Cholesterol, Calc VLDL Cholesterol HDL Cholesterol LDL/HDL Ratio Cholesterol/HDL Ratio Lipase TSH Blood Type Blood Type Recheck Antibody Screen Crossmatch IS Only 10/06/25 10/06/25 10/06/25 04:51 04:51 04:51 WBC RBC Hgb Hct MCV MCH MCHC RDW Plt Count MPV Neut # (Auto) Lymph # (Auto) Parke # (Auto) Eos # (Auto) Baso # (Auto) Absolute Nucleated RBC Nucleated RBC % PT INR APTT Sodium 134 L Potassium Cancelled 5.4 H Chloride Cancelled 104 Carbon Dioxide Cancelled Anion Gap BUN Creatinine Estimated GFR (MDRD) Glucose POC Whole Bld Glucose Estimat Average Glucose Hemoglobin A1c % Calcium Phosphorus Magnesium Total Bilirubin AST ALT Alkaline Phosphatase Total Protein Albumin Globulin Albumin/Globulin Ratio Triglycerides Cholesterol LDL Cholesterol, Calc VLDL Cholesterol HDL Cholesterol LDL/HDL Ratio Cholesterol/HDL Ratio Lipase TSH Blood Type Blood Type Recheck Antibody Screen Crossmatch IS Only 10/06/25 10/06/25 10/06/25 04:51 04:51 04:51 WBC RBC Hgb Hct MCV MCH MCHC RDW Plt Count MPV Neut # (Auto) Lymph # (Auto) Parke # (Auto) Eos # (Auto) Baso # (Auto) Absolute Nucleated RBC Nucleated RBC % PT INR APTT Sodium Potassium Chloride Carbon Dioxide 24 Anion Gap Cancelled 6.0 BUN Cancelled 28 H Creatinine Cancelled Estimated GFR (MDRD) Glucose POC Whole Bld Glucose Estimat Average Glucose Hemoglobin A1c % Calcium Phosphorus Magnesium Total Bilirubin AST ALT Alkaline Phosphatase Total Protein Albumin Globulin Albumin/Globulin Ratio Triglycerides Cholesterol LDL Cholesterol, Calc VLDL Cholesterol HDL Cholesterol LDL/HDL Ratio Cholesterol/HDL Ratio Lipase TSH Blood Type Blood Type Recheck Antibody Screen Crossmatch IS Only 10/06/25 10/06/25 10/06/25 04:51 04:51 04:51 WBC RBC Hgb Hct MCV MCH MCHC RDW Plt Count MPV Neut # (Auto) Lymph # (Auto) Parke # (Auto) Eos # (Auto) Baso # (Auto) Absolute Nucleated RBC Nucleated RBC % PT INR APTT Sodium Potassium Chloride Carbon Dioxide Anion Gap BUN Creatinine 1.7 H Estimated GFR (MDRD) Cancelled 30 L Glucose Cancelled 233 H POC Whole Bld Glucose Estimat Average Glucose 183 H Hemoglobin A1c % 8.0 H Calcium Cancelled Phosphorus Magnesium Total Bilirubin AST ALT Alkaline Phosphatase Total Protein Albumin Globulin Albumin/Globulin Ratio Triglycerides Cholesterol LDL Cholesterol, Calc VLDL Cholesterol HDL Cholesterol LDL/HDL Ratio Cholesterol/HDL Ratio Lipase TSH Blood Type Blood Type Recheck Antibody Screen Crossmatch IS Only 10/06/25 10/06/25 10/06/25 04:51 12:06 13:10 WBC 15.7 H RBC 2.57 L Hgb 8.5 L Hct 27.4 L MCV 106.6 H MCH 33.1 H MCHC 31.0 L RDW 12.8 Plt Count 167 MPV 10.8 Neut # (Auto) Lymph # (Auto) Parke # (Auto) Eos # (Auto) Baso # (Auto) Absolute Nucleated RBC Nucleated RBC % PT INR APTT Sodium 132 L Potassium 4.6 H Chloride 102 Carbon Dioxide 27 Anion Gap 3.0 L BUN 28 H Creatinine 1.5 H Estimated GFR (MDRD) 35 L Glucose 294 H POC Whole Bld Glucose 251 Estimat Average Glucose Hemoglobin A1c % Calcium 8.2 L 8.1 L Phosphorus 3.1 Magnesium 1.8 Total Bilirubin 0.7 AST 11 ALT 13 Alkaline Phosphatase 60 Total Protein 6.2 L Albumin 3.3 Globulin 2.9 Albumin/Globulin Ratio 1.1 Triglycerides 70 Cholesterol 96 LDL Cholesterol, Calc 48 VLDL Cholesterol 14 HDL Cholesterol 34 L LDL/HDL Ratio 1.4 Cholesterol/HDL Ratio 2.8 Lipase TSH 0.78 Blood Type Blood Type Recheck Antibody Screen Crossmatch IS Only PD Medical Decision Making ED course Complexity details: reviewed old records, reviewed results, considered differential and d/w patient ED course: Mason catheter placed and irrigation undertaken, with some output of grossly bloody urine with some clots. Continuous bladder irrigation was commenced. PT had intermittent obstruction which cleared throughout the process of CBI. Labs were unremarkable. I discussed the case with Dr. Pritchett of urology, and he stated he would plan to take the pt to OR in the morning, and requested hospitalist admission. I spoke with the hospitalist PA, and he did agree to come admit the pt to his service. Pt was advised of the plan and agreeable. Vital signs were normal at the time of transfer to the floor. Discharge Plan Discharge Patient Disposition: 68 [facility] DC/Xfer Condition: Serious Clinical Impression: Hematuria, Bladder outflow obstruction Interventions: ED Admission Assessment Last Done: 10/05/25 22:09 Vitals documented within 30 minutes of discharge?: Yes
[2025-10-05] MEDS: HYDROmorphone 1 MG/ML CARPUJECT IVP STA (21:04)
[2025-10-05] MEDS: diazePAM INJ 5 MG/ML SYRINGE IVP STA (21:07)
--- NOTE | 2025-10-05 21:13 | HISTORY & PHYSICAL EXAMINATION ---
Chief Complaint Chief Complaint Chief Complaint: hematuria History of Present Illness History of Present Illness HPI Comment/Other: 70-year-old woman with severe comorbidities presents with gross hematuria. She has history of A-fib on Xarelto. She has had gross hematuria for months. She had a biopsy two weeks ago negative for malignancy. Presents again today with gross hematuria. Severe hematuria and clotting off catheters. She has severe morbid obesity. Congestive heart failure, hypertension, diabetes etc. Colonoscopy Questionnaire In the last 30 days have you experienced these symptoms? PFSH Active Problems All Active Problems (Updated 10/05/25 @ 21:17 by Marybeth Awan MD) Bladder outflow obstruction (Acute) Hematuria (Acute) History of kidney stones (Acute) Dysuria (Acute) Flank pain, acute (Acute) Urinary tract infection (Acute) Productive cough (Acute) Urinary frequency (Acute) Glycosuria (Acute) Acute cystitis with hematuria (Acute) Acute on chronic renal insufficiency (Acute) Afib (Chronic) JAGDISH on CPAP (Chronic) Rheumatoid arthritis (Chronic) Full code status (Chronic) Hx of pulmonary embolus (Chronic) Hyperglycemia without ketosis (Acute) Hypertension (Chronic) Hypothyroidism (Chronic) Diabetes mellitus, type II (Chronic) Congestive heart failure (Chronic) Medical History Medical History Peripheral neuropathy Hypoxemia Respiratory failure with hypoxia Acute respiratory failure with hypoxia CHF exacerbation Surgical History Surgical History (Updated 09/23/25 @ 09:15 by Brianna Turcios CRNA) History of total bilateral knee replacement History of bilateral carpal tunnel release History of bunionectomy History of colonoscopy Hx of shoulder replacement Social History Social History (Updated 09/17/25 @ 10:51 by Claudia Rogers RN) Smoking Status: Never smoker Do you dip or chew tobacco?: No Patient requests smoking cessation consult: No Initiate information on smoking cessation: No Living arrangement: At home Living Condition: With family Do you feel safe in your home environment?: Yes History of physical, verbal, emotional, or financial abuse?: No ETOH Use: None Substance Use: denies use POLST Patient has POLST: No POLST CPR Status: Attempt Resuscitation (CPR) Level of Medical Intervention: Full Treatment Meds/Allgy Home Medications Ambulatory Orders Medication Instructions Recorded Confirmed methotrexate sodium 2.5 mg tablet 5 mg ORAL SA 7 09/23/25 trazodone 50 mg tablet 50 - 100 mg ORAL QPM PRN Ins omnia 04/10/17 09/23/25 folic acid 1 mg tablet 3 mg PO DAILY 01/09/1909/23 atorvastatin 10 mg tablet 10 mg PO QPM 08/01/19 tofacitinib 11 mg tablet,extended 11 mg PO DAILY 08/0109/23/25 release 24 hr (Xeljanz XR) glipizide 5 mg tablet (Glucotrol) 10 mg PO BID 9 09/23/25 lisinopril 5 mg tablet 2.5 mg PO DAILY 08/03/1909/07 cholecalciferol (vitamin D3) 25 50 mcg PO DAILY 09/23/25 mcg (1,000 unit) capsule metoprolol succinate 50 mg 100 mg PO DAILY 04/10/21 tablet,extended release 24 hr Saccharomyces boulardii 250 mg 1 tab PO DAILY 02/26/22 09/23/25 capsule insulin glargine 100 unit/mL (3 30 units PO QPM 09/23/25 mL) subcutaneous pen (Lantus Solostar U-100 Insulin) spironolactone 25 mg tablet 25 mg PO DAILY 02/26/22 gabapentin 300 mg capsule 300 - 1,200 mg PO HS PRN jennifer n 11/18/24 09/23/25 (scale score 4-6) levothyroxine 150 mcg tablet 150 mcg PO DAILY 11/18/24 09/23/25 rivaroxaban 2.5 mg tablet (Xarelto) See Rx Instruction s PO QDAY 08/27/25 09/23/25 Held on 09/23/25. Instructions: Resume on 09/24/25. acetaminophen 300 mg-codeine 30 mg 1 tab PO Q8H PRN pa in 09/17/25 09/23/25 tablet aspirin 81 mg tablet,delayed 81 mg PO DAILY 09/17/25 1 11/23/24 release (Adult Low Dose Aspirin) docosahexaenoic acid (dha)-epa 1 cap PO DAILY 09/17/25 09/23/25 capsule ferrous sulfate 325 mg (65 mg 325 mg PO ONCE 11/04/25 11/10/25 iron) tablet (Feosol) multivitamin (Daily Multi-Vitamin 1 tab PO DAILY 09/1709/23/25 tablet) oxycodone 5 mg tablet 5 mg PO Q4H PRN Pain #6 tabs 09/23/25 phenazopyridine 200 mg tablet 200 mg PO TID PRN bladde r pain 9 09/23/25 doses #9 tabs tolterodine 4 mg capsule,extended 4 mg PO Q24H #30 cap s 10/01/25 10/01/25 release 24 hr Allergies Allergies Allergy/AdvReac Type Severity Reaction Status Date / Time No Known Drug Allergies Allergy Verified 09/23/25 09:23 Results Lab Results Lab results reviewed: Yes 10/05/25 23:08 10/05/25 19:58 Other Lab Results: Lab Results x24hrs 10/05/25 10/05/25 Range/Units 20:08 19:58 WBC 10.8 (4.8-10.8) x10^3/uL RBC 3.50 L (4.20-5.40) 10^6/uL Hgb 11.4 L (12.0-16.0) g/dL Hct 36.7 L (37.0-47.0) % MCV 104.9 H (81.0-99.0) fL MCH 32.6 H (27.0-31.0) pg MCHC 31.1 L (32.0-36.0) g/dL RDW 12.8 (12.0-15.0) % Plt Count 217 (130-450) 10^3/uL MPV 11.0 H (7.9-10.8) fL Neut # (Auto) 7.9 H (1.5-6.6) 10^3/uL Lymph # (Auto) 1.3 L (1.5-3.5) 10^3/uL Childress # (Auto) 1.0 (0.0-1.0) 10^3/uL Eos # (Auto) 0.5 (0.0-0.7) 10^3/uL Baso # (Auto) 0.1 (0.0-0.1) 10^3/uL Absolute Nucleated RBC 0.00 x10^3/uL Nucleated RBC % 0.0 /100WBC PT 18.4 H (9.9-12.6) secs INR 1.7 H (0.8-1.2) Sodium 134 L (135-145) mmol/L Potassium 4.9 H (3.5-4.5) mmol/L Chloride 102 (101-111) mmol/L Carbon Dioxide 24 (21-32) mmol/L Anion Gap 8.0 (6-13) BUN 27 H (6-20) mg/dL Creatinine 1.7 H (0.6-1.3) mg/dL Estimated GFR (MDRD) 30 L (>89) Glucose 159 H (74-104) mg/dL Calcium 9.3 (8.5-10.3) mg/dL Total Bilirubin 0.9 (0.2-1.0) mg/dL AST 15 (10-42) IU/L ALT 16 (10-60) IU/L Alkaline Phosphatase 78 (42-121) IU/L Total Protein 7.5 (6.4-8.9) g/dL Albumin 4.0 (3.2-5.5) g/dL Globulin 3.5 (2.1-4.2) g/dL Albumin/Globulin Ratio 1.1 (1.0-2.2) Lipase 17 (11-82) U/L Blood Type O NEGATIVE Blood Type Recheck O NEGATIVE Antibody Screen NEGATIVE Exam Exam Vital Signs: Vital Signs x48h Temp Pulse Resp BP Pulse Ox 10/05/25 20:03 91 18 142/65 H 98 10/05/25 18:57 36 C L 89 28 H 138/105 H 97 nad rrr cta b/l obese hematuria Impression/Plan Problem List (1) Hematuria: Plan: Gross hematuria. To OR for cystoscopy, clot evacuation, fulguration of bleeding areas. The risk, benefits, alternatives were discussed. Specific risks of infection, bleeding, injury to adjacent structures, need for additional procedures, failure of therapy were discussed. Will need catheter after procedure Patient states understanding and consents to above plan Qualifiers: Hematuria type: gross Qualified Code(s): R31.0 - Gross hematuria
--- NOTE | 2025-10-05 21:28 | HISTORY & PHYSICAL EXAMINATION ---
Chief Complaint Chief Complaint Chief Complaint: Urinary retention History of Present Illness History Obtained From History obtained from: Patient interview History of Present Illness HPI Comment/Other: 70-year-old female with history of kidney stones, bladder outflow obstruction, chronic kidney disease, JAGDISH, A-fib on DOAC, diabetes, CHF who presents with urinary retention and hematuria starting today. She had bladder biopsies a few weeks ago, and was cleared to restart her Xarelto on the by Dr. Pritchett. Biopsies were not cancerous, but did show widespread inflammation throughout the bladder. She denies fevers, chills, chest pain, dyspnea, N/V/D. She does report bladder spasming, urinary retention, blood in urine. No other complaints In the ED, she was noted to be grossly hematuric, so three-way Mason catheter was placed and urology was contacted. Urology plans to take her for cystoscopy tomorrow, and requested hospitalist placed in observation for hematuria, urinary obstruction Meds/Allgy Home Medications Ambulatory Orders Medication Instructions Recorded Confirmed methotrexate sodium 2.5 mg tablet 5 mg ORAL SA 7 09/23/25 trazodone 50 mg tablet 50 - 100 mg ORAL QPM PRN Ins omnia 04/10/17 09/23/25 folic acid 1 mg tablet 3 mg PO DAILY 01/09/1909/23 atorvastatin 10 mg tablet 10 mg PO QPM 08/01/19 tofacitinib 11 mg tablet,extended 11 mg PO DAILY 08/0109/23/25 release 24 hr (Xeljanz XR) glipizide 5 mg tablet (Glucotrol) 10 mg PO BID 9 09/23/25 lisinopril 5 mg tablet 2.5 mg PO DAILY 08/03/1909/07 cholecalciferol (vitamin D3) 25 50 mcg PO DAILY 09/23/25 mcg (1,000 unit) capsule metoprolol succinate 50 mg 100 mg PO DAILY 04/10/21 tablet,extended release 24 hr Saccharomyces boulardii 250 mg 1 tab PO DAILY 02/26/22 09/23/25 capsule insulin glargine 100 unit/mL (3 30 units PO QPM 09/23/25 mL) subcutaneous pen (Lantus Solostar U-100 Insulin) spironolactone 25 mg tablet 25 mg PO DAILY 02/26/22 gabapentin 300 mg capsule 300 - 1,200 mg PO HS PRN jennifer n 11/18/24 09/23/25 (scale score 4-6) levothyroxine 150 mcg tablet 150 mcg PO DAILY 11/18/24 09/23/25 rivaroxaban 2.5 mg tablet (Xarelto) See Rx Instruction s PO QDAY 08/27/25 09/23/25 Held on 09/23/25. Instructions: Resume on 09/24/25. acetaminophen 300 mg-codeine 30 mg 1 tab PO Q8H PRN pa in 09/17/25 09/23/25 tablet aspirin 81 mg tablet,delayed 81 mg PO DAILY 09/17/25 1 11/23/24 release (Adult Low Dose Aspirin) docosahexaenoic acid (dha)-epa 1 cap PO DAILY 09/17/25 09/23/25 capsule ferrous sulfate 325 mg (65 mg 325 mg PO ONCE 09/17/25 09/23/25 iron) tablet (Feosol) multivitamin (Daily Multi-Vitamin 1 tab PO DAILY 09/1709/23/25 tablet) oxycodone 5 mg tablet 5 mg PO Q4H PRN Pain #6 tabs 09/23/25 phenazopyridine 200 mg tablet 200 mg PO TID PRN bladde r pain 9 09/23/25 doses #9 tabs tolterodine 4 mg capsule,extended 4 mg PO Q24H #30 cap s 10/01/25 10/01/25 release 24 hr Allergies Allergies Allergy/AdvReac Type Severity Reaction Status Date / Time No Known Drug Allergies Allergy Verified 09/23/25 09:23 PFSH Active Problems All Active Problems (Updated 10/05/25 @ 21:17 by Marybeth Awan MD) Bladder outflow obstruction (Acute) Hematuria (Acute) History of kidney stones (Acute) Dysuria (Acute) Flank pain, acute (Acute) Urinary tract infection (Acute) Productive cough (Acute) Urinary frequency (Acute) Glycosuria (Acute) Acute cystitis with hematuria (Acute) Acute on chronic renal insufficiency (Acute) Afib (Chronic) JAGDISH on CPAP (Chronic) Rheumatoid arthritis (Chronic) Full code status (Chronic) Hx of pulmonary embolus (Chronic) Hyperglycemia without ketosis (Acute) Hypertension (Chronic) Hypothyroidism (Chronic) Diabetes mellitus, type II (Chronic) Congestive heart failure (Chronic) Medical History Medical History Peripheral neuropathy Hypoxemia Respiratory failure with hypoxia Acute respiratory failure with hypoxia CHF exacerbation Surgical History Surgical History (Updated 09/23/25 @ 09:15 by Brianna Turcios CRNA) History of total bilateral knee replacement History of bilateral carpal tunnel release History of bunionectomy History of colonoscopy Hx of shoulder replacement Social History Social History (Updated 09/17/25 @ 10:51 by Claudia Rogers RN) Smoking Status: Never smoker Do you dip or chew tobacco?: No Patient requests smoking cessation consult: No Initiate information on smoking cessation: No Living arrangement: At home Living Condition: With family Do you feel safe in your home environment?: Yes History of physical, verbal, emotional, or financial abuse?: No ETOH Use: None Substance Use: denies use POLST Patient has POLST: No POLST CPR Status: Attempt Resuscitation (CPR) Level of Medical Intervention: Full Treatment Review of Systems Status of ROS: 10 or more systems reviewed and unremarkable except as noted in history and below Exam Exam Vital Signs: Vital Signs x48h Temp Pulse Resp BP Pulse Ox 10/05/25 21:00 79 15 90/64 96 10/05/25 20:03 91 18 142/65 H 98 10/05/25 18:57 96.8 F L 89 28 H 138/105 H 97 Constitutional Obese elderly female in no acute distress. HENMT normocephalic and head/scalp atraumatic Eyes PERRL Neck/C-Spine visual inspection normal Chest inspection of chest normal and palpation of chest normal Respiratory breath sounds equal bilaterally and normal respiratory effort Cardiovascular normal heart rate noted Gastrointestinal Protuberant abdomen, nontender to palpation. Bowel tones positive Extremities Trace peripheral edema. Family says this is baseline for her Neurology GCS 15 Psychiatry oriented x3 Skin skin color normal Conclusion/Plan Problem List (1) Bladder outflow obstruction: (2) Hematuria: Plan: Bladder outflow obstruction secondary to hematuria She has been on Xarelto for atrial fibrillation, holding for now Three-way Mason catheter placed, started on CBI Urology consulted by ER provider Recheck CBC in a.m. Plan for cystoscopy in a.m., n.p.o. after midnight Every 6 hours and H Qualifiers: Hematuria type: gross Qualified Code(s): R31.0 - Gross hematuria (3) Afib: Plan: Preliminary med rec shows she is on 100 mg p.o. metoprolol succinate per day as well as Xarelto Holding Xarelto until cleared by urology Rate controlled for now, will hold off reordering metoprolol until after pharmacy med rec (4) JAGDISH on CPAP: Plan: CPAP (5) Diabetes mellitus, type II: Plan: Managed with insulin at home SSI Last A1c On file was checked in 2020, will add on A1c to morning labs Qualifiers: Diabetes mellitus complication status: with hyperglycemia Diabetes mellitus detention insulin use: with detention use Qualified Code(s): E11.65 - Type 2 diabetes mellitus with hyperglycemia; Z79.4 - oysterman (current) use of insulin (6) Congestive heart failure: Plan: EF 50 to 55% on echocardiogram 08/01/2019. Not in acute exacerbation Qualifiers: Heart failure chronicity: acute on chronic Heart failure type: u nspecified Qualified Code(s): I50.9 - Heart failure, unspecified Plan Place in observation Full code Her daughter is her surrogate decision maker Lab Results Lab results reviewed: Yes 10/05/25 19:58 10/05/25 19:58 Core Measures DVT/VTE - Prophylaxis VTE/DVT Device ordered at admit?: Yes
[2025-10-05] MEDS ORDERED: ONDANSETRON 4 MG/2 ML VIAL IVP PRN (22:09)
[2025-10-05] MEDS ORDERED: ONDANSETRON ODT 4 MG TABLET TL PRN (22:09)
[2025-10-05] MEDS: ACETAMINOPHEN 325 MG TABLET PO PRN (22:23)
[2025-10-05] MEDS: HYDROmorphone 0.5 MG/0.5 ML SYRINGE IVP PRN (22:47)
[2025-10-05] MEDS: GABAPENTIN 400 MG CAPSULE PO PRN (22:48)
[2025-10-05 23:13] LABS: HCT - HEMATOCRIT 38.3 % (37.0-47.0); HGB - HEMOGLOBIN 12.0 g/dL (12.0-16.0)
[2025-10-06] MEDS: SODIUM CHLORIDE FLUSH 0.9% 10 ML SYRINGE IVP PRN (01:21)
[2025-10-06] MEDS ORDERED: ONDANSETRON 4 MG/2 ML VIAL IVP PRN ×2 (01:42→04:25)
[2025-10-06] MEDS ORDERED: ePHEDrine 50 MG/ML VIAL IVP PRN (01:42)
[2025-10-06] MEDS ORDERED: ATROPINE ABBOJECT 1 MG/10 ML SYRINGE IVP PRN (01:42)
[2025-10-06] MEDS ORDERED: METOCLOPRAMIDE 10 MG/2 ML VIAL IVP PRN (01:42)
[2025-10-06] MEDS ORDERED: HYDROmorphone 0.5 MG/0.5 ML SYRINGE IVP PRN (01:42)
[2025-10-06] MEDS ORDERED: MORPHINE 2 MG/ML CARPUJECT IVP PRN (01:42)
[2025-10-06] MEDS ORDERED: fentaNYL 100 MCG/2 ML VIAL IVP PRN (01:42)
[2025-10-06] MEDS ORDERED: NALOXONE 0.4 MG/ML VIAL IVP PRN (01:42)
--- NOTE | 2025-10-06 01:42 | ANESTHESIA PROCEDURE NOTE ---
Pre-Anesthesia VS, & Labs Diagnosis Surgical Diagnosis:: hematuria Procedure Procedure: cysto, fulgaration of bladder, treatment of hematuria Vitals Vital Signs: Temp Pulse Resp BP Pulse Ox O2 Flow Rate 36.5 C 77 16 115/69 95 1 10/05/25 23:53 10/05/25 23:53 10/05/25 23:53 10/05/25 23:53 10/05/25 23:53 10/05/25 23:53 Is Patient ?: No Lab Results Current Lab Results: Laboratory Tests 10/06/25 00:11: POC Whole Bld Glucose 235 10/05/25 23:08: Hgb 12.0, Hct 38.3 10/05/25 20:08: Blood Type O NEGATIVE, Antibody Screen NEGATIVE 10/05/25 19:58: WBC 10.8, RBC 3.50 L, Hgb 11.4 L, Hct 36.7 L, MCV 104.9 H, MCH 32.6 H, MCHC 31.1 L, RDW 12.8, Plt Count 217, MPV 11.0 H, Neut # (Auto) 7.9 H, L ymph # (Auto) 1.3 L, [place] # (Auto) 1.0, Eos # (Auto) 0.5, Baso # (Auto) 0.1, Absolute Nucleated RBC 0.00, Nucleated RBC % 0.0, PT 18.4 H, INR 1.7 H, Sodium 134 L, Potassium 4.9 H, Chloride 102, Carbon Dioxide 24, Anion Gap 8.0, BUN 27 H , Creatinine 1.7 H, Estimated GFR (MDRD) 30 L, Glucose 159 H, Calcium 9.3, Total Bilirubin 0.9, AST 15, ALT 16, Alkaline Phosphatase 78, Total Protein 7.5, Albumin 4.0, Globulin 3.5, Albumin/Globulin Ratio 1.1, Lipase 17, Blood Type Recheck O NEGATIVE 10/05/25 23:08 10/05/25 19:58 Meds/Allgy Home Medications Ambulatory Orders Medication Instructions Recorded Confirmed methotrexate sodium 2.5 mg tablet 5 mg ORAL SA 7 09/23/25 trazodone 50 mg tablet 50 - 100 mg ORAL QPM PRN Ins omnia 04/10/17 09/23/25 folic acid 1 mg tablet 3 mg PO DAILY 01/09/1909/23 atorvastatin 10 mg tablet 10 mg PO QPM 08/01/19 tofacitinib 11 mg tablet,extended 11 mg PO DAILY 08/0109/23/25 release 24 hr (Xeljanz XR) glipizide 5 mg tablet (Glucotrol) 10 mg PO BID 9 09/23/25 lisinopril 5 mg tablet 2.5 mg PO DAILY 08/03/1909/07 cholecalciferol (vitamin D3) 25 50 mcg PO DAILY 09/23/25 mcg (1,000 unit) capsule metoprolol succinate 50 mg 100 mg PO DAILY 04/10/21 tablet,extended release 24 hr Saccharomyces boulardii 250 mg 1 tab PO DAILY 02/26/22 09/23/25 capsule insulin glargine 100 unit/mL (3 30 units PO QPM 09/23/25 mL) subcutaneous pen (Lantus Solostar U-100 Insulin) spironolactone 25 mg tablet 25 mg PO DAILY 02/26/22 gabapentin 300 mg capsule 300 - 1,200 mg PO HS PRN jennifer n 11/18/24 09/23/25 (scale score 4-6) levothyroxine 150 mcg tablet 150 mcg PO DAILY 11/18/24 09/23/25 rivaroxaban 2.5 mg tablet (Xarelto) See Rx Instruction s PO QDAY 08/27/25 09/23/25 Held on 09/23/25. Instructions: Resume on 09/24/25. acetaminophen 300 mg-codeine 30 mg 1 tab PO Q8H PRN pa in 09/17/25 09/23/25 tablet aspirin 81 mg tablet,delayed 81 mg PO DAILY 09/17/25 1 11/23/24 release (Adult Low Dose Aspirin) docosahexaenoic acid (dha)-epa 1 cap PO DAILY 09/17/25 09/23/25 capsule ferrous sulfate 325 mg (65 mg 325 mg PO ONCE 09/17/25 09/23/25 iron) tablet (Feosol) multivitamin (Daily Multi-Vitamin 1 tab PO DAILY 09/1709/23/25 tablet) oxycodone 5 mg tablet 5 mg PO Q4H PRN Pain #6 tabs 09/23/25 phenazopyridine 200 mg tablet 200 mg PO TID PRN bladde r pain 9 09/23/25 doses #9 tabs tolterodine 4 mg capsule,extended 4 mg PO Q24H #30 cap s 10/01/25 10/01/25 release 24 hr Allergies Allergies Allergy/AdvReac Type Severity Reaction Status Date / Time No Known Drug Allergies Allergy Verified 09/23/25 09:23 PFSH Active Problems All Active Problems (Updated 10/05/25 @ 21:17 by Marybeth Awan MD) Bladder outflow obstruction (Acute) Hematuria (Acute) History of kidney stones (Acute) Dysuria (Acute) Flank pain, acute (Acute) Urinary tract infection (Acute) Productive cough (Acute) Urinary frequency (Acute) Glycosuria (Acute) Acute cystitis with hematuria (Acute) Acute on chronic renal insufficiency (Acute) Afib (Chronic) JAGDISH on CPAP (Chronic) Rheumatoid arthritis (Chronic) Full code status (Chronic) Hx of pulmonary embolus (Chronic) Hyperglycemia without ketosis (Acute) Hypertension (Chronic) Hypothyroidism (Chronic) Diabetes mellitus, type II (Chronic) Congestive heart failure (Chronic) Medical History Medical History Peripheral neuropathy Hypoxemia Respiratory failure with hypoxia Acute respiratory failure with hypoxia CHF exacerbation Surgical History Surgical History (Updated 09/23/25 @ 09:15 by Brianna Turcios CRNA) History of total bilateral knee replacement History of bilateral carpal tunnel release History of bunionectomy History of colonoscopy Hx of shoulder replacement Social History Social History (Updated 09/17/25 @ 10:51 by Claudia Rogers RN) Smoking Status: Never smoker Do you dip or chew tobacco?: No Patient requests smoking cessation consult: No Initiate information on smoking cessation: No Living arrangement: At home Living Condition: With family Do you feel safe in your home environment?: Yes History of physical, verbal, emotional, or financial abuse?: No ETOH Use: None Substance Use: denies use POLST Patient has POLST: No POLST CPR Status: Attempt Resuscitation (CPR) Level of Medical Intervention: Full Treatment Anesthesia Exam (Expanded) Exam General: Alert, Oriented x3 and Severe distress Dental: WNL Mouth Opening: Greater than 4 Fingerbreadths Neck Mobility: Normal Mallampati classification: III Thyromental Distance: greater than 6 cm Respiratory: Lungs clear Cardiovascular: Other (a fib) Exam Exam Vital Signs: Vital Signs x48h Temp Pulse Pulse Resp BP BP Pulse Ox 10/05/25 23:53 36.5 C 77 16 115/69 95 10/05/25 22:09 70 15 134/74 H 97 10/05/25 21:45 84 19 131/74 H 98 10/05/25 21:15 88 14 90/64 90 L 10/05/25 21:00 79 15 90/64 96 10/05/25 20:03 91 18 142/65 H 98 10/05/25 18:57 36 C L 89 28 H 138/105 H 97 O2 Flow Rate 10/05/25 23:53 1 10/05/25 22:09 2 10/05/25 21:45 10/05/25 21:15 10/05/25 21:00 10/05/25 20:03 10/05/25 18:57 Plan Problem List (1) Hematuria: Plan: Gross hematuria. To OR for cystoscopy, clot evacuation, fulguration of bleeding areas. The risk, benefits, alternatives were discussed. Specific risks of infection, bleeding, injury to adjacent structures, need for additional procedures, failure of therapy were discussed. Will need catheter after procedure Patient states understanding and consents to above plan Qualifiers: Hematuria type: gross Qualified Code(s): R31.0 - Gross hematuria Plan Anesthesia Type: General Consent for Procedure(s) Verified and Reviewed: Yes Code Status: Attempt Resuscitation ASA Classification ASA classification: 3-Severe systemic disease Is this case an emergency?: Yes
[2025-10-06] MEDS ORDERED: PROPOFOL 200 MG/20 ML VIAL IVP ONE (01:48)
[2025-10-06] MEDS ORDERED: LIDOCAINE-PF 2% 10 ML AMP SUBQ ONE (01:50)
[2025-10-06] MEDS ORDERED: MIDAZOLAM 2 MG/2 ML VIAL ONE (01:51)
[2025-10-06] MEDS ORDERED: LACTATED RINGERS 1,000 ML IV PRN (01:58)
[2025-10-06] MEDS ORDERED: LIDOCAINE 2% URO-JET 5 ML SYRINGE UR ONE (02:02)
[2025-10-06] MEDS ORDERED: ONDANSETRON 4 MG/2 ML VIAL ONE (02:23)
[2025-10-06] MEDS ORDERED: PHENYLEPHRINE HCL 0.5 MG/5 ML AMPULE ONE (02:23)
[2025-10-06] MEDS ORDERED: DEXAMETHASONE 4 MG/ML VIAL ONE (02:23)
[2025-10-06] MEDS ORDERED: SUGAMMADEX 200 MG/2 ML VIAL IVP ONE (02:32)
[2025-10-06] MEDS ORDERED: OPIUM/BELLADONNA 60/16.2MG SUPPOSITORY PR ONE (02:37)
[2025-10-06] MEDS ORDERED: SEVOFLURANE 250 ML LIQUID INH ONE (02:41)
[2025-10-06] MEDS: SODIUM CHLORIDE FLUSH 0.9% 10 ML SYRINGE IVP SCH (02:45)
[2025-10-06] MEDS ORDERED: ePHEDrine 50 MG/ML VIAL IVP ONE (02:45)
[2025-10-06] MEDS ORDERED: OPIUM/BELLADONNA 60/16.2MG SUPPOSITORY PR PRN (03:09)
--- NOTE | 2025-10-06 03:09 | OPERATIVE REPORT ---
Operative Report General Admit Date: 10/05/25 Procedure Data: Operation Date: 10/06/25 02:00 Proposed Procedures p Clot Evacuation and Fulguration(Not Applicable) - Star Pritchett MD Actual Procedures p CYSTOSCOPY, Clot Evacuation and Fulguration(Not Applicable) - Star Pritchett MD Pre-Op Diagnosis: HEMATURIA Anesthesia Type General Case Staff Anesthesia Provider: Kate Rivera Case Times Procedure Start: 10/06/25 02:23 Procedure End: 10/06/25 03:07 Time out: 10/06/25 02:22 Pre-Op Diagnosis: hematuria Post Op Diagnosis: same Procedure Note Estimated Blood Loss (ml): 200 Pathology: none Findings: 800cc of clot diffuse bleeding, mostly from dome and left lateral bladder wall Complications: none Other Other Information/Narrative: After informed consent was obtained the patient was brought to the OR and laid in the supine position. The patient was anesthetized per anesthesia protocols and prepped and draped in usual sterile fashion in the dorsolithotomy position. A formal timeout was performed reconfirming the patient and procedure and laterality. A 26F resectoscope was advanced easily per urethra into the urinary bladder. The bladder was immediately noted to have a large volume of clot. Using an Mixbook evacuator we were able to evacuate out about 800 cc of old clot. This was labor-intensive and took about an hour and 15 minutes to perform. Some of the clot was old and using the blood cautery and the bipolar setting we had to resect the clot and chop into small pieces. After all the clot was removed we could see that there was diffuse oozing from multiple spots of her bladder. Notably the dome of her bladder had approximately 2 cm superficial mucosal laceration which was cauterized for hemostasis. The left lateral bladder wall also had a patch of erythematous tissue that was oozing. Remarkably, her right lateral bladder wall biopsy site was not oozing. Given the diffuse nature of the oozing we elected to use continuous bladder irrigation to help with hemostasis and so a Uro-Jet was placed and then a 24 [place] three-way Mason catheter was placed with 10 cc in the balloon. She was placed on gentle continuous bladder irrigation. She was reversed of anesthesia and brought to PACU without further incident. She will return to the floor for further monitoring
--- NOTE | 2025-10-06 04:12 | ANESTHESIA POST OP EVALUATION ---
Anesthesia Post Eval Post Anesthesia Eval Vitals: Last Vital Signs Temp 36.7 C 10/06/25 04:01 Pulse 101 H 10/06/25 04:01 Resp 10 L 10/06/25 04:01 BP 91/72 10/06/25 04:01 Pulse Ox 100 10/06/25 04:01 O2 Flow Rate 1 10/05/25 23:53 CV Function Including HR & BP: Stable Pain Control: Satisfactory Nausea & Vomiting: Negative Mental Status: Baseline Respiratory Status: Airway Patent Hydration Status: Satisfactory Anesthesia Complications: None
[2025-10-06] MEDS: ceFAZolin (3G) 3 GM in SODIUM CHLORIDE 0.9% MINIBAG 100 ML IV ONE (04:26)
[2025-10-06 05:17] LABS: INR 1.5 (0.8-1.2); PT - PROTHROMBIN TIME 17.0 secs (9.9-12.6)
[2025-10-06 05:30] LABS: PHOSPHORUS 3.1 mg/dL (2.5-5.0)
[2025-10-06 05:31] LABS: HCT - HEMATOCRIT 30.7 % (37.0-47.0); HGB - HEMOGLOBIN 9.8 g/dL (12.0-16.0); MEAN PLATELET VOLUME 11.2 fL (7.9-10.8); NRBC ABSOLUTE COUNT (AUTO) 0.00 x10^3/uL; NUCLEATED RED BLOOD CELLS AUTO 0.0 /100WBC; PLT - PLATELET COUNT 190 10^3/uL (130-450); RED CELL DISTRIBUTION WIDTH 12.6 % (12.0-15.0)
[2025-10-06 05:46] LABS: ALT ALANINE AMINOTRANSFERASE 13 IU/L (10-60); AST ASPARTATE AMINOTRANSFERASE 11 IU/L (10-42); BUN - BLOOD UREA NITROGEN 28 mg/dL (6-20); CARBON DIOXIDE - CO2 24 mmol/L (21-32); CHOL/HDL RATIO 2.8 (<4.4); CREATININE 1.7 mg/dL (0.6-1.3); GFR - MDRD 30 (>89); LDL/HDL RATIO 1.4 (<4.4); VLDL CHOLESTEROL 14 mg/dL
[2025-10-06] MEDS: SOLIFENACIN SUCCINATE 5 MG TABLET PO SCH (09:04)
[2025-10-06] MEDS: INSULIN LISPRO 300 UNIT/3 ML PEN SUBQ SCH ×2 (09:04→21:14)
--- NOTE | 2025-10-06 09:33 | PHARMACY PROGRESS NOTE ---
Best Possible Medication History Admit Date and Time: 10/05/252112 Home Medications Medication Instructions Recorded Confirmed Type methotrexate sodium 2.5 mg tablet 5 mg ORAL SA 7 10/06/25 History trazodone 50 mg tablet 50 - 100 mg ORAL QPM PRN Ins omnia 04/10/17 10/06/25 History folic acid 1 mg tablet 1 mg PO DAILY 01/09/1910/06 History atorvastatin 10 mg tablet 10 mg PO QPM 08/01/19 History tofacitinib 11 mg tablet,extended 11 mg PO DAILY 08/0110/06/25 History release 24 hr (Xeljanz XR) glipizide 5 mg tablet (Glucotrol) 10 mg PO DAILY 08/0310/06/25 History lisinopril 5 mg tablet 2.5 mg PO DAILY 08/03/19 History cholecalciferol (vitamin D3) 25 50 mcg PO DAILY 10/06/25 History mcg (1,000 unit) capsule metoprolol succinate 50 mg 100 mg PO DAILY 04/10/21 History tablet,extended release 24 hr Saccharomyces boulardii 250 mg 1 tab PO DAILY 02/26/22 10/06/25 History capsule insulin glargine 100 unit/mL (3 30 units PO QPM 10/06/25 History mL) subcutaneous pen (Lantus Solostar U-100 Insulin) spironolactone 25 mg tablet 25 mg PO DAILY 02/26/22 History gabapentin 300 mg capsule 900 mg PO HS PRN pain (scale score 11/18/24 10/06/25 History 4-6) levothyroxine 150 mcg tablet 150 mcg PO QDAC 11/18/24 10/06/25 History acetaminophen 300 mg-codeine 30 mg 1 tab PO Q8H PRN pa in 09/17/25 10/06/25 History tablet docosahexaenoic acid (dha)-epa 1 cap PO DAILY 09/17/25 10/06/25 History capsule ferrous sulfate 325 mg (65 mg 325 mg PO WE 09/17/25 History iron) tablet (Feosol) multivitamin (Daily Multi-Vitamin 1 tab PO DAILY 09/1710/06/25 History tablet) oxycodone 5 mg tablet 5 mg PO Q4H PRN Pain #6 tabs 09/23/25 10/06/25 Rx phenazopyridine 200 mg tablet 200 mg PO TID PRN bladde r pain 9 09/23/25 10/06/25 Rx doses #9 tabs tolterodine 4 mg capsule,extended 4 mg PO Q24H #30 cap s 10/01/25 10/06/25 Rx release 24 hr rivaroxaban 20 mg tablet (Xarelto) 20 mg PO QPM 10/06/25 History Processed by: Pharmacy Medications reviewed in ED?: No Medication History completed: Yes Patient Interview: Completed Secondary Source(s): Pharmacy records and Insurance records [facility] Statement: As the person ultimately responsible for medication therapy, providers are able to order a medication from an existing home medication list in [facility] via the "Reconcile Routine" prior to Confirmation of that medication by intranet support. Such practice is discouraged except when the physician, in their clinical judgment, deems that a medical need exists for a medication without regard to previous use.
[2025-10-06] MEDS: cefTRIAXone 1 GM in SODIUM CHLORIDE 0.9% MINIBAG 100 ML IV SCH (09:59)
[2025-10-06] MEDS: LACTATED RINGERS 1,000 ML IV SCH (10:00)
--- NOTE | 2025-10-06 10:54 | PROVIDER PROGRESS NOTE ---
Subjective General Admit Date: 10/05/25 Procedure Performed: clot evac, fulguration Other Other Information/Narrative: Doing much better this morning. Urine almost clear on slow drip CBI. Pain well-controlled Exam Exam Vital Signs: Vital Signs x48h Temp Pulse Pulse Resp BP BP Pulse Ox 10/06/25 07:24 36.3 C L 91 16 86/50 L 96 10/06/25 06:24 36.0 C L 85 16 82/58 L 96 10/06/25 05:54 36.0 C L 95 16 88/58 L 95 10/06/25 05:24 36.0 C L 97 16 81/55 L 96 10/06/25 05:16 36.0 C L 89 16 83/58 L 100 10/06/25 04:53 36.0 C L 99 16 96/60 100 10/06/25 04:36 36.1 C L 104 H 16 102/61 100 10/06/25 04:18 36 C L 99 16 93/59 L 96 10/06/25 04:01 36.7 C 101 H 10 L 91/72 100 10/06/25 03:56 36.6 C 106 H 12 94/52 L 98 10/06/25 03:50 36.5 C 107 H 10 L 85/50 L 95 10/06/25 03:40 36.7 C 110 H 12 75/57 L 98 10/06/25 03:35 36.7 C 102 H 14 80/50 L 100 10/06/25 03:30 36.4 C L 103 H 14 79/57 L 100 10/06/25 03:25 36.4 C L 105 H 16 94/54 L 100 10/06/25 03:22 36.4 C L 114 H 14 93/69 100 O2 Flow Rate 10/06/25 07:24 10/06/25 06:24 10/06/25 05:54 10/06/25 05:24 10/06/25 05:16 10/06/25 04:53 2 10/06/25 04:36 2 10/06/25 04:18 2 10/06/25 04:01 10/06/25 03:56 10/06/25 03:50 10/06/25 03:40 10/06/25 03:35 10/06/25 03:30 10/06/25 03:25 10/06/25 03:22 ABX Reporting Has patient been on IV antibiotics over the past 48 hours?: Yes Impression/Plan Problem List (1) Hematuria: Plan: Gross hematuria spontaneously from Xarelto use. Doing well after clot evacuation and fulguration. Continue slow drip CBI for now. Okay to ambulate. Starting ceftriaxone given significant CBI use Likely home tomorrow after catheter removal in morning Cannot restart anticoagulation, needs to discuss alternative options with cardiology Qualifiers: Hematuria type: gross Qualified Code(s): R31.0 - Gross hematuria
[2025-10-06] MEDS: SODIUM CHLORIDE 0.9% 1,000 ML IV SCH (11:12)
[2025-10-06 12:12] LABS: HCT - HEMATOCRIT 27.4 % (37.0-47.0); HGB - HEMOGLOBIN 8.5 g/dL (12.0-16.0); MEAN PLATELET VOLUME 10.8 fL (7.9-10.8); PLT - PLATELET COUNT 167.0 10^3/uL (130-450); RED CELL DISTRIBUTION WIDTH 12.8 % (12.0-15.0)
[2025-10-06 12:27] LABS: BUN - BLOOD UREA NITROGEN 28.0 mg/dL (6-20); CARBON DIOXIDE - CO2 27.0 mmol/L (21-32); CREATININE 1.5 mg/dL (0.6-1.3); GFR - MDRD 35.0 (>89)
--- NOTE | 2025-10-06 13:55 | PROVIDER PROGRESS NOTE ---
Subjective Prog Note Date Prog Note Date: 10/06/25 Subjective Pt reports feeling: No change Current Medications Current Medications Current Medications: Current Medications Generic Name Dose Route Start Last Admin Trade Name Freq PRN Reason Stop Dose Admin Acetaminophen 650 mg 10/05/25 22:09 10/05/25 22:23 Acetaminophen 325 Mg Tablet PO 650 mg Q4HR PRN Administration Pain 1 to 4, or Fever Hydrocodone Bitart/Acetaminophen 1 tab 10/06/25 04:25 Hydrocod/Acetam 5/325 Mg Tablet PO Q4HR PRN Moderate Pain (Level 4-6) Atorvastatin Calcium 10 mg 10/06/25 21:00 Atorvastatin 10 Mg Tablet PO QPM SOLIS Belladonna Alkaloids/Opium 1 supp 10/06/25 03:09 Opium/Belladonna 60/16.2mg Suppository MD Q6HR PRN Bladder Spasms Gabapentin 1,200 mg 10/05/25 22:09 10/05/25 22:48 Gabapentin 400 Mg Capsule PO 1,200 mg HS PRN Administration pain (scale score 4-6) Hydromorphone HCl 0.5 mg 10/05/25 22:09 10/06/25 01:21 Hydromorphone 0.5 Mg/0.5 Ml Syringe IVP 0.5 mg Q2H PRN Administration Severe Pain (Level 7-10) Ceftriaxone Sodium 1 gm/ 100 mls @ 200 mls/hr 10/06/25 10:00 10/06/25 10:35 Sodium Chloride IV Infused DAILY SOLIS Infusion Sodium Chloride 1,000 mls @ 125 mls/hr 10/06/25 11:00 10/06/25 11:12 Normal Saline 0.9% IV 10/07/25 10:59 125 mls/hr .Q8H SOLIS Administration Insulin Human Lispro 1 - 5 unit 10/06/25 08:00 10/06/25 13:13 Insulin Lispro 300 Unit/3 Ml Pen SUBQ 3 unit 0800,1200,1700,2100 SOLIS Administration Protocol Ondansetron HCl 4 mg 10/05/25 22:09 Ondansetron Odt 4 Mg Tablet TL Q6HR PRN Nausea / Vomiting Ondansetron HCl 4 mg 10/06/25 04:25 Ondansetron 4 Mg/2 Ml Vial IVP Q6HR PRN Nausea / Vomiting Sodium Chloride 10 ml 10/05/25 22:09 10/06/25 01:21 Sodium Chloride Flush 0.9% 10 Ml Syringe IVP 10 ml PRN PRN Administration NEEDED PER PROVIDER ORDERS Sodium Chloride 10 ml 10/06/25 01:00 10/06/25 09:04 Sodium Chloride Flush 0.9% 10 Ml Syringe IVP 10 ml 0100,0900,1700 SOLIS Administration Solifenacin 5 mg 10/06/25 09:00 10/06/25 09:04 Solifenacin Succinate 5 Mg Tablet PO 5 mg DAILY SOLIS Administration Trazodone HCl 100 mg 10/05/25 22:09 Trazodone 50 Mg Tablet PO QPM PRN Insomnia Objective Vital Signs/Intake & Output Reviewed Vital Signs: Yes Vital Signs: Vital Signs x48h Temp Pulse Resp BP Pulse Ox 10/06/25 13:22 97.5 F L 87 16 95/58 L 97 10/06/25 07:24 97.3 F L 91 16 86/50 L 96 10/06/25 06:24 96.8 F L 85 16 82/58 L 96 10/06/25 05:54 96.8 F L 95 16 88/58 L 95 Intake & Output: Intake & Output 10/03/25 10/04/25 10/05/25 10/06/25 23:59 23:59 23:59 23:59 Intake Total 1000 / 1000 8280 / 8280 Output Total 5950 / 5950 99223 / 22250 Balance -4950 / -4950 -7870 / -7870 Weight (kg) 121.109 kg 126 kg Objective General Appearance: positive No acute distress and Alert Eyes Bilateral: positive Normal inspection Respiratory: positive Chest non-tender and No respiratory distress Cardiovascular: positive Regular rate & rhythm Abdomen: positive Non-tender (Obese) Skin: positive Color nml Extremities: positive Non-tender and Other (Trace BLE edema, baseline for her) Neurologic/Psychiatric: positive Oriented x3 Lab Results 10/06/25 12:06 10/06/25 12:06 Other Labs: Lab Results x24hrs 10/06/25 10/06/25 10/06/25 Range/Units 13:10 12:06 04:51 WBC 15.7 H (4.8-10.8) x10^3/uL RBC 2.57 L (4.20-5.40) 10^6/uL Hgb 8.5 L (12.0-16.0) g/dL Hct 27.4 L (37.0-47.0) % MCV 106.6 H (81.0-99.0) fL MCH 33.1 H (27.0-31.0) pg MCHC 31.0 L (32.0-36.0) g/dL RDW 12.8 (12.0-15.0) % Plt Count 167 (130-450) 10^3/uL MPV 10.8 (7.9-10.8) fL Neut # (Auto) (1.5-6.6) 10^3/uL Lymph # (Auto) (1.5-3.5) 10^3/uL Boundary # (Auto) (0.0-1.0) 10^3/uL Eos # (Auto) (0.0-0.7) 10^3/uL Baso # (Auto) (0.0-0.1) 10^3/uL Absolute Nucleated RBC x10^3/uL Nucleated RBC % /100WBC PT (9.9-12.6) secs INR (0.8-1.2) APTT (24.9-33.3) secs Sodium 132 L (135-145) mmol/L Potassium 4.6 H (3.5-4.5) mmol/L Chloride 102 (101-111) mmol/L Carbon Dioxide 27 (21-32) mmol/L Anion Gap 3.0 L (6-13) BUN 28 H (6-20) mg/dL Creatinine 1.5 H (0.6-1.3) mg/dL Estimated GFR (MDRD) 35 L (>89) Glucose 294 H (74-104) mg/dL POC Whole Bld Glucose 251 (70-100) mg/dL Calcium 8.1 L 8.2 L (8.5-10.3) mg/dL Phosphorus 3.1 (2.5-5.0) mg/dL Magnesium 1.8 (1.7-2.3) mg/dL Total Bilirubin 0.7 (0.2-1.0) mg/dL AST 11 (10-42) IU/L ALT 13 (10-60) IU/L Alkaline Phosphatase 60 (42-121) IU/L Total Protein 6.2 L (6.4-8.9) g/dL Albumin 3.3 (3.2-5.5) g/dL Globulin 2.9 (2.1-4.2) g/dL Albumin/Globulin Ratio 1.1 (1.0-2.2) Triglycerides 70 mg/dL Cholesterol 96 ( - 200) mg/dL LDL Cholesterol, Calc 48 ( - 129) mg/dL VLDL Cholesterol 14 mg/dL HDL Cholesterol 34 L (60 - ) mg/dL LDL/HDL Ratio 1.4 (<4.4) Cholesterol/HDL Ratio 2.8 (<4.4) Lipase (11-82) U/L TSH 0.78 (0.34-5.60) uIU/mL Blood Type Blood Type Recheck Antibody Screen 10/06/25 10/06/25 10/06/25 Range/Units 04:51 04:51 04:51 WBC (4.8-10.8) x10^3/uL RBC (4.20-5.40) 10^6/uL Hgb (12.0-16.0) g/dL Hct (37.0-47.0) % MCV (81.0-99.0) fL MCH (27.0-31.0) pg MCHC (32.0-36.0) g/dL RDW (12.0-15.0) % Plt Count (130-450) 10^3/uL MPV (7.9-10.8) fL Neut # (Auto) (1.5-6.6) 10^3/uL Lymph # (Auto) (1.5-3.5) 10^3/uL Boundary # (Auto) (0.0-1.0) 10^3/uL Eos # (Auto) (0.0-0.7) 10^3/uL Baso # (Auto) (0.0-0.1) 10^3/uL Absolute Nucleated RBC x10^3/uL Nucleated RBC % /100WBC PT (9.9-12.6) secs INR (0.8-1.2) APTT (24.9-33.3) secs Sodium (135-145) mmol/L Potassium (3.5-4.5) mmol/L Chloride (101-111) mmol/L Carbon Dioxide (21-32) mmol/L Anion Gap (6-13) BUN (6-20) mg/dL Creatinine 1.7 H (0.6-1.3) mg/dL Estimated GFR (MDRD) 30 L Cancelled (>89) Glucose 233 H Cancelled (74-104) mg/dL POC Whole Bld Glucose (70-100) mg/dL Calcium Cancelled (8.5-10.3) mg/dL Phosphorus (2.5-5.0) mg/dL Magnesium (1.7-2.3) mg/dL Total Bilirubin (0.2-1.0) mg/dL AST (10-42) IU/L ALT (10-60) IU/L Alkaline Phosphatase (42-121) IU/L Total Protein (6.4-8.9) g/dL Albumin (3.2-5.5) g/dL Globulin (2.1-4.2) g/dL Albumin/Globulin Ratio (1.0-2.2) Triglycerides mg/dL Cholesterol ( - 200) mg/dL LDL Cholesterol, Calc ( - 129) mg/dL VLDL Cholesterol mg/dL HDL Cholesterol (60 - ) mg/dL LDL/HDL Ratio (<4.4) Cholesterol/HDL Ratio (<4.4) Lipase (11-82) U/L TSH (0.34-5.60) uIU/mL Blood Type Blood Type Recheck Antibody Screen 10/06/25 10/06/25 10/06/25 Range/Units 04:51 04:51 04:51 WBC (4.8-10.8) x10^3/uL RBC (4.20-5.40) 10^6/uL Hgb (12.0-16.0) g/dL Hct (37.0-47.0) % MCV (81.0-99.0) fL MCH (27.0-31.0) pg MCHC (32.0-36.0) g/dL RDW (12.0-15.0) % Plt Count (130-450) 10^3/uL MPV (7.9-10.8) fL Neut # (Auto) (1.5-6.6) 10^3/uL Lymph # (Auto) (1.5-3.5) 10^3/uL Boundary # (Auto) (0.0-1.0) 10^3/uL Eos # (Auto) (0.0-0.7) 10^3/uL Baso # (Auto) (0.0-0.1) 10^3/uL Absolute Nucleated RBC x10^3/uL Nucleated RBC % /100WBC PT (9.9-12.6) secs INR (0.8-1.2) APTT (24.9-33.3) secs Sodium (135-145) mmol/L Potassium (3.5-4.5) mmol/L Chloride (101-111) mmol/L Carbon Dioxide 24 (21-32) mmol/L Anion Gap 6.0 Cancelled (6-13) BUN 28 H Cancelled (6-20) mg/dL Creatinine Cancelled (0.6-1.3) mg/dL Estimated GFR (MDRD) (>89) Glucose (74-104) mg/dL POC Whole Bld Glucose (70-100) mg/dL Calcium (8.5-10.3) mg/dL Phosphorus (2.5-5.0) mg/dL Magnesium (1.7-2.3) mg/dL Total Bilirubin (0.2-1.0) mg/dL AST (10-42) IU/L ALT (10-60) IU/L Alkaline Phosphatase (42-121) IU/L Total Protein (6.4-8.9) g/dL Albumin (3.2-5.5) g/dL Globulin (2.1-4.2) g/dL Albumin/Globulin Ratio (1.0-2.2) Triglycerides mg/dL Cholesterol ( - 200) mg/dL LDL Cholesterol, Calc ( - 129) mg/dL VLDL Cholesterol mg/dL HDL Cholesterol (60 - ) mg/dL LDL/HDL Ratio (<4.4) Cholesterol/HDL Ratio (<4.4) Lipase (11-82) U/L TSH (0.34-5.60) uIU/mL Blood Type Blood Type Recheck Antibody Screen 10/06/25 10/06/25 10/06/25 Range/Units 04:51 04:51 04:51 WBC (4.8-10.8) x10^3/uL RBC (4.20-5.40) 10^6/uL Hgb (12.0-16.0) g/dL Hct (37.0-47.0) % MCV (81.0-99.0) fL MCH (27.0-31.0) pg MCHC (32.0-36.0) g/dL RDW (12.0-15.0) % Plt Count (130-450) 10^3/uL MPV (7.9-10.8) fL Neut # (Auto) (1.5-6.6) 10^3/uL Lymph # (Auto) (1.5-3.5) 10^3/uL Boundary # (Auto) (0.0-1.0) 10^3/uL Eos # (Auto) (0.0-0.7) 10^3/uL Baso # (Auto) (0.0-0.1) 10^3/uL Absolute Nucleated RBC x10^3/uL Nucleated RBC % /100WBC PT (9.9-12.6) secs INR (0.8-1.2) APTT (24.9-33.3) secs Sodium 134 L (135-145) mmol/L Potassium 5.4 H Cancelled (3.5-4.5) mmol/L Chloride 104 Cancelled (101-111) mmol/L Carbon Dioxide Cancelled (21-32) mmol/L Anion Gap (6-13) BUN (6-20) mg/dL Creatinine (0.6-1.3) mg/dL Estimated GFR (MDRD) (>89) Glucose (74-104) mg/dL POC Whole Bld Glucose (70-100) mg/dL Calcium (8.5-10.3) mg/dL Phosphorus (2.5-5.0) mg/dL Magnesium (1.7-2.3) mg/dL Total Bilirubin (0.2-1.0) mg/dL AST (10-42) IU/L ALT (10-60) IU/L Alkaline Phosphatase (42-121) IU/L Total Protein (6.4-8.9) g/dL Albumin (3.2-5.5) g/dL Globulin (2.1-4.2) g/dL Albumin/Globulin Ratio (1.0-2.2) Triglycerides mg/dL Cholesterol ( - 200) mg/dL LDL Cholesterol, Calc ( - 129) mg/dL VLDL Cholesterol mg/dL HDL Cholesterol (60 - ) mg/dL LDL/HDL Ratio (<4.4) Cholesterol/HDL Ratio (<4.4) Lipase (11-82) U/L TSH (0.34-5.60) uIU/mL Blood Type Blood Type Recheck Antibody Screen 10/06/25 10/06/25 10/06/25 Range/Units 04:51 04:51 04:51 WBC (4.8-10.8) x10^3/uL RBC (4.20-5.40) 10^6/uL Hgb (12.0-16.0) g/dL Hct (37.0-47.0) % MCV (81.0-99.0) fL MCH (27.0-31.0) pg MCHC (32.0-36.0) g/dL RDW 12.6 (12.0-15.0) % Plt Count 190 Cancelled (130-450) 10^3/uL MPV 11.2 H Cancelled (7.9-10.8) fL Neut # (Auto) 13.4 H (1.5-6.6) 10^3/uL Lymph # (Auto) 0.6 L (1.5-3.5) 10^3/uL Boundary # (Auto) 0.9 (0.0-1.0) 10^3/uL Eos # (Auto) 0.1 (0.0-0.7) 10^3/uL Baso # (Auto) 0.0 (0.0-0.1) 10^3/uL Absolute Nucleated RBC 0.00 x10^3/uL Nucleated RBC % 0.0 /100WBC PT 17.0 H (9.9-12.6) secs INR 1.5 H (0.8-1.2) APTT 28.0 (24.9-33.3) secs Sodium Cancelled (135-145) mmol/L Potassium (3.5-4.5) mmol/L Chloride (101-111) mmol/L Carbon Dioxide (21-32) mmol/L Anion Gap (6-13) BUN (6-20) mg/dL Creatinine (0.6-1.3) mg/dL Estimated GFR (MDRD) (>89) Glucose (74-104) mg/dL POC Whole Bld Glucose (70-100) mg/dL Calcium (8.5-10.3) mg/dL Phosphorus (2.5-5.0) mg/dL Magnesium (1.7-2.3) mg/dL Total Bilirubin (0.2-1.0) mg/dL AST (10-42) IU/L ALT (10-60) IU/L Alkaline Phosphatase (42-121) IU/L Total Protein (6.4-8.9) g/dL Albumin (3.2-5.5) g/dL Globulin (2.1-4.2) g/dL Albumin/Globulin Ratio (1.0-2.2) Triglycerides mg/dL Cholesterol ( - 200) mg/dL LDL Cholesterol, Calc ( - 129) mg/dL VLDL Cholesterol mg/dL HDL Cholesterol (60 - ) mg/dL LDL/HDL Ratio (<4.4) Cholesterol/HDL Ratio (<4.4) Lipase (11-82) U/L TSH (0.34-5.60) uIU/mL Blood Type Blood Type Recheck Antibody Screen 10/06/25 10/06/25 10/06/25 Range/Units 04:51 04:51 04:51 WBC (4.8-10.8) x10^3/uL RBC (4.20-5.40) 10^6/uL Hgb (12.0-16.0) g/dL Hct (37.0-47.0) % MCV 106.2 H (81.0-99.0) fL MCH 33.9 H Cancelled (27.0-31.0) pg MCHC 31.9 L Cancelled (32.0-36.0) g/dL RDW Cancelled (12.0-15.0) % Plt Count (130-450) 10^3/uL MPV (7.9-10.8) fL Neut # (Auto) (1.5-6.6) 10^3/uL Lymph # (Auto) (1.5-3.5) 10^3/uL Boundary # (Auto) (0.0-1.0) 10^3/uL Eos # (Auto) (0.0-0.7) 10^3/uL Baso # (Auto) (0.0-0.1) 10^3/uL Absolute Nucleated RBC x10^3/uL Nucleated RBC % /100WBC PT (9.9-12.6) secs INR (0.8-1.2) APTT (24.9-33.3) secs Sodium (135-145) mmol/L Potassium (3.5-4.5) mmol/L Chloride (101-111) mmol/L Carbon Dioxide (21-32) mmol/L Anion Gap (6-13) BUN (6-20) mg/dL Creatinine (0.6-1.3) mg/dL Estimated GFR (MDRD) (>89) Glucose (74-104) mg/dL POC Whole Bld Glucose (70-100) mg/dL Calcium (8.5-10.3) mg/dL Phosphorus (2.5-5.0) mg/dL Magnesium (1.7-2.3) mg/dL Total Bilirubin (0.2-1.0) mg/dL AST (10-42) IU/L ALT (10-60) IU/L Alkaline Phosphatase (42-121) IU/L Total Protein (6.4-8.9) g/dL Albumin (3.2-5.5) g/dL Globulin (2.1-4.2) g/dL Albumin/Globulin Ratio (1.0-2.2) Triglycerides mg/dL Cholesterol ( - 200) mg/dL LDL Cholesterol, Calc ( - 129) mg/dL VLDL Cholesterol mg/dL HDL Cholesterol (60 - ) mg/dL LDL/HDL Ratio (<4.4) Cholesterol/HDL Ratio (<4.4) Lipase (11-82) U/L TSH (0.34-5.60) uIU/mL Blood Type Blood Type Recheck Antibody Screen 10/06/25 10/06/25 10/06/25 Range/Units 04:51 04:51 04:51 WBC (4.8-10.8) x10^3/uL RBC 2.89 L (4.20-5.40) 10^6/uL Hgb 9.8 L Cancelled (12.0-16.0) g/dL Hct 30.7 L Cancelled (37.0-47.0) % MCV Cancelled (81.0-99.0) fL MCH (27.0-31.0) pg MCHC (32.0-36.0) g/dL RDW (12.0-15.0) % Plt Count (130-450) 10^3/uL MPV (7.9-10.8) fL Neut # (Auto) (1.5-6.6) 10^3/uL Lymph # (Auto) (1.5-3.5) 10^3/uL Boundary # (Auto) (0.0-1.0) 10^3/uL Eos # (Auto) (0.0-0.7) 10^3/uL Baso # (Auto) (0.0-0.1) 10^3/uL Absolute Nucleated RBC x10^3/uL Nucleated RBC % /100WBC PT (9.9-12.6) secs INR (0.8-1.2) APTT (24.9-33.3) secs Sodium (135-145) mmol/L Potassium (3.5-4.5) mmol/L Chloride (101-111) mmol/L Carbon Dioxide (21-32) mmol/L Anion Gap (6-13) BUN (6-20) mg/dL Creatinine (0.6-1.3) mg/dL Estimated GFR (MDRD) (>89) Glucose (74-104) mg/dL POC Whole Bld Glucose (70-100) mg/dL Calcium (8.5-10.3) mg/dL Phosphorus (2.5-5.0) mg/dL Magnesium (1.7-2.3) mg/dL Total Bilirubin (0.2-1.0) mg/dL AST (10-42) IU/L ALT (10-60) IU/L Alkaline Phosphatase (42-121) IU/L Total Protein (6.4-8.9) g/dL Albumin (3.2-5.5) g/dL Globulin (2.1-4.2) g/dL Albumin/Globulin Ratio (1.0-2.2) Triglycerides mg/dL Cholesterol ( - 200) mg/dL LDL Cholesterol, Calc ( - 129) mg/dL VLDL Cholesterol mg/dL HDL Cholesterol (60 - ) mg/dL LDL/HDL Ratio (<4.4) Cholesterol/HDL Ratio (<4.4) Lipase (11-82) U/L TSH (0.34-5.60) uIU/mL Blood Type Blood Type Recheck Antibody Screen 10/06/25 10/06/25 10/06/25 Range/Units 04:51 04:51 00:11 WBC 15.0 H Cancelled (4.8-10.8) x10^3/uL RBC Cancelled (4.20-5.40) 10^6/uL Hgb (12.0-16.0) g/dL Hct (37.0-47.0) % MCV (81.0-99.0) fL MCH (27.0-31.0) pg MCHC (32.0-36.0) g/dL RDW (12.0-15.0) % Plt Count (130-450) 10^3/uL MPV (7.9-10.8) fL Neut # (Auto) (1.5-6.6) 10^3/uL Lymph # (Auto) (1.5-3.5) 10^3/uL Boundary # (Auto) (0.0-1.0) 10^3/uL Eos # (Auto) (0.0-0.7) 10^3/uL Baso # (Auto) (0.0-0.1) 10^3/uL Absolute Nucleated RBC x10^3/uL Nucleated RBC % /100WBC PT (9.9-12.6) secs INR (0.8-1.2) APTT (24.9-33.3) secs Sodium (135-145) mmol/L Potassium (3.5-4.5) mmol/L Chloride (101-111) mmol/L Carbon Dioxide (21-32) mmol/L Anion Gap (6-13) BUN (6-20) mg/dL Creatinine (0.6-1.3) mg/dL Estimated GFR (MDRD) (>89) Glucose (74-104) mg/dL POC Whole Bld Glucose 235 (70-100) mg/dL Calcium (8.5-10.3) mg/dL Phosphorus (2.5-5.0) mg/dL Magnesium (1.7-2.3) mg/dL Total Bilirubin (0.2-1.0) mg/dL AST (10-42) IU/L ALT (10-60) IU/L Alkaline Phosphatase (42-121) IU/L Total Protein (6.4-8.9) g/dL Albumin (3.2-5.5) g/dL Globulin (2.1-4.2) g/dL Albumin/Globulin Ratio (1.0-2.2) Triglycerides mg/dL Cholesterol ( - 200) mg/dL LDL Cholesterol, Calc ( - 129) mg/dL VLDL Cholesterol mg/dL HDL Cholesterol (60 - ) mg/dL LDL/HDL Ratio (<4.4) Cholesterol/HDL Ratio (<4.4) Lipase (11-82) U/L TSH (0.34-5.60) uIU/mL Blood Type Blood Type Recheck Antibody Screen 10/05/25 10/05/25 10/05/25 Range/Units 23:08 20:08 19:58 WBC 10.8 (4.8-10.8) x10^3/uL RBC 3.50 L (4.20-5.40) 10^6/uL Hgb 12.0 11.4 L (12.0-16.0) g/dL Hct 38.3 36.7 L (37.0-47.0) % MCV 104.9 H (81.0-99.0) fL MCH 32.6 H (27.0-31.0) pg MCHC 31.1 L (32.0-36.0) g/dL RDW 12.8 (12.0-15.0) % Plt Count 217 (130-450) 10^3/uL MPV 11.0 H (7.9-10.8) fL Neut # (Auto) 7.9 H (1.5-6.6) 10^3/uL Lymph # (Auto) 1.3 L (1.5-3.5) 10^3/uL Boundary # (Auto) 1.0 (0.0-1.0) 10^3/uL Eos # (Auto) 0.5 (0.0-0.7) 10^3/uL Baso # (Auto) 0.1 (0.0-0.1) 10^3/uL Absolute Nucleated RBC 0.00 x10^3/uL Nucleated RBC % 0.0 /100WBC PT 18.4 H (9.9-12.6) secs INR 1.7 H (0.8-1.2) APTT (24.9-33.3) secs Sodium 134 L (135-145) mmol/L Potassium 4.9 H (3.5-4.5) mmol/L Chloride 102 (101-111) mmol/L Carbon Dioxide 24 (21-32) mmol/L Anion Gap 8.0 (6-13) BUN 27 H (6-20) mg/dL Creatinine 1.7 H (0.6-1.3) mg/dL Estimated GFR (MDRD) 30 L (>89) Glucose 159 H (74-104) mg/dL POC Whole Bld Glucose (70-100) mg/dL Calcium 9.3 (8.5-10.3) mg/dL Phosphorus (2.5-5.0) mg/dL Magnesium (1.7-2.3) mg/dL Total Bilirubin 0.9 (0.2-1.0) mg/dL AST 15 (10-42) IU/L ALT 16 (10-60) IU/L Alkaline Phosphatase 78 (42-121) IU/L Total Protein 7.5 (6.4-8.9) g/dL Albumin 4.0 (3.2-5.5) g/dL Globulin 3.5 (2.1-4.2) g/dL Albumin/Globulin Ratio 1.1 (1.0-2.2) Triglycerides mg/dL Cholesterol ( - 200) mg/dL LDL Cholesterol, Calc ( - 129) mg/dL VLDL Cholesterol mg/dL HDL Cholesterol (60 - ) mg/dL LDL/HDL Ratio (<4.4) Cholesterol/HDL Ratio (<4.4) Lipase 17 (11-82) U/L TSH (0.34-5.60) uIU/mL Blood Type O NEGATIVE Blood Type Recheck O NEGATIVE Antibody Screen NEGATIVE Assessment/Plan Problem List (1) Bladder outflow obstruction: (2) Hematuria: Impression: Bladder outflow obstruction secondary to hematuria She has been on Xarelto for atrial fibrillation, holding for now Three-way Mason catheter placed, started on CBI Urology consulted by ER provider Underwent clot evacuation early this morning Continue CBI per urology Prophylactic Rocephin per urology Qualifiers: Hematuria type: gross Qualified Code(s): R31.0 - Gross hematuria (3) Afib: Impression: Patient is to high risk of bleeding for Xarelto use, she will need outpatient follow-up with cardiology Resume home dose metoprolol (4) JAGDISH on CPAP: Impression: CPAP (5) Diabetes mellitus, type II: Impression: SSI A1c in process Qualifiers: Diabetes mellitus complication status: with hyperglycemia Diabetes mellitus assistant terminal manager insulin use: with assistant terminal manager use Qualified Code(s): E11.65 - Type 2 diabetes mellitus with hyperglycemia; 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 Not in acute exacerbation Qualifiers: Heart failure chronicity: acute on chronic Heart failure type: u nspecified Qualified Code(s): I50.9 - Heart failure, unspecified
[2025-10-06 14:58] LABS: ESTIMATED AVERAGE GLUCOSE 183 mg/dL (70-100); HEMOGLOBIN A1c% 8.0 % (4.27-6.07)
[2025-10-06] MEDS: HYDROcod/ACETAM 5/325 MG TABLET PO PRN (16:47)
[2025-10-06] MEDS: MAGNESIUM OXIDE 400 MG TABLET PO SCH (21:14)
[2025-10-06] MEDS: ATORVASTATIN 10 MG TABLET PO SCH (21:14)
[2025-10-07 04:52] LABS: HCT - HEMATOCRIT 24.3 % (37.0-47.0); HGB - HEMOGLOBIN 7.5 g/dL (12.0-16.0); MEAN PLATELET VOLUME 11.3 fL (7.9-10.8); NRBC ABSOLUTE COUNT (AUTO) 0.00 x10^3/uL; NUCLEATED RED BLOOD CELLS AUTO 0.0 /100WBC; PLT - PLATELET COUNT 146 10^3/uL (130-450); RED CELL DISTRIBUTION WIDTH 13.0 % (12.0-15.0)
[2025-10-07 05:06] LABS: ALT ALANINE AMINOTRANSFERASE 7.0 IU/L (10-60); AST ASPARTATE AMINOTRANSFERASE 9.0 IU/L (10-42); BUN - BLOOD UREA NITROGEN 25.0 mg/dL (6-20); CARBON DIOXIDE - CO2 25.0 mmol/L (21-32); CREATININE 1.5 mg/dL (0.6-1.3); GFR - MDRD 35.0 (>89)
[2025-10-07] MEDS: LEVOTHYROXINE 75 MCG TABLET PO SCH (06:41)
--- NOTE | 2025-10-07 07:46 | PROVIDER PROGRESS NOTE ---
Subjective General Admit Date: 10/06/25 Procedure Performed: clot evac, fulguration Other Other Information/Narrative: Rossy has done well overnight. Her hematuria has completely resolved Her hemodynamics are slightly hypotensive and normal cardiac but she is beta blocked. Her hemoglobin is 7.5 which is lower than last Exam Exam Vital Signs: Vital Signs x48h Temp Pulse Resp BP Pulse Ox 10/06/25 23:51 36.6 C 89 18 97/56 L 97 nad obese clear effluent on slow drip cbi ABX Reporting Has patient been on IV antibiotics over the past 48 hours?: Yes Impression/Plan Problem List (1) Bladder outflow obstruction: (2) Hematuria: Plan: Gross hematuria spontaneously from Xarelto use. Stop CBI. Remove Mason catheter. I recommend 2 units of packed red blood cells to top up her hemoglobin. I recommend she go home today. I will have her see me in a few weeks. I will arrange this. Cannot restart anticoagulation, needs to discuss alternative options with cardiology Qualifiers: Hematuria type: gross Qualified Code(s): R31.0 - Gross hematuria (3) Afib: (4) JAGDISH on CPAP: (5) Diabetes mellitus, type II: Qualifiers: Diabetes mellitus complication status: with hyperglycemia Diabetes mellitus termite helper insulin use: with care home use Qualified Code(s): E11.65 - Type 2 diabetes mellitus with hyperglycemia; Z79.4 - halfway (current) use of insulin (6) Congestive heart failure: Qualifiers: Heart failure chronicity: acute on chronic Heart failure type: unspecified Qualified Code(s): I50.9 - Heart failure, unspecified
[2025-10-07] MEDS: SPIRONOLACTONE 25 MG TABLET PO SCH (08:29)
[2025-10-07] MEDS: FOLIC ACID 1 MG TABLET PO SCH (08:29)
[2025-10-07] MEDS: METOPROLOL SUCCINATE 50 MG TABLET PO SCH (08:29)
[2025-10-07] MEDS: INSULIN LISPRO 300 UNIT/3 ML PEN SUBQ SCH (12:40)
--- NOTE | 2025-10-07 12:40 | Discharge Summary ---
Discharge Summary Admit Date: 10/05/25 Discharge Date: 10/07/25 Discharging Provider: Moy White Primary Care Provider: Kaitlynn Calabrese Code Status: Attempt Resuscitation DIAGNOSES Discharge Diagnoses with Status of Each Condition: Bladder outflow obstructionsecondary to hematuria Hematuriastatus post cystoscopy with clot removal, secondary to Xarelto use Atrial fibrillationchronic, discontinuing Xarelto. She will need alternative stroke prevention modality JAGDISH on CPAPchronic Diabetes mellitus type 2, insulin deficientchronic HFpEFchronic HPI History of Present Illness: 70-year-old female with history of kidney stones, bladder outflow obstruction, chronic kidney disease, JAGDISH, A-fib on DOAC, diabetes, CHF who presents with urinary retention and hematuria starting today. She had bladder biopsies a few weeks ago, and was cleared to restart her Xarelto on the by Dr. Pritchett. Biopsies were not cancerous, but did show widespread inflammation throughout the bladder. She denies fevers, chills, chest pain, dyspnea, N/V/D. She does report bladder spasming, urinary retention, blood in urine. No other complaints In the ED, she was noted to be grossly hematuric, so three-way Mason catheter was placed and urology was contacted. Urology plans to take her for cystoscopy tomorrow, and requested hospitalist placed in observation for hematuria, urinary obstruction HOSPITAL COURSE Hospital Course: Patient was admitted into the hospital and started on continuous bladder irrigation. She underwent cystoscopy early in the morning on 10/06 with clot removal and fulguration. Her Xarelto has been stopped, and urology recommends that she never start this again. Patient is being discharged to follow-up with PCP as well as cardiology ALLERGIES Allergies Allergy/AdvReac Type Severity Reaction Status Date / Time rivaroxaban AdvReac Severe hematuria Verified 10/06/25 10:56 MEDICATIONS Ambulatory Orders Medication Instructions Recorded Confirmed methotrexate sodium 2.5 mg tablet 5 mg ORAL SA 7 10/06/25 trazodone 50 mg tablet 50 - 100 mg ORAL QPM PRN Ins omnia 04/10/17 10/06/25 folic acid 1 mg tablet 1 mg PO DAILY 01/09/1910/06 atorvastatin 10 mg tablet 10 mg PO QPM 08/01/19 tofacitinib 11 mg tablet,extended 11 mg PO DAILY 08/0110/06/25 release 24 hr (Xeljanz XR) glipizide 5 mg tablet (Glucotrol) 10 mg PO DAILY 08/0310/06/25 lisinopril 5 mg tablet 2.5 mg PO DAILY 08/03/19 cholecalciferol (vitamin D3) 25 50 mcg PO DAILY 10/06/25 mcg (1,000 unit) capsule metoprolol succinate 50 mg 100 mg PO DAILY 04/10/21 tablet,extended release 24 hr Saccharomyces boulardii 250 mg 1 tab PO DAILY 02/26/22 10/06/25 capsule insulin glargine 100 unit/mL (3 30 units PO QPM 10/06/25 mL) subcutaneous pen (Lantus Solostar U-100 Insulin) spironolactone 25 mg tablet 25 mg PO DAILY 02/26/22 gabapentin 300 mg capsule 900 mg PO HS PRN pain (scale score 11/18/24 10/06/25 4-6) levothyroxine 150 mcg tablet 150 mcg PO QDAC 11/18/24 10/06/25 acetaminophen 300 mg-codeine 30 mg 1 tab PO Q8H PRN pa in 09/17/25 10/06/25 tablet docosahexaenoic acid (dha)-epa 1 cap PO DAILY 09/17/25 10/06/25 capsule ferrous sulfate 325 mg (65 mg 325 mg PO WE 09/17/25 iron) tablet (Feosol) multivitamin (Daily Multi-Vitamin 1 tab PO DAILY 09/1710/06/25 tablet) oxycodone 5 mg tablet 5 mg PO Q4H PRN Pain #6 tabs 09/23/25 10/06/25 phenazopyridine 200 mg tablet 200 mg PO TID PRN bladde r pain 9 09/23/25 10/06/25 doses #9 tabs tolterodine 4 mg capsule,extended 4 mg PO Q24H #30 cap s 10/01/25 10/06/25 release 24 hr magnesium chloride 71.5 mg 71.5 mg PO BID 10/06/25 (magnesium chloride) tablet,delayed release (Slow-Mag) PHYSICAL EXAM AT DISCHARGE Vital Signs: Vital Signs x48h Temp Pulse Resp BP Pulse Ox 10/07/25 21:30 205.7 F H 69 16 100/59 L 95 10/07/25 18:10 98.1 F 62 16 92/57 L 95 10/07/25 17:55 97.7 F 89 18 94/56 L 96 10/07/25 17:33 746.4 F H 85 16 109/55 L 96 10/07/25 14:46 97.5 F L 84 16 98/57 L 98 10/07/25 14:31 97.7 F 83 16 90/54 L 98 Physical Exam Other/Comments: General Appearance: positive No acute distress and Alert Eyes Bilateral: positive Normal inspection Respiratory: positive Chest non-tender and No respiratory distress Cardiovascular: positive Regular rate & rhythm Abdomen: positive Non-tender (Obese) Skin: positive Color nml Extremities: positive Non-tender and Other (Trace BLE edema, baseline for her) Neurologic/Psychiatric: positive Oriented x3 LABS 10/07/25 04:25 10/07/25 04:25 FOLLOW UP Follow Up: PCP, urology, cardiology TIME SPENT Time Spent in Discharge (Minutes): 39 Discharge Plan Discharge Patient Disposition: Home, Self Care Condition: Serious Prescriptions: Continued methotrexate sodium 2.5 MG tablet 5 mg ORAL SA Rx Instructions: once a week ON TUESDAY trazodone 50 MG tablet 50 - 100 mg ORAL QPM PRN (Reason: Insomnia) folic acid 1 MG tablet 1 mg PO DAILY atorvastatin 10 MG tablet 10 mg PO QPM Xeljanz XR 11 MG tablet extended release 24 hr 11 mg PO DAILY lisinopril 5 MG tablet 2.5 mg PO DAILY glipizide [Glucotrol] 5 MG tablet 10 mg PO DAILY metoprolol succinate 50 MG tablet extended release 24 hr 100 mg PO DAILY cholecalciferol (vitamin D3) 25 MCG capsule 50 mcg PO DAILY insulin glargine [Lantus Solostar U-100 Insulin] 100 UNIT/ML insulin pen 30 units PO QPM spironolactone 25 MG tablet 25 mg PO DAILY Saccharomyces boulardii 250 MG capsule 1 tab PO DAILY gabapentin 300 mg capsule 900 mg PO HS PRN (Reason: pain (scale score 4-6)) levothyroxine 150 mcg tablet 150 mcg PO QDAC Patient Comments: TAKE 1 TABLET BY MOUTH ONCE DAILY acetaminophen-codeine 300-30 mg tablet 1 tab PO Q8H PRN (Reason: pain) multivitamin [Daily Multi-Vitamin] Tablet 1 tab PO DAILY docosahexaenoic acid-epa Capsule 1 cap PO DAILY ferrous sulfate [Feosol] 325 mg (65 mg iron) tablet 325 mg PO WE Rx Instructions: ONCE A WEEK phenazopyridine 200 mg tablet 200 mg PO TID PRN (Reason: bladder pain) Qty: 9 1RF oxycodone 5 mg tablet 5 mg PO Q4H PRN (Reason: Pain) Qty: 6 0RF Rx Instructions: Take with food. Do Not drive while taking medication. Slow-Mag 71.5 mg tablet,delayed release (DR/EC) 71.5 mg PO BID tolterodine 4 mg capsule,extended release 24hr 4 mg PO Q24H Qty: 30 2RF Discontinued Xarelto 20 mg tablet 20 mg PO QPM Patient Comments: TAKE 1 TABLET BY MOUTH ONCE DAILY Activity Restrictions: No Restrictions Activity Restrictions/Additional Instructions: DIET - You may resume your normal diet if there is no nausea or vomiting. You may want to avoid spicy, greasy, or heavy foods today to minimize gas. - If nausea or vomiting occurs, don't eat or drink anything for one hour. Then start drinking small amounts of clear liquids. Later, add crackers, gradually building up to your usual diet. ACTIVITY INSTRUCTIONS * Resume normal activity DISCHARGE INSTRUCTIONS * It is normal to have a little bit of blood in the urine for the next week or 2. Call for significant bleeding with clots * Call for fever greater than 100.4 Fahrenheit MEDICATIONS * Resume your normal medications. Take Tylenol as needed for pain. You may not restart your blood thinning medication Xarelto. You may start aspirin. * You must contact your ror engineer to discuss alternative options for atrial fibrillation. ANESTHESIA PRECAUTIONS Anesthesia and medications given during surgery remain in your body up to 24 hours. This may slow reaction time and/or decrease coordination. FOR THE NEXT 24 HOURS: - Have a responsible person with you - Avoid any activity that requires you to be alert and coordinated - DO NOT DRIVE a motor vehicle for 24 hours or as long as you are taking opoid pain medication - Do not drink alcoholic beverages - Do not smoke unattended Patient Date Escort Date RN Date Diet: Diabetic Health Concerns: You came into the hospital with bleeding in your urine. This is because you had recently restarted your Xarelto. You were brought into the hospital and started on continuous bladder irrigation and underwent cystoscopy. I am discharging you home, and I would like for you to stop taking your Xarelto. You will need to follow-up with primary care as well as cardiology to determine plan of care for your atrial fibrillation and stroke prevention going forward Print Language: Malian Patient Instructions: ED Blood in the Urine Stand Alone Forms: PCP List Follow-up Care: Star Pritchett MD [Provider Admit Priv/Credential, Urology] Referral Note: Dr. Pritchett's office will call you for follow-up within a month Kaitlynn Calabrese MD [Primary Care Provider, Family Practice] Vitals documented within 30 minutes of discharge?: Yes
[2025-10-07 18:13] VITALS: O2SAT 95
[2025-10-07 21:37] VITALS: BP 100/59; TEMP 205.7
[2025-10-09] MEDS ORDERED: FERROUS SULFATE 325 MG TABLET PO SCH (14:15)
== END 2025-10-07 21:50 | disposition home or self-care (01) | DRG 696 ==
LOC: MS3 18:54 → ED 18:54 → MS3 22:10
PROVIDERS: ADMIT Nurse Practitioner Acute Care; ATTEND Nurse Practitioner Acute Care
PROC: [UNRECOGNIZED PROCEDURE] (2025-10-06 02:00)